=== PATIENT | female | born 1990 | race African-American/Black ===

== ENCOUNTER 2018-03-20 09:05 | Emergency (ER) | payer OTHER ==
[2018-03-20 09:39] LABS: URINE HCG POC HCG NEGATIVE (Negative)
[2018-03-20] MEDS ORDERED: NORMAL SALINE IV (09:45)
[2018-03-20 09:50] LABS: ADD MAN DIFF? NO
[2018-03-20 09:56] LABS: BASO % 1 % (0-3); EOS # 0.1 x10^3/uL (0.0-0.7); EOS % 1 % (0-3); HEMATOCRIT 34.5 % (36.0-47.0); HEMOGLOBIN 11.4 g/dL (12.0-15.5); LYMPH # 1.8 x10^3/uL (1.0-4.8); LYMPH % 31 % (24-48); MEAN CORPUSCULAR HEMOGLOBIN 26 pg (25-35); MEAN CORPUSCULAR HGB CONC 33 g/dL (31-37); MEAN CORPUSCULAR VOLUME 79 fL (79-100); MONO # 0.4 x10^3/uL (0.0-1.1); MONO % 8 % (0-9); NEUT # 3.4 x10^3uL (1.8-7.7); NEUT % 60 % (31-73); PLATELET COUNT 259 x10^3/uL (140-400); RED CELL DISTRIBUTION WIDTH 15.1 % (11.5-14.5); WHITE BLOOD COUNT 5.7 x10^3/uL (4.0-11.0)
[2018-03-20 09:57] LABS: BILIRUBIN,URINE NEGATIVE (NEG); CLARITY,URINE CLEAR; COLOR,URINE YELLOW; GLUCOSE,URINE NEGATIVE (NEG); NITRITE,URINE NEGATIVE (NEG); PH,URINE 6.5; PROTEIN,URINE NEGATIVE (NEG-TRACE); UROBILINOGEN,URINE 0.2 mg/dL (0.2 mg/dL)
[2018-03-20 10:06] LABS: SQUAMOUS EPITHELIAL CELL,UR FEW /LPF
[2018-03-20 10:07] LABS: BACTERIA,URINE FEW /HPF (0-FEW); RBC,URINE OCC /HPF (0-2)
[2018-03-20 10:14] LABS: ANION GAP 9 (6-14); BLOOD UREA NITROGEN 7 mg/dL (7-20); BUN/CREATININE RATIO 10 (6-20); CALCIUM 8.4 mg/dL (8.5-10.1); CARBON DIOXIDE 26 mmol/L (21-32); CHLORIDE 105 mmol/L (98-107); CREATININE 0.7 mg/dL (0.6-1.0); GFR 122.4; GLUCOSE 95 mg/dL (70-99); POTASSIUM 3.8 mmol/L (3.5-5.1); SODIUM 140 mmol/L (136-145)
[2018-03-20 10:29] LABS: ALBUMIN/GLOBULIN RATIO 0.7 (1.0-1.7); ALK PHOS 63 U/L (46-116); ALT (SGPT) 26 U/L (14-59); AST (SGOT) 16 U/L (15-37); LIPASE 58 U/L (73-393); TOTAL BILIRUBIN 0.4 mg/dL (0.2-1.0); TOTAL PROTEIN 7.5 g/dL (6.4-8.2)
[2018-03-20] MEDS: IV NORMAL SALINE 1000ML BAG 1,000 ML IV (10:29)
[2018-03-22 14:35] LABS: CHLAMYDIA PROBE Positive (Negative); GC PROBE Negative (Negative)
== END 2018-03-20 12:34 | disposition home or self-care (01) ==
LOC: ER 09:05
DX: N76.0 Acute vaginitis (principal); B96.89 Other specified bacterial agents as the cause of diseases classified elsewhere; R10.13 Epigastric pain; J45.909 Unspecified asthma, uncomplicated; F17.210 Nicotine dependence, cigarettes, uncomplicated
CPT/HCPCS: 36415; 76705; 80053; 81001; 81025; 83690; 85025; 87491; 87591; 96360; 99285-25; J7030; Q0111

== ENCOUNTER 2019-03-04 14:25 | Inpatient (IN) | payer SELFPAY ==
[~2019-03-04] VITALS: Ht 172.7 cm; Wt 125.8 kg
[~2019-03-04 14:25] MED LIST: DOCU-109 PO; LIDO113G2 TP; METR500T PO; OMEP20CA10 PO; TRAM50TA PO
[2019-03-04] MEDS ORDERED: IV NORMAL SALINE 1000ML BAG 1,000 ML IV SCH (15:41)
[2019-03-04] MEDS ORDERED: ONDANSETRON PF 4 MG/2 ML VIAL. IV ONE ×2 (15:45→18:00)
[2019-03-04 16:10] LABS: CREATININE 0.9 mg/dL (0.6-1.0); GFR 90.9; POTASSIUM 3.6 mmol/L (3.5-5.1)
[2019-03-04] MEDS: MORPHINE SULFATE 4 MG/ML VIAL. IV/SQ PRN ×4 (16:10→18:49)
[2019-03-04 16:11] LABS: BASO # 0.1 x10^3/uL (0.0-0.2); BASO % 0 % (0-3); EOS % 0 % (0-3); HEMATOCRIT 34.9 % (36.0-47.0); HEMOGLOBIN 11.3 g/dL (12.0-15.5); LYMPH # 0.7 x10^3/uL (1.0-4.8); LYMPH % 5 % (24-48); MEAN CORPUSCULAR HEMOGLOBIN 25 pg (25-35); MEAN CORPUSCULAR HGB CONC 32 g/dL (31-37); MEAN CORPUSCULAR VOLUME 79 fL (79-100); MONO # 0.5 x10^3/uL (0.0-1.1); MONO % 4 % (0-9); NEUT # 12.2 x10^3uL (1.8-7.7); NEUT % 91 % (31-73); PLATELET COUNT 291 x10^3/uL (140-400); RED BLOOD COUNT 4.45 x10^6/uL (3.50-5.40); RED CELL DISTRIBUTION WIDTH 14.5 % (11.5-14.5); WHITE BLOOD COUNT 13.5 x10^3/uL (4.0-11.0)
[2019-03-04] MEDS ORDERED: IOHEXOL 300 MG/ML 100ML VIAL. IV ONE (16:15)
[2019-03-04 16:16] LABS: ALBUMIN 3.5 g/dL (3.4-5.0); ALBUMIN/GLOBULIN RATIO 0.7 (1.0-1.7); TOTAL BILIRUBIN 0.6 mg/dL (0.2-1.0); TOTAL PROTEIN 8.6 g/dL (6.4-8.2)
[2019-03-04 16:18] LABS: BILIRUBIN,URINE NEGATIVE (NEG); CLARITY,URINE CLEAR; COLOR,URINE YELLOW; NITRITE,URINE NEGATIVE (NEG); PH,URINE 6.5; PROTEIN,URINE NEGATIVE (NEG-TRACE)
[2019-03-04] MEDS ORDERED: CONTRAST GIVEN. MC PRN (16:30)
[2019-03-04 16:47] LABS: BACTERIA,URINE FEW /HPF (0-FEW); SQUAMOUS EPITHELIAL CELL,UR OCC /LPF; WBC,URINE TNTC /HPF (0-4)
--- NOTE | 2019-03-04 17:26 | RAD ---
CT ABD PELV W/ IV CONTRST ONLY Indication: abdomen pain
iv Omni 300 75 mls Exposure: One or more of the following individualized dose reduction techniques were utilized for this examination: 1. Automated exposure control 2. Adjustment of the mA and/or kV according to patient size 3. Use of iterative reconstruction technique. Technique: Intravenous contrast was given. No oral contrast per request. Small subpleural noncalcified nodule in the right lung base measures 3 mm. Liver and spleen appear unremarkable. No evidence of adrenal mass. Kidneys unremarkable. No calcified gallstone. The aorta is nonaneurysmal. No significant lymph node enlargement is identified. No evidence of acute colitis. A structure which may represents a normal appendix is identified. There is no significant small bowel distention. Trace free pelvic fluid. No evidence of pelvic mass. No evidence of pneumoperitoneum. Vertebral body height and alignment are intact. No destructive bone lesion. IMPRESSION: 1. No acute findings in the abdomen or pelvis. 2. Small 3 mm noncalcified right pulmonary nodule. As per Fleischner Society guidelines, no follow-up necessary if low risk. If high risk, follow-up CT chest in 12 months could be considered. Electronically signed by: Ashu Granger MD (03/04/2019 5:23 PM) [id number]
--- NOTE | 2019-03-04 17:30 | PHYS DOC ---
Past Medical History Past Medical History: No Pertinent History, Asthma Additional Past Medical Histor: miscarriage Past Surgical History: Other Additional Past Surgical Histo: d&c Alcohol Use: None Drug Use: None Adult General Chief Complaint Chief Complaint: ABDOMINAL PAIN HPI HPI Patient is a 29 year old presents for evaluation of diffuse lower abdominal pain since 3:00 this morning. She reports suprapubic pressure. Denies dysuria or frequency. She reports nausea and vomiting. Denies any back pain. Denies . Review of Systems Review of Systems Constitutional: Denies fever or chills [] Eyes: Denies change in visual acuity, redness, or eye pain [] HENT: Denies nasal congestion or sore throat [] Respiratory: Denies cough or shortness of breath [] Cardiovascular: No additional information not addressed in HPI [] GI:REPorts Lower abdominal pain, nausea, vomiting [] : Denies dysuria or hematuria [] Musculoskeletal: Denies back pain or joint pain [] Integument: Denies rash or skin lesions [] Neurologic: Denies headache, focal weakness or sensory changes [] Endocrine: Denies polyuria or polydipsia [] All other systems were reviewed and found to be within normal limits, except as documented in this note. Current Medications Current Medications Current Medications Medications (Trade) Dose Ordered Sig/Kev Start Time Stop Time Status Last Admin Dose Admin Ceftriaxone Sodium (Rocephin) 1 gm 1X ONCE 03/04/19 17:45 03/04/19 17:46 DC 03/04/19 17:42 1 GM Info (CONTRAST GIVEN -- Rx MONITORING) 1 each PRN DAILY PRN 03/04/19 16:30 03/06/19 16:29 Iohexol (Omnipaque 300 Mg/ml) 75 ml 1X ONCE 03/04/19 16:15 03/04/19 16:19 DC 03/04/19 16:35 75 ML Morphine Sulfate (Morphine Sulfate) 4 mg PRN Q15MIN PRN 03/04/19 15:45 03/05/19 15:44 03/04/19 18:49 4 MG Ondansetron HCl (Zofran) 4 mg 1X ONCE 03/04/19 15:45 03/04/19 15:46 DC 03/04/19 16:10 4 MG Sodium Chloride 1,000 ml @ 1,000 mls/hr Q1H 03/04/19 15:41 03/04/19 16:40 DC 03/04/19 16:14 1,000 MLS/HR Allergies Allergies Allergies Coded Allergies Type Severity Reaction Last Updated Verified No Known Drug Allergies 09/25/14 No Physical Exam Physical Exam Constitutional: Well developed, well nourished, TEARFUL, APPEARS IN PAIN [] Neck: Normal range of motion, no tenderness, supple, no stridor. [] Cardiovascular:Heart rate regular rhythm, no murmur [] Lungs & Thorax: Bilateral breath sounds clear to auscultation [] Abdomen: Bowel sounds normal, TTP SUPRAPUBIC AND RLQ, no masses, no pulsatile masses. [] Skin: Warm, dry, no erythema, no rash. [] Back: No tenderness, no CVA tenderness. [] Extremities: No tenderness, no cyanosis, no clubbing, ROM intact, no edema. [] Neurologic: Alert and oriented X 3, normal motor function, normal sensory function, no focal deficits noted. [] Psychologic: Affect normal, judgement normal, mood normal. [] Current Patient Data Vital Signs Vital Signs Date Time Temp Pulse Resp B/P (MAP) Pulse Ox O2 Delivery O2 Flow Rate FiO2 03/04/19 17:15 128 22 144/81 (102) 99 Room Air 03/04/19 16:19 100.2 100.2 Lab Values Laboratory Tests Test 03/04/19 15:55 03/04/19 15:56 White Blood Count 13.5 x10^3/uL (4.0-11.0) H Red Blood Count 4.45 x10^6/uL (3.50-5.40) Hemoglobin 11.3 g/dL (12.0-15.5) L Hematocrit 34.9 % (36.0-47.0) L Mean Corpuscular Volume 79 fL (79-100) Mean Corpuscular Hemoglobin 25 pg (25-35) Mean Corpuscular Hemoglobin Concent 32 g/dL (31-37) Red Cell Distribution Width 14.5 % (11.5-14.5) Platelet Count 291 x10^3/uL (140-400) Neutrophils (%) (Auto) 91 % (31-73) H Lymphocytes (%) (Auto) 5 % (24-48) L Monocytes (%) (Auto) 4 % (0-9) Eosinophils (%) (Auto) 0 % (0-3) Basophils (%) (Auto) 0 % (0-3) Neutrophils # (Auto) 12.2 x10^3uL (1.8-7.7) H Lymphocytes # (Auto) 0.7 x10^3/uL (1.0-4.8) L Monocytes # (Auto) 0.5 x10^3/uL (0.0-1.1) Eosinophils # (Auto) 0.0 x10^3/uL (0.0-0.7) Basophils # (Auto) 0.1 x10^3/uL (0.0-0.2) Platelet Estimate Pending Urine Color Yellow Urine Clarity Clear Urine pH 6.5 Urine Specific [place] 1.020 Urine Protein Negative mg/dL (NEG-TRACE) Urine Glucose (UA) Negative mg/dL (NEG) Urine Ketones (Stick) Negative mg/dL (NEG) Urine Blood Large (NEG) Urine Nitrite Negative (NEG) Urine Bilirubin Negative (NEG) Urine Urobilinogen Dipstick 1.0 mg/dL (0.2 mg/dL) Urine Leukocyte Esterase Large (NEG) Urine RBC 1-2 /HPF (0-2) Urine WBC Tntc /HPF (0-4) Urine Squamous Epithelial Cells Occ /LPF Urine Bacteria Few /HPF (0-FEW) Urine Mucus Mod /LPF Sodium Level 136 mmol/L (136-145) Potassium Level 3.6 mmol/L (3.5-5.1) Chloride Level 99 mmol/L (98-107) Carbon Dioxide Level 26 mmol/L (21-32) Anion Gap 11 (6-14) Blood Urea Nitrogen 8 mg/dL (7-20) Creatinine 0.9 mg/dL (0.6-1.0) Estimated GFR (Cockcroft-Gault) 90.9 BUN/Creatinine Ratio 9 (6-20) Glucose Level 103 mg/dL (70-99) H Calcium Level 9.0 mg/dL (8.5-10.1) Total Bilirubin 0.6 mg/dL (0.2-1.0) Aspartate Amino Transferase (AST) 19 U/L (15-37) Alanine Aminotransferase (ALT) 22 U/L (14-59) Alkaline Phosphatase 80 U/L (46-116) Total Protein 8.6 g/dL (6.4-8.2) H Albumin 3.5 g/dL (3.4-5.0) Albumin/Globulin Ratio 0.7 (1.0-1.7) L Lipase 48 U/L (73-393) L POC Urine HCG, Qualitative Hcg negative (Negative) Laboratory Tests 03/04/19 15:55 Laboratory Tests 03/04/19 15:55 EKG EKG [] Radiology/Procedures Radiology/Procedures [PROCEDURE: CT ABD PELV W/ IV CONTRST ONLY CT ABD PELV W/ IV CONTRST ONLY Indication: abdomen pain
iv Omni 300 75 mls Exposure: One or more of the following individualized dose reduction techniques were utilized for this examination: 1. Automated exposure control 2. Adjustment of the mA and/or kV according to patient size 3. Use of iterative reconstruction technique. Technique: Intravenous contrast was given. No oral contrast per request. Small subpleural noncalcified nodule in the right lung base measures 3 mm. Liver and spleen appear unremarkable. No evidence of adrenal mass. Kidneys unremarkable. No calcified gallstone. The aorta is nonaneurysmal. No significant lymph node enlargement is identified. No evidence of acute colitis. A structure which may represents a normal appendix is identified. There is no significant small bowel distention. Trace free pelvic fluid. No evidence of pelvic mass. No evidence of pneumoperitoneum. Vertebral body height and alignment are intact. No destructive bone lesion. IMPRESSION: 1. No acute findings in the abdomen or pelvis. 2. Small 3 mm noncalcified right pulmonary nodule. As per Fleischner Society guidelines, no follow-up necessary if low risk. If high risk, follow-up CT chest in 12 months could be considered. Electronically signed by: Ashu Granger MD (03/04/2019 5:23 PM) [id number] ] Course & Med Decision Making Course & Med Decision Making Pertinent Labs and Imaging studies reviewed. (See chart for details) [Patient is still requiring pain medications, states that she is still having a lot of suprapubic pain, her white count is elevated at 13.5, UA + infection, she was given IV Rocephin for pyelonephritis, discussed admission and patient agrees. [id number] Mauricio who accepts admission] Daniel Disclaimer Daniel Disclaimer This electronic medical record was generated, in whole or in part, using a voice recognition dictation system. Departure Departure Impression: Primary Impression: Pyelonephritis Disposition: ADMITTED INPATIENT Admitting Physician: Erin Mauricio Referrals: NO PCP (PCP) KATHARINA ALEXANDER APRN Mar 04, 2019 17:30
[2019-03-04] MEDS ORDERED: cefTRIAXone IV Push 1 GM VIAL. IVP ONE ×2 (17:45→20:30)
[2019-03-04] MEDS ORDERED: KETOROLAC 60 MG/2 ML VIAL. ONE (17:57)
[2019-03-04] MEDS ORDERED: KETOROLAC 30 MG/ML VIAL. ONE (17:58)
[2019-03-04] MEDS ORDERED: IV NORMAL SALINE 1000ML BAG 1,000 ML IV ONE ×2 (18:00)
[2019-03-04] MEDS ORDERED: ACETAMINOPHEN 650 MG SUPP.RECT. PR ONE (18:00)
[2019-03-04] MEDS ORDERED: KETOROLAC 15 MG/ML VIAL. IV ONE (18:00)
[2019-03-04] MEDS ORDERED: ONDANSETRON ODT 4 MG TAB.RAPDIS. PO PRN (18:30)
[2019-03-04] MEDS ORDERED: diphenhydrAMINE HCL 25 MG CAPSULE PO PRN (18:30)
--- NOTE | 2019-03-04 18:35 | PDOC1 ---
History and Physical Date of Admission Date of Admission DATE: 03/04/19 TIME: 18:30 Identification/Chief Complaint Chief Complaint abd pain 10 out of 10 all over Source Source: Caregiver, Chart review, Patient History of Present Illness History of Present Illness 29 yo female, BMI 43, abdominal pain today all over - lower area, maybe dysuria. No gross hematuria or urgency. History of UTI in the past. Some nausea, emesis today, bucket at bedside. no fever. Found to have UTI. urine culture drawn. Started on empiric antibiotics. Meet sepsis criteria with tachycardia 130s, leukocytosis 13.5 with fever. Does not take any home meds Past surgical history D&C No known drug allergies FAm HX non contributory Hx UTI in CT abd neg - but incidental Rt lung calcification in a non smoker - ok to observe, rpt CT in 12mos Past Medical History Cardiovascular: No pertinent hx Pulmonary: No pertinent hx GI: No pertinent hx Heme/Onc: No pertinent hx Hepatobiliary: No pertinent hx Psych: No pertinent hx Rheumatologic: No pertinent hx Infectious disease: No pertinent hx Past Surgical History Past Surgical History: Other (D and C) Family History Family History: No Significant Social History Smoke: No ALCOHOL: none Drugs: None Current Problem List Problem List Problems Medical Problems: (1) Pyelonephritis Status: Acute Current Medications Current Medications Current Medications Morphine Sulfate (Morphine Sulfate) 4 mg PRN Q15MIN PRN IV/SQ PAIN GREATER THAN 3/10 Last administered on 03/04/19at 18:14; Start 03/04/19 at 15:45; Stop 03/05/19 at 15:44 Sodium Chloride 1,000 ml @ 1,000 mls/hr Q1H IV Last administered on 03/04/19at 16:14; Start 03/04/19 at 15:41; Stop 03/04/19 at 16:40; Status DC Ondansetron HCl (Zofran) 4 mg 1X ONCE IV Last administered on 03/04/19at 16:10; Start 03/04/19 at 15:45; Stop 03/04/19 at 15:46; Status DC Iohexol (Omnipaque 300 Mg/ml) 75 ml 1X ONCE IV Last administered on 03/04/19at 16:35; Start 03/04/19 at 16:15; Stop 03/04/19 at 16:19; Status DC Info (CONTRAST GIVEN -- Rx MONITORING) 1 each PRN DAILY PRN MC SEE COMMENTS; Start 03/04/19 at 16:30; Stop 03/06/19 at 16:29 Ceftriaxone Sodium (Rocephin) 1 gm 1X ONCE IVP Last administered on 03/04/19at 17:42; Start 03/04/19 at 17:45; Stop 03/04/19 at 17:46; Status DC Sodium Chloride 1,000 ml @ 1,000 mls/hr 1X ONCE IV Last administered on 03/04/19at 18:14; Start 03/04/19 at 18:00; Stop 03/04/19 at 18:59 Ondansetron HCl (Zofran) 4 mg 1X ONCE IV Last administered on 03/04/19at 18:09; Start 03/04/19 at 18:00; Stop 03/04/19 at 18:01; Status DC Ketorolac Tromethamine (Toradol 15mg Vial) 15 mg 1X ONCE IV Last administered on 03/04/19at 18:00; Start 03/04/19 at 18:00; Stop 03/04/19 at 18:01; Status DC Sodium Chloride 1,000 ml @ 1,000 mls/hr 1X ONCE IV Last administered on 03/04/19at 18:13; Start 03/04/19 at 18:00; Stop 03/04/19 at 18:59 Ketorolac Tromethamine (Toradol Im) 60 mg STK-MED ONCE .ROUTE ; Start 03/04/19 at 17:57; Stop 03/04/19 at 17:58; Status DC Ketorolac Tromethamine (Toradol 30mg Vial) 30 mg STK-MED ONCE .ROUTE ; Start 03/04/19 at 17:58; Stop 03/04/19 at 17:59; Status DC Acetaminophen (Tylenol Supp) [address] Last administered on 03/04/19at 18:00; Start 03/04/19 at 18:00; Stop 03/04/19 at 18:01; Status DC Active Scripts Active Omeprazole 20 Mg Capsule.dr 20 Mg PO DAILY 30 Days Flagyl (Metronidazole) 500 Mg Tablet 1 Tab PO BID Tramadol Hcl 50 Mg Tablet 50 Mg PO Q6H PRN Topicaine (Lidocaine) 113 Gm Gel..gram. 113 Gm TP TID PRN Colace (Docusate Sodium) 100 Mg Capsule 100 Mg PO BID Reported No Known Medications Prior To Admisstion (Info) Each 1 Each MC Allergies Allergies: Coded Allergies: No Known Drug Allergies (Unverified , 09/25/14) ROS Review of System As per history of present illness, the rest of ROS 14 point negative Physical Exam General: Alert, Oriented X3, Cooperative, No acute distress HEENT: Atraumatic, PERRLA, EOMI Lungs: Clear to auscultation, Normal air movement Heart: S1S2, RRR, no thrills, no rubs, no gallops, no murmurs Cardiovascular: S1, S2 Breasts: Normal, Rt breast nml w/o mass, Lt breast nml w/o mass, Nipples normal Abdomen: Soft, Other (lower abdominal discomfort on palpation or at least on touching-large symptomatic magnification element) Rectal Exam: not examined PELVIC: Nml ext genitalia Extremities: No clubbing, No cyanosis, No edema, Normal pulses, No tenderness/swelling Skin: No rashes, No breakdown, No significant lesion Neuro: Normal gait, Normal speech, Strength at 5/5 X4 ext, Normal tone, Sensation intact, Cranial nerves 3-12 NL, Reflexes 2+ Psych/Mental Status: Mental status NL, Mood NL Vitals Vitals Vital Signs Date Time Temp Pulse Resp B/P (MAP) Pulse Ox O2 Delivery O2 Flow Rate FiO2 03/04/19 16:19 100.2 119 16 164/83 (110) 98 Room Air 100.2 Labs Labs Laboratory Tests Test 03/04/19 15:55 03/04/19 15:56 White Blood Count 13.5 x10^3/uL (4.0-11.0) Red Blood Count 4.45 x10^6/uL (3.50-5.40) Hemoglobin 11.3 g/dL (12.0-15.5) Hematocrit 34.9 % (36.0-47.0) Mean Corpuscular Volume 79 fL (79-100) Mean Corpuscular Hemoglobin 25 pg (25-35) Mean Corpuscular Hemoglobin Concent 32 g/dL (31-37) Red Cell Distribution Width 14.5 % (11.5-14.5) Platelet Count 291 x10^3/uL (140-400) Neutrophils (%) (Auto) 91 % (31-73) Lymphocytes (%) (Auto) 5 % (24-48) Monocytes (%) (Auto) 4 % (0-9) Eosinophils (%) (Auto) 0 % (0-3) Basophils (%) (Auto) 0 % (0-3) Neutrophils # (Auto) 12.2 x10^3uL (1.8-7.7) Lymphocytes # (Auto) 0.7 x10^3/uL (1.0-4.8) Monocytes # (Auto) 0.5 x10^3/uL (0.0-1.1) Eosinophils # (Auto) 0.0 x10^3/uL (0.0-0.7) Basophils # (Auto) 0.1 x10^3/uL (0.0-0.2) Urine Color Yellow Urine Clarity Clear Urine pH 6.5 Urine Specific [place] 1.020 Urine Protein Negative mg/dL (NEG-TRACE) Urine Glucose (UA) Negative mg/dL (NEG) Urine Ketones (Stick) Negative mg/dL (NEG) Urine Blood Large (NEG) Urine Nitrite Negative (NEG) Urine Bilirubin Negative (NEG) Urine Urobilinogen Dipstick 1.0 mg/dL (0.2 mg/dL) Urine Leukocyte Esterase Large (NEG) Urine RBC 1-2 /HPF (0-2) Urine WBC Tntc /HPF (0-4) Urine Squamous Epithelial Cells Occ /LPF Urine Bacteria Few /HPF (0-FEW) Urine Mucus Mod /LPF Sodium Level 136 mmol/L (136-145) Potassium Level 3.6 mmol/L (3.5-5.1) Chloride Level 99 mmol/L (98-107) Carbon Dioxide Level 26 mmol/L (21-32) Anion Gap 11 (6-14) Blood Urea Nitrogen 8 mg/dL (7-20) Creatinine 0.9 mg/dL (0.6-1.0) Estimated GFR (Cockcroft-Gault) 90.9 BUN/Creatinine Ratio 9 (6-20) Glucose Level 103 mg/dL (70-99) Calcium Level 9.0 mg/dL (8.5-10.1) Total Bilirubin 0.6 mg/dL (0.2-1.0) Aspartate Amino Transf (AST/SGOT) 19 U/L (15-37) Alanine Aminotransferase (ALT/SGPT) 22 U/L (14-59) Alkaline Phosphatase 80 U/L (46-116) Total Protein 8.6 g/dL (6.4-8.2) Albumin 3.5 g/dL (3.4-5.0) Albumin/Globulin Ratio 0.7 (1.0-1.7) Lipase 48 U/L (73-393) Bedside Urine HCG, Qualitative Hcg negative (Negative) Laboratory Tests Test 03/04/19 15:55 03/04/19 15:56 White Blood Count 13.5 x10^3/uL (4.0-11.0) Red Blood Count 4.45 x10^6/uL (3.50-5.40) Hemoglobin 11.3 g/dL (12.0-15.5) Hematocrit 34.9 % (36.0-47.0) Mean Corpuscular Volume 79 fL (79-100) Mean Corpuscular Hemoglobin 25 pg (25-35) Mean Corpuscular Hemoglobin Concent 32 g/dL (31-37) Red Cell Distribution Width 14.5 % (11.5-14.5) Platelet Count 291 x10^3/uL (140-400) Neutrophils (%) (Auto) 91 % (31-73) Lymphocytes (%) (Auto) 5 % (24-48) Monocytes (%) (Auto) 4 % (0-9) Eosinophils (%) (Auto) 0 % (0-3) Basophils (%) (Auto) 0 % (0-3) Neutrophils # (Auto) 12.2 x10^3uL (1.8-7.7) Lymphocytes # (Auto) 0.7 x10^3/uL (1.0-4.8) Monocytes # (Auto) 0.5 x10^3/uL (0.0-1.1) Eosinophils # (Auto) 0.0 x10^3/uL (0.0-0.7) Basophils # (Auto) 0.1 x10^3/uL (0.0-0.2) Urine Color Yellow Urine Clarity Clear Urine pH 6.5 Urine Specific [place] 1.020 Urine Protein Negative mg/dL (NEG-TRACE) Urine Glucose (UA) Negative mg/dL (NEG) Urine Ketones (Stick) Negative mg/dL (NEG) Urine Blood Large (NEG) Urine Nitrite Negative (NEG) Urine Bilirubin Negative (NEG) Urine Urobilinogen Dipstick 1.0 mg/dL (0.2 mg/dL) Urine Leukocyte Esterase Large (NEG) Urine RBC 1-2 /HPF (0-2) Urine WBC Tntc /HPF (0-4) Urine Squamous Epithelial Cells Occ /LPF Urine Bacteria Few /HPF (0-FEW) Urine Mucus Mod /LPF Sodium Level 136 mmol/L (136-145) Potassium Level 3.6 mmol/L (3.5-5.1) Chloride Level 99 mmol/L (98-107) Carbon Dioxide Level 26 mmol/L (21-32) Anion Gap 11 (6-14) Blood Urea Nitrogen 8 mg/dL (7-20) Creatinine 0.9 mg/dL (0.6-1.0) Estimated GFR (Cockcroft-Gault) 90.9 BUN/Creatinine Ratio 9 (6-20) Glucose Level 103 mg/dL (70-99) Calcium Level 9.0 mg/dL (8.5-10.1) Total Bilirubin 0.6 mg/dL (0.2-1.0) Aspartate Amino Transf (AST/SGOT) 19 U/L (15-37) Alanine Aminotransferase (ALT/SGPT) 22 U/L (14-59) Alkaline Phosphatase 80 U/L (46-116) Total Protein 8.6 g/dL (6.4-8.2) Albumin 3.5 g/dL (3.4-5.0) Albumin/Globulin Ratio 0.7 (1.0-1.7) Lipase 48 U/L (73-393) Bedside Urine HCG, Qualitative Hcg negative (Negative) VTE Prophylaxis Ordered VTE Prophylaxis Devices: Yes VTE Pharmacological Prophylaxi: Yes Assessment/Plan Assessment/Plan UTI/pyelonephritis Lower abdominal pain Obesity BMI 43 Sepsis with no organ dysfcn Plan: IVF, liquid diet then ADA T Rocephin 2 g because of weight Urine culture Pain control 2 midnights admit TYlenol for fever NO home meds to reconcile ASHELY VASQUEZ MD Mar 04, 2019 18:35
[2019-03-04] MEDS: cefTRIAXone IV Push 2 GM VIAL. IVP SCH (19:00)
[2019-03-04] MEDS: MORPHINE SULFATE 2 MG/ML VIAL. IV PRN ×2 (19:01→21:17)
[2019-03-04] MEDS ORDERED: HYDROmorphone 2 MG/ML VIAL IV ONE (19:15)
[2019-03-04 19:38] VITALS: BP 147/104
[2019-03-04 19:41] LABS: % BANDS 3 % (0-9); % LYMPHS 1 % (24-48); % MONOS 1 % (0-10); % SEGS 95 % (35-66)
[2019-03-04 19:42] LABS: PLT ESTIMATE ADEQUATE (ADEQUATE)
[2019-03-04] MEDS: HYDROcodone/APAP 5/325MG 1 TAB TABLET PO PRN (21:33)
[2019-03-04 23:00] VITALS: BP 133/88
[2019-03-05] MEDS: ACETAMINOPHEN/CODEINE 300/30MG TABLET. PO PRN ×2 (00:23→20:40)
[2019-03-05 03:00] VITALS: BP 119/77
[2019-03-05 07:00] VITALS: BP 124/77
[2019-03-05] MEDS: HYDROcodone/APAP 5/325MG 1 TAB TABLET PO PRN ×3 (07:46→17:03)
[2019-03-05] MEDS: MORPHINE SULFATE 2 MG/ML VIAL. IV PRN ×3 (07:46→17:03)
[2019-03-05 11:00] VITALS: BP 126/82
--- NOTE | 2019-03-05 11:21 | PDOC ---
PROGRESS NOTES Chief Complaint Chief Complaint Abdominal pain, dysuria History of Present Illness History of Present Illness Patient resting comfortably in bed. She states she has not had much of an appetite this morning. She complains of pain and notes that the pain medication has made her sleepy. Vitals Vitals Vital Signs Date Time Temp Pulse Resp B/P (MAP) Pulse Ox O2 Delivery O2 Flow Rate FiO2 03/05/19 08:34 20 97 Room Air 03/05/19 07:00 97.9 109 124/77 (93) 97.9 Physical Exam General: Alert, Oriented X3, Cooperative, No acute distress Heart: Normal S1, Normal S2, No murmurs, Other (tachycardic) Lungs: Clear, Other (good inspiratory effort, symmetric chest expansion) Abdomen: Soft, Other (lower abdominal tenderness) Extremities: No clubbing, No cyanosis, No edema, Normal pulses, No tenderness/swelling Skin: No rashes, No breakdown, No significant lesion Labs LABS Laboratory Tests Test 03/04/19 15:55 03/04/19 15:56 03/04/19 18:05 03/04/19 22:50 White Blood Count 13.5 x10^3/uL (4.0-11.0) Red Blood Count 4.45 x10^6/uL (3.50-5.40) Hemoglobin 11.3 g/dL (12.0-15.5) Hematocrit 34.9 % (36.0-47.0) Mean Corpuscular Volume 79 fL (79-100) Mean Corpuscular Hemoglobin 25 pg (25-35) Mean Corpuscular Hemoglobin Concent 32 g/dL (31-37) Red Cell Distribution Width 14.5 % (11.5-14.5) Platelet Count 291 x10^3/uL (140-400) Neutrophils (%) (Auto) 91 % (31-73) Lymphocytes (%) (Auto) 5 % (24-48) Monocytes (%) (Auto) 4 % (0-9) Eosinophils (%) (Auto) 0 % (0-3) Basophils (%) (Auto) 0 % (0-3) Neutrophils # (Auto) 12.2 x10^3uL (1.8-7.7) Lymphocytes # (Auto) 0.7 x10^3/uL (1.0-4.8) Monocytes # (Auto) 0.5 x10^3/uL (0.0-1.1) Eosinophils # (Auto) 0.0 x10^3/uL (0.0-0.7) Basophils # (Auto) 0.1 x10^3/uL (0.0-0.2) Segmented Neutrophils % 95 % (35-66) Band Neutrophils % 3 % (0-9) Lymphocytes % 1 % (24-48) Monocytes % 1 % (0-10) Platelet Estimate Adequate (ADEQUATE) Urine Color Yellow Urine Clarity Clear Urine pH 6.5 Urine Specific [place] 1.020 Urine Protein Negative mg/dL (NEG-TRACE) Urine Glucose (UA) Negative mg/dL (NEG) Urine Ketones (Stick) Negative mg/dL (NEG) Urine Blood Large (NEG) Urine Nitrite Negative (NEG) Urine Bilirubin Negative (NEG) Urine Urobilinogen Dipstick 1.0 mg/dL (0.2 mg/dL) Urine Leukocyte Esterase Large (NEG) Urine RBC 1-2 /HPF (0-2) Urine WBC Tntc /HPF (0-4) Urine Squamous Epithelial Cells Occ /LPF Urine Bacteria Few /HPF (0-FEW) Urine Mucus Mod /LPF Sodium Level 136 mmol/L (136-145) Potassium Level 3.6 mmol/L (3.5-5.1) Chloride Level 99 mmol/L (98-107) Carbon Dioxide Level 26 mmol/L (21-32) Anion Gap 11 (6-14) Blood Urea Nitrogen 8 mg/dL (7-20) Creatinine 0.9 mg/dL (0.6-1.0) Estimated GFR (Cockcroft-Gault) 90.9 BUN/Creatinine Ratio 9 (6-20) Glucose Level 103 mg/dL (70-99) Calcium Level 9.0 mg/dL (8.5-10.1) Total Bilirubin 0.6 mg/dL (0.2-1.0) Aspartate Amino Transf (AST/SGOT) 19 U/L (15-37) Alanine Aminotransferase (ALT/SGPT) 22 U/L (14-59) Alkaline Phosphatase 80 U/L (46-116) Total Protein 8.6 g/dL (6.4-8.2) Albumin 3.5 g/dL (3.4-5.0) Albumin/Globulin Ratio 0.7 (1.0-1.7) Lipase 48 U/L (73-393) Bedside Urine HCG, Qualitative Hcg negative (Negative) Lactic Acid Level 2.3 mmol/L (0.4-2.0) 1.3 mmol/L (0.4-2.0) Review of Systems Review of Systems Complains of pain, tiredness, decreased appetite Assessment and Plan Assessmemt and Plan Problems Medical Problems: (1) Pyelonephritis Status: Acute Assessment: UTI/Pyelonephritis Sepsis without organ dysfunction Tachycardia Leukocytosis Fevers Lactic acidosis Plan: IV Fluids - 75 cc/hr Liquid diet, advance as tolerated Rocephin 2 g q24 hrs Recheck labs in am Urine culture pending CT Abdomen negative for acute process, incidental finding of calcified pulmonary nodule in non-smoker, will need repeat CT in 12 months Pain management Monitor temperature cure Tylenol for fevers No home medications to resume Comment Review of Relevant I have reviewed the following items beth (where applicable) has been applied. Labs Laboratory Tests Test 03/04/19 15:55 03/04/19 15:56 03/04/19 18:05 03/04/19 22:50 White Blood Count 13.5 x10^3/uL (4.0-11.0) Red Blood Count 4.45 x10^6/uL (3.50-5.40) Hemoglobin 11.3 g/dL (12.0-15.5) Hematocrit 34.9 % (36.0-47.0) Mean Corpuscular Volume 79 fL (79-100) Mean Corpuscular Hemoglobin 25 pg (25-35) Mean Corpuscular Hemoglobin Concent 32 g/dL (31-37) Red Cell Distribution Width 14.5 % (11.5-14.5) Platelet Count 291 x10^3/uL (140-400) Neutrophils (%) (Auto) 91 % (31-73) Lymphocytes (%) (Auto) 5 % (24-48) Monocytes (%) (Auto) 4 % (0-9) Eosinophils (%) (Auto) 0 % (0-3) Basophils (%) (Auto) 0 % (0-3) Neutrophils # (Auto) 12.2 x10^3uL (1.8-7.7) Lymphocytes # (Auto) 0.7 x10^3/uL (1.0-4.8) Monocytes # (Auto) 0.5 x10^3/uL (0.0-1.1) Eosinophils # (Auto) 0.0 x10^3/uL (0.0-0.7) Basophils # (Auto) 0.1 x10^3/uL (0.0-0.2) Segmented Neutrophils % 95 % (35-66) Band Neutrophils % 3 % (0-9) Lymphocytes % 1 % (24-48) Monocytes % 1 % (0-10) Platelet Estimate Adequate (ADEQUATE) Urine Color Yellow Urine Clarity Clear Urine pH 6.5 Urine Specific [place] 1.020 Urine Protein Negative mg/dL (NEG-TRACE) Urine Glucose (UA) Negative mg/dL (NEG) Urine Ketones (Stick) Negative mg/dL (NEG) Urine Blood Large (NEG) Urine Nitrite Negative (NEG) Urine Bilirubin Negative (NEG) Urine Urobilinogen Dipstick 1.0 mg/dL (0.2 mg/dL) Urine Leukocyte Esterase Large (NEG) Urine RBC 1-2 /HPF (0-2) Urine WBC Tntc /HPF (0-4) Urine Squamous Epithelial Cells Occ /LPF Urine Bacteria Few /HPF (0-FEW) Urine Mucus Mod /LPF Sodium Level 136 mmol/L (136-145) Potassium Level 3.6 mmol/L (3.5-5.1) Chloride Level 99 mmol/L (98-107) Carbon Dioxide Level 26 mmol/L (21-32) Anion Gap 11 (6-14) Blood Urea Nitrogen 8 mg/dL (7-20) Creatinine 0.9 mg/dL (0.6-1.0) Estimated GFR (Cockcroft-Gault) 90.9 BUN/Creatinine Ratio 9 (6-20) Glucose Level 103 mg/dL (70-99) Calcium Level 9.0 mg/dL (8.5-10.1) Total Bilirubin 0.6 mg/dL (0.2-1.0) Aspartate Amino Transf (AST/SGOT) 19 U/L (15-37) Alanine Aminotransferase (ALT/SGPT) 22 U/L (14-59) Alkaline Phosphatase 80 U/L (46-116) Total Protein 8.6 g/dL (6.4-8.2) Albumin 3.5 g/dL (3.4-5.0) Albumin/Globulin Ratio 0.7 (1.0-1.7) Lipase 48 U/L (73-393) Bedside Urine HCG, Qualitative Hcg negative (Negative) Lactic Acid Level 2.3 mmol/L (0.4-2.0) 1.3 mmol/L (0.4-2.0) Laboratory Tests Test 03/04/19 15:55 03/04/19 15:56 03/04/19 18:05 03/04/19 22:50 White Blood Count 13.5 x10^3/uL (4.0-11.0) Red Blood Count 4.45 x10^6/uL (3.50-5.40) Hemoglobin 11.3 g/dL (12.0-15.5) Hematocrit 34.9 % (36.0-47.0) Mean Corpuscular Volume 79 fL (79-100) Mean Corpuscular Hemoglobin 25 pg (25-35) Mean Corpuscular Hemoglobin Concent 32 g/dL (31-37) Red Cell Distribution Width 14.5 % (11.5-14.5) Platelet Count 291 x10^3/uL (140-400) Neutrophils (%) (Auto) 91 % (31-73) Lymphocytes (%) (Auto) 5 % (24-48) Monocytes (%) (Auto) 4 % (0-9) Eosinophils (%) (Auto) 0 % (0-3) Basophils (%) (Auto) 0 % (0-3) Neutrophils # (Auto) 12.2 x10^3uL (1.8-7.7) Lymphocytes # (Auto) 0.7 x10^3/uL (1.0-4.8) Monocytes # (Auto) 0.5 x10^3/uL (0.0-1.1) Eosinophils # (Auto) 0.0 x10^3/uL (0.0-0.7) Basophils # (Auto) 0.1 x10^3/uL (0.0-0.2) Segmented Neutrophils % 95 % (35-66) Band Neutrophils % 3 % (0-9) Lymphocytes % 1 % (24-48) Monocytes % 1 % (0-10) Platelet Estimate Adequate (ADEQUATE) Urine Color Yellow Urine Clarity Clear Urine pH 6.5 Urine Specific [place] 1.020 Urine Protein Negative mg/dL (NEG-TRACE) Urine Glucose (UA) Negative mg/dL (NEG) Urine Ketones (Stick) Negative mg/dL (NEG) Urine Blood Large (NEG) Urine Nitrite Negative (NEG) Urine Bilirubin Negative (NEG) Urine Urobilinogen Dipstick 1.0 mg/dL (0.2 mg/dL) Urine Leukocyte Esterase Large (NEG) Urine RBC 1-2 /HPF (0-2) Urine WBC Tntc /HPF (0-4) Urine Squamous Epithelial Cells Occ /LPF Urine Bacteria Few /HPF (0-FEW) Urine Mucus Mod /LPF Sodium Level 136 mmol/L (136-145) Potassium Level 3.6 mmol/L (3.5-5.1) Chloride Level 99 mmol/L (98-107) Carbon Dioxide Level 26 mmol/L (21-32) Anion Gap 11 (6-14) Blood Urea Nitrogen 8 mg/dL (7-20) Creatinine 0.9 mg/dL (0.6-1.0) Estimated GFR (Cockcroft-Gault) 90.9 BUN/Creatinine Ratio 9 (6-20) Glucose Level 103 mg/dL (70-99) Calcium Level 9.0 mg/dL (8.5-10.1) Total Bilirubin 0.6 mg/dL (0.2-1.0) Aspartate Amino Transf (AST/SGOT) 19 U/L (15-37) Alanine Aminotransferase (ALT/SGPT) 22 U/L (14-59) Alkaline Phosphatase 80 U/L (46-116) Total Protein 8.6 g/dL (6.4-8.2) Albumin 3.5 g/dL (3.4-5.0) Albumin/Globulin Ratio 0.7 (1.0-1.7) Lipase 48 U/L (73-393) Bedside Urine HCG, Qualitative Hcg negative (Negative) Lactic Acid Level 2.3 mmol/L (0.4-2.0) 1.3 mmol/L (0.4-2.0) Medications Current Medications Morphine Sulfate (Morphine Sulfate) 4 mg PRN Q15MIN PRN IV/SQ PAIN GREATER THAN 3/10 Last administered on 03/04/19at 18:49; Start 03/04/19 at 15:45; Stop 03/05/19 at 15:44 Sodium Chloride 1,000 ml @ 1,000 mls/hr Q1H IV Last administered on 03/04/19at 16:14; Start 03/04/19 at 15:41; Stop 03/04/19 at 16:40; Status DC Ondansetron HCl (Zofran) 4 mg 1X ONCE IV Last administered on 03/04/19at 16:10; Start 03/04/19 at 15:45; Stop 03/04/19 at 15:46; Status DC Iohexol (Omnipaque 300 Mg/ml) 75 ml 1X ONCE IV Last administered on 03/04/19at 16:35; Start 03/04/19 at 16:15; Stop 03/04/19 at 16:19; Status DC Info (CONTRAST GIVEN -- Rx MONITORING) 1 each PRN DAILY PRN MC SEE COMMENTS; Start 03/04/19 at 16:30; Stop 03/06/19 at 16:29 Ceftriaxone Sodium (Rocephin) 1 gm 1X ONCE IVP Last administered on 03/04/19at 17:42; Start 03/04/19 at 17:45; Stop 03/04/19 at 17:46; Status DC Sodium Chloride 1,000 ml @ 1,000 mls/hr 1X ONCE IV Last administered on 03/04/19 18:14; Start 03/04/19 at 18:00; Stop 03/04/19 at 18:59; Status DC Ondansetron HCl (Zofran) 4 mg 1X ONCE IV Last administered on 03/04/19at 18:09; Start 03/04/19 at 18:00; Stop 03/04/19 at 18:01; Status DC Ketorolac Tromethamine (Toradol 15mg Vial) 15 mg 1X ONCE IV Last administered on 03/04/19at 18:00; Start 03/04/19 at 18:00; Stop 03/04/19 at 18:01; Status DC Sodium Chloride 1,000 ml @ 1,000 mls/hr 1X ONCE IV Last administered on 03/04/19at 18:13; Start 03/04/19 at 18:00; Stop 03/04/19 at 18:59; Status DC Ketorolac Tromethamine (Toradol Im) 60 mg STK-MED ONCE .ROUTE ; Start 03/04/19 at 17:57; Stop 03/04/19 at 17:58; Status DC Ketorolac Tromethamine (Toradol 30mg Vial) 30 mg STK-MED ONCE .ROUTE ; Start 03/04/19 at 17:58; Stop 03/04/19 at 17:59; Status DC Acetaminophen (Tylenol Supp) 650 mg 1X ONCE FL Last administered on 03/04/19at 18:00; Start 03/04/19 at 18:00; Stop 03/04/19 at 18:01; Status DC Ceftriaxone Sodium (Rocephin) 2 gm Q24H IVP ; Start 03/04/19 at 19:00 Ondansetron HCl (Zofran) 4 mg PRN Q6HRS PRN IV NAUSEA/VOMITING; Start 03/04/19 at 18:30 Ondansetron HCl (Zofran Odt) 4 mg PRN Q6HRS PRN PO NAUSEA/VOMITING; Start 03/04/19 at 18:30 Acetaminophen (Tylenol) 650 mg PRN Q6HRS PRN PO pain; Start 03/04/19 at 18:30 Acetaminophen/ Codeine Phosphate (Tylenol #3) 1 tab PRN Q6HRS PRN PO MODERATE PAIN Last administered on 03/05/19at 00:23; Start 03/04/19 at 18:30 Acetaminophen/ Hydrocodone Bitart (Lortab 5/325) 1 tab PRN Q4HRS PRN PO SEVERE PAIN Last administered on 03/05/19at 07:46; Start 03/04/19 at 18:30 Ibuprofen (Motrin) 400 mg PRN Q6HRS PRN PO INFLAMMATION; Start 03/04/19 at 18:30 Morphine Sulfate (Morphine Sulfate) 2 mg PRN Q2HR PRN IV PAIN Last administered on 03/05/19at 07:46; Start 03/04/19 at 18:30 Diphenhydramine HCl (Benadryl) 25 mg PRN QHS PRN PO INSOMNIA; Start 03/04/19 at 18:30 Hydromorphone HCl (Dilaudid) 1 mg 1X ONCE IV Last administered on 03/04/19at 19:11; Start 03/04/19 at 19:15; Stop 03/04/19 at 19:16; Status DC Ceftriaxone Sodium (Rocephin) 1 gm 1X ONCE IVP Last administered on 03/04/19at 21:39; Start 03/04/19 at 20:30; Stop 03/04/19 at 20:31; Status DC Active Scripts Active Reported No Known Medications Prior To Admisstion (Info) Each 1 Each Vitals/I & O Vital Sign - Last 24 Hours 03/04/19 03/04/19 03/04/19 03/04/19 15:36 16:10 16:16 16:19 Temp 100.2 100.2 Pulse 67 118 119 Resp 16 16 B/P (MAP) 106/60 (75) 116/70 (85) 164/83 (110) Pulse Ox 98 O2 Delivery Room Air Room Air 03/04/19 03/04/19 03/04/19 03/04/19 17:15 17:30 17:45 18:00 Temp 102.3 102.3 Pulse 128 127 124 128 Resp B/P (MAP) 144/81 (102) 141/77 (98) 139/94 (109) 144/92 (109) Pulse Ox 99 100 100 100 O2 Delivery Room Air Room Air Room Air Room Air 03/04/19 03/04/19 03/04/19 03/04/19 18:15 18:30 18:45 19:31 Temp 102.0 102.0 Pulse 130 124 132 Resp 20 B/P (MAP) 129/68 (88) 132/78 (96) 156/97 (116) Pulse Ox 100 100 99 94 O2 Delivery Room Air Room Air Room Air Room Air 03/04/19 03/04/19 03/04/19 03/04/19 19:38 20:00 21:17 21:33 Temp 102.2 102.2 Pulse 131 Resp 20 20 B/P (MAP) 147/104 (118) Pulse Ox 100 100 100 O2 Delivery Room Air Room Air Room Air Room Air 03/04/19 03/05/19 03/05/19 03/05/19 23:00 00:23 01:23 03:00 Temp 101.2 99.5 101.2 99.5 Pulse 132 110 Resp 20 18 18 20 B/P (MAP) 133/88 (103) 119/77 (91) Pulse Ox 94 94 94 96 O2 Delivery Room Air Room Air Room Air Room Air 03/05/19 03/05/19 03/05/19 03/05/19 07:00 07:46 07:46 08:00 Temp 97.9 97.9 Pulse 109 Resp 18 20 20 B/P (MAP) 124/77 (93) Pulse Ox 97 97 97 O2 Delivery Room Air Room Air Room Air Room Air 03/05/19 03/05/19 03/05/19 08:16 08:16 08:34 Resp 20 20 20 Pulse Ox 97 97 97 O2 Delivery Room Air Room Air Room Air Intake and Output 03/04/19 03/04/19 03/05/19 15:00 23:00 07:00 Intake Total 1200 ml 400 ml Output Total 400 ml Balance 1200 ml 0 ml KHOA SOLIZ III DO Mar 05, 2019 11:21
[2019-03-05] MEDS: IV NORMAL SALINE 1000ML BAG 1,000 ML IV SCH (11:49)
[2019-03-05 15:00] VITALS: BP 128/78
[2019-03-05] MEDS: cefTRIAXone IV Push 2 GM VIAL. IVP SCH (18:08)
[2019-03-05 18:51] VITALS: BP 130/72
[2019-03-05] MEDS: LACTOBACILLUS RHAMNOSUS GG 1 CAPSULE. PO SCH (20:39)
[2019-03-05] MEDS: IBUPROFEN 400 MG TABLET. PO PRN (22:47)
[2019-03-05 23:00] VITALS: BP 136/92
[2019-03-06] MEDS: IV NORMAL SALINE 1000ML BAG 1,000 ML IV SCH ×2 (00:38→15:43)
[2019-03-06] MEDS: HYDROcodone/APAP 5/325MG 1 TAB TABLET PO PRN ×4 (01:33→20:23)
[2019-03-06 02:56] VITALS: BP 129/83
[2019-03-06 07:00] VITALS: BP 128/85
[2019-03-06 07:39] LABS: BASO % 0 % (0-3); CALCIUM 8.5 mg/dL (8.5-10.1); CREATININE 0.8 mg/dL (0.6-1.0); EOS # 0.1 x10^3/uL (0.0-0.7); EOS % 1 % (0-3); GFR 104.1; HEMATOCRIT 30.6 % (36.0-47.0); LYMPH # 1.3 x10^3/uL (1.0-4.8); LYMPH % 9 % (24-48); MEAN CORPUSCULAR HEMOGLOBIN 26 pg (25-35); MEAN CORPUSCULAR HGB CONC 33 g/dL (31-37); MEAN CORPUSCULAR VOLUME 79 fL (79-100); MONO # 0.8 x10^3/uL (0.0-1.1); MONO % 6 % (0-9); NEUT # 11.8 x10^3uL (1.8-7.7); NEUT % 85 % (31-73); PLATELET COUNT 255 x10^3/uL (140-400); POTASSIUM 3.1 mmol/L (3.5-5.1); RED CELL DISTRIBUTION WIDTH 14.5 % (11.5-14.5); WHITE BLOOD COUNT 13.9 x10^3/uL (4.0-11.0)
[2019-03-06] MEDS: LACTOBACILLUS RHAMNOSUS GG 1 CAPSULE. PO SCH ×2 (08:17→20:28)
[2019-03-06] MEDS: IBUPROFEN 400 MG TABLET. PO PRN (08:20)
[2019-03-06] MEDS ORDERED: POTASSIUM CHLORIDE 20 MEQ TABLET.ER. PO ONE (09:15)
[2019-03-06 10:43] VITALS: BP 138/88
--- NOTE | 2019-03-06 12:04 | PDOC ---
PROGRESS NOTES Chief Complaint Chief Complaint Abdominal pain, dysuria History of Present Illness History of Present Illness Patient resting in bed with ice pack on her head. She complains of continued pain. Vitals Vitals Vital Signs Date Time Temp Pulse Resp B/P (MAP) Pulse Ox O2 Delivery O2 Flow Rate FiO2 03/06/19 10:43 99.3 133 138/88 (105) 85 Room Air 99.3 03/06/19 07:00 18 Physical Exam General: Alert, Oriented X3, Cooperative, No acute distress Heart: Normal S1, Normal S2, No murmurs, Other (tachycardic) Lungs: Clear, Other (good inspiratory effort, symmetric chest expansion) Abdomen: Soft, Other (lower abdominal tenderness) Extremities: No clubbing, No cyanosis, No edema, Normal pulses, No tenderness/swelling Skin: No rashes, No breakdown, No significant lesion Labs LABS Laboratory Tests Test 03/06/19 07:00 White Blood Count 13.9 x10^3/uL (4.0-11.0) Red Blood Count 3.90 x10^6/uL (3.50-5.40) Hemoglobin 10.0 g/dL (12.0-15.5) Hematocrit 30.6 % (36.0-47.0) Mean Corpuscular Volume 79 fL (79-100) Mean Corpuscular Hemoglobin 26 pg (25-35) Mean Corpuscular Hemoglobin Concent 33 g/dL (31-37) Red Cell Distribution Width 14.5 % (11.5-14.5) Platelet Count 255 x10^3/uL (140-400) Neutrophils (%) (Auto) 85 % (31-73) Lymphocytes (%) (Auto) 9 % (24-48) Monocytes (%) (Auto) 6 % (0-9) Eosinophils (%) (Auto) 1 % (0-3) Basophils (%) (Auto) 0 % (0-3) Neutrophils # (Auto) 11.8 x10^3uL (1.8-7.7) Lymphocytes # (Auto) 1.3 x10^3/uL (1.0-4.8) Monocytes # (Auto) 0.8 x10^3/uL (0.0-1.1) Eosinophils # (Auto) 0.1 x10^3/uL (0.0-0.7) Basophils # (Auto) 0.0 x10^3/uL (0.0-0.2) Sodium Level 136 mmol/L (136-145) Potassium Level 3.1 mmol/L (3.5-5.1) Chloride Level 102 mmol/L (98-107) Carbon Dioxide Level 25 mmol/L (21-32) Anion Gap 9 (6-14) Blood Urea Nitrogen 7 mg/dL (7-20) Creatinine 0.8 mg/dL (0.6-1.0) Estimated GFR (Cockcroft-Gault) 104.1 Glucose Level 98 mg/dL (70-99) Calcium Level 8.5 mg/dL (8.5-10.1) Review of Systems Review of Systems flank pain, feels like she has a fever Assessment and Plan Assessmemt and Plan Problems Medical Problems: (1) Pyelonephritis Status: Acute Assessment: UTI/Pyelonephritis Sepsis without organ dysfunction Tachycardia Leukocytosis Fevers Lactic acidosis Hypokalemia Plan: Replete K IV Fluids - 75 cc/hr Advance as tolerated Antibiotics: Rocephin 2 g q24 hrs (started 03/04) Recheck labs in am Urine culture pending CT Abdomen negative for acute process, incidental finding of calcified pulmonary nodule in non-smoker, will need repeat CT in 12 months Pain management Monitor temperature cure - 24 hr Tmax 99.3 Tylenol for fevers No home medications to resume Dispo: Plan to discharge home tomorrow Comment Review of Relevant I have reviewed the following items beth (where applicable) has been applied. Labs Laboratory Tests Test 03/04/19 15:55 03/04/19 15:56 03/04/19 18:05 03/04/19 22:50 White Blood Count 13.5 x10^3/uL (4.0-11.0) Red Blood Count 4.45 x10^6/uL (3.50-5.40) Hemoglobin 11.3 g/dL (12.0-15.5) Hematocrit 34.9 % (36.0-47.0) Mean Corpuscular Volume 79 fL (79-100) Mean Corpuscular Hemoglobin 25 pg (25-35) Mean Corpuscular Hemoglobin Concent 32 g/dL (31-37) Red Cell Distribution Width 14.5 % (11.5-14.5) Platelet Count 291 x10^3/uL (140-400) Neutrophils (%) (Auto) 91 % (31-73) Lymphocytes (%) (Auto) 5 % (24-48) Monocytes (%) (Auto) 4 % (0-9) Eosinophils (%) (Auto) 0 % (0-3) Basophils (%) (Auto) 0 % (0-3) Neutrophils # (Auto) 12.2 x10^3uL (1.8-7.7) Lymphocytes # (Auto) 0.7 x10^3/uL (1.0-4.8) Monocytes # (Auto) 0.5 x10^3/uL (0.0-1.1) Eosinophils # (Auto) 0.0 x10^3/uL (0.0-0.7) Basophils # (Auto) 0.1 x10^3/uL (0.0-0.2) Segmented Neutrophils % 95 % (35-66) Band Neutrophils % 3 % (0-9) Lymphocytes % 1 % (24-48) Monocytes % 1 % (0-10) Platelet Estimate Adequate (ADEQUATE) Urine Color Yellow Urine Clarity Clear Urine pH 6.5 Urine Specific [place] 1.020 Urine Protein Negative mg/dL (NEG-TRACE) Urine Glucose (UA) Negative mg/dL (NEG) Urine Ketones (Stick) Negative mg/dL (NEG) Urine Blood Large (NEG) Urine Nitrite Negative (NEG) Urine Bilirubin Negative (NEG) Urine Urobilinogen Dipstick 1.0 mg/dL (0.2 mg/dL) Urine Leukocyte Esterase Large (NEG) Urine RBC 1-2 /HPF (0-2) Urine WBC Tntc /HPF (0-4) Urine Squamous Epithelial Cells Occ /LPF Urine Bacteria Few /HPF (0-FEW) Urine Mucus Mod /LPF Sodium Level 136 mmol/L (136-145) Potassium Level 3.6 mmol/L (3.5-5.1) Chloride Level 99 mmol/L (98-107) Carbon Dioxide Level 26 mmol/L (21-32) Anion Gap 11 (6-14) Blood Urea Nitrogen 8 mg/dL (7-20) Creatinine 0.9 mg/dL (0.6-1.0) Estimated GFR (Cockcroft-Gault) 90.9 BUN/Creatinine Ratio 9 (6-20) Glucose Level 103 mg/dL (70-99) Calcium Level 9.0 mg/dL (8.5-10.1) Total Bilirubin 0.6 mg/dL (0.2-1.0) Aspartate Amino Transf (AST/SGOT) 19 U/L (15-37) Alanine Aminotransferase (ALT/SGPT) 22 U/L (14-59) Alkaline Phosphatase 80 U/L (46-116) Total Protein 8.6 g/dL (6.4-8.2) Albumin 3.5 g/dL (3.4-5.0) Albumin/Globulin Ratio 0.7 (1.0-1.7) Lipase 48 U/L (73-393) Bedside Urine HCG, Qualitative Hcg negative (Negative) Lactic Acid Level 2.3 mmol/L (0.4-2.0) 1.3 mmol/L (0.4-2.0) Test 03/06/19 07:00 White Blood Count 13.9 x10^3/uL (4.0-11.0) Red Blood Count 3.90 x10^6/uL (3.50-5.40) Hemoglobin 10.0 g/dL (12.0-15.5) Hematocrit 30.6 % (36.0-47.0) Mean Corpuscular Volume 79 fL (79-100) Mean Corpuscular Hemoglobin 26 pg (25-35) Mean Corpuscular Hemoglobin Concent 33 g/dL (31-37) Red Cell Distribution Width 14.5 % (11.5-14.5) Platelet Count 255 x10^3/uL (140-400) Neutrophils (%) (Auto) 85 % (31-73) Lymphocytes (%) (Auto) 9 % (24-48) Monocytes (%) (Auto) 6 % (0-9) Eosinophils (%) (Auto) 1 % (0-3) Basophils (%) (Auto) 0 % (0-3) Neutrophils # (Auto) 11.8 x10^3uL (1.8-7.7) Lymphocytes # (Auto) 1.3 x10^3/uL (1.0-4.8) Monocytes # (Auto) 0.8 x10^3/uL (0.0-1.1) Eosinophils # (Auto) 0.1 x10^3/uL (0.0-0.7) Basophils # (Auto) 0.0 x10^3/uL (0.0-0.2) Sodium Level 136 mmol/L (136-145) Potassium Level 3.1 mmol/L (3.5-5.1) Chloride Level 102 mmol/L (98-107) Carbon Dioxide Level 25 mmol/L (21-32) Anion Gap 9 (6-14) Blood Urea Nitrogen 7 mg/dL (7-20) Creatinine 0.8 mg/dL (0.6-1.0) Estimated GFR (Cockcroft-Gault) 104.1 Glucose Level 98 mg/dL (70-99) Calcium Level 8.5 mg/dL (8.5-10.1) Laboratory Tests Test 03/06/19 07:00 White Blood Count 13.9 x10^3/uL (4.0-11.0) Red Blood Count 3.90 x10^6/uL (3.50-5.40) Hemoglobin 10.0 g/dL (12.0-15.5) Hematocrit 30.6 % (36.0-47.0) Mean Corpuscular Volume 79 fL (79-100) Mean Corpuscular Hemoglobin 26 pg (25-35) Mean Corpuscular Hemoglobin Concent 33 g/dL (31-37) Red Cell Distribution Width 14.5 % (11.5-14.5) Platelet Count 255 x10^3/uL (140-400) Neutrophils (%) (Auto) 85 % (31-73) Lymphocytes (%) (Auto) 9 % (24-48) Monocytes (%) (Auto) 6 % (0-9) Eosinophils (%) (Auto) 1 % (0-3) Basophils (%) (Auto) 0 % (0-3) Neutrophils # (Auto) 11.8 x10^3uL (1.8-7.7) Lymphocytes # (Auto) 1.3 x10^3/uL (1.0-4.8) Monocytes # (Auto) 0.8 x10^3/uL (0.0-1.1) Eosinophils # (Auto) 0.1 x10^3/uL (0.0-0.7) Basophils # (Auto) 0.0 x10^3/uL (0.0-0.2) Sodium Level 136 mmol/L (136-145) Potassium Level 3.1 mmol/L (3.5-5.1) Chloride Level 102 mmol/L (98-107) Carbon Dioxide Level 25 mmol/L (21-32) Anion Gap 9 (6-14) Blood Urea Nitrogen 7 mg/dL (7-20) Creatinine 0.8 mg/dL (0.6-1.0) Estimated GFR (Cockcroft-Gault) 104.1 Glucose Level 98 mg/dL (70-99) Calcium Level 8.5 mg/dL (8.5-10.1) Medications Current Medications Morphine Sulfate (Morphine Sulfate) 4 mg PRN Q15MIN PRN IV/SQ PAIN GREATER THAN 3/10 Last administered on 03/04/19at 18:49; Start 03/04/19 at 15:45; Stop 03/05/19 at 15:44; Status DC Sodium Chloride 1,000 ml @ 1,000 mls/hr Q1H IV Last administered on 03/04/19at 16:14; Start 03/04/19 at 15:41; Stop 03/04/19 at 16:40; Status DC Ondansetron HCl (Zofran) 4 mg 1X ONCE IV Last administered on 03/04/19at 16:10; Start 03/04/19 at 15:45; Stop 03/04/19 at 15:46; Status DC Iohexol (Omnipaque 300 Mg/ml) 75 ml 1X ONCE IV Last administered on 03/04/19at 16:35; Start 03/04/19 at 16:15; Stop 03/04/19 at 16:19; Status DC Info (CONTRAST GIVEN -- Rx MONITORING) 1 each PRN DAILY PRN MC SEE COMMENTS; Start 03/04/19 at 16:30; Stop 03/06/19 at 16:29 Ceftriaxone Sodium (Rocephin) 1 gm 1X ONCE IVP Last administered on 03/04/19at 17:42; Start 03/04/19 at 17:45; Stop 03/04/19 at 17:46; Status DC Sodium Chloride 1,000 ml @ 1,000 mls/hr 1X ONCE IV Last administered on at 18:14; Start 03/04/19 at 18:00; Stop 03/04/19 at 18:59; Status DC Ondansetron HCl (Zofran) 4 mg 1X ONCE IV Last administered on 03/04/19at 18:09; Start 03/04/19 at 18:00; Stop 03/04/19 at 18:01; Status DC Ketorolac Tromethamine (Toradol 15mg Vial) 15 mg 1X ONCE IV Last administered on 03/04/19at 18:00; Start 03/04/19 at 18:00; Stop 03/04/19 at 18:01; Status DC Sodium Chloride 1,000 ml @ 1,000 mls/hr 1X ONCE IV Last administered on 03/04/19at 18:13; Start 03/04/19 at 18:00; Stop 03/04/19 at 18:59; Status DC Ketorolac Tromethamine (Toradol Im) 60 mg STK-MED ONCE .ROUTE ; Start 03/04/19 at 17:57; Stop 03/04/19 at 17:58; Status DC Ketorolac Tromethamine (Toradol 30mg Vial) 30 mg STK-MED ONCE .ROUTE ; Start 03/04/19 at 17:58; Stop 03/04/19 at 17:59; Status DC Acetaminophen (Tylenol Supp) 650 mg 1X ONCE ID Last administered on 03/04/19at 18:00; Start 03/04/19 at 18:00; Stop 03/04/19 at 18:01; Status DC Ceftriaxone Sodium (Rocephin) 2 gm Q24H IVP Last administered on 03/05/19at 18:08; Start 03/04/19 at 19:00 Ondansetron HCl (Zofran) 4 mg PRN Q6HRS PRN IV NAUSEA/VOMITING; Start 03/04/19 at 18:30 Ondansetron HCl (Zofran Odt) 4 mg PRN Q6HRS PRN PO NAUSEA/VOMITING; Start 03/04/19 at 18:30 Acetaminophen (Tylenol) 650 mg PRN Q6HRS PRN PO pain; Start 03/04/19 at 18:30 Acetaminophen/ Codeine Phosphate (Tylenol #3) 1 tab PRN Q6HRS PRN PO MODERATE PAIN Last administered on 03/05/19at 20:40; Start 03/04/19 at 18:30 Acetaminophen/ Hydrocodone Bitart (Lortab 5/325) 1 tab PRN Q4HRS PRN PO SEVERE PAIN Last administered on 03/06/19 08:21; Start 03/04/19 at 18:30 Ibuprofen (Motrin) 400 mg PRN Q6HRS PRN PO INFLAMMATION Last administered on 03/06/19 08:20; Start 03/04/19 at 18:30 Morphine Sulfate (Morphine Sulfate) 2 mg PRN Q2HR PRN IV PAIN Last administered on 03/05/19 17:03; Start 03/04/19 at 18:30 Diphenhydramine HCl (Benadryl) 25 mg PRN QHS PRN PO INSOMNIA; Start 03/04/19 at 18:30 Hydromorphone HCl (Dilaudid) 1 mg 1X ONCE IV Last administered on 03/04/19 19:11; Start 03/04/19 at 19:15; Stop 03/04/19 at 19:16; Status DC Ceftriaxone Sodium (Rocephin) 1 gm 1X ONCE IVP Last administered on 03/04/19at 21:39; Start 03/04/19 at 20:30; Stop 03/04/19 at 20:31; Status DC Sodium Chloride 1,000 ml @ 75 mls/hr [id number] IV Last administered on 03/06/19 00:38; Start 03/05/19 at 11:30 Lactobacillus Rhamnosus (Culturelle) 1 cap BID PO Last administered on 03/06/19 08:17; Start 03/05/19 at 21:00 Potassium Chloride (Klor-Con) 40 meq 1X ONCE PO ; Start 03/06/19 at 09:15; Stop 03/06/19 at 09:23; Status DC Active Scripts Active Reported No Known Medications Prior To Admisstion (Info) Each 1 Each Vitals/I & O Vital Sign - Last 24 Hours 03/05/19 03/05/19 03/05/19 03/05/19 15:00 17:03 17:03 17:22 Temp 97.8 97.8 Pulse 104 Resp 18 20 20 18 B/P (MAP) 128/78 (95) Pulse Ox 95 95 95 95 O2 Delivery Room Air Room Air Room Air Room Air 03/05/19 03/05/19 03/05/19 03/05/19 18:51 20:00 20:40 21:40 Temp 97.9 97.9 Pulse 102 Resp 18 20 20 B/P (MAP) 130/72 (91) Pulse Ox 95 95 95 O2 Delivery Room Air Room Air Room Air Room Air 03/05/19 03/06/19 03/06/19 03/06/19 23:00 01:33 02:33 02:56 Temp 100.2 98.8 100.2 98.8 Pulse 90 88 Resp 16 20 18 18 B/P (MAP) 136/92 (107) 129/83 (98) Pulse Ox 91 91 92 90 O2 Delivery Room Air Room Air Room Air Room Air 03/06/19 03/06/19 03/06/19 03/06/19 07:00 08:00 08:21 10:43 Temp 98.2 99.3 98.2 99.3 Pulse 92 133 Resp 18 B/P (MAP) 128/85 (99) 138/88 (105) Pulse Ox 92 92 85 O2 Delivery Room Air Room Air Room Air Room Air Intake and Output 03/05/19 03/05/19 03/06/19 15:00 23:00 07:00 Intake Total 360 ml 360 ml 120 ml Output Total 200 ml Balance 160 ml 360 ml 120 ml KHOA SOLIZ III DO Mar 06, 2019 12:04
[2019-03-06 15:00] VITALS: BP 123/81
[2019-03-06 19:00] VITALS: BP 120/78
[2019-03-06] MEDS: cefTRIAXone IV Push 2 GM VIAL. IVP SCH (20:24)
[2019-03-06] MEDS: ACETAMINOPHEN 325 MG TABLET. PO PRN (22:46)
[2019-03-06 23:00] VITALS: BP 149/95
[2019-03-06] MEDS: MORPHINE SULFATE 2 MG/ML VIAL. IV PRN (23:43)
[2019-03-07] VITALS (7 sets, daily range): BP systolic 126–151; BP diastolic 78–100
[2019-03-07] MEDS ORDERED: IV RINGERS,LACTATED 1000ML 1,000 ML IV ONE (02:00)
[2019-03-07] MEDS: HYDROcodone/APAP 5/325MG 1 TAB TABLET PO PRN ×3 (02:11→22:35)
[2019-03-07] MEDS: IBUPROFEN 400 MG TABLET. PO PRN ×2 (02:12→22:35)
[2019-03-07] MEDS: IV NORMAL SALINE 1000ML BAG 1,000 ML IV SCH ×4 (03:22→23:20)
[2019-03-07 04:27] LABS: BASO % 0 % (0-3); EOS # 0.1 x10^3/uL (0.0-0.7); EOS % 1 % (0-3); HEMATOCRIT 36.3 % (36.0-47.0); HEMOGLOBIN 11.1 g/dL (12.0-15.5); LYMPH # 2.3 x10^3/uL (1.0-4.8); LYMPH % 18 % (24-48); MEAN CORPUSCULAR HEMOGLOBIN 25 pg (25-35); MEAN CORPUSCULAR HGB CONC 31 g/dL (31-37); MEAN CORPUSCULAR VOLUME 82 fL (79-100); MONO # 1.1 x10^3/uL (0.0-1.1); MONO % 8 % (0-9); NEUT # 9.7 x10^3uL (1.8-7.7); NEUT % 73 % (31-73); PLATELET COUNT 228 x10^3/uL (140-400); RED BLOOD COUNT 4.44 x10^6/uL (3.50-5.40); WHITE BLOOD COUNT 13.3 x10^3/uL (4.0-11.0)
[2019-03-07 04:45] LABS: CALCIUM 8.4 mg/dL (8.5-10.1); CREATININE 0.7 mg/dL (0.6-1.0); GFR 121.5; POTASSIUM 3.7 mmol/L (3.5-5.1)
[2019-03-07] MEDS: LACTOBACILLUS RHAMNOSUS GG 1 CAPSULE. PO SCH ×2 (07:53→20:05)
[2019-03-07] MEDS: MORPHINE SULFATE 2 MG/ML VIAL. IV PRN ×4 (07:56→20:06)
--- NOTE | 2019-03-07 09:54 | PDOC ---
PROGRESS NOTES Chief Complaint Chief Complaint Abdominal pain, dysuria History of Present Illness History of Present Illness Patient resting comfortably in bed, complains of right sided abdominal and back pain. Fevers overnight. Vitals Vitals Vital Signs Date Time Temp Pulse Resp B/P (MAP) Pulse Ox O2 Delivery O2 Flow Rate FiO2 03/07/19 08:37 Nasal Cannula 03/07/19 07:00 97.9 133 20 128/78 (95) 92 2.0 97.9 Physical Exam General: Alert, Oriented X3, Cooperative, No acute distress Heart: Normal S1, Normal S2, No murmurs, Other (tachycardic) Lungs: Clear, Other (good inspiratory effort, symmetric chest expansion) Abdomen: Soft, Other (lower abdominal tenderness) Extremities: No clubbing, No cyanosis, No edema, Normal pulses, No tendern ess/swelling Skin: No rashes, No breakdown, No significant lesion Labs LABS Laboratory Tests Test 03/07/19 02:55 White Blood Count 13.3 x10^3/uL (4.0-11.0) Red Blood Count 4.44 x10^6/uL (3.50-5.40) Hemoglobin 11.1 g/dL (12.0-15.5) Hematocrit 36.3 % (36.0-47.0) Mean Corpuscular Volume 82 fL (79-100) Mean Corpuscular Hemoglobin 25 pg (25-35) Mean Corpuscular Hemoglobin Concent 31 g/dL (31-37) Red Cell Distribution Width 15.0 % (11.5-14.5) Platelet Count 228 x10^3/uL (140-400) Neutrophils (%) (Auto) 73 % (31-73) Lymphocytes (%) (Auto) 18 % (24-48) Monocytes (%) (Auto) 8 % (0-9) Eosinophils (%) (Auto) 1 % (0-3) Basophils (%) (Auto) 0 % (0-3) Neutrophils # (Auto) 9.7 x10^3uL (1.8-7.7) Lymphocytes # (Auto) 2.3 x10^3/uL (1.0-4.8) Monocytes # (Auto) 1.1 x10^3/uL (0.0-1.1) Eosinophils # (Auto) 0.1 x10^3/uL (0.0-0.7) Basophils # (Auto) 0.0 x10^3/uL (0.0-0.2) Sodium Level 132 mmol/L (136-145) Potassium Level 3.7 mmol/L (3.5-5.1) Chloride Level 103 mmol/L (98-107) Carbon Dioxide Level 18 mmol/L (21-32) Anion Gap 11 (6-14) Blood Urea Nitrogen 6 mg/dL (7-20) Creatinine 0.7 mg/dL (0.6-1.0) Estimated GFR (Cockcroft-Gault) 121.5 Glucose Level 97 mg/dL (70-99) Calcium Level 8.4 mg/dL (8.5-10.1) Review of Systems Review of Systems fever, abdominal and back pain Assessment and Plan Assessmemt and Plan Problems Medical Problems: (1) Pyelonephritis Status: Acute Assessment: UTI/Pyelonephritis Sepsis without organ dysfunction Tachycardia Leukocytosis Fevers Lactic acidosis Hypokalemia - resolved Plan: Consult ID - stable but continues to meet sepsis criteria (WBC 13.3, T101.4, HR 143, RR 24 this am) on day 3 of antibiotics Change IVF from 150 cc/hr to 75 cc/hr Advance as tolerated Antibiotics: Rocephin 2 g q24 hrs (03/04- ) Micro: UCx - group B strep Monitor temperature cure - 24 hr Tmax 101.4 Tylenol for fevers Recheck labs in am Replete potassium as needed CT Abdomen negative for acute process, incidental finding of calcified pulmonary nodule in non-smoker, will need repeat CT in 12 months Pain management PT/OT No home medications to resume Dispo: Await ID input Comment Review of Relevant I have reviewed the following items beth (where applicable) has been applied. Labs Laboratory Tests Test 03/06/19 07:00 03/07/19 02:55 White Blood Count 13.9 x10^3/uL (4.0-11.0) 13.3 x10^3/uL (4.0-11.0) Red Blood Count 3.90 x10^6/uL (3.50-5.40) 4.44 x10^6/uL (3.50-5.40) Hemoglobin 10.0 g/dL (12.0-15.5) 11.1 g/dL (12.0-15.5) Hematocrit 30.6 % (36.0-47.0) 36.3 % (36.0-47.0) Mean Corpuscular Volume 79 fL (79-100) 82 fL (79-100) Mean Corpuscular Hemoglobin 26 pg (25-35) 25 pg (25-35) Mean Corpuscular Hemoglobin Concent 33 g/dL (31-37) 31 g/dL (31-37) Red Cell Distribution Width 14.5 % (11.5-14.5) 15.0 % (11.5-14.5) Platelet Count 255 x10^3/uL (140-400) 228 x10^3/uL (140-400) Neutrophils (%) (Auto) 85 % (31-73) 73 % (31-73) Lymphocytes (%) (Auto) 9 % (24-48) 18 % (24-48) Monocytes (%) (Auto) 6 % (0-9) 8 % (0-9) Eosinophils (%) (Auto) 1 % (0-3) 1 % (0-3) Basophils (%) (Auto) 0 % (0-3) 0 % (0-3) Neutrophils # (Auto) 11.8 x10^3uL (1.8-7.7) 9.7 x10^3uL (1.8-7.7) Lymphocytes # (Auto) 1.3 x10^3/uL (1.0-4.8) 2.3 x10^3/uL (1.0-4.8) Monocytes # (Auto) 0.8 x10^3/uL (0.0-1.1) 1.1 x10^3/uL (0.0-1.1) Eosinophils # (Auto) 0.1 x10^3/uL (0.0-0.7) 0.1 x10^3/uL (0.0-0.7) Basophils # (Auto) 0.0 x10^3/uL (0.0-0.2) 0.0 x10^3/uL (0.0-0.2) Sodium Level 136 mmol/L (136-145) 132 mmol/L (136-145) Potassium Level 3.1 mmol/L (3.5-5.1) 3.7 mmol/L (3.5-5.1) Chloride Level 102 mmol/L (98-107) 103 mmol/L (98-107) Carbon Dioxide Level 25 mmol/L (21-32) 18 mmol/L (21-32) Anion Gap 9 (6-14) 11 (6-14) Blood Urea Nitrogen 7 mg/dL (7-20) 6 mg/dL (7-20) Creatinine 0.8 mg/dL (0.6-1.0) 0.7 mg/dL (0.6-1.0) Estimated GFR (Cockcroft-Gault) 104.1 121.5 Glucose Level 98 mg/dL (70-99) 97 mg/dL (70-99) Calcium Level 8.5 mg/dL (8.5-10.1) 8.4 mg/dL (8.5-10.1) Laboratory Tests Test 03/07/19 02:55 White Blood Count 13.3 x10^3/uL (4.0-11.0) Red Blood Count 4.44 x10^6/uL (3.50-5.40) Hemoglobin 11.1 g/dL (12.0-15.5) Hematocrit 36.3 % (36.0-47.0) Mean Corpuscular Volume 82 fL (79-100) Mean Corpuscular Hemoglobin 25 pg (25-35) Mean Corpuscular Hemoglobin Concent 31 g/dL (31-37) Red Cell Distribution Width 15.0 % (11.5-14.5) Platelet Count 228 x10^3/uL (140-400) Neutrophils (%) (Auto) 73 % (31-73) Lymphocytes (%) (Auto) 18 % (24-48) Monocytes (%) (Auto) 8 % (0-9) Eosinophils (%) (Auto) 1 % (0-3) Basophils (%) (Auto) 0 % (0-3) Neutrophils # (Auto) 9.7 x10^3uL (1.8-7.7) Lymphocytes # (Auto) 2.3 x10^3/uL (1.0-4.8) Monocytes # (Auto) 1.1 x10^3/uL (0.0-1.1) Eosinophils # (Auto) 0.1 x10^3/uL (0.0-0.7) Basophils # (Auto) 0.0 x10^3/uL (0.0-0.2) Sodium Level 132 mmol/L (136-145) Potassium Level 3.7 mmol/L (3.5-5.1) Chloride Level 103 mmol/L (98-107) Carbon Dioxide Level 18 mmol/L (21-32) Anion Gap 11 (6-14) Blood Urea Nitrogen 6 mg/dL (7-20) Creatinine 0.7 mg/dL (0.6-1.0) Estimated GFR (Cockcroft-Gault) 121.5 Glucose Level 97 mg/dL (70-99) Calcium Level 8.4 mg/dL (8.5-10.1) Microbiology 03/04/19 Urine Culture - Final, Complete 03/04/19 Urine Culture Result 1 (NICHELLE) - Final, Complete Medications Current Medications Morphine Sulfate (Morphine Sulfate) 4 mg PRN Q15MIN PRN IV/SQ PAIN GREATER THAN 3/10 Last administered on 03/04/19at 18:49; Start 03/04/19 at 15:45; Stop 03/05/19 at 15:44; Status DC Sodium Chloride 1,000 ml @ 1,000 mls/hr Q1H IV Last administered on 03/04/19at 16:14; Start 03/04/19 at 15:41; Stop 03/04/19 at 16:40; Status DC Ondansetron HCl (Zofran) 4 mg 1X ONCE IV Last administered on 03/04/19at 16:10; Start 03/04/19 at 15:45; Stop 03/04/19 at 15:46; Status DC Iohexol (Omnipaque 300 Mg/ml) 75 ml 1X ONCE IV Last administered on 03/04/19at 16:35; Start 03/04/19 at 16:15; Stop 03/04/19 at 16:19; Status DC Info (CONTRAST GIVEN -- Rx MONITORING) 1 each PRN DAILY PRN MC SEE COMMENTS; Start 03/04/19 at 16:30; Stop 03/06/19 at 16:29; Status DC Ceftriaxone Sodium (Rocephin) 1 gm 1X ONCE IVP Last administered on 03/04/19at 17:42; Start 03/04/19 at 17:45; Stop 03/04/19 at 17:46; Status DC Sodium Chloride 1,000 ml @ 1,000 mls/hr 1X ONCE IV Last administered on 03/04/19at 18:14; Start 03/04/19 at 18:00; Stop 03/04/19 at 18:59; Status DC Ondansetron HCl (Zofran) 4 mg 1X ONCE IV Last administered on 03/04/19at 18:09; Start 03/04/19 at 18:00; Stop 03/04/19 at 18:01; Status DC Ketorolac Tromethamine (Toradol 15mg Vial) 15 mg 1X ONCE IV Last administered on 03/04/19at 18:00; Start 03/04/19 at 18:00; Stop 03/04/19 at 18:01; Status DC Sodium Chloride 1,000 ml @ 1,000 mls/hr 1X ONCE IV Last administered on 03/04/19at 18:13; Start 03/04/19 at 18:00; Stop 03/04/19 at 18:59; Status DC Ketorolac Tromethamine (Toradol Im) 60 mg STK-MED ONCE .ROUTE ; Start 03/04/19 at 17:57; Stop 03/04/19 at 17:58; Status DC Ketorolac Tromethamine (Toradol 30mg Vial) 30 mg STK-MED ONCE .ROUTE ; Start 03/04/19 at 17:58; Stop 03/04/19 at 17:59; Status DC Acetaminophen (Tylenol Supp) 650 mg 1X ONCE [place] Last administered on 03/04/19at 18:00; Start 03/04/19 at 18:00; Stop 03/04/19 at 18:01; Status DC Ceftriaxone Sodium (Rocephin) 2 gm Q24H IVP Last administered on 03/06/19at 20:24; Start 03/04/19 at 19:00 Ondansetron HCl (Zofran) 4 mg PRN Q6HRS PRN IV NAUSEA/VOMITING; Start 03/04/19 at 18:30 Ondansetron HCl (Zofran Odt) 4 mg PRN Q6HRS PRN PO NAUSEA/VOMITING; Start 03/04/19 at 18:30 Acetaminophen (Tylenol) 650 mg PRN Q6HRS PRN PO pain Last administered on 03/06/19 22:46; Start 03/04/19 at 18:30 Acetaminophen/ Codeine Phosphate (Tylenol #3) 1 tab PRN Q6HRS PRN PO MODERATE PAIN Last administered on 03/05/19 20:40; Start 03/04/19 at 18:30 Acetaminophen/ Hydrocodone Bitart (Lortab 5/325) 1 tab PRN Q4HRS PRN PO SEVERE PAIN Last administered on 03/07/19 02:11; Start 03/04/19 at 18:30 Ibuprofen (Motrin) 400 mg PRN Q6HRS PRN PO INFLAMMATION Last administered on 03/07/19 02:12; Start 03/04/19 at 18:30 Morphine Sulfate (Morphine Sulfate) 2 mg PRN Q2HR PRN IV PAIN Last administered on 03/07/19 07:56; Start 03/04/19 at 18:30 Diphenhydramine HCl (Benadryl) 25 mg PRN QHS PRN PO INSOMNIA; Start 03/04/19 at 18:30 Hydromorphone HCl (Dilaudid) 1 mg 1X ONCE IV Last administered on 03/04/19 19 :11; Start 03/04/19 at 19:15; Stop 03/04/19 at 19:16; Status DC Ceftriaxone Sodium (Rocephin) 1 gm 1X ONCE IVP Last administered on 03/04/19 21:39; Start 03/04/19 at 20:30; Stop 03/04/19 at 20:31; Status DC Sodium Chloride 1,000 ml @ 150 mls/hr Q6H40M IV Last administered on 03/07/19 03:22; Start 03/05/19 at 11:30 Lactobacillus Rhamnosus (Culturelle) 1 cap BID PO Last administered on 03/07/19 07:53; Start 03/05/19 at 21:00 Potassium Chloride (Klor-Con) 40 meq 1X ONCE PO Last administered on 03/06/19 12:26; Start 03/06/19 at 09:15; Stop 03/06/19 at 09:23; Status DC Ringer's Solution 1,000 ml @ 0 mls/hr 1X ONCE IV Last administered on 03/07/19 02:15; Start 03/07/19 at 02:00; Stop 03/07/19 at 02:07; Status DC Active Scripts Active Reported No Known Medications Prior To Admisstion (Info) Each 1 Each Vitals/I & O Vital Sign - Last 24 Hours 03/06/19 03/06/19 03/06/19 03/06/19 10:43 15:00 15:51 16:51 Temp 99.3 98.8 99.3 98.8 Pulse 133 142 Resp 18 20 20 B/P (MAP) 138/88 (105) 123/81 (95) Pulse Ox 85 89 O2 Delivery Room Air Room Air Room Air 03/06/19 03/06/19 03/06/19 03/06/19 19:00 20:00 20:23 23:00 Temp 97.7 100.6 97.7 100.6 Pulse 90 150 Resp 18 25 B/P (MAP) 120/78 (92) 149/95 (113) Pulse Ox 98 98 90 O2 Delivery Room Air Room Air Room Air Nasal Cannula O2 Flow Rate 2.0 03/06/19 03/07/19 03/07/19 03/07/19 23:43 00:13 01:20 02:11 Temp 101.4 101.4 Pulse 147 Resp 20 B/P (MAP) 146/78 (100) Pulse Ox 98 98 93 93 O2 Delivery Room Air Nasal Cannula Room Air O2 Flow Rate 2.0 2.0 03/07/19 03/07/19 03/07/19 03/07/19 03:00 03:11 04:38 07:00 Temp 101.2 99.5 97.9 101.2 99.5 97.9 Pulse 143 133 Resp 24 20 B/P (MAP) 151/100 (117) 128/78 (95) Pulse Ox 93 93 92 O2 Delivery Room Air Room Air Nasal Cannula O2 Flow Rate 2.0 2.0 2.0 03/07/19 03/07/19 07:56 08:37 O2 Delivery Room Air Nasal Cannula Intake and Output 03/06/19 03/06/19 03/07/19 15:00 23:00 07:00 Intake Total 600 ml 200 ml 100 ml Output Total 400 ml 150 ml Balance 600 ml -200 ml -50 ml KHOA SOLIZ III DO Mar 07, 2019 09:54
--- NOTE | 2019-03-07 12:40 | PDOC ---
Infectious Disease Note Vital Sign Vital Signs Vital Signs Date Time Temp Pulse Resp B/P (MAP) Pulse Ox O2 Delivery O2 Flow Rate FiO2 03/07/19 11:08 Nasal Cannula 2.0 03/07/19 10:54 98.5 127 17 126/79 (95) 95 98.5 Labs Lab Laboratory Tests Test 03/07/19 02:55 White Blood Count 13.3 x10^3/uL (4.0-11.0) Red Blood Count 4.44 x10^6/uL (3.50-5.40) Hemoglobin 11.1 g/dL (12.0-15.5) Hematocrit 36.3 % (36.0-47.0) Mean Corpuscular Volume 82 fL (79-100) Mean Corpuscular Hemoglobin 25 pg (25-35) Mean Corpuscular Hemoglobin Concent 31 g/dL (31-37) Red Cell Distribution Width 15.0 % (11.5-14.5) Platelet Count 228 x10^3/uL (140-400) Neutrophils (%) (Auto) 73 % (31-73) Lymphocytes (%) (Auto) 18 % (24-48) Monocytes (%) (Auto) 8 % (0-9) Eosinophils (%) (Auto) 1 % (0-3) Basophils (%) (Auto) 0 % (0-3) Neutrophils # (Auto) 9.7 x10^3uL (1.8-7.7) Lymphocytes # (Auto) 2.3 x10^3/uL (1.0-4.8) Monocytes # (Auto) 1.1 x10^3/uL (0.0-1.1) Eosinophils # (Auto) 0.1 x10^3/uL (0.0-0.7) Basophils # (Auto) 0.0 x10^3/uL (0.0-0.2) Sodium Level 132 mmol/L (136-145) Potassium Level 3.7 mmol/L (3.5-5.1) Chloride Level 103 mmol/L (98-107) Carbon Dioxide Level 18 mmol/L (21-32) Anion Gap 11 (6-14) Blood Urea Nitrogen 6 mg/dL (7-20) Creatinine 0.7 mg/dL (0.6-1.0) Estimated GFR (Cockcroft-Gault) 121.5 Glucose Level 97 mg/dL (70-99) Calcium Level 8.4 mg/dL (8.5-10.1) Micro Microbiology 03/04/19 Urine Culture - Final, Complete 03/04/19 Urine Culture Result 1 (NICHELLE) - Final, Complete Objective Assessment Fever Abd pain Leukocytosis Group B strep UTI - POA 03/04 Obesity h/o Chlamydia Constipation - 4 days probable sleep apnea Plan Plan of Care d/c Rocephin Add Zosyn/Doxy R/o PID GC probe/Procalcitonin/LFTS/influenza screen/RPR miralax May need additional imaging May need HIV screen Labs in am Thank you # [phone] DURAN GODOY MD Mar 07, 2019 12:40
[2019-03-07] MEDS: POLYETHYLENE GLYCOL 3350 17 GM PACKET. PO SCH (12:41)
[2019-03-07] MEDS: DOXYCYCLINE HYCLATE 100 MG TABLET PO SCH ×2 (12:41→21:00)
[2019-03-07] MEDS: PIPERACILLIN/TAZOBACTAM 3.375 GM in IV NORMAL SALINE 50ML 50 ML IV SCH ×2 (13:27→17:27)
[2019-03-07 13:48] LABS: DIRECT BILIRUBIN 0.5 mg/dL (0.0-0.2); TOTAL BILIRUBIN 0.8 mg/dL (0.2-1.0); TOTAL PROTEIN 6.8 g/dL (6.4-8.2)
[2019-03-07 14:38] LABS: INFLUENZA A PATIENT NEGATIVE (NEGATIVE); INFLUENZA B PATIENT NEGATIVE (NEGATIVE)
[2019-03-07] MEDS: ONDANSETRON PF 4 MG/2 ML VIAL. IV PRN (15:17)
--- NOTE | 2019-03-07 15:47 | NUR ---
SW following pt for anticipated dc needs. Chart reviewed. Pt lives at home and ID currently following. No recommendation noted at this time.
[2019-03-07] MEDS: ACETAMINOPHEN/CODEINE 300/30MG TABLET. PO PRN (17:28)
[2019-03-07] MEDS ORDERED: PIPERACILLIN/TAZOBACTAM 3.375 GM in IV NORMAL SALINE 50ML 50 ML IV SCH (18:00)
--- NOTE | 2019-03-07 19:45 | NUR ---
Spoke with Dr Mauricio regarding temp, tachy, orders received.
[2019-03-07] MEDS: ACETAMINOPHEN 325 MG TABLET. PO PRN (20:05)
[2019-03-08] MEDS: PIPERACILLIN/TAZOBACTAM 3.375 GM in IV NORMAL SALINE 50ML 50 ML IV SCH ×4 (00:26→17:32)
[2019-03-08] MEDS: DOXYCYCLINE HYCLATE 100 MG TABLET PO SCH ×4 (00:26→21:00)
[2019-03-08] MEDS: ACETAMINOPHEN/CODEINE 300/30MG TABLET. PO PRN ×3 (00:30→22:17)
--- NOTE | 2019-03-08 01:10 | CONS ---
DATE OF CONSULTATION: 03/07/2019 ROOM: 512. REQUESTING PHYSICIAN: Dr. Mckeon. REASON FOR CONSULTATION: Pyelonephritis. HISTORY OF PRESENT ILLNESS: The patient is a pleasant 29-year-old female with history of morbid obesity and previous chlamydia infections. The patient presented to [facility] with complaints of some dysuria, some nausea, emesis, but no fever. She had a white blood cell count of 13.5 on arrival, 95 segs and 3 bands[address] She underwent a CT scan of the abdomen and pelvis, which showed no acute findings. She did have some trace free pelvic fluid and a small 3 mm noncalcified right pulmonary nodule. Urine culture was collected. It has turned positive for Group B strep. Despite being on ceftriaxone, she continues to have abdominal pain and fevers up to 101.4. Currently, she is lying in bed. She denies any gross headaches. She has some sinus congestion. She has had decreased appetite and has not had a bowel movement for 4 days. She denies any unusual vaginal discharge, has finished her cycle approximately 2 days ago. Denies any rashes. PAST MEDICAL HISTORY: Positive for morbid obesity, history of chlamydia, previous UTIs. PAST SURGICAL HISTORY: Positive for D and C 3 years ago. REVIEW OF SYSTEMS: Otherwise negative except for mentioned above. ALLERGIES: No known drug allergies. SOCIAL HISTORY: She works as a security attendant. Denies any tobacco, alcohol or any other substance abuses. No pets. FAMILY HISTORY: Noncontributory. CURRENT MEDICATIONS: Included Rocephin, hydrocodone, Motrin, lactobacillus. Meds are available and reviewed in the chart. PHYSICAL EXAMINATION: VITAL SIGNS: T-max was 101.4, currently 97.9, pulse 133, respirations 20, blood pressure 128/78, satting 92% on 2 liters. CONSTITUTIONAL: She is lying in bed. She is cooperative. She looks comfortable. She is morbidly obese. She is on oxygen. HEENT: Pupils equal and reactive. Oral cavity, pharynx is clear. NECK: Supple. Good range of motion. LUNGS: Decreased at bases. HEART: S1, S2. ABDOMEN: Morbidly obese. It is tender. She has some mild guarding. She is tender in her back area as well. EXTREMITIES: Without clubbing, cyanosis. She is a little tender in her thighs. SKIN: Warm to touch. No signs of any red erythema and there is no warmth. NEUROLOGIC: She is nonfocal and appropriate, moves all extremities. PSYCHIATRIC: Affect is pleasant. LABORATORY DATA: White count 13.3, hemoglobin 11.1, platelets 228 with 73 segs, lymphs are 18, creatinine 0.7, glucose 97. She had normal liver function study tests on arrival, total protein was 8.6. Urinalysis concerning for potential urinary tract infection. Radiology reviewed in history of present illness. IMPRESSION: 1. Fever. 2. Abdominal pain. 3. Leukocytosis. 4. Group B strep urinary tract infection. 5. Obesity. 6. History of chlamydia. 7. Constipation for 4 days. 8. Probable sleep apnea. RECOMMENDATIONS: For now, we will discontinue Rocephin. We will add Zosyn, doxycycline, rule out PID, obtain a GC probe, procalcitonin and LFTs, influenza screen. Add some MiraLax. May need additional imaging. Check RPR, may need HIV eval for HIV screen. Labs in the morning. Thank you for asking us to participate in this patient's care. If you have any questions, please do not hesitate to contact me. DURAN GODOY MD DR: DIONY/sonja JOB#: [id number] / [id number]
[2019-03-08] MEDS: IV NORMAL SALINE 1000ML BAG 1,000 ML IV SCH ×4 (01:15→21:42)
[2019-03-08 03:00] VITALS: BP 136/79
[2019-03-08] MEDS: HYDROcodone/APAP 5/325MG 1 TAB TABLET PO PRN ×3 (06:20→19:39)
[2019-03-08 07:00] VITALS: BP 137/91
[2019-03-08] MEDS: LACTOBACILLUS RHAMNOSUS GG 1 CAPSULE. PO SCH ×2 (08:44→19:39)
[2019-03-08] MEDS: POLYETHYLENE GLYCOL 3350 17 GM PACKET. PO SCH (09:00)
[2019-03-08 09:28] LABS: BASO % 0 % (0-3); EOS # 0.2 x10^3/uL (0.0-0.7); EOS % 2 % (0-3); HEMATOCRIT 27.2 % (36.0-47.0); HEMOGLOBIN 8.8 g/dL (12.0-15.5); LYMPH # 1.7 x10^3/uL (1.0-4.8); LYMPH % 18 % (24-48); MEAN CORPUSCULAR HEMOGLOBIN 26 pg (25-35); MEAN CORPUSCULAR HGB CONC 33 g/dL (31-37); MEAN CORPUSCULAR VOLUME 79 fL (79-100); MONO # 0.7 x10^3/uL (0.0-1.1); MONO % 8 % (0-9); NEUT # 6.9 x10^3uL (1.8-7.7); NEUT % 72 % (31-73); PLATELET COUNT 290 x10^3/uL (140-400); RED BLOOD COUNT 3.46 x10^6/uL (3.50-5.40); RED CELL DISTRIBUTION WIDTH 15.2 % (11.5-14.5); WHITE BLOOD COUNT 9.5 x10^3/uL (4.0-11.0)
[2019-03-08 09:47] LABS: CALCIUM 8.3 mg/dL (8.5-10.1); CREATININE 0.8 mg/dL (0.6-1.0); GFR 104.1; POTASSIUM 3.4 mmol/L (3.5-5.1)
--- NOTE | 2019-03-08 10:51 | PDOC ---
Infectious Disease Note Subjective Subjective Still constipated. Vomited last pm. F/C/S better but still abd pain. No dysuria/rash Hoping to go home soon Vital Sign Vital Signs Vital Signs Date Time Temp Pulse Resp B/P (MAP) Pulse Ox O2 Delivery O2 Flow Rate FiO2 03/08/19 08:00 Nasal Cannula 1.5 03/08/19 07:27 18 03/08/19 07:00 98.6 116 137/91 (106) 98 98.6 Physical Exam PHYSICAL EXAM CONSTITUTIONAL: She is lying in bed. She is cooperative. She looks comfortable. Looks some better today. She is morbidly obese. She is on oxygen. HEENT: Pupils equal and reactive. Oral cavity, pharynx is clear. NECK: Supple. Good range of motion. LUNGS: Decreased at bases. HEART: S1, S2. ABDOMEN: Morbidly obese. It is tender but less. She has some mild guarding. She is tender in her back area as well. EXTREMITIES: Without clubbing, cyanosis. She is a little tender in her thighs. SKIN: Warm to touch. No signs of any red erythema and there is no warmth. NEUROLOGIC: She is nonfocal and appropriate, moves all extremities. PSYCHIATRIC: Affect is pleasant Labs Lab Laboratory Tests Test 03/07/19 13:15 03/07/19 13:25 03/07/19 21:00 03/08/19 08:55 Total Bilirubin 0.8 mg/dL (0.2-1.0) Direct Bilirubin 0.5 mg/dL (0.0-0.2) Aspartate Amino Transf (AST/SGOT) 24 U/L (15-37) Alanine Aminotransferase (ALT/SGPT) 23 U/L (14-59) Alkaline Phosphatase 76 U/L (46-116) Total Protein 6.8 g/dL (6.4-8.2) Albumin 2.0 g/dL (3.4-5.0) Procalcitonin 1.12 ng/mL (0.00-0.10) Treponema pallidum Antibody Nonreactive (Nonreactive) Influenza Type A Antigen Negative (NEGATIVE) Influenza Type B Antigen Negative (NEGATIVE) Lactic Acid Level 2.3 mmol/L (0.4-2.0) White Blood Count 9.5 x10^3/uL (4.0-11.0) Red Blood Count 3.46 x10^6/uL (3.50-5.40) Hemoglobin 8.8 g/dL (12.0-15.5) Hematocrit 27.2 % (36.0-47.0) Mean Corpuscular Volume 79 fL (79-100) Mean Corpuscular Hemoglobin 26 pg (25-35) Mean Corpuscular Hemoglobin Concent 33 g/dL (31-37) Red Cell Distribution Width 15.2 % (11.5-14.5) Platelet Count 290 x10^3/uL (140-400) Neutrophils (%) (Auto) 72 % (31-73) Lymphocytes (%) (Auto) 18 % (24-48) Monocytes (%) (Auto) 8 % (0-9) Eosinophils (%) (Auto) 2 % (0-3) Basophils (%) (Auto) 0 % (0-3) Neutrophils # (Auto) 6.9 x10^3uL (1.8-7.7) Lymphocytes # (Auto) 1.7 x10^3/uL (1.0-4.8) Monocytes # (Auto) 0.7 x10^3/uL (0.0-1.1) Eosinophils # (Auto) 0.2 x10^3/uL (0.0-0.7) Basophils # (Auto) 0.0 x10^3/uL (0.0-0.2) Sodium Level 143 mmol/L (136-145) Potassium Level 3.4 mmol/L (3.5-5.1) Chloride Level 105 mmol/L (98-107) Carbon Dioxide Level 29 mmol/L (21-32) Anion Gap 9 (6-14) Blood Urea Nitrogen 4 mg/dL (7-20) Creatinine 0.8 mg/dL (0.6-1.0) Estimated GFR (Cockcroft-Gault) 104.1 Glucose Level 92 mg/dL (70-99) Calcium Level 8.3 mg/dL (8.5-10.1) Micro Microbiology 03/04/19 Urine Culture - Final, Complete 03/04/19 Urine Culture Result 1 (NICHELLE) - Final, Complete Objective Assessment Fever - better Influenza and syphilis - neg GC probe pending. elevated Procalcitonin Abd pain Leukocytosis - better Group B strep UTI - POA 03/04 Obesity h/o Chlamydia Constipation - 5 days now probable sleep apnea Plan Plan of Care Cont Zosyn/Doxy R/o PID F/u GC probe Constipation per primary miralax yesterday caused vomiting May need additional imaging if worsens May need HIV screen DURAN GODOY MD Mar 08, 2019 10:51
[2019-03-08 11:00] VITALS: BP 147/97
--- NOTE | 2019-03-08 12:18 | PDOC ---
PROGRESS NOTES Chief Complaint Chief Complaint Abdominal pain, dysuria History of Present Illness History of Present Illness Patient resting comfortably in bed, complains of constipation, miralax made her nauseous, vomited x1. Fevers over night Vitals Vitals Vital Signs Date Time Temp Pulse Resp B/P (MAP) Pulse Ox O2 Delivery O2 Flow Rate FiO2 03/08/19 11:46 20 Nasal Cannula 1.5 03/08/19 07:00 98.6 116 137/91 (106) 98 98.6 Physical Exam General: Alert, Oriented X3, Cooperative, No acute distress, Other (morbidly obese) Heart: Normal S1, Normal S2, No murmurs, Other (tachycardic) Lungs: Clear, Other (on 2L O2 by NC, no wheezing, no crackles) Abdomen: Soft, Other (lower abdominal tenderness) Extremities: No clubbing, No cyanosis, No edema, Normal pulses, No tenderness/swelling Skin: No rashes, No breakdown, No significant lesion Labs LABS Laboratory Tests Test 03/07/19 13:15 03/07/19 13:25 03/07/19 21:00 03/08/19 08:55 Total Bilirubin 0.8 mg/dL (0.2-1.0) Direct Bilirubin 0.5 mg/dL (0.0-0.2) Aspartate Amino Transf (AST/SGOT) 24 U/L (15-37) Alanine Aminotransferase (ALT/SGPT) 23 U/L (14-59) Alkaline Phosphatase 76 U/L (46-116) Total Protein 6.8 g/dL (6.4-8.2) Albumin 2.0 g/dL (3.4-5.0) Procalcitonin 1.12 ng/mL (0.00-0.10) Treponema pallidum Antibody Nonreactive (Nonreactive) Influenza Type A Antigen Negative (NEGATIVE) Influenza Type B Antigen Negative (NEGATIVE) Lactic Acid Level 2.3 mmol/L (0.4-2.0) White Blood Count 9.5 x10^3/uL (4.0-11.0) Red Blood Count 3.46 x10^6/uL (3.50-5.40) Hemoglobin 8.8 g/dL (12.0-15.5) Hematocrit 27.2 % (36.0-47.0) Mean Corpuscular Volume 79 fL (79-100) Mean Corpuscular Hemoglobin 26 pg (25-35) Mean Corpuscular Hemoglobin Concent 33 g/dL (31-37) Red Cell Distribution Width 15.2 % (11.5-14.5) Platelet Count 290 x10^3/uL (140-400) Neutrophils (%) (Auto) 72 % (31-73) Lymphocytes (%) (Auto) 18 % (24-48) Monocytes (%) (Auto) 8 % (0-9) Eosinophils (%) (Auto) 2 % (0-3) Basophils (%) (Auto) 0 % (0-3) Neutrophils # (Auto) 6.9 x10^3uL (1.8-7.7) Lymphocytes # (Auto) 1.7 x10^3/uL (1.0-4.8) Monocytes # (Auto) 0.7 x10^3/uL (0.0-1.1) Eosinophils # (Auto) 0.2 x10^3/uL (0.0-0.7) Basophils # (Auto) 0.0 x10^3/uL (0.0-0.2) Erythrocyte Sedimentation Rate 115 (0-25) Sodium Level 143 mmol/L (136-145) Potassium Level 3.4 mmol/L (3.5-5.1) Chloride Level 105 mmol/L (98-107) Carbon Dioxide Level 29 mmol/L (21-32) Anion Gap 9 (6-14) Blood Urea Nitrogen 4 mg/dL (7-20) Creatinine 0.8 mg/dL (0.6-1.0) Estimated GFR (Cockcroft-Gault) 104.1 Glucose Level 92 mg/dL (70-99) Calcium Level 8.3 mg/dL (8.5-10.1) Review of Systems Review of Systems fever, nausea/vomiting last night, constipation Assessment and Plan Assessmemt and Plan Problems Medical Problems: (1) Pyelonephritis Status: Acute Assessment: Pyelonephritis/UTI - Group B Strep Sepsis without organ dysfunction Tachycardia Leukocytosis Fevers Lactic acidosis Hypokalemia - resolved Constipation History of Chlamydia Plan: ID: r/o PID, GC probe pending, may need HIV testing - appreciate recs Antibiotics: Rocephin 2 g q24 hrs (03/04-03/07) Zosyn (03/07 - ) Doxy (03/07 - ) Micro: UCx - group B strep Monitor temperature cure - 24 hr Tmax 101.3 Tylenol for fevers Recheck labs in am Bowel regimen - patient unable to tolerate miralax due to nausea Continue IVF at 125 ml/hr Replete potassium CT Abdomen negative for acute process, incidental finding of calcified pulmonary nodule in non-smoker, will need repeat CT in 12 months Pain management PT/OT No home medications to resume Comment Review of Relevant I have reviewed the following items beth (where applicable) has been applied. Labs Laboratory Tests Test 03/07/19 02:55 03/07/19 13:15 03/07/19 13:25 03/07/19 21:00 White Blood Count 13.3 x10^3/uL (4.0-11.0) Red Blood Count 4.44 x10^6/uL (3.50-5.40) Hemoglobin 11.1 g/dL (12.0-15.5) Hematocrit 36.3 % (36.0-47.0) Mean Corpuscular Volume 82 fL (79-100) Mean Corpuscular Hemoglobin 25 pg (25-35) Mean Corpuscular Hemoglobin Concent 31 g/dL (31-37) Red Cell Distribution Width 15.0 % (11.5-14.5) Platelet Count 228 x10^3/uL (140-400) Neutrophils (%) (Auto) 73 % (31-73) Lymphocytes (%) (Auto) 18 % (24-48) Monocytes (%) (Auto) 8 % (0-9) Eosinophils (%) (Auto) 1 % (0-3) Basophils (%) (Auto) 0 % (0-3) Neutrophils # (Auto) 9.7 x10^3uL (1.8-7.7) Lymphocytes # (Auto) 2.3 x10^3/uL (1.0-4.8) Monocytes # (Auto) 1.1 x10^3/uL (0.0-1.1) Eosinophils # (Auto) 0.1 x10^3/uL (0.0-0.7) Basophils # (Auto) 0.0 x10^3/uL (0.0-0.2) Sodium Level 132 mmol/L (136-145) Potassium Level 3.7 mmol/L (3.5-5.1) Chloride Level 103 mmol/L (98-107) Carbon Dioxide Level 18 mmol/L (21-32) Anion Gap 11 (6-14) Blood Urea Nitrogen 6 mg/dL (7-20) Creatinine 0.7 mg/dL (0.6-1.0) Estimated GFR (Cockcroft-Gault) 121.5 Glucose Level 97 mg/dL (70-99) Calcium Level 8.4 mg/dL (8.5-10.1) Total Bilirubin 0.8 mg/dL (0.2-1.0) Direct Bilirubin 0.5 mg/dL (0.0-0.2) Aspartate Amino Transf (AST/SGOT) 24 U/L (15-37) Alanine Aminotransferase (ALT/SGPT) 23 U/L (14-59) Alkaline Phosphatase 76 U/L (46-116) Total Protein 6.8 g/dL (6.4-8.2) Albumin 2.0 g/dL (3.4-5.0) Procalcitonin 1.12 ng/mL (0.00-0.10) Treponema pallidum Antibody Nonreactive (Nonreactive) Influenza Type A Antigen Negative (NEGATIVE) Influenza Type B Antigen Negative (NEGATIVE) Lactic Acid Level 2.3 mmol/L (0.4-2.0) Test 03/08/19 08:55 White Blood Count 9.5 x10^3/uL (4.0-11.0) Red Blood Count 3.46 x10^6/uL (3.50-5.40) Hemoglobin 8.8 g/dL (12.0-15.5) Hematocrit 27.2 % (36.0-47.0) Mean Corpuscular Volume 79 fL (79-100) Mean Corpuscular Hemoglobin 26 pg (25-35) Mean Corpuscular Hemoglobin Concent 33 g/dL (31-37) Red Cell Distribution Width 15.2 % (11.5-14.5) Platelet Count 290 x10^3/uL (140-400) Neutrophils (%) (Auto) 72 % (31-73) Lymphocytes (%) (Auto) 18 % (24-48) Monocytes (%) (Auto) 8 % (0-9) Eosinophils (%) (Auto) 2 % (0-3) Basophils (%) (Auto) 0 % (0-3) Neutrophils # (Auto) 6.9 x10^3uL (1.8-7.7) Lymphocytes # (Auto) 1.7 x10^3/uL (1.0-4.8) Monocytes # (Auto) 0.7 x10^3/uL (0.0-1.1) Eosinophils # (Auto) 0.2 x10^3/uL (0.0-0.7) Basophils # (Auto) 0.0 x10^3/uL (0.0-0.2) Erythrocyte Sedimentation Rate 115 (0-25) Sodium Level 143 mmol/L (136-145) Potassium Level 3.4 mmol/L (3.5-5.1) Chloride Level 105 mmol/L (98-107) Carbon Dioxide Level 29 mmol/L (21-32) Anion Gap 9 (6-14) Blood Urea Nitrogen 4 mg/dL (7-20) Creatinine 0.8 mg/dL (0.6-1.0) Estimated GFR (Cockcroft-Gault) 104.1 Glucose Level 92 mg/dL (70-99) Calcium Level 8.3 mg/dL (8.5-10.1) Laboratory Tests Test 03/07/19 13:15 03/07/19 13:25 03/07/19 21:00 03/08/19 08:55 Total Bilirubin 0.8 mg/dL (0.2-1.0) Direct Bilirubin 0.5 mg/dL (0.0-0.2) Aspartate Amino Transf (AST/SGOT) 24 U/L (15-37) Alanine Aminotransferase (ALT/SGPT) 23 U/L (14-59) Alkaline Phosphatase 76 U/L (46-116) Total Protein 6.8 g/dL (6.4-8.2) Albumin 2.0 g/dL (3.4-5.0) Procalcitonin 1.12 ng/mL (0.00-0.10) Treponema pallidum Antibody Nonreactive (Nonreactive) Influenza Type A Antigen Negative (NEGATIVE) Influenza Type B Antigen Negative (NEGATIVE) Lactic Acid Level 2.3 mmol/L (0.4-2.0) White Blood Count 9.5 x10^3/uL (4.0-11.0) Red Blood Count 3.46 x10^6/uL (3.50-5.40) Hemoglobin 8.8 g/dL (12.0-15.5) Hematocrit 27.2 % (36.0-47.0) Mean Corpuscular Volume 79 fL (79-100) Mean Corpuscular Hemoglobin 26 pg (25-35) Mean Corpuscular Hemoglobin Concent 33 g/dL (31-37) Red Cell Distribution Width 15.2 % (11.5-14.5) Platelet Count 290 x10^3/uL (140-400) Neutrophils (%) (Auto) 72 % (31-73) Lymphocytes (%) (Auto) 18 % (24-48) Monocytes (%) (Auto) 8 % (0-9) Eosinophils (%) (Auto) 2 % (0-3) Basophils (%) (Auto) 0 % (0-3) Neutrophils # (Auto) 6.9 x10^3uL (1.8-7.7) Lymphocytes # (Auto) 1.7 x10^3/uL (1.0-4.8) Monocytes # (Auto) 0.7 x10^3/uL (0.0-1.1) Eosinophils # (Auto) 0.2 x10^3/uL (0.0-0.7) Basophils # (Auto) 0.0 x10^3/uL (0.0-0.2) Erythrocyte Sedimentation Rate 115 (0-25) Sodium Level 143 mmol/L (136-145) Potassium Level 3.4 mmol/L (3.5-5.1) Chloride Level 105 mmol/L (98-107) Carbon Dioxide Level 29 mmol/L (21-32) Anion Gap 9 (6-14) Blood Urea Nitrogen 4 mg/dL (7-20) Creatinine 0.8 mg/dL (0.6-1.0) Estimated GFR (Cockcroft-Gault) 104.1 Glucose Level 92 mg/dL (70-99) Calcium Level 8.3 mg/dL (8.5-10.1) Microbiology 03/04/19 Urine Culture - Final, Complete 03/04/19 Urine Culture Result 1 (NICHELLE) - Final, Complete Medications Current Medications Morphine Sulfate (Morphine Sulfate) 4 mg PRN Q15MIN PRN IV/SQ PAIN GREATER THAN 3/10 Last administered on 03/04/19 18:49; Start 03/04/19 at 15:45; Stop 03/05/19 at 15:44; Status DC Sodium Chloride 1,000 ml @ 1,000 mls/hr Q1H IV Last administered on 03/04/19 16:14; Start 03/04/19 at 15:41; Stop 03/04/19 at 16:40; Status DC Ondansetron HCl (Zofran) 4 mg 1X ONCE IV Last administered on 03/04/19at 16:10; Start 03/04/19 at 15:45; Stop 03/04/19 at 15:46; Status DC Iohexol (Omnipaque 300 Mg/ml) 75 ml 1X ONCE IV Last administered on 03/04/19 16:35; Start 03/04/19 at 16:15; Stop 03/04/19 at 16:19; Status DC Info (CONTRAST GIVEN -- Rx MONITORING) 1 each PRN DAILY PRN MC SEE COMMENTS; Start 03/04/19 at 16:30; Stop 03/06/19 at 16:29; Status DC Ceftriaxone Sodium (Rocephin) 1 gm 1X ONCE IVP Last administered on 03/04/19at 17:42; Start 03/04/19 at 17:45; Stop 03/04/19 at 17:46; Status DC Sodium Chloride 1,000 ml @ 1,000 mls/hr 1X ONCE IV Last administered on 03/04/19 18:14; Start 03/04/19 at 18:00; Stop 03/04/19 at 18:59; Status DC Ondansetron HCl (Zofran) 4 mg 1X ONCE IV Last administered on 03/04/19 18:09; Start 03/04/19 at 18:00; Stop 03/04/19 at 18:01; Status DC Ketorolac Tromethamine (Toradol 15mg Vial) 15 mg 1X ONCE IV Last administered on 03/04/19 18:00; Start 03/04/19 at 18:00; Stop 03/04/19 at 18:01; Status DC Sodium Chloride 1,000 ml @ 1,000 mls/hr 1X ONCE IV Last administered on 03/04/19at 18:13; Start 03/04/19 at 18:00; Stop 03/04/19 at 18:59; Status DC Ketorolac Tromethamine (Toradol Im) 60 mg STK-MED ONCE .ROUTE ; Start 03/04/19 at 17:57; Stop 03/04/19 at 17:58; Status DC Ketorolac Tromethamine (Toradol 30mg Vial) 30 mg STK-MED ONCE .ROUTE ; Start 03/04/19 at 17:58; Stop 03/04/19 at 17:59; Status DC Acetaminophen (Tylenol Supp) 650 mg 1X ONCE OK Last administered on 03/04/19at 18:00; Start 03/04/19 at 18:00; Stop 03/04/19 at 18:01; Status DC Ceftriaxone Sodium (Rocephin) 2 gm Q24H IVP Last administered on 03/06/19 20:24; Start 03/04/19 at 19:00; Stop 03/07/19 at 12:32; Status DC Ondansetron HCl (Zofran) 4 mg PRN Q6HRS PRN IV NAUSEA/VOMITING Last administered on 03/07/19 15:17; Start 03/04/19 at 18:30 Ondansetron HCl (Zofran Odt) 4 mg PRN Q6HRS PRN PO NAUSEA/VOMITING Last administered on 03/08/19 08:44; Start 03/04/19 at 18:30 Acetaminophen (Tylenol) 650 mg PRN Q6HRS PRN PO MILD PAIN Last administered on 03/07/19 20:05; Start 03/04/19 at 18:30 Acetaminophen/ Codeine Phosphate (Tylenol #3) 1 tab PRN Q6HRS PRN PO MODERATE PAIN Last administered on 03/08/19 00:30; Start 03/04/19 at 18:30 Acetaminophen/ Hydrocodone Bitart (Lortab 5/325) 1 tab PRN Q4HRS PRN PO SEVERE PAIN Last administered on 03/08/19 11:46; Start 03/04/19 at 18:30 Ibuprofen (Motrin) 400 mg PRN Q6HRS PRN PO INFLAMMATION Last administered on 03/07/19 22:35; Start 03/04/19 at 18:30 Morphine Sulfate (Morphine Sulfate) 2 mg PRN Q2HR PRN IV PAIN Last administered on 03/07/19 20:06; Start 03/04/19 at 18:30 Diphenhydramine HCl (Benadryl) 25 mg PRN QHS PRN PO INSOMNIA; Start 03/04/19 at 18:30 Hydromorphone HCl (Dilaudid) 1 mg 1X ONCE IV Last administered on 03/04/19 19:11; Start 03/04/19 at 19:15; Stop 03/04/19 at 19:16; Status DC Ceftriaxone Sodium (Rocephin) 1 gm 1X ONCE IVP Last administered on 03/04/19 21:39; Start 03/04/19 at 20:30; Stop 03/04/19 at 20:31; Status DC Sodium Chloride 1,000 ml @ 150 mls/hr Q6H40M IV Last administered on 03/07/19 03:22; Start 03/05/19 at 11:30; Stop 03/07/19 at 09:49; Status DC Lactobacillus Rhamnosus (Culturelle) 1 cap BID PO Last administered on 03/08/19 08:44; Start 03/05/19 at 21:00 Potassium Chloride (Klor-Con) 40 meq 1X ONCE PO Last administered on 03/06/19 12:26; Start 03/06/19 at 09:15; Stop 03/06/19 at 09:23; Status DC Ringer's Solution 1,000 ml @ 0 mls/hr 1X ONCE IV Last administered on 03/07/19 02:15; Start 03/07/19 at 02:00; Stop 03/07/19 at 02:07; Status DC Sodium Chloride 1,000 ml @ 75 mls/hr [id number] IV Last administered on 03/07/19 09:59; Start 03/07/19 at 10:00 Doxycycline Hyclate (Vibra-Tab) 100 mg BID PO Last administered on 03/08/19 08:44; Start 03/07/19 at 12:15 Piperacillin Sod/ Tazobactam Sod 3.375 gm/Sodium Chloride 50 ml @ 100 mls/hr Q6HRS IV ; Start 03/07/19 at 18:00; Status Cancel Polyethylene Glycol (miraLAX PACKET) 17 gm DAILY PO Last administered on 03/07/19at 12:41; Start 03/07/19 at 12:15 Piperacillin Sod/ Tazobactam Sod 3.375 gm/Sodium Chloride 50 ml @ 100 mls/hr Q6HRS IV Last administered on 03/08/19at 11:37; Start 03/07/19 at 13:00 Sodium Chloride 1,000 ml @ 125 mls/hr Q8H IV Last administered on 03/08/19at 11:40; Start 03/07/19 at 19:45 Active Scripts Active Reported No Known Medications Prior To Admisstion (Info) Each 1 Each Vitals/I & O Vital Sign - Last 24 Hours 03/07/19 03/07/19 03/07/19 03/07/19 12:33 15:09 15:17 15:59 Temp 100.6 100.6 Pulse 136 B/P (MAP) 150/95 (113) Pulse Ox 95 O2 Delivery Nasal Cannula Nasal Cannula Nasal Cannula Nasal Cannula O2 Flow Rate 2.0 03/07/19 03/07/19 03/07/19 03/07/19 17:28 19:00 20:00 20:06 Temp 101.3 101.3 Pulse 148 Resp 18 20 B/P (MAP) 141/88 (105) Pulse Ox 95 O2 Delivery Nasal Cannula Nasal Cannula Nasal Cannula Nasal Cannula O2 Flow Rate 2.0 2.0 03/07/19 03/07/19 03/08/19 03/08/19 22:35 23:00 00:30 03:00 Temp 99.9 99.0 99.9 99.0 Pulse 142 129 Resp 20 18 20 18 B/P (MAP) 151/87 (108) 136/79 (98) Pulse Ox 95 93 O2 Delivery Nasal Cannula Nasal Cannula Room Air Nasal Cannula O2 Flow Rate 2.0 2.0 03/08/19 03/08/19 03/08/19 03/08/19 06:20 07:00 07:27 08:00 Temp 98.6 98.6 Pulse 116 Resp 20 17 18 B/P (MAP) 137/91 (106) Pulse Ox 98 O2 Delivery Nasal Cannula Nasal Cannula Nasal Cannula O2 Flow Rate 2.0 2.0 1.5 03/08/19 11:46 Resp 20 O2 Delivery Nasal Cannula O2 Flow Rate 1.5 Intake and Output 03/07/19 03/07/19 03/08/19 15:00 23:00 07:00 Intake Total 1170 ml Balance 1170 ml KHOA SOLIZ III DO Mar 08, 2019 12:18
[2019-03-08] MEDS ORDERED: POTASSIUM CHLORIDE 20 MEQ TABLET.ER. PO ONE (12:30)
[2019-03-08] MEDS ORDERED: MAGNESIUM HYDROXIDE 2,400 MG/30 ML ORAL.SUSP. PO PRN (12:45)
[2019-03-08] MEDS ORDERED: MAGNESIUM HYDROXIDE 2,400 MG/30 ML ORAL.SUSP. PO ONE (13:30)
[2019-03-08 15:00] VITALS: BP 152/90
[2019-03-08 15:18] LABS: GC PROBE Positive (Negative)
[2019-03-08] MEDS: MORPHINE SULFATE 2 MG/ML VIAL. IV PRN (15:31)
[2019-03-08] MEDS: IBUPROFEN 400 MG TABLET. PO PRN (15:36)
[2019-03-08] MEDS ORDERED: ALBUTEROL SULFATE 2.5 MG/3 ML NEBU. NEB PRN (16:45)
[2019-03-08] MEDS: IPRATRPIUM/ALBUTEROL 0.5/2.5MG 3 ML NEBU. NEB SCH ×2 (16:53→21:03)
[2019-03-08 19:00] VITALS: BP 145/89
--- NOTE | 2019-03-08 20:00 | NUR ---
Patient, again, refuses to take the doxycycline ordered, as she does not want to get 'sick' like yesterday.
[2019-03-08 23:00] VITALS: BP 144/92
[2019-03-09] VITALS (7 sets, daily range): BP systolic 118–156; BP diastolic 76–102
[2019-03-09] MEDS: PIPERACILLIN/TAZOBACTAM 3.375 GM in IV NORMAL SALINE 50ML 50 ML IV SCH ×5 (00:06→23:11)
[2019-03-09] MEDS: IV NORMAL SALINE 1000ML BAG 1,000 ML IV SCH ×8 (02:00→19:45)
[2019-03-09] MEDS: IBUPROFEN 400 MG TABLET. PO PRN (03:59)
[2019-03-09] MEDS: ACETAMINOPHEN 325 MG TABLET. PO PRN (03:59)
[2019-03-09] MEDS: MORPHINE SULFATE 2 MG/ML VIAL. IV PRN (03:59)
[2019-03-09 04:39] LABS: BASO % 0 % (0-3); EOS # 0.1 x10^3/uL (0.0-0.7); EOS % 2 % (0-3); HEMATOCRIT 25.6 % (36.0-47.0); HEMOGLOBIN 8.3 g/dL (12.0-15.5); LYMPH # 1.5 x10^3/uL (1.0-4.8); LYMPH % 19 % (24-48); MEAN CORPUSCULAR HEMOGLOBIN 26 pg (25-35); MEAN CORPUSCULAR HGB CONC 32 g/dL (31-37); MEAN CORPUSCULAR VOLUME 79 fL (79-100); MONO # 0.7 x10^3/uL (0.0-1.1); MONO % 8 % (0-9); NEUT # 5.8 x10^3uL (1.8-7.7); NEUT % 71 % (31-73); PLATELET COUNT 282 x10^3/uL (140-400); RED BLOOD COUNT 3.24 x10^6/uL (3.50-5.40); RED CELL DISTRIBUTION WIDTH 15.2 % (11.5-14.5); WHITE BLOOD COUNT 8.2 x10^3/uL (4.0-11.0)
[2019-03-09 04:58] LABS: CALCIUM 8.5 mg/dL (8.5-10.1); CREATININE 0.8 mg/dL (0.6-1.0); GFR 104.1; POTASSIUM 3.6 mmol/L (3.5-5.1)
--- NOTE | 2019-03-09 05:50 | NUR ---
Patient coughs, a wet cough, This chief underwriter obtains IS, instructs patient on use, asks patient to demonstrate use, patient does 4 inhalations, coughs, "It hurts...I can't do this..." This chief underwriter explains she needs to do at least every other hour-on the even hours, about 8-10 times each time, to prevent pneumonia. To monitor.
[2019-03-09] MEDS: IPRATRPIUM/ALBUTEROL 0.5/2.5MG 3 ML NEBU. NEB SCH ×4 (07:56→18:32)
[2019-03-09] MEDS: POLYETHYLENE GLYCOL 3350 17 GM PACKET. PO SCH (08:02)
[2019-03-09] MEDS: DOXYCYCLINE HYCLATE 100 MG TABLET PO SCH ×2 (08:03→20:48)
[2019-03-09] MEDS: LACTOBACILLUS RHAMNOSUS GG 1 CAPSULE. PO SCH ×2 (08:03→20:47)
[2019-03-09] MEDS: DOCUSATE SODIUM 100 MG CAPSULE. PO PRN (08:03)
[2019-03-09] MEDS: HYDROcodone/APAP 5/325MG 1 TAB TABLET PO PRN ×3 (08:04→20:48)
--- NOTE | 2019-03-09 10:39 | PDOC ---
PROGRESS NOTES Chief Complaint Chief Complaint Abdominal pain, dysuria Influenza and syphilis - neg // GC probe pending. elevated Procalcitonin Abd pain Leukocytosis - better Group B strep UTI - POA 03/04 tachycardia with rates 130-140/ ? volume depleted? PLAN PELVIC SONO, CONCERN FOR PID, patent legal assistant consult DR TAYLOR stat ekg tele free t4 echo cardiology consult 1 liter ns iv x 1 HIV SCREEN 44 min exam time. chart review, > 50% of time spent with exam , chart review, pt care coordination History of Present Illness History of Present Illness Patient resting comfortably in bed, complains of constipation, miralax made her nauseous, vomited x1. Fevers over night 03/08 Vitals Vitals Vital Signs Date Time Temp Pulse Resp B/P (MAP) Pulse Ox O2 Delivery O2 Flow Rate FiO2 03/09/19 09:17 95 Room Air 2.0 03/09/19 07:00 98.6 110 128/76 (93) 98.6 03/09/19 04:29 20 Physical Exam General: Alert, Oriented X3, Cooperative, No acute distress, mild distress, moderate distress, Other (morbidly obese) Heart: Normal S1, Normal S2, No murmurs, Other (tachycardic RATE 135-140) Lungs: Clear, Other (on 2L O2 by NC, no wheezing, no crackles) Abdomen: Normal bowel sounds, Soft, Other (lower abdominal tenderness) Extremities: No clubbing, No cyanosis, No edema, Normal pulses, No tenderness/swelling Skin: No rashes, No breakdown, No significant lesion Labs LABS -------- PATIENT: KARLO ARTEAGA ACCT: [id number] LOC: [address] [place] [address] U: [id number] AGE/SX: 29/F ROOM: [facility] RE03/04/[address]: ASHELY VASQUEZ MD : 1990 BED: 1 DIS: STATUS: ADM IN TLOC: SPEC #: [id number] PAT: 03/07/19 STATUS: RES REQ #: [id number] RECD: 03/07/[address] [facility] [address]: ASHELY VASQUEZ MD SOURCE: BLOOD ENTR: 03/07/[address]: DURAN GODOY MD SPDC: NO PCP ORDERED: BCULT Procedure Result BLOOD CULTURE Preliminary NO GROWTH AFTER 1 DAY PROCEDURE: CT ABD PELV W/ IV CONTRST ONLY CT ABD PELV W/ IV CONTRST ONLY Indication: abdomen pain
iv Omni 300 75 mls Exposure: One or more of the following individualized dose reduction techniques were utilized for this examination: 1. Automated exposure control 2. Adjustment of the mA and/or kV according to patient size 3. Use of iterative reconstruction technique. Technique: Intravenous contrast was given. No oral contrast per request. Small subpleural noncalcified nodule in the right lung base measures 3 mm. Liver and spleen appear unremarkable. No evidence of adrenal mass. Kidneys unremarkable. No calcified gallstone. The aorta is nonaneurysmal. No significant lymph node enlargement is identified. No evidence of acute colitis. A structure which may represents a normal appendix is identified. There is no significant small bowel distention. Trace free pelvic fluid. No evidence of pelvic mass. No evidence of pneumoperitoneum. Vertebral body height and alignment are intact. No destructive bone lesion. IMPRESSION: 1. No acute findings in the abdomen or pelvis. 2. Small 3 mm noncalcified right pulmonary nodule. As per Fleischner Society guidelines, no follow-up necessary if low risk. If high risk, follow-up CT chest in 12 months could be considered. Electronically signed by: Ashu Granger MD (03/04/2019 5:23 PM) [facility] DICTATED and SIGNED BY: ASHU GRANGER MD DATE: 03/04/19 1723 Laboratory Tests Test 03/09/19 03:50 White Blood Count 8.2 x10^3/uL (4.0-11.0) Red Blood Count 3.24 x10^6/uL (3.50-5.40) Hemoglobin 8.3 g/dL (12.0-15.5) Hematocrit 25.6 % (36.0-47.0) Mean Corpuscular Volume 79 fL (79-100) Mean Corpuscular Hemoglobin 26 pg (25-35) Mean Corpuscular Hemoglobin Concent 32 g/dL (31-37) Red Cell Distribution Width 15.2 % (11.5-14.5) Platelet Count 282 x10^3/uL (140-400) Neutrophils (%) (Auto) 71 % (31-73) Lymphocytes (%) (Auto) 19 % (24-48) Monocytes (%) (Auto) 8 % (0-9) Eosinophils (%) (Auto) 2 % (0-3) Basophils (%) (Auto) 0 % (0-3) Neutrophils # (Auto) 5.8 x10^3uL (1.8-7.7) Lymphocytes # (Auto) 1.5 x10^3/uL (1.0-4.8) Monocytes # (Auto) 0.7 x10^3/uL (0.0-1.1) Eosinophils # (Auto) 0.1 x10^3/uL (0.0-0.7) Basophils # (Auto) 0.0 x10^3/uL (0.0-0.2) Sodium Level 141 mmol/L (136-145) Potassium Level 3.6 mmol/L (3.5-5.1) Chloride Level 105 mmol/L (98-107) Carbon Dioxide Level 27 mmol/L (21-32) Anion Gap 9 (6-14) Blood Urea Nitrogen 5 mg/dL (7-20) Creatinine 0.8 mg/dL (0.6-1.0) Estimated GFR (Cockcroft-Gault) 104.1 Glucose Level 101 mg/dL (70-99) Calcium Level 8.5 mg/dL (8.5-10.1) Assessment and Plan Assessmemt and Plan Problems Medical Problems: (1) Pyelonephritis Status: Acute Comment Review of Relevant I have reviewed the following items beth (where applicable) has been applied. Labs Laboratory Tests Test 03/07/19 13:15 03/07/19 13:25 03/07/19 13:50 03/07/19 21:00 Total Bilirubin 0.8 mg/dL (0.2-1.0) Direct Bilirubin 0.5 mg/dL (0.0-0.2) Aspartate Amino Transf (AST/SGOT) 24 U/L (15-37) Alanine Aminotransferase (ALT/SGPT) 23 U/L (14-59) Alkaline Phosphatase 76 U/L (46-116) Total Protein 6.8 g/dL (6.4-8.2) Albumin 2.0 g/dL (3.4-5.0) Procalcitonin 1.12 ng/mL (0.00-0.10) Treponema pallidum Antibody Nonreactive (Nonreactive) Influenza Type A Antigen Negative (NEGATIVE) Influenza Type B Antigen Negative (NEGATIVE) Chlamydia DNA Probe Negative (Negative) Neisseria gonorrhoeae DNA Probe Positive (Negative) Lactic Acid Level 2.3 mmol/L (0.4-2.0) Test 03/08/19 08:55 03/09/19 03:50 White Blood Count 9.5 x10^3/uL (4.0-11.0) 8.2 x10^3/uL (4.0-11.0) Red Blood Count 3.46 x10^6/uL (3.50-5.40) 3.24 x10^6/uL (3.50-5.40) Hemoglobin 8.8 g/dL (12.0-15.5) 8.3 g/dL (12.0-15.5) Hematocrit 27.2 % (36.0-47.0) 25.6 % (36.0-47.0) Mean Corpuscular Volume 79 fL (79-100) 79 fL (79-100) Mean Corpuscular Hemoglobin 26 pg (25-35) 26 pg (25-35) Mean Corpuscular Hemoglobin Concent 33 g/dL (31-37) 32 g/dL (31-37) Red Cell Distribution Width 15.2 % (11.5-14.5) 15.2 % (11.5-14.5) Platelet Count 290 x10^3/uL (140-400) 282 x10^3/uL (140-400) Neutrophils (%) (Auto) 72 % (31-73) 71 % (31-73) Lymphocytes (%) (Auto) 18 % (24-48) 19 % (24-48) Monocytes (%) (Auto) 8 % (0-9) 8 % (0-9) Eosinophils (%) (Auto) 2 % (0-3) 2 % (0-3) Basophils (%) (Auto) 0 % (0-3) 0 % (0-3) Neutrophils # (Auto) 6.9 x10^3uL (1.8-7.7) 5.8 x10^3uL (1.8-7.7) Lymphocytes # (Auto) 1.7 x10^3/uL (1.0-4.8) 1.5 x10^3/uL (1.0-4.8) Monocytes # (Auto) 0.7 x10^3/uL (0.0-1.1) 0.7 x10^3/uL (0.0-1.1) Eosinophils # (Auto) 0.2 x10^3/uL (0.0-0.7) 0.1 x10^3/uL (0.0-0.7) Basophils # (Auto) 0.0 x10^3/uL (0.0-0.2) 0.0 x10^3/uL (0.0-0.2) Erythrocyte Sedimentation Rate 115 (0-25) Sodium Level 143 mmol/L (136-145) 141 mmol/L (136-145) Potassium Level 3.4 mmol/L (3.5-5.1) 3.6 mmol/L (3.5-5.1) Chloride Level 105 mmol/L (98-107) 105 mmol/L (98-107) Carbon Dioxide Level 29 mmol/L (21-32) 27 mmol/L (21-32) Anion Gap 9 (6-14) 9 (6-14) Blood Urea Nitrogen 4 mg/dL (7-20) 5 mg/dL (7-20) Creatinine 0.8 mg/dL (0.6-1.0) 0.8 mg/dL (0.6-1.0) Estimated GFR (Cockcroft-Gault) 104.1 104.1 Glucose Level 92 mg/dL (70-99) 101 mg/dL (70-99) Calcium Level 8.3 mg/dL (8.5-10.1) 8.5 mg/dL (8.5-10.1) Laboratory Tests Test 03/09/19 03:50 White Blood Count 8.2 x10^3/uL (4.0-11.0) Red Blood Count 3.24 x10^6/uL (3.50-5.40) Hemoglobin 8.3 g/dL (12.0-15.5) Hematocrit 25.6 % (36.0-47.0) Mean Corpuscular Volume 79 fL (79-100) Mean Corpuscular Hemoglobin 26 pg (25-35) Mean Corpuscular Hemoglobin Concent 32 g/dL (31-37) Red Cell Distribution Width 15.2 % (11.5-14.5) Platelet Count 282 x10^3/uL (140-400) Neutrophils (%) (Auto) 71 % (31-73) Lymphocytes (%) (Auto) 19 % (24-48) Monocytes (%) (Auto) 8 % (0-9) Eosinophils (%) (Auto) 2 % (0-3) Basophils (%) (Auto) 0 % (0-3) Neutrophils # (Auto) 5.8 x10^3uL (1.8-7.7) Lymphocytes # (Auto) 1.5 x10^3/uL (1.0-4.8) Monocytes # (Auto) 0.7 x10^3/uL (0.0-1.1) Eosinophils # (Auto) 0.1 x10^3/uL (0.0-0.7) Basophils # (Auto) 0.0 x10^3/uL (0.0-0.2) Sodium Level 141 mmol/L (136-145) Potassium Level 3.6 mmol/L (3.5-5.1) Chloride Level 105 mmol/L (98-107) Carbon Dioxide Level 27 mmol/L (21-32) Anion Gap 9 (6-14) Blood Urea Nitrogen 5 mg/dL (7-20) Creatinine 0.8 mg/dL (0.6-1.0) Estimated GFR (Cockcroft-Gault) 104.1 Glucose Level 101 mg/dL (70-99) Calcium Level 8.5 mg/dL (8.5-10.1) Microbiology 03/07/19 Blood Culture - Preliminary, Resulted NO GROWTH AFTER 1 DAY 03/04/19 Urine Culture - Final, Complete 03/04/19 Urine Culture Result 1 (NICHELLE) - Final, Complete Medications Current Medications Morphine Sulfate (Morphine Sulfate) 4 mg PRN Q15MIN PRN IV/SQ PAIN GREATER THAN 3/10 Last administered on 03/04/19at 18:49; Start 03/04/19 at 15:45; Stop 03/05/19 at 15:44; Status DC Sodium Chloride 1,000 ml @ 1,000 mls/hr Q1H IV Last administered on 03/04/19at 16:14; Start 03/04/19 at 15:41; Stop 03/04/19 at 16:40; Status DC Ondansetron HCl (Zofran) 4 mg 1X ONCE IV Last administered on 03/04/19at 16:10; Start 03/04/19 at 15:45; Stop 03/04/19 at 15:46; Status DC Iohexol (Omnipaque 300 Mg/ml) 75 ml 1X ONCE IV Last administered on 03/04/19at 16:35; Start 03/04/19 at 16:15; Stop 03/04/19 at 16:19; Status DC Info (CONTRAST GIVEN -- Rx MONITORING) 1 each PRN DAILY PRN MC SEE COMMENTS; Start 03/04/19 at 16:30; Stop 03/06/19 at 16:29; Status DC Ceftriaxone Sodium (Rocephin) 1 gm 1X ONCE IVP Last administered on 03/04/19at 17:42; Start 03/04/19 at 17:45; Stop 03/04/19 at 17:46; Status DC Sodium Chloride 1,000 ml @ 1,000 mls/hr 1X ONCE IV Last administered on 03/04/19at 18:14; Start 03/04/19 at 18:00; Stop 03/04/19 at 18:59; Status DC Ondansetron HCl (Zofran) 4 mg 1X ONCE IV Last administered on 03/04/19at 18:09; Start 03/04/19 at 18:00; Stop 03/04/19 at 18:01; Status DC Ketorolac Tromethamine (Toradol 15mg Vial) 15 mg 1X ONCE IV Last administered on 03/04/19at 18:00; Start 03/04/19 at 18:00; Stop 03/04/19 at 18:01; Status DC Sodium Chloride 1,000 ml @ 1,000 mls/hr 1X ONCE IV Last administered on 03/04/19at 18:13; Start 03/04/19 at 18:00; Stop 03/04/19 at 18:59; Status DC Ketorolac Tromethamine (Toradol Im) 60 mg STK-MED ONCE .ROUTE ; Start 03/04/19 at 17:57; Stop 03/04/19 at 17:58; Status DC Ketorolac Tromethamine (Toradol 30mg Vial) 30 mg STK-MED ONCE .ROUTE ; Start 03/04/19 at 17:58; Stop 03/04/19 at 17:59; Status DC Acetaminophen (Tylenol Supp) 650 mg 1X ONCE IA Last administered on 03/04/19at 18:00; Start 03/04/19 at 18:00; Stop 03/04/19 at 18:01; Status DC Ceftriaxone Sodium (Rocephin) 2 gm Q24H IVP Last administered on 03/06/19 20:24; Start 03/04/19 at 19:00; Stop 03/07/19 at 12:32; Status DC Ondansetron HCl (Zofran) 4 mg PRN Q6HRS PRN IV NAUSEA/VOMITING Last administered on 03/07/19 15:17; Start 03/04/19 at 18:30 Ondansetron HCl (Zofran Odt) 4 mg PRN Q6HRS PRN PO NAUSEA/VOMITING Last administered on 03/08/19 08:44; Start 03/04/19 at 18:30 Acetaminophen (Tylenol) 650 mg PRN Q6HRS PRN PO MILD PAIN Last administered on 03/09/19 03:59; Start 03/04/19 at 18:30 Acetaminophen/ Codeine Phosphate (Tylenol #3) 1 tab PRN Q6HRS PRN PO MODERATE PAIN Last administered on 03/08/19 22:17; Start 03/04/19 at 18:30 Acetaminophen/ Hydrocodone Bitart (Lortab 5/325) 1 tab PRN Q4HRS PRN PO SEVERE PAIN Last administered on 03/09/19 08:04; Start 03/04/19 at 18:30 Ibuprofen (Motrin) 400 mg PRN Q6HRS PRN PO INFLAMMATION Last administered on 03/09/19 03:59; Start 03/04/19 at 18:30 Morphine Sulfate (Morphine Sulfate) 2 mg PRN Q2HR PRN IV PAIN Last administered on 03/09/19 03:59; Start 03/04/19 at 18:30 Diphenhydramine HCl (Benadryl) 25 mg PRN QHS PRN PO INSOMNIA; Start 03/04/19 at 18:30 Hydromorphone HCl (Dilaudid) 1 mg 1X ONCE IV Last administered on 03/04/19 19:11; Start 03/04/19 at 19:15; Stop 03/04/19 at 19:16; Status DC Ceftriaxone Sodium (Rocephin) 1 gm 1X ONCE IVP Last administered on 03/04/19 21:39; Start 03/04/19 at 20:30; Stop 03/04/19 at 20:31; Status DC Sodium Chloride 1,000 ml @ 150 mls/hr Q6H40M IV Last administered on 03/07/19at 03:22; Start 03/05/19 at 11:30; Stop 03/07/19 at 09:49; Status DC Lactobacillus Rhamnosus (Culturelle) 1 cap BID PO Last administered on 03/09/19 at 08:03; Start 03/05/19 at 21:00 Potassium Chloride (Klor-Con) 40 meq 1X ONCE PO Last administered on 03/06/19at 12:26; Start 03/06/19 at 09:15; Stop 03/06/19 at 09:23; Status DC Ringer's Solution 1,000 ml @ 0 mls/hr 1X ONCE IV Last administered on at 02:15; Start 03/07/19 at 02:00; Stop 03/07/19 at 02:07; Status DC Sodium Chloride 1,000 ml @ 75 mls/hr [id number] IV Last administered on 03/07/19at 09:59; Start 03/07/19 at 10:00 Doxycycline Hyclate (Vibra-Tab) 100 mg BID PO Last administered on 03/09/19at 08:03; Start 03/07/19 at 12:15 Piperacillin Sod/ Tazobactam Sod 3.375 gm/Sodium Chloride 50 ml @ 100 mls/hr Q6HRS IV ; Start 03/07/19 at 18:00; Status Cancel Polyethylene Glycol (miraLAX PACKET) 17 gm DAILY PO Last administered on 03/07/19at 12:41; Start 03/07/19 at 12:15 Piperacillin Sod/ Tazobactam Sod 3.375 gm/Sodium Chloride 50 ml @ 100 mls/hr Q6HRS IV Last administered on 03/09/19at 06:00; Start 03/07/19 at 13:00 Sodium Chloride 1,000 ml @ 125 mls/hr Q8H IV Last administered on 03/09/19at 06:00; Start 03/07/19 at 19:45 Potassium Chloride (Klor-Con) 40 meq 1X ONCE PO Last administered on 03/08/19at 12:51; Start 03/08/19 at 12:30; Stop 03/08/19 at 12:31; Status DC Docusate Sodium (Colace) 100 mg PRN DAILY PRN PO STOOL SOFTENER Last admini stered on 03/09/19at 08:03; Start 03/08/19 at 12:45 Magnesium Hydroxide (Milk Of Magnesia) 2,400 mg PRN DAILY PRN PO CONSTIPATION; Start 03/08/19 at 12:45 Magnesium Hydroxide (Milk Of Magnesia) 2,400 mg 1X ONCE PO Last administered on 03/08/19at 12:50; Start 03/08/19 at 13:30; Stop 03/08/19 at 13:31; Status DC Albuterol/ Ipratropium (Duoneb) 3 ml RTQID NEB Last administered on 03/09/19at 07:56; Start 03/08/19 at 17:00 Albuterol Sulfate (Ventolin Neb Soln) 2.5 mg PRN Q4HRS PRN NEB SHORTNESS OF BREATH; Start 03/08/19 at 16:45 Active Scripts Active Reported No Known Medications Prior To Admisstion (Info) Each 1 Each Vitals/I & O Vital Sign - Last 24 Hours 03/08/19 03/08/19 03/08/19 03/08/19 11:00 11:46 12:46 15:00 Temp 99.4 99.9 99.4 99.9 Pulse 119 120 Resp 17 20 18 18 B/P (MAP) 147/97 (114) 152/90 (110) Pulse Ox 97 98 O2 Delivery Nasal Cannula Nasal Cannula Nasal Cannula O2 Flow Rate 2.0 1.5 2.0 03/08/19 03/08/19 03/08/19 03/08/19 15:31 15:31 16:31 16:54 Resp 18 18 Pulse Ox 99 O2 Delivery Nasal Cannula Nasal Cannula Nasal Cannula O2 Flow Rate 1.5 1.5 1.5 2.0 03/08/19 03/08/19 03/08/19 03/08/19 19:00 19:39 19:42 21:05 Temp 99.6 99.6 Pulse 120 Resp 18 20 B/P (MAP) 145/89 (107) Pulse Ox 98 94 O2 Delivery Nasal Cannula Nasal Cannula Nasal Cannula Nasal Cannula O2 Flow Rate 2.0 2.0 2.0 03/08/19 03/08/19 03/08/19 03/09/19 22:17 23:00 23:17 03:00 Temp 100.1 101.1 100.1 101.1 Pulse 119 133 Resp 18 20 18 B/P (MAP) 144/92 (109) 151/94 (113) Pulse Ox 94 96 92 O2 Delivery Nasal Cannula Nasal Cannula Nasal Cannula Nasal Cannula O2 Flow Rate 2.0 2.0 2.0 03/09/19 03/09/19 03/09/19 03/09/19 03:59 04:29 07:00 07:56 Temp 98.6 98.6 Pulse 110 Resp 20 20 B/P (MAP) 128/76 (93) Pulse Ox 96 95 O2 Delivery Nasal Cannula Nasal Cannula Nasal Cannula Nasal Cannula O2 Flow Rate 2.0 2.0 03/09/19 03/09/19 03/09/19 08:00 08:04 09:17 Pulse Ox 95 95 O2 Delivery Room Air Nasal Cannula Room Air O2 Flow Rate 2.0 2.0 Intake and Output 03/08/19 03/08/19 03/09/19 14:59 22:59 06:59 Intake Total 1650 ml 1290 ml 1050 ml Output Total 300 ml 1 ml Balance 1350 ml 1289 ml 1050 ml MARIAJOSE FELIX MD Mar 09, 2019 10:39
[2019-03-09] MEDS ORDERED: NORMAL SALINE IV ONE (12:00)
--- NOTE | 2019-03-09 13:36 | EKG ---
[facility] [address] [place] [address] Test Date: 2019-03-09 Test Time: 13:22:00 Pat Name: KARLO ARTEAGA Department: Room: 208 1 Gender: F Smash Hand: FRANCO : 1990 Requested By: MARIAJOSE FELIX Order Number: [id number] Reading MD: Yung Steve Measurements Intervals [place] Rate: 123 P: -56 [place]: 102 QRS: 80 QRSD: 80 T: 19 QT: 356 QTc: 516 Interpretive Statements SINUS TACHYCARDIA OTHERWISE NORMAL ECG RI6.01 Compared to ECG 05/14/2012 22:02:58 Sinus rhythm no longer present Electronically Signed On 03-13-2019 13:09:54 CDT by Yung Steve
--- NOTE | 2019-03-09 13:57 | RAD ---
CHEST AP ONLY History: GENERALIZED WEAKNESS, CHANGE IN LUNG SOUNDS Comparison: 09/03/2016 Findings: Single view of the chest is submitted. There is suspected small right pleural effusion. There is mild perihilar opacity greater on the right. Cardiac silhouette is probably unchanged allowing for differences in technique. No pneumothorax identified. There is some fullness of the left hilar region and azygous region otherwise difficult to characterize by radiograph. Impression: 1. There is small right pleural effusion. There is mild perihilar opacity greater on the right which may be due to edema. There is fullness of the left perihilar region and azygous region otherwise difficult to characterize by radiograph, underlying lymphadenopathy not excluded. Electronically signed by: Nish Stewart MD (03/09/2019 1:54 PM) [facility]
--- NOTE | 2019-03-09 15:35 | PDOC ---
Infectious Disease Note Subjective Subjective did have sob, now at 2 nd floor, feeling better, some abd pain ROS ROS no n/v/d/sob Vital Sign Vital Signs Vital Signs Date Time Temp Pulse Resp B/P (MAP) Pulse Ox O2 Delivery O2 Flow Rate FiO2 03/09/19 14:44 99.2 116 24 118/91 (100) 99 Nasal Cannula 2.0 99.2 Physical Exam PHYSICAL EXAM CONSTITUTIONAL: She is lying in bed. She is cooperative. She looks comfortable. Looks some better today. She is morbidly obese. She is on oxygen. HEENT: Pupils equal and reactive. Oral cavity, pharynx is clear. NECK: Supple. Good range of motion. LUNGS: Decreased at bases. HEART: S1, S2. ABDOMEN: Morbidly obese. It is tender but less. She has some mild guarding. She is tender in her back area as well. EXTREMITIES: Without clubbing, cyanosis. She is a little tender in her thighs. SKIN: Warm to touch. No signs of any red erythema and there is no warmth. NEUROLOGIC: She is nonfocal and appropriate, moves all extremities. PSYCHIATRIC: Affect is pleasant Labs Lab Laboratory Tests Test 03/09/19 03:50 03/09/19 13:30 White Blood Count 8.2 x10^3/uL (4.0-11.0) Red Blood Count 3.24 x10^6/uL (3.50-5.40) Hemoglobin 8.3 g/dL (12.0-15.5) Hematocrit 25.6 % (36.0-47.0) Mean Corpuscular Volume 79 fL (79-100) Mean Corpuscular Hemoglobin 26 pg (25-35) Mean Corpuscular Hemoglobin Concent 32 g/dL (31-37) Red Cell Distribution Width 15.2 % (11.5-14.5) Platelet Count 282 x10^3/uL (140-400) Neutrophils (%) (Auto) 71 % (31-73) Lymphocytes (%) (Auto) 19 % (24-48) Monocytes (%) (Auto) 8 % (0-9) Eosinophils (%) (Auto) 2 % (0-3) Basophils (%) (Auto) 0 % (0-3) Neutrophils # (Auto) 5.8 x10^3uL (1.8-7.7) Lymphocytes # (Auto) 1.5 x10^3/uL (1.0-4.8) Monocytes # (Auto) 0.7 x10^3/uL (0.0-1.1) Eosinophils # (Auto) 0.1 x10^3/uL (0.0-0.7) Basophils # (Auto) 0.0 x10^3/uL (0.0-0.2) Sodium Level 141 mmol/L (136-145) Potassium Level 3.6 mmol/L (3.5-5.1) Chloride Level 105 mmol/L (98-107) Carbon Dioxide Level 27 mmol/L (21-32) Anion Gap 9 (6-14) Blood Urea Nitrogen 5 mg/dL (7-20) Creatinine 0.8 mg/dL (0.6-1.0) Estimated GFR (Cockcroft-Gault) 104.1 Glucose Level 101 mg/dL (70-99) Calcium Level 8.5 mg/dL (8.5-10.1) Lactic Acid Level 1.5 mmol/L (0.4-2.0) Free Thyroxine 1.25 ng/dL (0.76-1.46) Micro Microbiology 03/07/19 Blood Culture - Preliminary, Resulted NO GROWTH AFTER 1 DAY 03/04/19 Urine Culture - Final, Complete 03/04/19 Urine Culture Result 1 (NICHELLE) - Final, Complete Objective Assessment Fever - better Influenza and syphilis neg, GC positive Abd pain Leukocytosis - better Group B strep UTI - POA 03/04 Obesity h/o Chlamydia Constipation - 5 days now probable sleep apnea Plan Plan of Care Cont Zosyn/Doxy R/o PID F/u GC probe Constipation per primary miralax yesterday caused vomiting May need additional imaging if worsens May need HIV screen ALE LIM MD Mar 09, 2019 15:35
--- NOTE | 2019-03-09 20:36 | RAD ---
PELVIS W/TV History: Pelvic pain Comparison: None. Findings: Multiple transabdominal sonographic images of the pelvis are submitted. Uterus measured 9.3 x 4.5 x 5 cm. Endometrium measured about 1 cm in thickness. Ovaries are not well visualized. Transvaginal ultrasound: Multiple transvaginal sonographic images of the pelvis are submitted. Endometrium measured about 0.6 cm. Left ovary measured 3.8 x 1.9 x 2.1 cm with normal low resistance vascularity color flow. There are a few follicles present. Right ovary measured 2.4 x 2.2 x 4.7 cm with normal low resistance vascularity and color flow present. There is minimal free fluid. There is a complex, heterogeneous-appearing, partially cystic mass arising from the fundus of the uterus measuring about 5.3 cm x 3.7 cm x 3 cm. Impression: 1. There is complex, heterogeneous, partially cystic mass projecting from the uterine fundus. This could be due to sequela of degenerating fibroid although nonspecific. There is minimal free fluid in the pelvis. No discrete abnormality is demonstrated of either ovary. Electronically signed by: Nish Stewart MD (03/09/2019 8:33 PM) [facility]
[2019-03-10 03:00] VITALS: BP 119/81
[2019-03-10] MEDS: IV NORMAL SALINE 1000ML BAG 1,000 ML IV SCH ×3 (03:45→21:51)
[2019-03-10] MEDS: PIPERACILLIN/TAZOBACTAM 3.375 GM in IV NORMAL SALINE 50ML 50 ML IV SCH ×3 (05:17→17:35)
[2019-03-10 05:25] LABS: BASO % 1 % (0-3); EOS # 0.1 x10^3/uL (0.0-0.7); EOS % 1 % (0-3); HEMATOCRIT 23.2 % (36.0-47.0); HEMOGLOBIN 7.4 g/dL (12.0-15.5); LYMPH # 1.8 x10^3/uL (1.0-4.8); LYMPH % 24 % (24-48); MEAN CORPUSCULAR HEMOGLOBIN 25 pg (25-35); MEAN CORPUSCULAR HGB CONC 32 g/dL (31-37); MEAN CORPUSCULAR VOLUME 79 fL (79-100); MONO # 0.6 x10^3/uL (0.0-1.1); MONO % 8 % (0-9); NEUT # 4.9 x10^3uL (1.8-7.7); NEUT % 66 % (31-73); PLATELET COUNT 276 x10^3/uL (140-400); RED BLOOD COUNT 2.95 x10^6/uL (3.50-5.40); RED CELL DISTRIBUTION WIDTH 15.1 % (11.5-14.5); WHITE BLOOD COUNT 7.5 x10^3/uL (4.0-11.0)
[2019-03-10 05:48] LABS: ALBUMIN/GLOBULIN RATIO 0.4 (1.0-1.7); CALCIUM 8.4 mg/dL (8.5-10.1); CREATININE 0.7 mg/dL (0.6-1.0); GFR 121.5; POTASSIUM 3.6 mmol/L (3.5-5.1); TOTAL BILIRUBIN 0.5 mg/dL (0.2-1.0); TOTAL PROTEIN 6.8 g/dL (6.4-8.2)
[2019-03-10] MEDS: IPRATRPIUM/ALBUTEROL 0.5/2.5MG 3 ML NEBU. NEB SCH (07:26)
[2019-03-10 07:50] VITALS: BP 149/69
[2019-03-10] MEDS: ALBUTEROL SULFATE 2.5 MG/3 ML NEBU. NEB SCH ×4 (08:10→19:24)
[2019-03-10] MEDS: DOXYCYCLINE HYCLATE 100 MG TABLET PO SCH ×2 (08:38→21:21)
[2019-03-10] MEDS: LACTOBACILLUS RHAMNOSUS GG 1 CAPSULE. PO SCH ×2 (08:38→21:21)
[2019-03-10] MEDS: POLYETHYLENE GLYCOL 3350 17 GM PACKET. PO SCH (08:42)
[2019-03-10] MEDS: DOCUSATE SODIUM 100 MG CAPSULE. PO PRN (08:43)
[2019-03-10] MEDS: IBUPROFEN 400 MG TABLET. PO PRN ×2 (08:46→18:17)
[2019-03-10] MEDS: ACETAMINOPHEN 325 MG TABLET. PO PRN ×2 (08:46→18:17)
--- NOTE | 2019-03-10 10:19 | PDOC ---
Infectious Disease Note Subjective Subjective Feels hot Low-grade fevers Tmax 100.8 c/o lower abdominal pain Denies vaginal discharge/bleeding No further N/V ROS ROS per HPI Vital Sign Vital Signs Vital Signs Date Time Temp Pulse Resp B/P (MAP) Pulse Ox O2 Delivery O2 Flow Rate FiO2 03/10/19 08:10 96 Nasal Cannula 2.0 03/10/19 07:50 98.3 125 17 149/69 (95) 98.3 Physical Exam PHYSICAL EXAM GENERAL: Sleeping, arouses to name HEENT: Pupils equal and reactive. Oral cavity, pharynx is clear. NECK: Supple. Good range of motion. LUNGS: Decreased at bases. HEART: S1, S2. ABDOMEN: Morbidly obese. soft, nontender to light palpation EXTREMITIES: Without clubbing, cyanosis. SKIN: Warm to touch. NEUROLOGIC: Responds appropriately Labs Lab Laboratory Tests Test 03/09/19 13:30 03/10/19 04:44 Lactic Acid Level 1.5 mmol/L (0.4-2.0) Free Thyroxine 1.25 ng/dL (0.76-1.46) White Blood Count 7.5 x10^3/uL (4.0-11.0) Red Blood Count 2.95 x10^6/uL (3.50-5.40) Hemoglobin 7.4 g/dL (12.0-15.5) Hematocrit 23.2 % (36.0-47.0) Mean Corpuscular Volume 79 fL (79-100) Mean Corpuscular Hemoglobin 25 pg (25-35) Mean Corpuscular Hemoglobin Concent 32 g/dL (31-37) Red Cell Distribution Width 15.1 % (11.5-14.5) Platelet Count 276 x10^3/uL (140-400) Neutrophils (%) (Auto) 66 % (31-73) Lymphocytes (%) (Auto) 24 % (24-48) Monocytes (%) (Auto) 8 % (0-9) Eosinophils (%) (Auto) 1 % (0-3) Basophils (%) (Auto) 1 % (0-3) Neutrophils # (Auto) 4.9 x10^3uL (1.8-7.7) Lymphocytes # (Auto) 1.8 x10^3/uL (1.0-4.8) Monocytes # (Auto) 0.6 x10^3/uL (0.0-1.1) Eosinophils # (Auto) 0.1 x10^3/uL (0.0-0.7) Basophils # (Auto) 0.0 x10^3/uL (0.0-0.2) Sodium Level 139 mmol/L (136-145) Potassium Level 3.6 mmol/L (3.5-5.1) Chloride Level 103 mmol/L (98-107) Carbon Dioxide Level 25 mmol/L (21-32) Anion Gap 11 (6-14) Blood Urea Nitrogen 7 mg/dL (7-20) Creatinine 0.7 mg/dL (0.6-1.0) Estimated GFR (Cockcroft-Gault) 121.5 BUN/Creatinine Ratio 10 (6-20) Glucose Level 85 mg/dL (70-99) Calcium Level 8.4 mg/dL (8.5-10.1) Total Bilirubin 0.5 mg/dL (0.2-1.0) Aspartate Amino Transf (AST/SGOT) 28 U/L (15-37) Alanine Aminotransferase (ALT/SGPT) 23 U/L (14-59) Alkaline Phosphatase 77 U/L (46-116) Total Protein 6.8 g/dL (6.4-8.2) Albumin 2.0 g/dL (3.4-5.0) Albumin/Globulin Ratio 0.4 (1.0-1.7) Impression: 1. There is small right pleural effusion. There is mild perihilar opacity greater on the right which may be due to edema. There is fullness of the left perihilar region and azygous region otherwise difficult to characterize by radiograph, underlying lymphadenopathy not excluded. Micro 03/07/19 Blood Culture - Preliminary, Resulted NO GROWTH AFTER 2 DAYS URINE CULTURE RES 1 Final Comment Beta hemolytic Streptococcus, group B 25,000-50,000 colony forming units per mL Objective Assessment Fever - better Influenza and syphilis neg, GC positive Abd pain Leukocytosis - better Group B strep UTI - POA 03/04 Obesity h/o Chlamydia Constipation probable sleep apnea Plan Plan of Care Cont Zosyn and Doxy Constipation per primary HIV screen pending Attending Co-Sign The patient was seen and interviewed as well as examined at the bedside. The chart was reviewed. The case was discussed. Agree with the plan of care. YESSICA OLIVAS APRN Mar 10, 2019 10:19 ALE LIM MD Mar 10, 2019 13:29
[2019-03-10 10:38] VITALS: BP 136/90
--- NOTE | 2019-03-10 11:37 | PDOC ---
PROGRESS NOTES Chief Complaint Chief Complaint SEPSIS from UTI/pyelonephritis with organ dysfunction namely tachycardia/nonsustained V. tach, stable Obesity, BMI 46.4 Gonorrhea positive-syphilis negative HIV pending Fevers Constipation, now diarrhea Anemia, hemoglobin 7 Elevated sedimentation rate 115 History of Present Illness History of Present Illness I admitted her for UTI pyelonephritis Went to the upstairs but went into heart rate 170s now 130s 140s hence transfer to [facility] nothing special, maybe an echo Remains febrile tachycardic temperature 100 ID on board,, gonorrhea positive, syphilis negative and gave HIV consent to test Sexually Active with one partner only Sedimentation rate 115 constipated initially on admission but after IV abx now having liquid stools which she is okay so far Plan On doxycycline and Rocephin Follow urine cultures Monitor temps No leukocytosis Echocardiogram Can check TSH if not yet done Add LActobacillus, c diff check if diarrhea persists Discussed with her and updated all findings Vitals Vitals Vital Signs Date Time Temp Pulse Resp B/P (MAP) Pulse Ox O2 Delivery O2 Flow Rate FiO2 03/10/19 10:38 98.3 109 18 136/90 (105) 92 Room Air 98.3 03/10/19 08:10 2.0 Physical Exam Physical Exam GENERAL: Sleeping, arouses to name HEENT: Pupils equal and reactive. Oral cavity, pharynx is clear. NECK: Supple. Good range of motion. LUNGS: Decreased at bases. HEART: S1, S2. ABDOMEN: Morbidly obese. soft, nontender to light palpation EXTREMITIES: Without clubbing, cyanosis. SKIN: Warm to touch. NEUROLOGIC: Responds appropriately General: Alert, Oriented X3, Cooperative, No acute distress, mild distress, moderate distress, Other (morbidly obese) Heart: Normal S1, Normal S2, No murmurs, Other (tachycardic RATE 135-140) Lungs: Clear, Other (on 2L O2 by NC, no wheezing, no crackles) Abdomen: Normal bowel sounds, Soft, Other (lower abdominal tenderness) Extremities: No clubbing, No cyanosis, No edema, Normal pulses, No tenderness/swelling Skin: No rashes, No breakdown, No significant lesion Labs LABS Laboratory Tests Test 03/09/19 13:30 03/10/19 04:44 Lactic Acid Level 1.5 mmol/L (0.4-2.0) Free Thyroxine 1.25 ng/dL (0.76-1.46) White Blood Count 7.5 x10^3/uL (4.0-11.0) Red Blood Count 2.95 x10^6/uL (3.50-5.40) Hemoglobin 7.4 g/dL (12.0-15.5) Hematocrit 23.2 % (36.0-47.0) Mean Corpuscular Volume 79 fL (79-100) Mean Corpuscular Hemoglobin 25 pg (25-35) Mean Corpuscular Hemoglobin Concent 32 g/dL (31-37) Red Cell Distribution Width 15.1 % (11.5-14.5) Platelet Count 276 x10^3/uL (140-400) Neutrophils (%) (Auto) 66 % (31-73) Lymphocytes (%) (Auto) 24 % (24-48) Monocytes (%) (Auto) 8 % (0-9) Eosinophils (%) (Auto) 1 % (0-3) Basophils (%) (Auto) 1 % (0-3) Neutrophils # (Auto) 4.9 x10^3uL (1.8-7.7) Lymphocytes # (Auto) 1.8 x10^3/uL (1.0-4.8) Monocytes # (Auto) 0.6 x10^3/uL (0.0-1.1) Eosinophils # (Auto) 0.1 x10^3/uL (0.0-0.7) Basophils # (Auto) 0.0 x10^3/uL (0.0-0.2) Sodium Level 139 mmol/L (136-145) Potassium Level 3.6 mmol/L (3.5-5.1) Chloride Level 103 mmol/L (98-107) Carbon Dioxide Level 25 mmol/L (21-32) Anion Gap 11 (6-14) Blood Urea Nitrogen 7 mg/dL (7-20) Creatinine 0.7 mg/dL (0.6-1.0) Estimated GFR (Cockcroft-Gault) 121.5 BUN/Creatinine Ratio 10 (6-20) Glucose Level 85 mg/dL (70-99) Calcium Level 8.4 mg/dL (8.5-10.1) Total Bilirubin 0.5 mg/dL (0.2-1.0) Aspartate Amino Transf (AST/SGOT) 28 U/L (15-37) Alanine Aminotransferase (ALT/SGPT) 23 U/L (14-59) Alkaline Phosphatase 77 U/L (46-116) Total Protein 6.8 g/dL (6.4-8.2) Albumin 2.0 g/dL (3.4-5.0) Albumin/Globulin Ratio 0.4 (1.0-1.7) Review of Systems Review of Systems diarrhea now, the rest of ROS 14 point negative Assessment and Plan Assessmemt and Plan Problems Medical Problems: (1) Pyelonephritis Status: Acute Comment Review of Relevant I have reviewed the following items beth (where applicable) has been applied. Labs Laboratory Tests Test 03/09/19 03:50 03/09/19 13:30 03/10/19 04:44 White Blood Count 8.2 x10^3/uL (4.0-11.0) 7.5 x10^3/uL (4.0-11.0) Red Blood Count 3.24 x10^6/uL (3.50-5.40) 2.95 x10^6/uL (3.50-5.40) Hemoglobin 8.3 g/dL (12.0-15.5) 7.4 g/dL (12.0-15.5) Hematocrit 25.6 % (36.0-47.0) 23.2 % (36.0-47.0) Mean Corpuscular Volume 79 fL (79-100) 79 fL (79-100) Mean Corpuscular Hemoglobin 26 pg (25-35) 25 pg (25-35) Mean Corpuscular Hemoglobin Concent 32 g/dL (31-37) 32 g/dL (31-37) Red Cell Distribution Width 15.2 % (11.5-14.5) 15.1 % (11.5-14.5) Platelet Count 282 x10^3/uL (140-400) 276 x10^3/uL (140-400) Neutrophils (%) (Auto) 71 % (31-73) 66 % (31-73) Lymphocytes (%) (Auto) 19 % (24-48) 24 % (24-48) Monocytes (%) (Auto) 8 % (0-9) 8 % (0-9) Eosinophils (%) (Auto) 2 % (0-3) 1 % (0-3) Basophils (%) (Auto) 0 % (0-3) 1 % (0-3) Neutrophils # (Auto) 5.8 x10^3uL (1.8-7.7) 4.9 x10^3uL (1.8-7.7) Lymphocytes # (Auto) 1.5 x10^3/uL (1.0-4.8) 1.8 x10^3/uL (1.0-4.8) Monocytes # (Auto) 0.7 x10^3/uL (0.0-1.1) 0.6 x10^3/uL (0.0-1.1) Eosinophils # (Auto) 0.1 x10^3/uL (0.0-0.7) 0.1 x10^3/uL (0.0-0.7) Basophils # (Auto) 0.0 x10^3/uL (0.0-0.2) 0.0 x10^3/uL (0.0-0.2) Sodium Level 141 mmol/L (136-145) 139 mmol/L (136-145) Potassium Level 3.6 mmol/L (3.5-5.1) 3.6 mmol/L (3.5-5.1) Chloride Level 105 mmol/L (98-107) 103 mmol/L (98-107) Carbon Dioxide Level 27 mmol/L (21-32) 25 mmol/L (21-32) Anion Gap 9 (6-14) 11 (6-14) Blood Urea Nitrogen 5 mg/dL (7-20) 7 mg/dL (7-20) Creatinine 0.8 mg/dL (0.6-1.0) 0.7 mg/dL (0.6-1.0) Estimated GFR (Cockcroft-Gault) 104.1 121.5 Glucose Level 101 mg/dL (70-99) 85 mg/dL (70-99) Calcium Level 8.5 mg/dL (8.5-10.1) 8.4 mg/dL (8.5-10.1) Lactic Acid Level 1.5 mmol/L (0.4-2.0) Free Thyroxine 1.25 ng/dL (0.76-1.46) BUN/Creatinine Ratio 10 (6-20) Total Bilirubin 0.5 mg/dL (0.2-1.0) Aspartate Amino Transf (AST/SGOT) 28 U/L (15-37) Alanine Aminotransferase (ALT/SGPT) 23 U/L (14-59) Alkaline Phosphatase 77 U/L (46-116) Total Protein 6.8 g/dL (6.4-8.2) Albumin 2.0 g/dL (3.4-5.0) Albumin/Globulin Ratio 0.4 (1.0-1.7) Laboratory Tests Test 03/09/19 13:30 03/10/19 04:44 Lactic Acid Level 1.5 mmol/L (0.4-2.0) Free Thyroxine 1.25 ng/dL (0.76-1.46) White Blood Count 7.5 x10^3/uL (4.0-11.0) Red Blood Count 2.95 x10^6/uL (3.50-5.40) Hemoglobin 7.4 g/dL (12.0-15.5) Hematocrit 23.2 % (36.0-47.0) Mean Corpuscular Volume 79 fL (79-100) Mean Corpuscular Hemoglobin 25 pg (25-35) Mean Corpuscular Hemoglobin Concent 32 g/dL (31-37) Red Cell Distribution Width 15.1 % (11.5-14.5) Platelet Count 276 x10^3/uL (140-400) Neutrophils (%) (Auto) 66 % (31-73) Lymphocytes (%) (Auto) 24 % (24-48) Monocytes (%) (Auto) 8 % (0-9) Eosinophils (%) (Auto) 1 % (0-3) Basophils (%) (Auto) 1 % (0-3) Neutrophils # (Auto) 4.9 x10^3uL (1.8-7.7) Lymphocytes # (Auto) 1.8 x10^3/uL (1.0-4.8) Monocytes # (Auto) 0.6 x10^3/uL (0.0-1.1) Eosinophils # (Auto) 0.1 x10^3/uL (0.0-0.7) Basophils # (Auto) 0.0 x10^3/uL (0.0-0.2) Sodium Level 139 mmol/L (136-145) Potassium Level 3.6 mmol/L (3.5-5.1) Chloride Level 103 mmol/L (98-107) Carbon Dioxide Level 25 mmol/L (21-32) Anion Gap 11 (6-14) Blood Urea Nitrogen 7 mg/dL (7-20) Creatinine 0.7 mg/dL (0.6-1.0) Estimated GFR (Cockcroft-Gault) 121.5 BUN/Creatinine Ratio 10 (6-20) Glucose Level 85 mg/dL (70-99) Calcium Level 8.4 mg/dL (8.5-10.1) Total Bilirubin 0.5 mg/dL (0.2-1.0) Aspartate Amino Transf (AST/SGOT) 28 U/L (15-37) Alanine Aminotransferase (ALT/SGPT) 23 U/L (14-59) Alkaline Phosphatase 77 U/L (46-116) Total Protein 6.8 g/dL (6.4-8.2) Albumin 2.0 g/dL (3.4-5.0) Albumin/Globulin Ratio 0.4 (1.0-1.7) Microbiology 03/07/19 Blood Culture - Preliminary, Resulted NO GROWTH AFTER 2 DAYS 03/04/19 Urine Culture - Final, Complete 03/04/19 Urine Culture Result 1 (NICHELLE) - Final, Complete Medications Current Medications Morphine Sulfate (Morphine Sulfate) 4 mg PRN Q15MIN PRN IV/SQ PAIN GREATER THAN 3/10 Last administered on 03/04/19at 18:49; Start 03/04/19 at 15:45; Stop 03/05/19 at 15:44; Status DC Sodium Chloride 1,000 ml @ 1,000 mls/hr Q1H IV Last administered on 03/04/19at 16:14; Start 03/04/19 at 15:41; Stop 03/04/19 at 16:40; Status DC Ondansetron HCl (Zofran) 4 mg 1X ONCE IV Last administered on 03/04/19at 16:10; Start 03/04/19 at 15:45; Stop 03/04/19 at 15:46; Status DC Iohexol (Omnipaque 300 Mg/ml) 75 ml 1X ONCE IV Last administered on 03/04/19at 16:35; Start 03/04/19 at 16:15; Stop 03/04/19 at 16:19; Status DC Info (CONTRAST GIVEN -- Rx MONITORING) 1 each PRN DAILY PRN MC SEE COMMENTS; Start 03/04/19 at 16:30; Stop 03/06/19 at 16:29; Status DC Ceftriaxone Sodium (Rocephin) 1 gm 1X ONCE IVP Last administered on 03/04/19at 17:42; Start 03/04/19 at 17:45; Stop 03/04/19 at 17:46; Status DC Sodium Chloride 1,000 ml @ 1,000 mls/hr 1X ONCE IV Last administered on 03/04/19at 18:14; Start 03/04/19 at 18:00; Stop 03/04/19 at 18:59; Status DC Ondansetron HCl (Zofran) 4 mg 1X ONCE IV Last administered on 03/04/19at 18:09; Start 03/04/19 at 18:00; Stop 03/04/19 at 18:01; Status DC Ketorolac Tromethamine (Toradol 15mg Vial) 15 mg 1X ONCE IV Last administered on 03/04/19at 18:00; Start 03/04/19 at 18:00; Stop 03/04/19 at 18:01; Status DC Sodium Chloride 1,000 ml @ 1,000 mls/hr 1X ONCE IV Last administered on 03/04/19at 18:13; Start 03/04/19 at 18:00; Stop 03/04/19 at 18:59; Status DC Ketorolac Tromethamine (Toradol Im) 60 mg STK-MED ONCE .ROUTE ; Start 03/04/19 at 17:57; Stop 03/04/19 at 17:58; Status DC Ketorolac Tromethamine (Toradol 30mg Vial) 30 mg STK-MED ONCE .ROUTE ; Start 03/04/19 at 17:58; Stop 03/04/19 at 17:59; Status DC Acetaminophen (Tylenol Supp) 650 mg 1X ONCE AR Last administered on 03/04/19at 18:00; Start 03/04/19 at 18:00; Stop 03/04/19 at 18:01; Status DC Ceftriaxone Sodium (Rocephin) 2 gm Q24H IVP Last administered on 03/06/19 20:24; Start 03/04/19 at 19:00; Stop 03/07/19 at 12:32; Status DC Ondansetron HCl (Zofran) 4 mg PRN Q6HRS PRN IV NAUSEA/VOMITING Last administered on 03/07/19 15:17; Start 03/04/19 at 18:30 Ondansetron HCl (Zofran Odt) 4 mg PRN Q6HRS PRN PO NAUSEA/VOMITING Last administered on 03/08/19 08:44; Start 03/04/19 at 18:30 Acetaminophen (Tylenol) 650 mg PRN Q6HRS PRN PO MILD PAIN Last administered on 03/10/19 08:46; Start 03/04/19 at 18:30 Acetaminophen/ Codeine Phosphate (Tylenol #3) 1 tab PRN Q6HRS PRN PO MODERATE PAIN Last administered on 03/08/19 22:17; Start 03/04/19 at 18:30 Acetaminophen/ Hydrocodone Bitart (Lortab 5/325) 1 tab PRN Q4HRS PRN PO SEVERE PAIN Last administered on 03/09/19 20:48; Start 03/04/19 at 18:30 Ibuprofen (Motrin) 400 mg PRN Q6HRS PRN PO INFLAMMATION Last administered on 03/10/19 08:46; Start 03/04/19 at 18:30 Morphine Sulfate (Morphine Sulfate) 2 mg PRN Q2HR PRN IV PAIN Last administered on 03/09/19 03:59; Start 03/04/19 at 18:30 Diphenhydramine HCl (Benadryl) 25 mg PRN QHS PRN PO INSOMNIA; Start 03/04/19 at 18:30 Hydromorphone HCl (Dilaudid) 1 mg 1X ONCE IV Last administered on 03/04/19 19:11; Start 03/04/19 at 19:15; Stop 03/04/19 at 19:16; Status DC Ceftriaxone Sodium (Rocephin) 1 gm 1X ONCE IVP Last administered on 03/04/19 21:39; Start 03/04/19 at 20:30; Stop 03/04/19 at 20:31; Status DC Sodium Chloride 1,000 ml @ 150 mls/hr Q6H40M IV Last administered on 03/07/19 03:22; Start 03/05/19 at 11:30; Stop 03/07/19 at 09:49; Status DC Lactobacillus Rhamnosus (Culturelle) 1 cap BID PO Last administered on 03/10/19at 08:38; Start 03/05/19 at 21:00 Potassium Chloride (Klor-Con) 40 meq 1X ONCE PO Last administered on 03/06/19 12:26; Start 03/06/19 at 09:15; Stop 03/06/19 at 09:23; Status DC Ringer's Solution 1,000 ml @ 0 mls/hr 1X ONCE IV Last administered on 03/07/19at 02:15; Start 03/07/19 at 02:00; Stop 03/07/19 at 02:07; Status DC Sodium Chloride 1,000 ml @ 75 mls/hr [id number] IV Last administered on 03/07/19at 09:59; Start 03/07/19 at 10:00; Stop 03/09/19 at 12:12; Status DC Doxycycline Hyclate (Vibra-Tab) 100 mg BID PO Last administered on 03/10/19 08:38; Start 03/07/19 at 12:15 Piperacillin Sod/ Tazobactam Sod 3.375 gm/Sodium Chloride 50 ml @ 100 mls/hr Q6HRS IV ; Start 03/07/19 at 18:00; Status Cancel Polyethylene Glycol (miraLAX PACKET) 17 gm DAILY PO Last administered on 03/07/19at 12:41; Start 03/07/19 at 12:15 Piperacillin Sod/ Tazobactam Sod 3.375 gm/Sodium Chloride 50 ml @ 100 mls/hr Q6HRS IV Last administered on 03/10/19at 05:17; Start 03/07/19 at 13:00 Sodium Chloride 1,000 ml @ 100 mls/hr Q10H IV Last administered on 03/09/19at 06:00; Start 03/07/19 at 19:45 Potassium Chloride (Klor-Con) 40 meq 1X ONCE PO Last administered on 03/08/19at 12:51; Start 03/08/19 at 12:30; Stop 03/08/19 at 12:31; Status DC Docusate Sodium (Colace) 100 mg PRN DAILY PRN PO STOOL SOFTENER Last administered on 03/10/19 08:43; Start 03/08/19 at 12:45 Magnesium Hydroxide (Milk Of Magnesia) 2,400 mg PRN DAILY PRN PO CONSTIPATION Last administered on 03/10/19at 08:43; Start 03/08/19 at 12:45 Magnesium Hydroxide (Milk Of Magnesia) 2,400 mg 1X ONCE PO Last administered on 03/08/19at 12:50; Start 03/08/19 at 13:30; Stop 03/08/19 at 13:31; Status DC Albuterol/ Ipratropium (Duoneb) 3 ml RTQID NEB Last administered on 03/09/19at 18:32; Start 03/08/19 at 17:00; Stop 03/10/19 at 07:26; Status DC Albuterol Sulfate (Ventolin Neb Soln) 2.5 mg PRN Q4HRS PRN NEB SHORTNESS OF BREATH; Start 03/08/19 at 16:45 Sodium Chloride 4,150 ml @ 8,300 mls/hr 1X ONCE IV Last administered on 03/09/19at 12:08; Start 03/09/19 at 12:00; Stop 03/09/19 at 12:08; Status DC Sodium Chloride 1,000 ml @ 4,150 mls/hr Q15M IV Last administered on 03/09/19at 12:54; Start 03/09/19 at 12:30; Stop 03/09/19 at 13:15; Status DC Albuterol Sulfate (Ventolin Neb Soln) 2.5 mg RTQID NEB Last administered on 03/10/19at 08:10; Start 03/10/19 at 08:00 Active Scripts Active Reported No Known Medications Prior To Admisstion (Info) Each 1 Each Vitals/I & O Vital Sign - Last 24 Hours 03/09/19 03/09/19 03/09/19 03/09/19 12:40 13:08 14:20 14:44 Temp 97.6 99.2 97.6 99.2 Pulse 124 116 Resp 18 24 B/P (MAP) 147/92 (110) 118/91 (100) Pulse Ox 92 90 90 99 O2 Delivery Nasal Cannula Room Air Room Air Nasal Cannula O2 Flow Rate 2.0 2.0 2.0 2.0 03/09/19 03/09/19 03/09/19 03/09/19 15:46 18:32 19:00 20:00 Temp 100.8 100.8 Pulse 130 Resp 20 B/P (MAP) 156/102 (120) Pulse Ox 100 95 93 O2 Delivery Nasal Cannula Nasal Cannula Nasal Cannula Room Air O2 Flow Rate 3.0 2.0 2.0 2.0 03/09/19 03/09/19 03/10/19 03/10/19 20:48 23:00 03:00 07:50 Temp 98.9 100.0 98.3 98.9 100.0 98.3 Pulse 126 112 125 Resp 20 17 17 17 B/P (MAP) 136/96 (109) 119/81 (94) 149/69 (95) Pulse Ox 94 97 98 O2 Delivery Nasal Cannula Nasal Cannula Nasal Cannula Nasal Cannula O2 Flow Rate 2.0 2.0 2.0 2.0 03/10/19 03/10/19 03/10/19 08:00 08:10 10:38 Temp 98.3 98.3 Pulse 109 Resp 18 B/P (MAP) 136/90 (105) Pulse Ox 96 92 O2 Delivery Room Air Nasal Cannula Room Air O2 Flow Rate 2.0 2.0 Intake and Output 03/09/19 03/09/19 03/10/19 15:00 23:00 07:00 Intake Total 500 ml 300 ml 420 ml Balance 500 ml 300 ml 420 ml ASHELY VASQUEZ MD Mar 10, 2019 11:37
[2019-03-10 14:53] VITALS: BP 141/80
[2019-03-10 19:25] VITALS: BP 145/87
[2019-03-10] MEDS ORDERED: LACTOBACILLUS RHAMNOSUS GG 1 CAPSULE. PO SCH (21:00)
[2019-03-10 23:33] VITALS: BP 142/95
[2019-03-11] VITALS (7 sets, daily range): BP systolic 137–159; BP diastolic 80–104
[2019-03-11] MEDS: PIPERACILLIN/TAZOBACTAM 3.375 GM in IV NORMAL SALINE 50ML 50 ML IV SCH ×4 (01:56→17:36)
[2019-03-11 06:16] LABS: BASO % 0 % (0-3); EOS # 0.1 x10^3/uL (0.0-0.7); EOS % 2 % (0-3); HEMATOCRIT 22.9 % (36.0-47.0); HEMOGLOBIN 7.3 g/dL (12.0-15.5); LYMPH # 1.5 x10^3/uL (1.0-4.8); LYMPH % 27 % (24-48); MEAN CORPUSCULAR HEMOGLOBIN 25 pg (25-35); MEAN CORPUSCULAR HGB CONC 32 g/dL (31-37); MEAN CORPUSCULAR VOLUME 79 fL (79-100); MONO # 0.4 x10^3/uL (0.0-1.1); MONO % 8 % (0-9); NEUT # 3.4 x10^3uL (1.8-7.7); NEUT % 62 % (31-73); PLATELET COUNT 301 x10^3/uL (140-400); RED BLOOD COUNT 2.92 x10^6/uL (3.50-5.40); RED CELL DISTRIBUTION WIDTH 15.3 % (11.5-14.5); WHITE BLOOD COUNT 5.5 x10^3/uL (4.0-11.0)
[2019-03-11 06:23] LABS: CALCIUM 8.5 mg/dL (8.5-10.1); CREATININE 0.7 mg/dL (0.6-1.0); GFR 121.5; POTASSIUM 3.6 mmol/L (3.5-5.1)
[2019-03-11] MEDS: ALBUTEROL SULFATE 2.5 MG/3 ML NEBU. NEB SCH ×4 (07:16→19:41)
[2019-03-11] MEDS: IV NORMAL SALINE 1000ML BAG 1,000 ML IV SCH ×2 (07:51→17:51)
--- NOTE | 2019-03-11 08:14 | PDOC ---
PROGRESS NOTES Chief Complaint Chief Complaint SEPSIS from UTI/pyelonephritis with organ dysfunction namely tachycardia/nonsustained V. tach, stable Obesity, BMI 46.4 Gonorrhea positive-syphilis negative Uterine mass HIV pending Fevers Constipation, now diarrhea Anemia, hemoglobin 7 Elevated sedimentation rate 115 History of Present Illness History of Present Illness Initially admitted to ICU for pyelonephritis, Went to the upstairs but went into heart rate 170s now 130s 140s hence transfer to CVC. Remains febrile tachycardic temperature 100. ID on board,, gonorrhea positive, syphilis negative and gave HIV consent to test, which was negative. Sexually Active with one partner only Sedimentation rate 115 No BM 5 days. Has worse RLQ abdominal pain and vomited x2 today. CT abdomen/pelvis pending. Plan On doxycycline and Zosyn Follow urine cultures Monitor temps No leukocytosis Echocardiogram Needs iron studies, her Hb is now 7.3 Add LActobacillus, c diff check if diarrhea persists Discussed with her and updated all findings Fever - better Influenza and syphilis neg, GC positive Group B strep UTI - POA 03/04 Obesity h/o Chlamydia Constipation - 5 days now probable sleep apnea Vitals Vitals Vital Signs Date Time Temp Pulse Resp B/P (MAP) Pulse Ox O2 Delivery O2 Flow Rate FiO2 03/11/19 07:40 98.9 109 18 141/86 (104) 91 Room Air 98.9 03/11/19 03:31 2.0 Physical Exam Physical Exam GENERAL: Sleeping, arouses to name HEENT: Pupils equal and reactive. Oral cavity, pharynx is clear. NECK: Supple. Good range of motion. LUNGS: Decreased at bases. HEART: S1, S2. ABDOMEN: Morbidly obese. soft, nontender to light palpation EXTREMITIES: Without clubbing, cyanosis. SKIN: Warm to touch. NEUROLOGIC: Responds appropriately General: Alert, Oriented X3 Heart: Regular rate, No murmurs Lungs: Clear, Other (on 2L O2 by NC, no wheezing, no crackles) Abdomen: Soft Extremities: No clubbing, No cyanosis, No edema, Normal pulses, No tenderne ss/swelling Skin: No rashes, No breakdown, No significant lesion Labs LABS Laboratory Tests Test 03/11/19 05:00 White Blood Count 5.5 x10^3/uL (4.0-11.0) Red Blood Count 2.92 x10^6/uL (3.50-5.40) Hemoglobin 7.3 g/dL (12.0-15.5) Hematocrit 22.9 % (36.0-47.0) Mean Corpuscular Volume 79 fL (79-100) Mean Corpuscular Hemoglobin 25 pg (25-35) Mean Corpuscular Hemoglobin Concent 32 g/dL (31-37) Red Cell Distribution Width 15.3 % (11.5-14.5) Platelet Count 301 x10^3/uL (140-400) Neutrophils (%) (Auto) 62 % (31-73) Lymphocytes (%) (Auto) 27 % (24-48) Monocytes (%) (Auto) 8 % (0-9) Eosinophils (%) (Auto) 2 % (0-3) Basophils (%) (Auto) 0 % (0-3) Neutrophils # (Auto) 3.4 x10^3uL (1.8-7.7) Lymphocytes # (Auto) 1.5 x10^3/uL (1.0-4.8) Monocytes # (Auto) 0.4 x10^3/uL (0.0-1.1) Eosinophils # (Auto) 0.1 x10^3/uL (0.0-0.7) Basophils # (Auto) 0.0 x10^3/uL (0.0-0.2) Sodium Level 142 mmol/L (136-145) Potassium Level 3.6 mmol/L (3.5-5.1) Chloride Level 105 mmol/L (98-107) Carbon Dioxide Level 26 mmol/L (21-32) Anion Gap 11 (6-14) Blood Urea Nitrogen 9 mg/dL (7-20) Creatinine 0.7 mg/dL (0.6-1.0) Estimated GFR (Cockcroft-Gault) 121.5 Glucose Level 91 mg/dL (70-99) Calcium Level 8.5 mg/dL (8.5-10.1) Assessment and Plan Assessmemt and Plan Problems Medical Problems: (1) Pyelonephritis Status: Acute Comment Review of Relevant I have reviewed the following items beth (where applicable) has been applied. Labs Laboratory Tests Test 03/09/19 13:30 03/10/19 04:44 03/11/19 05:00 Lactic Acid Level 1.5 mmol/L (0.4-2.0) Free Thyroxine 1.25 ng/dL (0.76-1.46) White Blood Count 7.5 x10^3/uL (4.0-11.0) 5.5 x10^3/uL (4.0-11.0) Red Blood Count 2.95 x10^6/uL (3.50-5.40) 2.92 x10^6/uL (3.50-5.40) Hemoglobin 7.4 g/dL (12.0-15.5) 7.3 g/dL (12.0-15.5) Hematocrit 23.2 % (36.0-47.0) 22.9 % (36.0-47.0) Mean Corpuscular Volume 79 fL (79-100) 79 fL (79-100) Mean Corpuscular Hemoglobin 25 pg (25-35) 25 pg (25-35) Mean Corpuscular Hemoglobin Concent 32 g/dL (31-37) 32 g/dL (31-37) Red Cell Distribution Width 15.1 % (11.5-14.5) 15.3 % (11.5-14.5) Platelet Count 276 x10^3/uL (140-400) 301 x10^3/uL (140-400) Neutrophils (%) (Auto) 66 % (31-73) 62 % (31-73) Lymphocytes (%) (Auto) 24 % (24-48) 27 % (24-48) Monocytes (%) (Auto) 8 % (0-9) 8 % (0-9) Eosinophils (%) (Auto) 1 % (0-3) 2 % (0-3) Basophils (%) (Auto) 1 % (0-3) 0 % (0-3) Neutrophils # (Auto) 4.9 x10^3uL (1.8-7.7) 3.4 x10^3uL (1.8-7.7) Lymphocytes # (Auto) 1.8 x10^3/uL (1.0-4.8) 1.5 x10^3/uL (1.0-4.8) Monocytes # (Auto) 0.6 x10^3/uL (0.0-1.1) 0.4 x10^3/uL (0.0-1.1) Eosinophils # (Auto) 0.1 x10^3/uL (0.0-0.7) 0.1 x10^3/uL (0.0-0.7) Basophils # (Auto) 0.0 x10^3/uL (0.0-0.2) 0.0 x10^3/uL (0.0-0.2) Sodium Level 139 mmol/L (136-145) 142 mmol/L (136-145) Potassium Level 3.6 mmol/L (3.5-5.1) 3.6 mmol/L (3.5-5.1) Chloride Level 103 mmol/L (98-107) 105 mmol/L (98-107) Carbon Dioxide Level 25 mmol/L (21-32) 26 mmol/L (21-32) Anion Gap 11 (6-14) 11 (6-14) Blood Urea Nitrogen 7 mg/dL (7-20) 9 mg/dL (7-20) Creatinine 0.7 mg/dL (0.6-1.0) 0.7 mg/dL (0.6-1.0) Estimated GFR (Cockcroft-Gault) 121.5 121.5 BUN/Creatinine Ratio 10 (6-20) Glucose Level 85 mg/dL (70-99) 91 mg/dL (70-99) Calcium Level 8.4 mg/dL (8.5-10.1) 8.5 mg/dL (8.5-10.1) Total Bilirubin 0.5 mg/dL (0.2-1.0) Aspartate Amino Transf (AST/SGOT) 28 U/L (15-37) Alanine Aminotransferase (ALT/SGPT) 23 U/L (14-59) Alkaline Phosphatase 77 U/L (46-116) Total Protein 6.8 g/dL (6.4-8.2) Albumin 2.0 g/dL (3.4-5.0) Albumin/Globulin Ratio 0.4 (1.0-1.7) Laboratory Tests Test 03/11/19 05:00 White Blood Count 5.5 x10^3/uL (4.0-11.0) Red Blood Count 2.92 x10^6/uL (3.50-5.40) Hemoglobin 7.3 g/dL (12.0-15.5) Hematocrit 22.9 % (36.0-47.0) Mean Corpuscular Volume 79 fL (79-100) Mean Corpuscular Hemoglobin 25 pg (25-35) Mean Corpuscular Hemoglobin Concent 32 g/dL (31-37) Red Cell Distribution Width 15.3 % (11.5-14.5) Platelet Count 301 x10^3/uL (140-400) Neutrophils (%) (Auto) 62 % (31-73) Lymphocytes (%) (Auto) 27 % (24-48) Monocytes (%) (Auto) 8 % (0-9) Eosinophils (%) (Auto) 2 % (0-3) Basophils (%) (Auto) 0 % (0-3) Neutrophils # (Auto) 3.4 x10^3uL (1.8-7.7) Lymphocytes # (Auto) 1.5 x10^3/uL (1.0-4.8) Monocytes # (Auto) 0.4 x10^3/uL (0.0-1.1) Eosinophils # (Auto) 0.1 x10^3/uL (0.0-0.7) Basophils # (Auto) 0.0 x10^3/uL (0.0-0.2) Sodium Level 142 mmol/L (136-145) Potassium Level 3.6 mmol/L (3.5-5.1) Chloride Level 105 mmol/L (98-107) Carbon Dioxide Level 26 mmol/L (21-32) Anion Gap 11 (6-14) Blood Urea Nitrogen 9 mg/dL (7-20) Creatinine 0.7 mg/dL (0.6-1.0) Estimated GFR (Cockcroft-Gault) 121.5 Glucose Level 91 mg/dL (70-99) Calcium Level 8.5 mg/dL (8.5-10.1) Microbiology 03/07/19 Blood Culture - Preliminary, Resulted NO GROWTH AFTER 3 DAYS 03/04/19 Urine Culture - Final, Complete 03/04/19 Urine Culture Result 1 (NICHELLE) - Final, Complete Medications Current Medications Morphine Sulfate (Morphine Sulfate) 4 mg PRN Q15MIN PRN IV/SQ PAIN GREATER THAN 3/10 Last administered on 03/04/19at 18:49; Start 03/04/19 at 15:45; Stop 03/05/19 at 15:44; Status DC Sodium Chloride 1,000 ml @ 1,000 mls/hr Q1H IV Last administered on 03/04/19at 16:14; Start 03/04/19 at 15:41; Stop 03/04/19 at 16:40; Status DC Ondansetron HCl (Zofran) 4 mg 1X ONCE IV Last administered on 03/04/19at 16:10; Start 03/04/19 at 15:45; Stop 03/04/19 at 15:46; Status DC Iohexol (Omnipaque 300 Mg/ml) 75 ml 1X ONCE IV Last administered on 03/04/19at 16:35; Start 03/04/19 at 16:15; Stop 03/04/19 at 16:19; Status DC Info (CONTRAST GIVEN -- Rx MONITORING) 1 each PRN DAILY PRN MC SEE COMMENTS; Start 03/04/19 at 16:30; Stop 03/06/19 at 16:29; Status DC Ceftriaxone Sodium (Rocephin) 1 gm 1X ONCE IVP Last administered on 03/04/19at 17:42; Start 03/04/19 at 17:45; Stop 03/04/19 at 17:46; Status DC Sodium Chloride 1,000 ml @ 1,000 mls/hr 1X ONCE IV Last administered on 03/04/19at 18:14; Start 03/04/19 at 18:00; Stop 03/04/19 at 18:59; Status DC Ondansetron HCl (Zofran) 4 mg 1X ONCE IV Last administered on 03/04/19at 18:09; Start 03/04/19 at 18:00; Stop 03/04/19 at 18:01; Status DC Ketorolac Tromethamine (Toradol 15mg Vial) 15 mg 1X ONCE IV Last administered on 03/04/19at 18:00; Start 03/04/19 at 18:00; Stop 03/04/19 at 18:01; Status DC Sodium Chloride 1,000 ml @ 1,000 mls/hr 1X ONCE IV Last administered on 03/04/19at 18:13; Start 03/04/19 at 18:00; Stop 03/04/19 at 18:59; Status DC Ketorolac Tromethamine (Toradol Im) 60 mg STK-MED ONCE .ROUTE ; Start 03/04/19 at 17:57; Stop 03/04/19 at 17:58; Status DC Ketorolac Tromethamine (Toradol 30mg Vial) 30 mg STK-MED ONCE .ROUTE ; Start 03/04/19 at 17:58; Stop 03/04/19 at 17:59; Status DC Acetaminophen (Tylenol Supp) 650 mg 1X ONCE LA Last administered on 03/04/19at 18:00; Start 03/04/19 at 18:00; Stop 03/04/19 at 18:01; Status DC Ceftriaxone Sodium (Rocephin) 2 gm Q24H IVP Last administered on 03/06/19 20:24; Start 03/04/19 at 19:00; Stop 03/07/19 at 12:32; Status DC Ondansetron HCl (Zofran) 4 mg PRN Q6HRS PRN IV NAUSEA/VOMITING Last administered on 03/07/19 15:17; Start 03/04/19 at 18:30 Ondansetron HCl (Zofran Odt) 4 mg PRN Q6HRS PRN PO NAUSEA/VOMITING Last administered on 03/08/19 08:44; Start 03/04/19 at 18:30 Acetaminophen (Tylenol) 650 mg PRN Q6HRS PRN PO MILD PAIN Last administered on 03/10/19 18:17; Start 03/04/19 at 18:30 Acetaminophen/ Codeine Phosphate (Tylenol #3) 1 tab PRN Q6HRS PRN PO MODERATE PAIN Last administered on 03/08/19 22:17; Start 03/04/19 at 18:30 Acetaminophen/ Hydrocodone Bitart (Lortab 5/325) 1 tab PRN Q4HRS PRN PO SEVERE PAIN Last administered on 03/09/19 20:48; Start 03/04/19 at 18:30 Ibuprofen (Motrin) 400 mg PRN Q6HRS PRN PO INFLAMMATION Last administered on 03/10/19 18:17; Start 03/04/19 at 18:30 Morphine Sulfate (Morphine Sulfate) 2 mg PRN Q2HR PRN IV PAIN Last administered on 03/09/19 03:59; Start 03/04/19 at 18:30 Diphenhydramine HCl (Benadryl) 25 mg PRN QHS PRN PO INSOMNIA; Start 03/04/19 at 18:30 Hydromorphone HCl (Dilaudid) 1 mg 1X ONCE IV Last administered on 03/04/19at 19:11; Start 03/04/19 at 19:15; Stop 03/04/19 at 19:16; Status DC Ceftriaxone Sodium (Rocephin) 1 gm 1X ONCE IVP Last administered on 03/04/19at 21:39; Start 03/04/19 at 20:30; Stop 03/04/19 at 20:31; Status DC Sodium Chloride 1,000 ml @ 150 mls/hr Q6H40M IV Last administered on 03/07/19at 03:22; Start 03/05/19 at 11:30; Stop 03/07/19 at 09:49; Status DC Lactobacillus Rhamnosus (Culturelle) 1 cap BID PO Last administered on 03/10/19 21:21; Start 03/05/19 at 21:00 Potassium Chloride (Klor-Con) 40 meq 1X ONCE PO Last administered on 03/06/19at 12:26; Start 03/06/19 at 09:15; Stop 03/06/19 at 09:23; Status DC Ringer's Solution 1,000 ml @ 0 mls/hr 1X ONCE IV Last administered on 03/07/19 02:15; Start 03/07/19 at 02:00; Stop 03/07/19 at 02:07; Status DC Sodium Chloride 1,000 ml @ 75 mls/hr [id number] IV Last administered on 03/07/19at 09:59; Start 03/07/19 at 10:00; Stop 03/09/19 at 12:12; Status DC Doxycycline Hyclate (Vibra-Tab) 100 mg BID PO Last administered on 03/10/19 21:21; Start 03/07/19 at 12:15 Piperacillin Sod/ Tazobactam Sod 3.375 gm/Sodium Chloride 50 ml @ 100 mls/hr Q6HRS IV ; Start 03/07/19 at 18:00; Status Cancel Polyethylene Glycol (miraLAX PACKET) 17 gm DAILY PO Last administered on 03/07/19at 12:41; Start 03/07/19 at 12:15 Piperacillin Sod/ Tazobactam Sod 3.375 gm/Sodium Chloride 50 ml @ 100 mls/hr Q6HRS IV Last administered on 03/11/19at 05:57; Start 03/07/19 at 13:00 Sodium Chloride 1,000 ml @ 100 mls/hr Q10H IV Last administered on 03/10/19at 13:20; Start 03/07/19 at 19:45 Potassium Chloride (Klor-Con) 40 meq 1X ONCE PO Last administered on 03/08/19at 12:51; Start 03/08/19 at 12:30; Stop 03/08/19 at 12:31; Status DC Docusate Sodium (Colace) 100 mg PRN DAILY PRN PO STOOL SOFTENER Last administered on 03/10/19at 08:43; Start 03/08/19 at 12:45 Magnesium Hydroxide (Milk Of Magnesia) 2,400 mg PRN DAILY PRN PO CONSTIPATION Last administered on 03/10/19at 08:43; Start 03/08/19 at 12:45 Magnesium Hydroxide (Milk Of Magnesia) 2,400 mg 1X ONCE PO Last administered on 03/08/19at 12:50; Start 03/08/19 at 13:30; Stop 03/08/19 at 13:31; Status DC Albuterol/ Ipratropium (Duoneb) 3 ml RTQID NEB Last administered on 03/09/19at 18:32; Start 03/08/19 at 17:00; Stop 03/10/19 at 07:26; Status DC Albuterol Sulfate (Ventolin Neb Soln) 2.5 mg PRN Q4HRS PRN NEB SHORTNESS OF BREATH; Start 03/08/19 at 16:45 Sodium Chloride 4,150 ml @ 8,300 mls/hr 1X ONCE IV Last administered on 03/09/19at 12:08; Start 03/09/19 at 12:00; Stop 03/09/19 at 12:08; Status DC Sodium Chloride 1,000 ml @ 4,150 mls/hr Q15M IV Last administered on 03/09/19at 12:54; Start 03/09/19 at 12:30; Stop 03/09/19 at 13:15; Status DC Albuterol Sulfate (Ventolin Neb Soln) 2.5 mg RTQID NEB Last administered on 03/11/19at 07:16; Start 03/10/19 at 08:00 Lactobacillus Rhamnosus (Culturelle) 1 cap BID PO ; Start 03/10/19 at 21:00; Status UNV Active Scripts Active Reported No Known Medications Prior To Admisstion (Info) Each 1 Each Vitals/I & O Vital Sign - Last 24 Hours 03/10/19 03/10/19 03/10/19 03/10/19 10:38 12:04 14:53 15:17 Temp 98.3 98.4 98.3 98.4 Pulse 109 101 Resp 18 18 B/P (MAP) 136/90 (105) 141/80 (100) Pulse Ox 92 94 98 94 O2 Delivery Room Air Room Air Nasal Cannula Room Air O2 Flow Rate 2.0 03/10/19 03/10/19 03/10/19 03/10/19 19:24 19:25 19:57 23:33 Temp 99.0 99.0 99.0 99.0 Pulse 108 113 Resp 19 18 B/P (MAP) 145/87 (106) 142/95 (111) Pulse Ox 94 97 97 O2 Delivery Room Air Nasal Cannula Nasal Cannula Nasal Cannula O2 Flow Rate 2.0 2.0 2.0 03/11/19 03/11/19 03/11/19 03:31 07:16 07:40 Temp 98.1 98.9 98.1 98.9 Pulse 97 109 Resp 18 18 B/P (MAP) 137/80 (99) 141/86 (104) Pulse Ox 98 92 91 O2 Delivery Nasal Cannula Room Air Room Air O2 Flow Rate 2.0 Intake and Output 03/10/19 03/10/19 03/11/19 14:59 22:59 06:59 Intake Total 500 ml 200 ml Output Total 1 ml Balance -1 ml 500 ml 200 ml GORGE KUNZ MD Mar 11, 2019 08:14
[2019-03-11] MEDS: HYDROcodone/APAP 5/325MG 1 TAB TABLET PO PRN (08:45)
[2019-03-11] MEDS: LACTOBACILLUS RHAMNOSUS GG 1 CAPSULE. PO SCH ×2 (08:45→22:57)
[2019-03-11] MEDS: POLYETHYLENE GLYCOL 3350 17 GM PACKET. PO SCH (08:48)
[2019-03-11] MEDS: DOXYCYCLINE HYCLATE 100 MG TABLET PO SCH ×3 (08:48→22:57)
--- NOTE | 2019-03-11 09:03 | PDOC ---
Infectious Disease Note Subjective Subjective c/o severe rt lower qu pain ROS ROS no n/v/d/ tachy with any activity Vital Sign Vital Signs Vital Signs Date Time Temp Pulse Resp B/P (MAP) Pulse Ox O2 Delivery O2 Flow Rate FiO2 03/11/19 08:45 91 Nasal Cannula 2.0 03/11/19 07:40 98.9 109 18 141/86 (104) 98.9 Physical Exam PHYSICAL EXAM GENERAL: awake, not in distress HEENT: Pupils equal and reactive. Oral cavity, pharynx is clear. NECK: Supple. Good range of motion. LUNGS: Decreased at bases. HEART: S1, S2. ABDOMEN: Morbidly obese. soft, nontender to light palpation EXTREMITIES: Without clubbing, cyanosis. SKIN: Warm to touch. NEUROLOGIC: Responds appropriately , no focal deficit Labs Lab Laboratory Tests Test 03/11/19 05:00 White Blood Count 5.5 x10^3/uL (4.0-11.0) Red Blood Count 2.92 x10^6/uL (3.50-5.40) Hemoglobin 7.3 g/dL (12.0-15.5) Hematocrit 22.9 % (36.0-47.0) Mean Corpuscular Volume 79 fL (79-100) Mean Corpuscular Hemoglobin 25 pg (25-35) Mean Corpuscular Hemoglobin Concent 32 g/dL (31-37) Red Cell Distribution Width 15.3 % (11.5-14.5) Platelet Count 301 x10^3/uL (140-400) Neutrophils (%) (Auto) 62 % (31-73) Lymphocytes (%) (Auto) 27 % (24-48) Monocytes (%) (Auto) 8 % (0-9) Eosinophils (%) (Auto) 2 % (0-3) Basophils (%) (Auto) 0 % (0-3) Neutrophils # (Auto) 3.4 x10^3uL (1.8-7.7) Lymphocytes # (Auto) 1.5 x10^3/uL (1.0-4.8) Monocytes # (Auto) 0.4 x10^3/uL (0.0-1.1) Eosinophils # (Auto) 0.1 x10^3/uL (0.0-0.7) Basophils # (Auto) 0.0 x10^3/uL (0.0-0.2) Sodium Level 142 mmol/L (136-145) Potassium Level 3.6 mmol/L (3.5-5.1) Chloride Level 105 mmol/L (98-107) Carbon Dioxide Level 26 mmol/L (21-32) Anion Gap 11 (6-14) Blood Urea Nitrogen 9 mg/dL (7-20) Creatinine 0.7 mg/dL (0.6-1.0) Estimated GFR (Cockcroft-Gault) 121.5 Glucose Level 91 mg/dL (70-99) Calcium Level 8.5 mg/dL (8.5-10.1) Micro Microbiology 03/07/19 Blood Culture - Preliminary, Resulted NO GROWTH AFTER 1 DAY 03/04/19 Urine Culture - Final, Complete 03/04/19 Urine Culture Result 1 (NICHELLE) - Final, Complete Objective Assessment Fever - better Influenza and syphilis neg, GC positive Abd pain Leukocytosis - better Group B strep UTI - POA 03/04 Obesity h/o Chlamydia Constipation - 5 days now probable sleep apnea Plan Plan of Care cont antibiotics get ct abd and pelvis ALE LIM MD Mar 11, 2019 09:03
[2019-03-11] MEDS ORDERED: IOHEXOL 240 MG/ML 50ML VIAL. PO ONE (09:15)
[2019-03-11] MEDS ORDERED: IOHEXOL 300 MG/ML 100ML VIAL. IV ONE (09:15)
[2019-03-11] MEDS ORDERED: CONTRAST GIVEN. MC PRN (09:30)
--- NOTE | 2019-03-11 13:00 | RAD ---
CT of the chest, abdomen and pelvis with contrast, 03/11/2019: HISTORY: Abdominal pain, lung lesion Multidetector CT imaging was performed following an IV bolus injection of iodinated contrast material. The patient was unable to tolerate oral contrast material for GI tract opacification. The heart is enlarged. The thoracic aorta is of normal caliber. No mediastinal adenopathy is seen. A small amount of right-sided pleural fluid and a trace amount of left-sided pleural fluid have developed since 03/04/2019. There is moderate dependent atelectasis/infiltrate posteriorly in both lower lobes, worse on the right. There is a lesser degree of discoid atelectasis in the right upper lobe. There is minimal linear atelectasis or scarring in the lingula on the left. No hepatic abnormality is seen. The gallbladder is unremarkable. No pancreatic abnormality is detected. The spleen is of normal size. No renal abnormality is detected. The abdominal aorta is unremarkable. No abdominal or pelvic adenopathy is seen. There is a fluid collection in the cul-de-sac which appears slightly larger than on the 03/04/2019 study. It measures 2.6 x 4.3 cm on the axial images. This probably represents free fluid. There are no gas bubbles in this process to suggest infection, although pelvic abscess cannot be entirely excluded. The bowel loops are not dilated. The appendix is not visualized. No dilated appendix is seen. No free air is evident in the abdomen or pelvis. Mild streaky edema has developed in the subcutaneous soft tissues in the flank regions bilaterally. IMPRESSION: 1. Moderate dependent atelectasis/infiltrate has developed in both lower lobes. A component of pneumonia cannot be excluded. 2. New small right pleural effusion and trace left pleural effusion. 3. A small collection of fluid in the cul-de-sac has increased slightly in size. 4. Mild subcutaneous edema has developed in both flank regions. PQRS Compliance Statement: One or more of the following individualized dose reduction techniques were utilized for this examination: 1. Automated exposure control 2. Adjustment of the mA and/or kV according to patient size 3. Use of iterative reconstruction technique Electronically signed by: Rajan Cristina MD (03/11/2019 12:57 PM) [facility]
--- NOTE | 2019-03-11 13:11 | CARD ---
MR#: [id number] Date of Study: 03/11/2019 Ordering Physician: MOSHE BALDERRAMA, Referring Physician: ASHELY VASQUEZ Tech: Yolanda Parrish JENNA APPROVED REPORT EXAM: Two-dimensional and M-mode echocardiogram with Doppler and color Doppler. Other Information Quality : Technically LimitedHR: 100bpm Rhythm : TachycardiaTechnically limited study due to body habitus. INDICATION Arrhythmia 2D DIMENSIONS RVDd4.0 (2.9-3.5cm)Left Atrium(2D)3.7 (1.6-4.0cm) IVSd0.9 (0.7-1.1cm)Aortic Root(2D)2.7 (2.0-3.7cm) LVDd4.8 (3.9-5.9cm)LVOT Diameter1.9 (1.8-2.4cm) PWd0.9 (0.7-1.1cm)LVDs3.7 (2.5-4.0cm) FS (%) 24.9 %SV53.7 ml M-Mode DIMENSIONS Left Atrium(MM)3.70 (2.5-4.0cm)Aortic Root3.00 (2.2-3.7cm) Aortic Valve AoV Peak Darrel.140.2cm/sAoV VTI25.2cm AO Peak GR.7.9mmHgLVOT VTI 16.40cm AO Mean GR.5mmHgAVA (VTI)2.40cm2 Mitral Valve MV E Pzubhchw03.4cm/sMV DECEL [id number] MV A Jmtkdlrr03.8cm/sE/A Ratio2.5 MV A [id number] TDI Medial E' P. V12.23cm/sE/Medial E'7.7 Tricuspid Valve TR P. [id number]/sRAP [id number] TR Peak Gr.[id number] LEFT VENTRICLE The left ventricle is normal size. There is normal left ventricular wall thickness. The left ventricu lar systolic function is normal and the ejection fraction is within normal range. The Ejection Fracti on is 50-55%. There is normal LV segmental wall motion. Transmitral Doppler flow pattern is Grade I-a bnormal relaxation pattern. RIGHT VENTRICLE The right ventricle is normal size. There is normal right ventricular wall thickness. The right ventr icular systolic function is normal. ATRIA The left atrium size is normal. The right atrium size is normal. The interatrial septum is intact wit h no evidence for an atrial septal defect or patent foramen ovale as noted on 2-D or Doppler imaging. AORTIC VALVE The aortic valve is normal in structure and function. The aortic valve is trileaflet. Doppler and Col or Flow revealed no significant aortic regurgitation. There is no significant aortic valvular stenosi s. MITRAL VALVE The mitral valve is normal in structure and function. There is no evidence of mitral valve prolapse. There is no mitral valve stenosis. Doppler and Color-flow revealed trace mitral regurgitation. TRICUSPID VALVE The tricuspid valve is normal in structure and function. Color Flow revealed trace tricuspid regurgit ation. The PA pressure was estimated at 27 mmHg. There is no tricuspid valve prolapse or vegetation. There is no tricuspid valve stenosis. PULMONIC VALVE The pulmonic valve is not well visualized. GREAT VESSELS The aortic root is normal in size. The ascending aorta is normal in size. The IVC is normal in size a nd collapses >50% with inspiration. PERICARDIAL EFFUSION There is no evidence of significant pericardial effusion. Critical Notification Critical Value: No <Conclusion> The left ventricle is normal size. The left ventricular systolic function is normal and the ejection fraction is within normal range. The Ejection Fraction is 50-55%. There is no significant aortic valvular stenosis. Doppler and Color Flow revealed no significant aortic regurgitation. Doppler and Color-flow revealed trace mitral regurgitation. Doppler and Color Flow revealed trace tricuspid regurgitation. The PA pressure was estimated at 27 mmHg. Signed by : Yung Steve MD Electronically Approved : 03/11/2019 13:11:33
[2019-03-11 16:32] LABS: PROTHROMBIN TIME PATIENT 14.2 SEC (11.7-14.0)
[2019-03-11] MEDS: LUBIPROSTONE 8 MCG CAPSULE PO SCH (17:00)
[2019-03-11] MEDS: ONDANSETRON PF 4 MG/2 ML VIAL. IV PRN (17:38)
[2019-03-11] MEDS: ACETAMINOPHEN 325 MG TABLET. PO PRN (19:44)
[2019-03-12] VITALS (12 sets, daily range): BP systolic 138–189; BP diastolic 80–101
[2019-03-12] MEDS: PIPERACILLIN/TAZOBACTAM 3.375 GM in IV NORMAL SALINE 50ML 50 ML IV SCH ×4 (00:28→18:00)
[2019-03-12 04:22] LABS: BASO % 0 % (0-3); EOS # 0.1 x10^3/uL (0.0-0.7); EOS % 2 % (0-3); HEMATOCRIT 27.5 % (36.0-47.0); HEMOGLOBIN 8.9 g/dL (12.0-15.5); LYMPH # 1.5 x10^3/uL (1.0-4.8); LYMPH % 21 % (24-48); MEAN CORPUSCULAR HEMOGLOBIN 25 pg (25-35); MEAN CORPUSCULAR HGB CONC 32 g/dL (31-37); MEAN CORPUSCULAR VOLUME 78 fL (79-100); MONO # 0.6 x10^3/uL (0.0-1.1); MONO % 8 % (0-9); NEUT # 4.9 x10^3uL (1.8-7.7); NEUT % 69 % (31-73); PLATELET COUNT 388 x10^3/uL (140-400); RED BLOOD COUNT 3.51 x10^6/uL (3.50-5.40); RED CELL DISTRIBUTION WIDTH 15.5 % (11.5-14.5); WHITE BLOOD COUNT 7.1 x10^3/uL (4.0-11.0)
--- NOTE | 2019-03-12 04:38 | NUR ---
Pt ambulated to the bathroom at 1945 and her heart rate reached 145 bpm briefly, for about two minutes and recovered to the low 100's.
--- NOTE | 2019-03-12 04:39 | NUR ---
Pt was allowed to sit in the shower chair in order to bathe at 2100 and she became dizzy "only when I bent over to do my legs." Pt pulled the call light for assistance, VSS, see vitals in chart and heart rate was at 110 bpm when the vitals were taken while she was still on the shower chair. Pt provided with walker to aide in safe ambulation during her return to her bed.
[2019-03-12 05:08] LABS: CALCIUM 8.6 mg/dL (8.5-10.1); CREATININE 0.9 mg/dL (0.6-1.0); GFR 90.9; POTASSIUM 3.5 mmol/L (3.5-5.1)
[2019-03-12] MEDS: ALBUTEROL SULFATE 2.5 MG/3 ML NEBU. NEB SCH ×4 (07:30→19:30)
[2019-03-12] MEDS: LUBIPROSTONE 8 MCG CAPSULE PO SCH ×2 (08:00→17:00)
[2019-03-12] MEDS: POLYETHYLENE GLYCOL 3350 17 GM PACKET. PO SCH (09:00)
--- NOTE | 2019-03-12 09:15 | PDOC ---
Infectious Disease Note Subjective Subjective c/o rt lower qu pain ROS ROS no n/v/d/sob Vital Sign Vital Signs Vital Signs Date Time Temp Pulse Resp B/P (MAP) Pulse Ox O2 Delivery O2 Flow Rate FiO2 03/12/19 07:32 95 Room Air 03/12/19 07:00 99.1 92 18 141/93 (109) 99.1 03/11/19 19:52 2.0 Physical Exam PHYSICAL EXAM GENERAL: awake, not in distress HEENT: Pupils equal and reactive. Oral cavity, pharynx is clear. NECK: Supple. Good range of motion. LUNGS: Decreased at bases. HEART: S1, S2. ABDOMEN: Morbidly obese. soft, nontender to light palpation ,, rt lower qu tenderness EXTREMITIES: Without clubbing, cyanosis. SKIN: Warm to touch. NEUROLOGIC: Responds appropriately , no focal deficit Labs Lab Laboratory Tests Test 03/11/19 16:15 03/12/19 03:55 Prothrombin Time 14.2 SEC (11.7-14.0) Prothromb Time International Ratio 1.1 (0.8-1.1) Activated Partial Thromboplast Time 38 SEC (24-38) White Blood Count 7.1 x10^3/uL (4.0-11.0) Red Blood Count 3.51 x10^6/uL (3.50-5.40) Hemoglobin 8.9 g/dL (12.0-15.5) Hematocrit 27.5 % (36.0-47.0) Mean Corpuscular Volume 78 fL (79-100) Mean Corpuscular Hemoglobin 25 pg (25-35) Mean Corpuscular Hemoglobin Concent 32 g/dL (31-37) Red Cell Distribution Width 15.5 % (11.5-14.5) Platelet Count 388 x10^3/uL (140-400) Neutrophils (%) (Auto) 69 % (31-73) Lymphocytes (%) (Auto) 21 % (24-48) Monocytes (%) (Auto) 8 % (0-9) Eosinophils (%) (Auto) 2 % (0-3) Basophils (%) (Auto) 0 % (0-3) Neutrophils # (Auto) 4.9 x10^3uL (1.8-7.7) Lymphocytes # (Auto) 1.5 x10^3/uL (1.0-4.8) Monocytes # (Auto) 0.6 x10^3/uL (0.0-1.1) Eosinophils # (Auto) 0.1 x10^3/uL (0.0-0.7) Basophils # (Auto) 0.0 x10^3/uL (0.0-0.2) Sodium Level 140 mmol/L (136-145) Potassium Level 3.5 mmol/L (3.5-5.1) Chloride Level 104 mmol/L (98-107) Carbon Dioxide Level 27 mmol/L (21-32) Anion Gap 9 (6-14) Blood Urea Nitrogen 9 mg/dL (7-20) Creatinine 0.9 mg/dL (0.6-1.0) Estimated GFR (Cockcroft-Gault) 90.9 Glucose Level 104 mg/dL (70-99) Calcium Level 8.6 mg/dL (8.5-10.1) Micro Microbiology 03/07/19 Blood Culture - Preliminary, Resulted NO GROWTH AFTER 1 DAY 03/04/19 Urine Culture - Final, Complete 03/04/19 Urine Culture Result 1 (NICHELLE) - Final, Complete Objective Assessment Fever - better Influenza and syphilis neg, GC positive Abd pain,, with pelvic abscess, ? appendicitis Leukocytosis - better Group B strep UTI - POA 03/04 Obesity h/o Chlamydia Constipation - 5 days now probable sleep apnea Plan Plan of Care cont antibiotics CT drainage vs Surgery consult ALE LIM MD Mar 12, 2019 09:15
[2019-03-12] MEDS ORDERED: LIDOCAINE WITH 8.4% SOD BICARB 3 ML DISP.SYRIN. ONE ×2 (09:53→09:56)
[2019-03-12] MEDS ORDERED: MIDAZOLAM HCL/PF 2 MG/2 ML VIAL. ONE ×2 (10:17→10:53)
[2019-03-12] MEDS ORDERED: NALOXONE 0.4 MG/ML VIAL. ONE (10:18)
[2019-03-12] MEDS ORDERED: fentaNYL PF VIAL 100 MCG/2 ML VIAL ONE ×2 (10:18→10:54)
--- NOTE | 2019-03-12 12:41 | PDOC2 ---
SHORTY PERRY OBJECTIVE C DEVELOPER 03/12/19 1241: CONSULT Date of Consult Date of Consult DATE: 03/12/19 TIME: 12:24 Reason for Consult Reason for Consult: possible appendicitis Referring Physician Referring Physician: Dr Henderson Identification/Chief Complaint Chief Complaint abdominal pain Source Source: Chart review, Patient History of Present Illness Reason for Visit: Here with RLQ pain. + Group B strep in urine, + GC, hx of chlamydia infections and UTI She is just back from IR perc aspiration She has been having RLQ pain for 1 week, she reports it waxes and wanes. Currently during exam, she just ate lunch She did have fevers on admissions, currently improved Past Medical History Cardiovascular: No pertinent hx Pulmonary: No pertinent hx GI: No pertinent hx Heme/Onc: No pertinent hx Hepatobiliary: No pertinent hx Psych: No pertinent hx Rheumatologic: No pertinent hx Infectious disease: No pertinent hx Past Surgical History Past Surgical History: Other (D and C) Family History Family History: No Significant Social History No ALCOHOL: none Drugs: None Current Problem List Problem List Problems Medical Problems: (1) Pyelonephritis Status: Acute Current Medications Current Medications Current Medications Morphine Sulfate (Morphine Sulfate) 4 mg PRN Q15MIN PRN IV/SQ PAIN GREATER THAN 3/10 Last administered on 03/04/19at 18:49; Start 03/04/19 at 15:45; Stop 03/05/19 at 15:44; Status DC Sodium Chloride 1,000 ml @ 1,000 mls/hr Q1H IV Last administered on 03/04/19at 16:14; Start 03/04/19 at 15:41; Stop 03/04/19 at 16:40; Status DC Ondansetron HCl (Zofran) 4 mg 1X ONCE IV Last administered on 03/04/19at 16:10; Start 03/04/19 at 15:45; Stop 03/04/19 at 15:46; Status DC Iohexol (Omnipaque 300 Mg/ml) 75 ml 1X ONCE IV Last administered on 03/04/19at 16:35; Start 03/04/19 at 16:15; Stop 03/04/19 at 16:19; Status DC Info (CONTRAST GIVEN -- Rx MONITORING) 1 each PRN DAILY PRN MC SEE COMMENTS; Start 03/04/19 at 16:30; Stop 03/06/19 at 16:29; Status DC Ceftriaxone Sodium (Rocephin) 1 gm 1X ONCE IVP Last administered on 03/04/19 17:42; Start 03/04/19 at 17:45; Stop 03/04/19 at 17:46; Status DC Sodium Chloride 1,000 ml @ 1,000 mls/hr 1X ONCE IV Last administered on 03/04/19 18:14; Start 03/04/19 at 18:00; Stop 03/04/19 at 18:59; Status DC Ondansetron HCl (Zofran) 4 mg 1X ONCE IV Last administered on 03/04/19 18:09; Start 03/04/19 at 18:00; Stop 03/04/19 at 18:01; Status DC Ketorolac Tromethamine (Toradol 15mg Vial) 15 mg 1X ONCE IV Last administered on 03/04/19 18:00; Start 03/04/19 at 18:00; Stop 03/04/19 at 18:01; Status DC Sodium Chloride 1,000 ml @ 1,000 mls/hr 1X ONCE IV Last administered on 03/04/19at 18:13; Start 03/04/19 at 18:00; Stop 03/04/19 at 18:59; Status DC Ketorolac Tromethamine (Toradol Im) 60 mg STK-MED ONCE .ROUTE ; Start 03/04/19 at 17:57; Stop 03/04/19 at 17:58; Status DC Ketorolac Tromethamine (Toradol 30mg Vial) 30 mg STK-MED ONCE .ROUTE ; Start 03/04/19 at 17:58; Stop 03/04/19 at 17:59; Status DC Acetaminophen (Tylenol Supp) 650 mg 1X ONCE HI Last administered on 03/04/19 18:00; Start 03/04/19 at 18:00; Stop 03/04/19 at 18:01; Status DC Ceftriaxone Sodium (Rocephin) 2 gm Q24H IVP Last administered on 03/06/19 20:24; Start 03/04/19 at 19:00; Stop 03/07/19 at 12:32; Status DC Ondansetron HCl (Zofran) 4 mg PRN Q6HRS PRN IV NAUSEA/VOMITING Last administered on 03/11/19 17:38; Start 03/04/19 at 18:30 Ondansetron HCl (Zofran Odt) 4 mg PRN Q6HRS PRN PO NAUSEA/VOMITING Last administered on 03/08/19 08:44; Start 03/04/19 at 18:30 Acetaminophen (Tylenol) 650 mg PRN Q6HRS PRN PO MILD PAIN Last administered on 03/11/19 19:44; Start 03/04/19 at 18:30 Acetaminophen/ Codeine Phosphate (Tylenol #3) 1 tab PRN Q6HRS PRN PO MODERATE PAIN Last administered on 03/08/19 22:17; Start 03/04/19 at 18:30 Acetaminophen/ Hydrocodone Bitart (Lortab 5/325) 1 tab PRN Q4HRS PRN PO SEVERE PAIN Last administered on 03/11/19 08:45; Start 03/04/19 at 18:30 Ibuprofen (Motrin) 400 mg PRN Q6HRS PRN PO INFLAMMATION Last administered on 03/10/19 18:17; Start 03/04/19 at 18:30 Morphine Sulfate (Morphine Sulfate) 2 mg PRN Q2HR PRN IV PAIN Last administered on 03/09/19 03:59; Start 03/04/19 at 18:30 Diphenhydramine HCl (Benadryl) 25 mg PRN QHS PRN PO INSOMNIA; Start 03/04/19 at 18:30 Hydromorphone HCl (Dilaudid) 1 mg 1X ONCE IV Last administered on 03/04/19 19:11; Start 03/04/19 at 19:15; Stop 03/04/19 at 19:16; Status DC Ceftriaxone Sodium (Rocephin) 1 gm 1X ONCE IVP Last administered on 03/04/19 21:39; Start 03/04/19 at 20:30; Stop 03/04/19 at 20:31; Status DC Sodium Chloride 1,000 ml @ 150 mls/hr Q6H40M IV Last administered on 03/07/19 03:22; Start 03/05/19 at 11:30; Stop 03/07/19 at 09:49; Status DC Lactobacillus Rhamnosus (Culturelle) 1 cap BID PO Last administered on 03/11/19 22:57; Start 03/05/19 at 21:00 Potassium Chloride (Klor-Con) 40 meq 1X ONCE PO Last administered on 03/06/19 12:26; Start 03/06/19 at 09:15; Stop 03/06/19 at 09:23; Status DC Ringer's Solution 1,000 ml @ 0 mls/hr 1X ONCE IV Last administered on 03/07/19at 02:15; Start 03/07/19 at 02:00; Stop 03/07/19 at 02:07; Status DC Sodium Chloride 1,000 ml @ 75 mls/hr [id number] IV Last administered on 03/07/19at 09:59; Start 03/07/19 at 10:00; Stop 03/09/19 at 12:12; Status DC Doxycycline Hyclate (Vibra-Tab) 100 mg BID PO Last administered on 03/11/19at 22:57; Start 03/07/19 at 12:15 Piperacillin Sod/ Tazobactam Sod 3.375 gm/Sodium Chloride 50 ml @ 100 mls/hr Q6HRS IV ; Start 03/07/19 at 18:00; Status Cancel Polyethylene Glycol (miraLAX PACKET) 17 gm DAILY PO Last administered on 03/07/19at 12:41; Start 03/07/19 at 12:15 Piperacillin Sod/ Tazobactam Sod 3.375 gm/Sodium Chloride 50 ml @ 100 mls/hr Q6HRS IV Last administered on 03/12/19 06:01; Start 03/07/19 at 13:00 Sodium Chloride 1,000 ml @ 100 mls/hr Q10H IV Last administered on 03/10/19at 13:20; Start 03/07/19 at 19:45; Stop 03/11/19 at 18:12; Status DC Potassium Chloride (Klor-Con) 40 meq 1X ONCE PO Last administered on 03/08/19at 12:51; Start 03/08/19 at 12:30; Stop 03/08/19 at 12:31; Status DC Docusate Sodium (Colace) 100 mg PRN DAILY PRN PO STOOL SOFTENER Last administered on 03/10/19 08:43; Start 03/08/19 at 12:45 Magnesium Hydroxide (Milk Of Magnesia) 2,400 mg PRN DAILY PRN PO CONSTIPATION Last administered on 4/28/19at 08:43; Start 03/08/19 at 12:45 Magnesium Hydroxide (Milk Of Magnesia) 2,400 mg 1X ONCE PO Last administered on 03/08/19at 12:50; Start 03/08/19 at 13:30; Stop 03/08/19 at 13:31; Status DC Albuterol/ Ipratropium (Duoneb) 3 ml RTQID NEB Last administered on 03/09/19at 18:32; Start 03/08/19 at 17:00; Stop 03/10/19 at 07:26; Status DC Albuterol Sulfate (Ventolin Neb Soln) 2.5 mg PRN Q4HRS PRN NEB SHORTNESS OF BREATH; Start 03/08/19 at 16:45 Sodium Chloride 4,150 ml @ 8,300 mls/hr 1X ONCE IV Last administered on 03/09/19at 12:08; Start 03/09/19 at 12:00; Stop 03/09/19 at 12:08; Status DC Sodium Chloride 1,000 ml @ 4,150 mls/hr Q15M IV Last administered on 03/09/19at 12:54; Start 03/09/19 at 12:30; Stop 03/09/19 at 13:15; Status DC Albuterol Sulfate (Ventolin Neb Soln) 2.5 mg RTQID NEB Last administered on 03/12/19at 07:30; Start 03/10/19 at 08:00 Lactobacillus Rhamnosus (Culturelle) 1 cap BID PO ; Start 03/10/19 at 21:00; Status UNV Iohexol (Omnipaque 300 Mg/ml) 75 ml 1X ONCE IV Last administered on 03/11/19at 09:15; Start 03/11/19 at 09:15; Stop 03/11/19 at 09:19; Status DC Iohexol (Omnipaque 240 Mg/ml) 50 ml 1X ONCE PO Last administered on 03/11/19at 09:15; Start 03/11/19 at 09:15; Stop 03/11/19 at 09:19; Status DC Info (CONTRAST GIVEN -- Rx MONITORING) 1 each PRN DAILY PRN MC SEE COMMENTS; Start 03/11/19 at 09:30; Stop 03/13/19 at 09:29 Lubiprostone (Amitiza) 8 mcg BIDWMEALS PO ; Start 03/11/19 at 17:00 Lidocaine/Sodium Bicarbonate (Buffered Lidocaine 1%) 3 ml STK-MED ONCE .ROUTE ; Start 03/12/19 at 09:53; Stop 03/12/19 at 09:54; Status DC Lidocaine/Sodium Bicarbonate (Buffered Lidocaine 1%) 3 ml STK-MED ONCE .ROUTE ; Start 03/12/19 at 09:56; Stop 03/12/19 at 09:57; Status DC Midazolam HCl (Versed) 2 mg STK-MED ONCE .ROUTE ; Start 03/12/19 at 10:17; Stop 03/12/19 at 10:18; Status DC Fentanyl Citrate (Fentanyl 2ml Vial) 100 mcg STK-MED ONCE .ROUTE ; Start 03/12/19 at 10:18; Stop 03/12/19 at 10:19; Status DC Naloxone HCl (Narcan) 0.4 mg STK-MED ONCE .ROUTE ; Start 03/12/19 at 10:18; Stop 03/12/19 at 10:19; Status DC Midazolam HCl (Versed) 2 mg STK-MED ONCE .ROUTE ; Start 03/12/19 at 10:53; Stop 03/12/19 at 11:35; Status DC Fentanyl Citrate (Fentanyl 2ml Vial) 100 mcg STK-MED ONCE .ROUTE ; Start 03/12/19 at 10:54; Stop 03/12/19 at 11:35; Status DC Active Scripts Active Reported No Known Medications Prior To Admisstion (Info) Each 1 Each Allergies Allergies: Coded Allergies: No Known Drug Allergies (Unverified , 09/25/14) ROS General: YES: Chills, Other (fevers on admission ) PSYCHOLOGICAL ROS: No: Anxiety, Depression Eyes: No Blurry vision, No Double vision HEENT: No: Heacaches, Sore Throat Hematological and Lymphatic: No: Bleeding Problems, Blood Clots Respiratory: No: Cough, Shortness of breath Cardiovascular: No Chest Pain, No Palpitations Gastrointestinal: Yes Other (see hpi) Genitourinary: YES Dysuria; No Hematuria Musculoskeletal: No Joint Pain, No Muscle Pain Neurological: No Seizures Skin: No Pruritus, No Rash Physical Exam General: Alert, Oriented X3, Cooperative, No acute distress HEENT: PERRLA, Mucous membr. moist/pink Lungs: Clear to auscultation, Normal air movement Heart: Regular rate, Normal S1, Normal S2, No murmurs Abdomen: Soft, Other (obese abdomen, TTP moderate rlq, mild epigastric, no guarding ) Extremities: No clubbing, No cyanosis Skin: No rashes, No breakdown Neuro: Normal gait, Normal speech Psych/Mental Status: Mental status NL, Mood NL MUSCULOSKELETAL: No deformity, No swelling Vitals VITALS Vital Signs Date Time Temp Pulse Resp B/P (MAP) Pulse Ox O2 Delivery O2 Flow Rate FiO2 03/12/19 11:12 96 20 99 Nasal Cannula 2.0 03/12/19 07:00 99.1 141/93 (109) 99.1 Labs Labs Laboratory Tests Test 03/11/19 05:00 03/11/19 16:15 03/12/19 03:55 White Blood Count 5.5 x10^3/uL (4.0-11.0) 7.1 x10^3/uL (4.0-11.0) Red Blood Count 2.92 x10^6/uL (3.50-5.40) 3.51 x10^6/uL (3.50-5.40) Hemoglobin 7.3 g/dL (12.0-15.5) 8.9 g/dL (12.0-15.5) Hematocrit 22.9 % (36.0-47.0) 27.5 % (36.0-47.0) Mean Corpuscular Volume 79 fL (79-100) 78 fL (79-100) Mean Corpuscular Hemoglobin 25 pg (25-35) 25 pg (25-35) Mean Corpuscular Hemoglobin Concent 32 g/dL (31-37) 32 g/dL (31-37) Red Cell Distribution Width 15.3 % (11.5-14.5) 15.5 % (11.5-14.5) Platelet Count 301 x10^3/uL (140-400) 388 x10^3/uL (140-400) Neutrophils (%) (Auto) 62 % (31-73) 69 % (31-73) Lymphocytes (%) (Auto) 27 % (24-48) 21 % (24-48) Monocytes (%) (Auto) 8 % (0-9) 8 % (0-9) Eosinophils (%) (Auto) 2 % (0-3) 2 % (0-3) Basophils (%) (Auto) 0 % (0-3) 0 % (0-3) Neutrophils # (Auto) 3.4 x10^3uL (1.8-7.7) 4.9 x10^3uL (1.8-7.7) Lymphocytes # (Auto) 1.5 x10^3/uL (1.0-4.8) 1.5 x10^3/uL (1.0-4.8) Monocytes # (Auto) 0.4 x10^3/uL (0.0-1.1) 0.6 x10^3/uL (0.0-1.1) Eosinophils # (Auto) 0.1 x10^3/uL (0.0-0.7) 0.1 x10^3/uL (0.0-0.7) Basophils # (Auto) 0.0 x10^3/uL (0.0-0.2) 0.0 x10^3/uL (0.0-0.2) Sodium Level 142 mmol/L (136-145) 140 mmol/L (136-145) Potassium Level 3.6 mmol/L (3.5-5.1) 3.5 mmol/L (3.5-5.1) Chloride Level 105 mmol/L (98-107) 104 mmol/L (98-107) Carbon Dioxide Level 26 mmol/L (21-32) 27 mmol/L (21-32) Anion Gap 11 (6-14) 9 (6-14) Blood Urea Nitrogen 9 mg/dL (7-20) 9 mg/dL (7-20) Creatinine 0.7 mg/dL (0.6-1.0) 0.9 mg/dL (0.6-1.0) Estimated GFR (Cockcroft-Gault) 121.5 90.9 Glucose Level 91 mg/dL (70-99) 104 mg/dL (70-99) Calcium Level 8.5 mg/dL (8.5-10.1) 8.6 mg/dL (8.5-10.1) Iron Level 24 ug/dL (50-170) Total Iron Binding Capacity 219 ug/dL (250-450) Iron Saturation 11 % (15-34) Ferritin 143 ng/mL (8-252) Prothrombin Time 14.2 SEC (11.7-14.0) Prothromb Time International Ratio 1.1 (0.8-1.1) Activated Partial Thromboplast Time 38 SEC (24-38) Laboratory Tests Test 03/11/19 16:15 03/12/19 03:55 Prothrombin Time 14.2 SEC (11.7-14.0) Prothromb Time International Ratio 1.1 (0.8-1.1) Activated Partial Thromboplast Time 38 SEC (24-38) White Blood Count 7.1 x10^3/uL (4.0-11.0) Red Blood Count 3.51 x10^6/uL (3.50-5.40) Hemoglobin 8.9 g/dL (12.0-15.5) Hematocrit 27.5 % (36.0-47.0) Mean Corpuscular Volume 78 fL (79-100) Mean Corpuscular Hemoglobin 25 pg (25-35) Mean Corpuscular Hemoglobin Concent 32 g/dL (31-37) Red Cell Distribution Width 15.5 % (11.5-14.5) Platelet Count 388 x10^3/uL (140-400) Neutrophils (%) (Auto) 69 % (31-73) Lymphocytes (%) (Auto) 21 % (24-48) Monocytes (%) (Auto) 8 % (0-9) Eosinophils (%) (Auto) 2 % (0-3) Basophils (%) (Auto) 0 % (0-3) Neutrophils # (Auto) 4.9 x10^3uL (1.8-7.7) Lymphocytes # (Auto) 1.5 x10^3/uL (1.0-4.8) Monocytes # (Auto) 0.6 x10^3/uL (0.0-1.1) Eosinophils # (Auto) 0.1 x10^3/uL (0.0-0.7) Basophils # (Auto) 0.0 x10^3/uL (0.0-0.2) Sodium Level 140 mmol/L (136-145) Potassium Level 3.5 mmol/L (3.5-5.1) Chloride Level 104 mmol/L (98-107) Carbon Dioxide Level 27 mmol/L (21-32) Anion Gap 9 (6-14) Blood Urea Nitrogen 9 mg/dL (7-20) Creatinine 0.9 mg/dL (0.6-1.0) Estimated GFR (Cockcroft-Gault) 90.9 Glucose Level 104 mg/dL (70-99) Calcium Level 8.6 mg/dL (8.5-10.1) Assessment/Plan Assessment/Plan abdominal pain, sepsis on admission overall improvement, however pain to RLQ continues to occur She underwent perc aspiration today, IR report pending + UTI, strep B + GC GAS COMPRESSOR OPERATOR consult pending will review with Dr Mckenna, seems unlikely acute appendicitis based on imaging and assessment DANILO MCKENNA MD 03/12/19 1431: CONSULT Assessment/Plan Assessment/Plan Pt seen and examined by myself; 29 year old female admitted with 8 days of low abdominal pain, notably in RLQ and suprapubic region. Pain is fairly constant. Initial CT on arrival negative, FU CT yesterday showed pelvic fluid collection. Collection aspirated by IR today showing serous fluid, cultures pending. UTI + GC +. PMH/PSH/ROS/SH as above; exam: alert, oriented, no distress, lungs clear, heart RR and R, abdomen morbidly obese, tender with palpation in RLQ and suprapubic region, ext neg for edema. CTs reviewed with IR, no pericecal inflammatory changes noted, no dilated appendix; Given time frame and both CT findings, appendicitis seems unlikely. Await GAS COMPRESSOR OPERATOR evaluation. ?PID; if dx remains in question laparoscopy an option. SHORTY PERRY APRN Mar 12, 2019 12:41 DANILO MCKENNA MD Mar 12, 2019 14:31
[2019-03-12] MEDS: LACTOBACILLUS RHAMNOSUS GG 1 CAPSULE. PO SCH ×2 (12:48→21:03)
--- NOTE | 2019-03-12 13:49 | NUR ---
SW following. Pt is listed as self pay, no intermediate disability per [employer] ([employer]). Pelvic fluid collection, not ready for discharge. SW will continue to follow.
--- NOTE | 2019-03-12 14:28 | PDOC ---
PROGRESS NOTES Chief Complaint Chief Complaint SEPSIS from UTI/pyelonephritis with organ dysfunction namely tachycardia/nonsustained V. tach, stable Obesity, BMI 46.4 Gonorrhea positive-syphilis negative Uterine mass RLQ PAIN Pelvic fluid collection Constipation, now diarrhea Anemia, hemoglobin 7 Elevated sedimentation rate 115 History of Present Illness History of Present Illness Initially admitted to ICU for pyelonephritis, Went to the upstairs but went into heart rate 170s now 130s 140s hence transfer to CVC. Remains febrile tachycardic temperature 100. ID on board,, gonorrhea positive, syphilis negative and gave HIV consent to test, which was negative. Sexually Active with one partner only Sedimentation rate 115 No BM 5 days, had BM with mag citrate now. Has RLQ abdominal pain and did not vomit today. CT abdomen/pelvis showed pelvic fluid collection - to IR this morning for drainage. Plan On doxycycline and Zosyn Follow urine cultures Monitor temps No leukocytosis Echocardiogram Hb low - family h/o SCD - will screen for sickle trait with electrophoresis Added Lactobacillus Discussed with her and updated all findings Fever - better Influenza and syphilis neg, GC positive Group B strep UTI - POA 03/04 Obesity h/o Chlamydia Constipation - 5 days now probable sleep apnea Vitals Vitals Vital Signs Date Time Temp Pulse Resp B/P (MAP) Pulse Ox O2 Delivery O2 Flow Rate FiO2 03/12/19 11:30 94 Room Air 03/12/19 11:12 96 20 2.0 03/12/19 07:00 99.1 141/93 (109) 99.1 Physical Exam Physical Exam GENERAL: awake, not in distress HEENT: Pupils equal and reactive. Oral cavity, pharynx is clear. NECK: Supple. Good range of motion. LUNGS: Decreased at bases. HEART: S1, S2. ABDOMEN: Morbidly obese. soft, nontender to light palpation ,, rt lower qu tenderness EXTREMITIES: Without clubbing, cyanosis. SKIN: Warm to touch. NEUROLOGIC: Responds appropriately , no focal deficit General: Alert, Oriented X3, Cooperative, No acute distress Heart: Regular rate, Normal S1, Normal S2, No murmurs Lungs: Clear, Other (on 2L O2 by NC, no wheezing, no crackles) Abdomen: Soft, Other (obese abdomen, TTP moderate rlq, mild epigastric, no guarding ) Extremities: No clubbing, No cyanosis Skin: No rashes, No breakdown Labs LABS Laboratory Tests Test 03/11/19 16:15 03/12/19 03:55 Prothrombin Time 14.2 SEC (11.7-14.0) Prothromb Time International Ratio 1.1 (0.8-1.1) Activated Partial Thromboplast Time 38 SEC (24-38) White Blood Count 7.1 x10^3/uL (4.0-11.0) Red Blood Count 3.51 x10^6/uL (3.50-5.40) Hemoglobin 8.9 g/dL (12.0-15.5) Hematocrit 27.5 % (36.0-47.0) Mean Corpuscular Volume 78 fL (79-100) Mean Corpuscular Hemoglobin 25 pg (25-35) Mean Corpuscular Hemoglobin Concent 32 g/dL (31-37) Red Cell Distribution Width 15.5 % (11.5-14.5) Platelet Count 388 x10^3/uL (140-400) Neutrophils (%) (Auto) 69 % (31-73) Lymphocytes (%) (Auto) 21 % (24-48) Monocytes (%) (Auto) 8 % (0-9) Eosinophils (%) (Auto) 2 % (0-3) Basophils (%) (Auto) 0 % (0-3) Neutrophils # (Auto) 4.9 x10^3uL (1.8-7.7) Lymphocytes # (Auto) 1.5 x10^3/uL (1.0-4.8) Monocytes # (Auto) 0.6 x10^3/uL (0.0-1.1) Eosinophils # (Auto) 0.1 x10^3/uL (0.0-0.7) Basophils # (Auto) 0.0 x10^3/uL (0.0-0.2) Sodium Level 140 mmol/L (136-145) Potassium Level 3.5 mmol/L (3.5-5.1) Chloride Level 104 mmol/L (98-107) Carbon Dioxide Level 27 mmol/L (21-32) Anion Gap 9 (6-14) Blood Urea Nitrogen 9 mg/dL (7-20) Creatinine 0.9 mg/dL (0.6-1.0) Estimated GFR (Cockcroft-Gault) 90.9 Glucose Level 104 mg/dL (70-99) Calcium Level 8.6 mg/dL (8.5-10.1) Assessment and Plan Assessmemt and Plan Problems Medical Problems: (1) Pyelonephritis Status: Acute Comment Review of Relevant I have reviewed the following items beth (where applicable) has been applied. Labs Laboratory Tests Test 03/11/19 05:00 03/11/19 16:15 03/12/19 03:55 White Blood Count 5.5 x10^3/uL (4.0-11.0) 7.1 x10^3/uL (4.0-11.0) Red Blood Count 2.92 x10^6/uL (3.50-5.40) 3.51 x10^6/uL (3.50-5.40) Hemoglobin 7.3 g/dL (12.0-15.5) 8.9 g/dL (12.0-15.5) Hematocrit 22.9 % (36.0-47.0) 27.5 % (36.0-47.0) Mean Corpuscular Volume 79 fL (79-100) 78 fL (79-100) Mean Corpuscular Hemoglobin 25 pg (25-35) 25 pg (25-35) Mean Corpuscular Hemoglobin Concent 32 g/dL (31-37) 32 g/dL (31-37) Red Cell Distribution Width 15.3 % (11.5-14.5) 15.5 % (11.5-14.5) Platelet Count 301 x10^3/uL (140-400) 388 x10^3/uL (140-400) Neutrophils (%) (Auto) 62 % (31-73) 69 % (31-73) Lymphocytes (%) (Auto) 27 % (24-48) 21 % (24-48) Monocytes (%) (Auto) 8 % (0-9) 8 % (0-9) Eosinophils (%) (Auto) 2 % (0-3) 2 % (0-3) Basophils (%) (Auto) 0 % (0-3) 0 % (0-3) Neutrophils # (Auto) 3.4 x10^3uL (1.8-7.7) 4.9 x10^3uL (1.8-7.7) Lymphocytes # (Auto) 1.5 x10^3/uL (1.0-4.8) 1.5 x10^3/uL (1.0-4.8) Monocytes # (Auto) 0.4 x10^3/uL (0.0-1.1) 0.6 x10^3/uL (0.0-1.1) Eosinophils # (Auto) 0.1 x10^3/uL (0.0-0.7) 0.1 x10^3/uL (0.0-0.7) Basophils # (Auto) 0.0 x10^3/uL (0.0-0.2) 0.0 x10^3/uL (0.0-0.2) Sodium Level 142 mmol/L (136-145) 140 mmol/L (136-145) Potassium Level 3.6 mmol/L (3.5-5.1) 3.5 mmol/L (3.5-5.1) Chloride Level 105 mmol/L (98-107) 104 mmol/L (98-107) Carbon Dioxide Level 26 mmol/L (21-32) 27 mmol/L (21-32) Anion Gap 11 (6-14) 9 (6-14) Blood Urea Nitrogen 9 mg/dL (7-20) 9 mg/dL (7-20) Creatinine 0.7 mg/dL (0.6-1.0) 0.9 mg/dL (0.6-1.0) Estimated GFR (Cockcroft-Gault) 121.5 90.9 Glucose Level 91 mg/dL (70-99) 104 mg/dL (70-99) Calcium Level 8.5 mg/dL (8.5-10.1) 8.6 mg/dL (8.5-10.1) Iron Level 24 ug/dL (50-170) Total Iron Binding Capacity 219 ug/dL (250-450) Iron Saturation 11 % (15-34) Ferritin 143 ng/mL (8-252) Prothrombin Time 14.2 SEC (11.7-14.0) Prothromb Time International Ratio 1.1 (0.8-1.1) Activated Partial Thromboplast Time 38 SEC (24-38) Laboratory Tests Test 03/11/19 16:15 03/12/19 03:55 Prothrombin Time 14.2 SEC (11.7-14.0) Prothromb Time International Ratio 1.1 (0.8-1.1) Activated Partial Thromboplast Time 38 SEC (24-38) White Blood Count 7.1 x10^3/uL (4.0-11.0) Red Blood Count 3.51 x10^6/uL (3.50-5.40) Hemoglobin 8.9 g/dL (12.0-15.5) Hematocrit 27.5 % (36.0-47.0) Mean Corpuscular Volume 78 fL (79-100) Mean Corpuscular Hemoglobin 25 pg (25-35) Mean Corpuscular Hemoglobin Concent 32 g/dL (31-37) Red Cell Distribution Width 15.5 % (11.5-14.5) Platelet Count 388 x10^3/uL (140-400) Neutrophils (%) (Auto) 69 % (31-73) Lymphocytes (%) (Auto) 21 % (24-48) Monocytes (%) (Auto) 8 % (0-9) Eosinophils (%) (Auto) 2 % (0-3) Basophils (%) (Auto) 0 % (0-3) Neutrophils # (Auto) 4.9 x10^3uL (1.8-7.7) Lymphocytes # (Auto) 1.5 x10^3/uL (1.0-4.8) Monocytes # (Auto) 0.6 x10^3/uL (0.0-1.1) Eosinophils # (Auto) 0.1 x10^3/uL (0.0-0.7) Basophils # (Auto) 0.0 x10^3/uL (0.0-0.2) Sodium Level 140 mmol/L (136-145) Potassium Level 3.5 mmol/L (3.5-5.1) Chloride Level 104 mmol/L (98-107) Carbon Dioxide Level 27 mmol/L (21-32) Anion Gap 9 (6-14) Blood Urea Nitrogen 9 mg/dL (7-20) Creatinine 0.9 mg/dL (0.6-1.0) Estimated GFR (Cockcroft-Gault) 90.9 Glucose Level 104 mg/dL (70-99) Calcium Level 8.6 mg/dL (8.5-10.1) Microbiology 03/07/19 Blood Culture - Preliminary, Resulted NO GROWTH AFTER 4 DAYS 03/04/19 Urine Culture - Final, Complete 03/04/19 Urine Culture Result 1 (NICHELLE) - Final, Complete Medications Current Medications Morphine Sulfate (Morphine Sulfate) 4 mg PRN Q15MIN PRN IV/SQ PAIN GREATER THAN 3/10 Last administered on 03/04/19at 18:49; Start 03/04/19 at 15:45; Stop 03/05/19 at 15:44; Status DC Sodium Chloride 1,000 ml @ 1,000 mls/hr Q1H IV Last administered on 03/04/19at 16:14; Start 03/04/19 at 15:41; Stop 03/04/19 at 16:40; Status DC Ondansetron HCl (Zofran) 4 mg 1X ONCE IV Last administered on 03/04/19at 16:10; Start 03/04/19 at 15:45; Stop 03/04/19 at 15:46; Status DC Iohexol (Omnipaque 300 Mg/ml) 75 ml 1X ONCE IV Last administered on 03/04/19at 16:35; Start 03/04/19 at 16:15; Stop 03/04/19 at 16:19; Status DC Info (CONTRAST GIVEN -- Rx MONITORING) 1 each PRN DAILY PRN MC SEE COMMENTS; Start 03/04/19 at 16:30; Stop 03/06/19 at 16:29; Status DC Ceftriaxone Sodium (Rocephin) 1 gm 1X ONCE IVP Last administered on 03/04/19at 17:42; Start 03/04/19 at 17:45; Stop 03/04/19 at 17:46; Status DC Sodium Chloride 1,000 ml @ 1,000 mls/hr 1X ONCE IV Last administered on 03/04/19at 18:14; Start 03/04/19 at 18:00; Stop 03/04/19 at 18:59; Status DC Ondansetron HCl (Zofran) 4 mg 1X ONCE IV Last administered on 03/04/19at 18:09; Start 03/04/19 at 18:00; Stop 03/04/19 at 18:01; Status DC Ketorolac Tromethamine (Toradol 15mg Vial) 15 mg 1X ONCE IV Last administered on 03/04/19at 18:00; Start 03/04/19 at 18:00; Stop 03/04/19 at 18:01; Status DC Sodium Chloride 1,000 ml @ 1,000 mls/hr 1X ONCE IV Last administered on 03/04/19at 18:13; Start 03/04/19 at 18:00; Stop 03/04/19 at 18:59; Status DC Ketorolac Tromethamine (Toradol Im) 60 mg STK-MED ONCE .ROUTE ; Start 03/04/19 at 17:57; Stop 03/04/19 at 17:58; Status DC Ketorolac Tromethamine (Toradol 30mg Vial) 30 mg STK-MED ONCE .ROUTE ; Start 03/04/19 at 17:58; Stop 03/04/19 at 17:59; Status DC Acetaminophen (Tylenol Supp) 650 mg 1X ONCE DE Last administered on 03/04/19at 18:00; Start 03/04/19 at 18:00; Stop 03/04/19 at 18:01; Status DC Ceftriaxone Sodium (Rocephin) 2 gm Q24H IVP Last administered on 03/06/19at 20:24; Start 03/04/19 at 19:00; Stop 03/07/19 at 12:32; Status DC Ondansetron HCl (Zofran) 4 mg PRN Q6HRS PRN IV NAUSEA/VOMITING Last administered on 03/11/19 17:38; Start 03/04/19 at 18:30 Ondansetron HCl (Zofran Odt) 4 mg PRN Q6HRS PRN PO NAUSEA/VOMITING Last administered on 03/08/19 08:44; Start 03/04/19 at 18:30 Acetaminophen (Tylenol) 650 mg PRN Q6HRS PRN PO MILD PAIN Last administered on 03/11/19 19:44; Start 03/04/19 at 18:30 Acetaminophen/ Codeine Phosphate (Tylenol #3) 1 tab PRN Q6HRS PRN PO MODERATE PAIN Last administered on 03/08/19 22:17; Start 03/04/19 at 18:30 Acetaminophen/ Hydrocodone Bitart (Lortab 5/325) 1 tab PRN Q4HRS PRN PO SEVERE PAIN Last administered on 03/11/19 08:45; Start 03/04/19 at 18:30 Ibuprofen (Motrin) 400 mg PRN Q6HRS PRN PO INFLAMMATION Last administered on 03/10/19 18:17; Start 03/04/19 at 18:30 Morphine Sulfate (Morphine Sulfate) 2 mg PRN Q2HR PRN IV PAIN Last administered on 03/09/19 03:59; Start 03/04/19 at 18:30 Diphenhydramine HCl (Benadryl) 25 mg PRN QHS PRN PO INSOMNIA; Start 03/04/19 at 18:30 Hydromorphone HCl (Dilaudid) 1 mg 1X ONCE IV Last administered on 03/04/19 19:11; Start 03/04/19 at 19:15; Stop 03/04/19 at 19:16; Status DC Ceftriaxone Sodium (Rocephin) 1 gm 1X ONCE IVP Last administered on 03/04/19 21:39; Start 03/04/19 at 20:30; Stop 03/04/19 at 20:31; Status DC Sodium Chloride 1,000 ml @ 150 mls/hr Q6H40M IV Last administered on 03/07/19 03:22; Start 03/05/19 at 11:30; Stop 03/07/19 at 09:49; Status DC Lactobacillus Rhamnosus (Culturelle) 1 cap BID PO Last administered on 03/12/19 12:48; Start 03/05/19 at 21:00 Potassium Chloride (Klor-Con) 40 meq 1X ONCE PO Last administered on 03/06/19 12:26; Start 03/06/19 at 09:15; Stop 03/06/19 at 09:23; Status DC Ringer's Solution 1,000 ml @ 0 mls/hr 1X ONCE IV Last administered on 03/07/19 02:15; Start 03/07/19 at 02:00; Stop 03/07/19 at 02:07; Status DC Sodium Chloride 1,000 ml @ 75 mls/hr [id number] IV Last administered on 03/07/19 09:59; Start 03/07/19 at 10:00; Stop 03/09/19 at 12:12; Status DC Doxycycline Hyclate (Vibra-Tab) 100 mg BID PO Last administered on 03/11/19 22:57; Start 03/07/19 at 12:15 Piperacillin Sod/ Tazobactam Sod 3.375 gm/Sodium Chloride 50 ml @ 100 mls/hr Q6HRS IV ; Start 03/07/19 at 18:00; Status Cancel Polyethylene Glycol (miraLAX PACKET) 17 gm DAILY PO Last administered on 03/07/19at 12:41; Start 03/07/19 at 12:15 Piperacillin Sod/ Tazobactam Sod 3.375 gm/Sodium Chloride 50 ml @ 100 mls/hr Q6HRS IV Last administered on 03/12/19at 12:55; Start 03/07/19 at 13:00 Sodium Chloride 1,000 ml @ 100 mls/hr Q10H IV Last administered on 03/10/19at 13:20; Start 03/07/19 at 19:45; Stop 03/11/19 at 18:12; Status DC Potassium Chloride (Klor-Con) 40 meq 1X ONCE PO Last administered on 03/08/19at 12:51; Start 03/08/19 at 12:30; Stop 03/08/19 at 12:31; Status DC Docusate Sodium (Colace) 100 mg PRN DAILY PRN PO STOOL SOFTENER Last administered on 03/10/19at 08:43; Start 03/08/19 at 12:45 Magnesium Hydroxide (Milk Of Magnesia) 2,400 mg PRN DAILY PRN PO CONSTIPATION Last administered on 03/10/19at 08:43; Start 03/08/19 at 12:45 Magnesium Hydroxide (Milk Of Magnesia) 2,400 mg 1X ONCE PO Last administered on 03/08/19at 12:50; Start 03/08/19 at 13:30; Stop 03/08/19 at 13:31; Status DC Albuterol/ Ipratropium (Duoneb) 3 ml RTQID NEB Last administered on 03/09/19at 18:32; Start 03/08/19 at 17:00; Stop 03/10/19 at 07:26; Status DC Albuterol Sulfate (Ventolin Neb Soln) 2.5 mg PRN Q4HRS PRN NEB SHORTNESS OF BREATH; Start 03/08/19 at 16:45 Sodium Chloride 4,150 ml @ 8,300 mls/hr 1X ONCE IV Last administered on 03/09/19at 12:08; Start 03/09/19 at 12:00; Stop 03/09/19 at 12:08; Status DC Sodium Chloride 1,000 ml @ 4,150 mls/hr Q15M IV Last administered on 03/09/19at 12:54; Start 03/09/19 at 12:30; Stop 03/09/19 at 13:15; Status DC Albuterol Sulfate (Ventolin Neb Soln) 2.5 mg RTQID NEB Last administered on 03/12/19at 07:30; Start 03/10/19 at 08:00 Lactobacillus Rhamnosus (Culturelle) 1 cap BID PO ; Start 03/10/19 at 21:00; Status UNV Iohexol (Omnipaque 300 Mg/ml) 75 ml 1X ONCE IV Last administered on 03/11/19at 09:15; Start 03/11/19 at 09:15; Stop 03/11/19 at 09:19; Status DC Iohexol (Omnipaque 240 Mg/ml) 50 ml 1X ONCE PO Last administered on 03/11/19at 09:15; Start 03/11/19 at 09:15; Stop 03/11/19 at 09:19; Status DC Info (CONTRAST GIVEN -- Rx MONITORING) 1 each PRN DAILY PRN MC SEE COMMENTS; Start 03/11/19 at 09:30; Stop 03/13/19 at 09:29 Lubiprostone (Amitiza) 8 mcg BIDWMEALS PO ; Start 03/11/19 at 17:00 Lidocaine/Sodium Bicarbonate (Buffered Lidocaine 1%) 3 ml STK-MED ONCE .ROUTE ; Start 03/12/19 at 09:53; Stop 03/12/19 at 09:54; Status DC Lidocaine/Sodium Bicarbonate (Buffered Lidocaine 1%) 3 ml STK-MED ONCE .ROUTE ; Start 03/12/19 at 09:56; Stop 03/12/19 at 09:57; Status DC Midazolam HCl (Versed) 2 mg STK-MED ONCE .ROUTE ; Start 03/12/19 at 10:17; Stop 03/12/19 at 10:18; Status DC Fentanyl Citrate (Fentanyl 2ml Vial) 100 mcg STK-MED ONCE .ROUTE ; Start 03/12/19 at 10:18; Stop 03/12/19 at 10:19; Status DC Naloxone HCl (Narcan) 0.4 mg STK-MED ONCE .ROUTE ; Start 03/12/19 at 10:18; Stop 03/12/19 at 10:19; Status DC Midazolam HCl (Versed) 2 mg STK-MED ONCE .ROUTE ; Start 03/12/19 at 10:53; Stop 03/12/19 at 11:35; Status DC Fentanyl Citrate (Fentanyl 2ml Vial) 100 mcg STK-MED ONCE .ROUTE ; Start 03/12/19 at 10:54; Stop 03/12/19 at 11:35; Status DC Active Scripts Active Reported No Known Medications Prior To Admisstion (Info) Each 1 Each Vitals/I & O Vital Sign - Last 24 Hours 03/11/19 03/11/19 03/11/19 03/11/19 15:01 15:12 19:24 19:41 Temp 99.9 99.2 99.9 99.2 Pulse 94 101 Resp 18 16 B/P (MAP) 150/93 (112) 152/90 (110) Pulse Ox 91 95 92 92 O2 Delivery Room Air Room Air Room Air Room Air 03/11/19 03/11/19 03/11/19 03/12/19 19:52 21:17 22:24 03:20 Temp 99.1 98.8 99.1 98.8 Pulse 110 101 113 Resp 24 18 16 B/P (MAP) 154/94 (114) 159/104 (122) 146/94 (111) Pulse Ox 96 93 90 O2 Delivery Nasal Cannula Room Air Room Air Room Air O2 Flow Rate 2.0 03/12/19 03/12/19 03/12/19 03/12/19 07:00 07:32 08:00 10:42 Temp 99.1 99.1 Pulse 92 94 Resp 18 22 B/P (MAP) 141/93 (109) Pulse Ox 92 95 95 O2 Delivery Room Air Room Air Nasal Cannula Nasal Cannula O2 Flow Rate 2.0 03/12/19 03/12/19 03/12/19 03/12/19 10:47 10:53 10:58 11:03 Pulse 101 96 94 93 Resp 23 20 20 20 Pulse Ox 95 96 97 97 O2 Delivery Nasal Cannula Nasal Cannula Nasal Cannula Nasal Cannula O2 Flow Rate 2.0 2.0 2.0 2.0 03/12/19 03/12/19 03/12/19 03/12/19 11:08 11:12 11:12 11:30 Pulse 91 96 96 Resp 20 20 20 Pulse Ox 99 100 99 94 O2 Delivery Nasal Cannula Room Air Nasal Cannula Room Air O2 Flow Rate 2.0 2.0 Intake and Output 03/11/19 03/11/19 03/12/19 15:00 23:00 07:00 Intake Total 200 ml Balance 200 ml GORGE KUNZ MD Mar 12, 2019 14:28
[2019-03-12] MEDS: DOXYCYCLINE HYCLATE 100 MG TABLET PO SCH (21:03)
--- NOTE | 2019-03-12 21:07 | NUR ---
Pt reports pain with deep breathing and with coughing.
[2019-03-12] MEDS: ONDANSETRON PF 4 MG/2 ML VIAL. IV PRN (22:08)
[2019-03-13] MEDS: PIPERACILLIN/TAZOBACTAM 3.375 GM in IV NORMAL SALINE 50ML 50 ML IV SCH ×4 (00:32→18:00)
[2019-03-13 03:46] VITALS: BP 133/86
[2019-03-13 07:00] VITALS: BP 135/88
[2019-03-13] MEDS: ALBUTEROL SULFATE 2.5 MG/3 ML NEBU. NEB SCH ×3 (07:38→16:44)
--- NOTE | 2019-03-13 08:01 | NUR ---
Late note: Pt completed AD form on 03/08/19 and a copy placed on chart. Pt is provided original AD form and copies to take home.
[2019-03-13] MEDS: POLYETHYLENE GLYCOL 3350 17 GM PACKET. PO SCH (09:00)
[2019-03-13] MEDS: LUBIPROSTONE 8 MCG CAPSULE PO SCH ×2 (09:09→16:50)
[2019-03-13] MEDS: LACTOBACILLUS RHAMNOSUS GG 1 CAPSULE. PO SCH (09:09)
[2019-03-13] MEDS: DOXYCYCLINE HYCLATE 100 MG TABLET PO SCH (09:09)
--- NOTE | 2019-03-13 09:42 | PDOC ---
PROGRESS NOTES Subjective Subjective vomited last night, pain maybe a bit better, but still in RLQ Objective Objective Vital Signs Date Time Temp Pulse Resp B/P (MAP) Pulse Ox O2 Delivery O2 Flow Rate FiO2 03/13/19 07:38 100 Room Air 03/13/19 07:00 98.4 99 16 135/88 (104) 98.4 03/12/19 11:12 2.0 Intake and Output 03/13/19 06:59 Intake Total 1100 ml Output Total 200 ml Balance 900 ml Intake Oral 1100 ml Emesis 200 ml # Voids 5 Physical Exam Abdomen: Soft (tender suprapubic and RLQ) Heart: Other (tachy) Extremities: No clubbing, No cyanosis General: Alert, Oriented X3 HEENT: Atraumatic Lungs: Clear to auscultation Neuro: Normal speech Psych/Mental Status: Mental status NL Skin: No rashes, No breakdown Assessment Assessment Problems Medical Problems: (1) Pyelonephritis Status: Acute Plan Plan of Care RAYON TESTER eval in progress, no new surgical recs Comment Review of Relevant I have reviewed the following items beth (where applicable) has been applied. Labs Laboratory Tests Test 03/11/19 16:15 03/12/19 03:55 Prothrombin Time 14.2 SEC (11.7-14.0) Prothromb Time International Ratio 1.1 (0.8-1.1) Activated Partial Thromboplast Time 38 SEC (24-38) White Blood Count 7.1 x10^3/uL (4.0-11.0) Red Blood Count 3.51 x10^6/uL (3.50-5.40) Hemoglobin 8.9 g/dL (12.0-15.5) Hematocrit 27.5 % (36.0-47.0) Mean Corpuscular Volume 78 fL (79-100) Mean Corpuscular Hemoglobin 25 pg (25-35) Mean Corpuscular Hemoglobin Concent 32 g/dL (31-37) Red Cell Distribution Width 15.5 % (11.5-14.5) Platelet Count 388 x10^3/uL (140-400) Neutrophils (%) (Auto) 69 % (31-73) Lymphocytes (%) (Auto) 21 % (24-48) Monocytes (%) (Auto) 8 % (0-9) Eosinophils (%) (Auto) 2 % (0-3) Basophils (%) (Auto) 0 % (0-3) Neutrophils # (Auto) 4.9 x10^3uL (1.8-7.7) Lymphocytes # (Auto) 1.5 x10^3/uL (1.0-4.8) Monocytes # (Auto) 0.6 x10^3/uL (0.0-1.1) Eosinophils # (Auto) 0.1 x10^3/uL (0.0-0.7) Basophils # (Auto) 0.0 x10^3/uL (0.0-0.2) Sodium Level 140 mmol/L (136-145) Potassium Level 3.5 mmol/L (3.5-5.1) Chloride Level 104 mmol/L (98-107) Carbon Dioxide Level 27 mmol/L (21-32) Anion Gap 9 (6-14) Blood Urea Nitrogen 9 mg/dL (7-20) Creatinine 0.9 mg/dL (0.6-1.0) Estimated GFR (Cockcroft-Gault) 90.9 Glucose Level 104 mg/dL (70-99) Calcium Level 8.6 mg/dL (8.5-10.1) Microbiology 03/07/19 Blood Culture - Final, Complete NO GROWTH AFTER 5 DAYS 03/04/19 Urine Culture - Final, Complete 03/04/19 Urine Culture Result 1 (NICHELLE) - Final, Complete Medications Current Medications Morphine Sulfate (Morphine Sulfate) 4 mg PRN Q15MIN PRN IV/SQ PAIN GREATER THAN 3/10 Last administered on 03/04/19at 18:49; Start 03/04/19 at 15:45; Stop 03/05/19 at 15:44; Status DC Sodium Chloride 1,000 ml @ 1,000 mls/hr Q1H IV Last administered on 03/04/19at 16:14; Start 03/04/19 at 15:41; Stop 03/04/19 at 16:40; Status DC Ondansetron HCl (Zofran) 4 mg 1X ONCE IV Last administered on 03/04/19at 16:10; Start 03/04/19 at 15:45; Stop 03/04/19 at 15:46; Status DC Iohexol (Omnipaque 300 Mg/ml) 75 ml 1X ONCE IV Last administered on 03/04/19at 16:35; Start 03/04/19 at 16:15; Stop 03/04/19 at 16:19; Status DC Info (CONTRAST GIVEN -- Rx MONITORING) 1 each PRN DAILY PRN MC SEE COMMENTS; Start 03/04/19 at 16:30; Stop 03/06/19 at 16:29; Status DC Ceftriaxone Sodium (Rocephin) 1 gm 1X ONCE IVP Last administered on 03/04/19at 17:42; Start 03/04/19 at 17:45; Stop 03/04/19 at 17:46; Status DC Sodium Chloride 1,000 ml @ 1,000 mls/hr 1X ONCE IV Last administered on 03/04/19at 18:14; Start 03/04/19 at 18:00; Stop 03/04/19 at 18:59; Status DC Ondansetron HCl (Zofran) 4 mg 1X ONCE IV Last administered on 03/04/19at 18:09; Start 03/04/19 at 18:00; Stop 03/04/19 at 18:01; Status DC Ketorolac Tromethamine (Toradol 15mg Vial) 15 mg 1X ONCE IV Last administered on 03/04/19at 18:00; Start 03/04/19 at 18:00; Stop 03/04/19 at 18:01; Status DC Sodium Chloride 1,000 ml @ 1,000 mls/hr 1X ONCE IV Last administered on 03/04/19at 18:13; Start 03/04/19 at 18:00; Stop 03/04/19 at 18:59; Status DC Ketorolac Tromethamine (Toradol Im) 60 mg STK-MED ONCE .ROUTE ; Start 03/04/19 at 17:57; Stop 03/04/19 at 17:58; Status DC Ketorolac Tromethamine (Toradol 30mg Vial) 30 mg STK-MED ONCE .ROUTE ; Start 03/04/19 at 17:58; Stop 03/04/19 at 17:59; Status DC Acetaminophen (Tylenol Supp) 650 mg 1X ONCE VA Last administered on 03/04/19at 18:00; Start 03/04/19 at 18:00; Stop 03/04/19 at 18:01; Status DC Ceftriaxone Sodium (Rocephin) 2 gm Q24H IVP Last administered on 03/06/19 20:24; Start 03/04/19 at 19:00; Stop 03/07/19 at 12:32; Status DC Ondansetron HCl (Zofran) 4 mg PRN Q6HRS PRN IV NAUSEA/VOMITING Last administered on 03/12/19 22:08; Start 03/04/19 at 18:30 Ondansetron HCl (Zofran Odt) 4 mg PRN Q6HRS PRN PO NAUSEA/VOMITING Last administered on 03/08/19 08:44; Start 03/04/19 at 18:30 Acetaminophen (Tylenol) 650 mg PRN Q6HRS PRN PO MILD PAIN Last administered on 03/11/19 19:44; Start 03/04/19 at 18:30 Acetaminophen/ Codeine Phosphate (Tylenol #3) 1 tab PRN Q6HRS PRN PO MODERATE PAIN Last administered on 03/08/19 22:17; Start 03/04/19 at 18:30 Acetaminophen/ Hydrocodone Bitart (Lortab 5/325) 1 tab PRN Q4HRS PRN PO SEVERE PAIN Last administered on 03/11/19 08:45; Start 03/04/19 at 18:30 Ibuprofen (Motrin) 400 mg PRN Q6HRS PRN PO INFLAMMATION Last administered on 03/10/19 18:17; Start 03/04/19 at 18:30 Morphine Sulfate (Morphine Sulfate) 2 mg PRN Q2HR PRN IV PAIN Last administered on 03/09/19 03:59; Start 03/04/19 at 18:30 Diphenhydramine HCl (Benadryl) 25 mg PRN QHS PRN PO INSOMNIA Last administered on 03/12/19 21:06; Start 03/04/19 at 18:30 Hydromorphone HCl (Dilaudid) 1 mg 1X ONCE IV Last administered on 03/04/19 19:11; Start 03/04/19 at 19:15; Stop 03/04/19 at 19:16; Status DC Ceftriaxone Sodium (Rocephin) 1 gm 1X ONCE IVP Last administered on 03/04/19 21:39; Start 03/04/19 at 20:30; Stop 03/04/19 at 20:31; Status DC Sodium Chloride 1,000 ml @ 150 mls/hr Q6H40M IV Last administered on 03/07/19 03:22; Start 03/05/19 at 11:30; Stop 03/07/19 at 09:49; Status DC Lactobacillus Rhamnosus (Culturelle) 1 cap BID PO Last administered on 03/13/19 09:09; Start 03/05/19 at 21:00 Potassium Chloride (Klor-Con) 40 meq 1X ONCE PO Last administered on 03/06/19at 12:26; Start 03/06/19 at 09:15; Stop 03/06/19 at 09:23; Status DC Ringer's Solution 1,000 ml @ 0 mls/hr 1X ONCE IV Last administered on 03/07/19 02:15; Start 03/07/19 at 02:00; Stop 03/07/19 at 02:07; Status DC Sodium Chloride 1,000 ml @ 75 mls/hr [id number] IV Last administered on 03/07/19at 09:59; Start 03/07/19 at 10:00; Stop 03/09/19 at 12:12; Status DC Doxycycline Hyclate (Vibra-Tab) 100 mg BID PO Last administered on 03/13/19 09:09; Start 03/07/19 at 12:15 Piperacillin Sod/ Tazobactam Sod 3.375 gm/Sodium Chloride 50 ml @ 100 mls/hr Q6HRS IV ; Start 03/07/19 at 18:00; Status Cancel Polyethylene Glycol (miraLAX PACKET) 17 gm DAILY PO Last administered on 03/07/19at 12:41; Start 03/07/19 at 12:15 Piperacillin Sod/ Tazobactam Sod 3.375 gm/Sodium Chloride 50 ml @ 100 mls/hr Q6HRS IV Last administered on 03/13/19 06:02; Start 03/07/19 at 13:00 Sodium Chloride 1,000 ml @ 100 mls/hr Q10H IV Last administered on 03/10/19at 13:20; Start 03/07/19 at 19:45; Stop 03/11/19 at 18:12; Status DC Potassium Chloride (Klor-Con) 40 meq 1X ONCE PO Last administered on 03/08/19at 12:51; Start 03/08/19 at 12:30; Stop 03/08/19 at 12:31; Status DC Docusate Sodium (Colace) 100 mg PRN DAILY PRN PO STOOL SOFTENER Last administered on 03/10/19at 08:43; Start 03/08/19 at 12:45 Magnesium Hydroxide (Milk Of Magnesia) 2,400 mg PRN DAILY PRN PO CONSTIPATION Last administered on 03/10/19at 08:43; Start 03/08/19 at 12:45 Magnesium Hydroxide (Milk Of Magnesia) 2,400 mg 1X ONCE PO Last administered on 03/08/19at 12:50; Start 03/08/19 at 13:30; Stop 03/08/19 at 13:31; Status DC Albuterol/ Ipratropium (Duoneb) 3 ml RTQID NEB Last administered on 03/09/19at 18:32; Start 03/08/19 at 17:00; Stop 03/10/19 at 07:26; Status DC Albuterol Sulfate (Ventolin Neb Soln) 2.5 mg PRN Q4HRS PRN NEB SHORTNESS OF BREATH; Start 03/08/19 at 16:45 Sodium Chloride 4,150 ml @ 8,300 mls/hr 1X ONCE IV Last administered on 03/09/19at 12:08; Start 03/09/19 at 12:00; Stop 03/09/19 at 12:08; Status DC Sodium Chloride 1,000 ml @ 4,150 mls/hr Q15M IV Last administered on 03/09/19at 12:54; Start 03/09/19 at 12:30; Stop 03/09/19 at 13:15; Status DC Albuterol Sulfate (Ventolin Neb Soln) 2.5 mg RTQID NEB Last administered on 03/13/19at 07:38; Start 03/10/19 at 08:00 Lactobacillus Rhamnosus (Culturelle) 1 cap BID PO ; Start 03/10/19 at 21:00; Status UNV Iohexol (Omnipaque 300 Mg/ml) 75 ml 1X ONCE IV Last administered on 03/11/19at 09:15; Start 03/11/19 at 09:15; Stop 03/11/19 at 09:19; Status DC Iohexol (Omnipaque 240 Mg/ml) 50 ml 1X ONCE PO Last administered on 03/11/19at 09:15; Start 03/11/19 at 09:15; Stop 03/11/19 at 09:19; Status DC Info (CONTRAST GIVEN -- Rx MONITORING) 1 each PRN DAILY PRN MC SEE COMMENTS; Start 03/11/19 at 09:30; Stop 03/13/19 at 09:29; Status DC Lubiprostone (Amitiza) 8 mcg BIDWMEALS PO Last administered on 03/13/19at 09:09; Start 03/11/19 at 17:00 Lidocaine/Sodium Bicarbonate (Buffered Lidocaine 1%) 3 ml STK-MED ONCE .ROUTE ; Start 03/12/19 at 09:53; Stop 03/12/19 at 09:54; Status DC Lidocaine/Sodium Bicarbonate (Buffered Lidocaine 1%) 3 ml STK-MED ONCE .ROUTE ; Start 03/12/19 at 09:56; Stop 03/12/19 at 09:57; Status DC Midazolam HCl (Versed) 2 mg STK-MED ONCE .ROUTE ; Start 03/12/19 at 10:17; Stop 03/12/19 at 10:18; Status DC Fentanyl Citrate (Fentanyl 2ml Vial) 100 mcg STK-MED ONCE .ROUTE ; Start 03/12/19 at 10:18; Stop 03/12/19 at 10:19; Status DC Naloxone HCl (Narcan) 0.4 mg STK-MED ONCE .ROUTE ; Start 03/12/19 at 10:18; Stop 03/12/19 at 10:19; Status DC Midazolam HCl (Versed) 2 mg STK-MED ONCE .ROUTE ; Start 03/12/19 at 10:53; Stop 03/12/19 at 11:35; Status DC Fentanyl Citrate (Fentanyl 2ml Vial) 100 mcg STK-MED ONCE .ROUTE ; Start 03/12/19 at 10:54; Stop 03/12/19 at 11:35; Status DC Active Scripts Active Reported No Known Medications Prior To Admisstion (Info) Each 1 Each Vitals/I & O Vital Sign - Last 24 Hours 03/12/19 03/12/19 03/12/19 03/12/19 10:42 10:47 10:53 10:58 Pulse 94 101 96 94 Resp 22 23 20 20 Pulse Ox 95 95 96 97 O2 Delivery Nasal Cannula Nasal Cannula Nasal Cannula Nasal Cannula O2 Flow Rate 2.0 2.0 2.0 2.0 03/12/19 03/12/19 03/12/19 03/12/19 11:03 11:08 11:12 11:12 Pulse 93 91 96 96 Resp 20 20 20 20 Pulse Ox 97 99 100 99 O2 Delivery Nasal Cannula Nasal Cannula Room Air Nasal Cannula O2 Flow Rate 2.0 2.0 2.0 03/12/19 03/12/19 03/12/19 03/12/19 11:30 15:00 16:15 19:35 Resp 18 B/P (MAP) 149/92 (111) Pulse Ox 94 97 99 O2 Delivery Room Air Room Air Room Air Room Air 03/12/19 03/12/19 03/12/19 03/13/19 19:42 20:00 23:56 03:46 Temp 98.3 98.4 98.7 98.3 98.4 98.7 Pulse 95 104 108 Resp 16 16 18 B/P (MAP) 146/98 (114) 138/86 (103) 133/86 (102) Pulse Ox 98 92 90 O2 Delivery Room Air Room Air Room Air Room Air 03/13/19 03/13/19 07:00 07:38 Temp 98.4 98.4 Pulse 99 Resp B/P (MAP) 135/88 (104) Pulse Ox 94 100 O2 Delivery Room Air Room Air Intake and Output 03/12/19 03/12/19 03/13/19 14:59 22:59 06:59 Intake Total 1000 ml 100 ml Output Total 200 ml Balance 800 ml 100 ml DANILO MCCORD MD March 13, 2019 09:42
--- NOTE | 2019-03-13 09:55 | RAD ---
CT-guided aspiration, small pelvic fluid collection 03/12/2019 Indication: Small pelvic fluid collection situated between the rectum and uterus, uncertain sterility Discussion: The risks and benefits of the procedure were discussed patient. Informed consent was obtained. The patient was brought to the CT scanner and placed in the prone position. Timeout procedure was performed. The posterior inferior pelvis was prepped and draped using sterile barrier technique. 1% lidocaine was administered for local anesthesia. Under intermittent CT guidance 17-gauge needles advanced to the collection. 3 to 5 cc of serosanguineous fluid was aspirated. Sample sent for Gram stain and culture. Meraux removed. Manual pressure was held. Repeat imaging demonstrates no significant complication. The procedure was performed under conscious sedation including continuous cardiopulmonary monitoring via a dedicated sedation nurse. [id number] sedation time: 30 minutes Impression: CT-guided aspiration, small pelvic fluid collection PQRS Compliance Statement: One or more of the following individualized dose reduction techniques were utilized for this examination: 1. Automated exposure control 2. Adjustment of the mA and/or kV according to patient size 3. Use of iterative reconstruction technique
--- NOTE | 2019-03-13 09:57 | PDOC ---
Infectious Disease Note Subjective Subjective c/o rt lower qu pain ROS ROS some nausea,vomiting no fever no cp Vital Sign Vital Signs Vital Signs Date Time Temp Pulse Resp B/P (MAP) Pulse Ox O2 Delivery O2 Flow Rate FiO2 03/13/19 07:38 100 Room Air 03/13/19 07:00 98.4 99 16 135/88 (104) 98.4 03/12/19 11:12 2.0 Physical Exam PHYSICAL EXAM GENERAL: awake, not in distress HEENT: Pupils equal and reactive. Oral cavity, pharynx is clear. NECK: Supple. Good range of motion. LUNGS: Decreased at bases. HEART: S1, S2. ABDOMEN: Morbidly obese. soft, nontender to light palpation ,, rt lower qu tenderness EXTREMITIES: Without clubbing, cyanosis. SKIN: Warm to touch. NEUROLOGIC: Responds appropriately , no focal deficit Labs Micro GC + Urine with Group B strep BC neg Objective Assessment Fever - better Influenza and syphilis neg, GC positive Abd pain,, with pelvic abscess, ? appendicitis Leukocytosis - better Group B strep UTI - POA 03/04 Obesity h/o Chlamydia Constipation - 5 days now probable sleep apnea Plan Plan of Care cont antibiotics d/w Dr Mckenna, appreciate input, appendix is not involved ct drainage done, culture pending ALE LIM MD March 13, 2019 09:57
[2019-03-13 11:00] VITALS: BP 147/97
--- NOTE | 2019-03-13 11:27 | NUR ---
SS following up with discharge planning. Pt is from home and is currently on room air. Pt is self pay. [facility] is following for self pay status. No discharge needs noted at this time. SS will continue to follow for pending discharge needs.
[2019-03-13] MEDS: ACETAMINOPHEN/CODEINE 300/30MG TABLET. PO PRN (12:18)
--- NOTE | 2019-03-13 12:33 | PDOC ---
PROGRESS NOTES Chief Complaint Chief Complaint SEPSIS from UTI/pyelonephritis with organ dysfunction namely tachycardia/nonsustained V. tach, stable Obesity, BMI 46.4 Gonorrhea positive-syphilis negative Uterine mass RLQ PAIN Pelvic fluid collection Constipation, now diarrhea Anemia, hemoglobin 7.1-->8.9 Elevated sedimentation rate 115 History of Present Illness History of Present Illness Initially admitted to ICU for pyelonephritis, Went to the upstairs but went into heart rate 170s now 130s 140s hence transfer to C[facility]. Remains febrile tachycardic temperature 100. ID on board,, gonorrhea positive, syphilis negative and gave HIV consent to test, which was negative. Sexually Active with one partner only Sedimentation rate 115 03/12: No BM 5 days, had BM with mag citrate now. Has RLQ abdominal pain and did vomit x1. CT abdomen/pelvis showed pelvic fluid collection - to IR this morning for drainage 3-5cc. Seen by general surgery to r/o appendicitis Vomited x1 last night, RLQ pain better, more suprapubic and central pain today. Had BM. She is getting anxious about leaving and returning to work. Going for consulting networking engineer exam currently. GBS on urine. Discussed gonorrhea dx and her 1 partner has been notified Plan On doxycycline and Zosyn Monitor temps No leukocytosis Hb low - family h/o SCD - will screen for sickle trait with electrophoresis Added Lactobacillus Discussed with her and updated all findings Fever - better Influenza and syphilis neg GC positive and Group B strep UTI - POA 03/04 Obesity h/o Chlamydia Constipation probable sleep apnea Vitals Vitals Vital Signs Date Time Temp Pulse Resp B/P (MAP) Pulse Ox O2 Delivery O2 Flow Rate FiO2 03/13/19 12:18 18 Room Air 03/13/19 11:00 98.6 100 147/97 (114) 96 98.6 03/12/19 11:12 2.0 Physical Exam Physical Exam GENERAL: awake, not in distress HEENT: Pupils equal and reactive. Oral cavity, pharynx is clear. NECK: Supple. Good range of motion. LUNGS: Decreased at bases. HEART: S1, S2. ABDOMEN: Morbidly obese. soft, nontender to light palpation ,, rt lower qu tenderness EXTREMITIES: Without clubbing, cyanosis. SKIN: Warm to touch. NEUROLOGIC: Responds appropriately , no focal deficit General: Alert, Oriented X3 Heart: Other (tachy) Lungs: Clear, Other (on 2L O2 by NC, no wheezing, no crackles) Abdomen: Soft (tender suprapubic and RLQ) Extremities: No clubbing, No cyanosis Skin: No rashes, No breakdown Assessment and Plan Assessmemt and Plan Problems Medical Problems: (1) Pyelonephritis Status: Acute Comment Review of Relevant I have reviewed the following items beth (where applicable) has been applied. Labs Laboratory Tests Test 03/11/19 16:15 03/12/19 03:55 Prothrombin Time 14.2 SEC (11.7-14.0) Prothromb Time International Ratio 1.1 (0.8-1.1) Activated Partial Thromboplast Time 38 SEC (24-38) White Blood Count 7.1 x10^3/uL (4.0-11.0) Red Blood Count 3.51 x10^6/uL (3.50-5.40) Hemoglobin 8.9 g/dL (12.0-15.5) Hematocrit 27.5 % (36.0-47.0) Mean Corpuscular Volume 78 fL (79-100) Mean Corpuscular Hemoglobin 25 pg (25-35) Mean Corpuscular Hemoglobin Concent 32 g/dL (31-37) Red Cell Distribution Width 15.5 % (11.5-14.5) Platelet Count 388 x10^3/uL (140-400) Neutrophils (%) (Auto) 69 % (31-73) Lymphocytes (%) (Auto) 21 % (24-48) Monocytes (%) (Auto) 8 % (0-9) Eosinophils (%) (Auto) 2 % (0-3) Basophils (%) (Auto) 0 % (0-3) Neutrophils # (Auto) 4.9 x10^3uL (1.8-7.7) Lymphocytes # (Auto) 1.5 x10^3/uL (1.0-4.8) Monocytes # (Auto) 0.6 x10^3/uL (0.0-1.1) Eosinophils # (Auto) 0.1 x10^3/uL (0.0-0.7) Basophils # (Auto) 0.0 x10^3/uL (0.0-0.2) Sodium Level 140 mmol/L (136-145) Potassium Level 3.5 mmol/L (3.5-5.1) Chloride Level 104 mmol/L (98-107) Carbon Dioxide Level 27 mmol/L (21-32) Anion Gap 9 (6-14) Blood Urea Nitrogen 9 mg/dL (7-20) Creatinine 0.9 mg/dL (0.6-1.0) Estimated GFR (Cockcroft-Gault) 90.9 Glucose Level 104 mg/dL (70-99) Calcium Level 8.6 mg/dL (8.5-10.1) Microbiology 03/07/19 Blood Culture - Final, Complete NO GROWTH AFTER 5 DAYS 03/04/19 Urine Culture - Final, Complete 03/04/19 Urine Culture Result 1 (NICHELLE) - Final, Complete Medications Current Medications Morphine Sulfate (Morphine Sulfate) 4 mg PRN Q15MIN PRN IV/SQ PAIN GREATER THAN 3/10 Last administered on 03/04/19at 18:49; Start 03/04/19 at 15:45; Stop 03/05/19 at 15:44; Status DC Sodium Chloride 1,000 ml @ 1,000 mls/hr Q1H IV Last administered on 03/04/19at 16:14; Start 03/04/19 at 15:41; Stop 03/04/19 at 16:40; Status DC Ondansetron HCl (Zofran) 4 mg 1X ONCE IV Last administered on 03/04/19at 16:10; Start 03/04/19 at 15:45; Stop 03/04/19 at 15:46; Status DC Iohexol (Omnipaque 300 Mg/ml) 75 ml 1X ONCE IV Last administered on 03/04/19at 16:35; Start 03/04/19 at 16:15; Stop 03/04/19 at 16:19; Status DC Info (CONTRAST GIVEN -- Rx MONITORING) 1 each PRN DAILY PRN MC SEE COMMENTS; Start 03/04/19 at 16:30; Stop 03/06/19 at 16:29; Status DC Ceftriaxone Sodium (Rocephin) 1 gm 1X ONCE IVP Last administered on 03/04/19at 17:42; Start 03/04/19 at 17:45; Stop 03/04/19 at 17:46; Status DC Sodium Chloride 1,000 ml @ 1,000 mls/hr 1X ONCE IV Last administered on 03/04/19 18:14; Start 03/04/19 at 18:00; Stop 03/04/19 at 18:59; Status DC Ondansetron HCl (Zofran) 4 mg 1X ONCE IV Last administered on 03/04/19 18:09; Start 03/04/19 at 18:00; Stop 03/04/19 at 18:01; Status DC Ketorolac Tromethamine (Toradol 15mg Vial) 15 mg 1X ONCE IV Last administered on 03/04/19 18:00; Start 03/04/19 at 18:00; Stop 03/04/19 at 18:01; Status DC Sodium Chloride 1,000 ml @ 1,000 mls/hr 1X ONCE IV Last administered on 03/04/19 18:13; Start 03/04/19 at 18:00; Stop 03/04/19 at 18:59; Status DC Ketorolac Tromethamine (Toradol Im) 60 mg STK-MED ONCE .ROUTE ; Start 03/04/19 at 17:57; Stop 03/04/19 at 17:58; Status DC Ketorolac Tromethamine (Toradol 30mg Vial) 30 mg STK-MED ONCE .ROUTE ; Start 03/04/19 at 17:58; Stop 03/04/19 at 17:59; Status DC Acetaminophen (Tylenol Supp) 650 mg 1X ONCE FL Last administered on 03/04/19 18:00; Start 03/04/19 at 18:00; Stop 03/04/19 at 18:01; Status DC Ceftriaxone Sodium (Rocephin) 2 gm Q24H IVP Last administered on 03/06/19 20:24; Start 03/04/19 at 19:00; Stop 03/07/19 at 12:32; Status DC Ondansetron HCl (Zofran) 4 mg PRN Q6HRS PRN IV NAUSEA/VOMITING Last administered on 03/12/19 22:08; Start 03/04/19 at 18:30 Ondansetron HCl (Zofran Odt) 4 mg PRN Q6HRS PRN PO NAUSEA/VOMITING Last administered on 03/08/19 08:44; Start 03/04/19 at 18:30 Acetaminophen (Tylenol) 650 mg PRN Q6HRS PRN PO MILD PAIN Last administered on 03/11/19 19:44; Start 03/04/19 at 18:30 Acetaminophen/ Codeine Phosphate (Tylenol #3) 1 tab PRN Q6HRS PRN PO MODERATE PAIN Last administered on 03/13/19 12:18; Start 03/04/19 at 18:30 Acetaminophen/ Hydrocodone Bitart (Lortab 5/325) 1 tab PRN Q4HRS PRN PO SEVERE PAIN Last administered on 03/11/19 08:45; Start 03/04/19 at 18:30 Ibuprofen (Motrin) 400 mg PRN Q6HRS PRN PO INFLAMMATION Last administered on 03/10/19 18:17; Start 03/04/19 at 18:30 Morphine Sulfate (Morphine Sulfate) 2 mg PRN Q2HR PRN IV PAIN Last administered on 03/09/19 03:59; Start 03/04/19 at 18:30 Diphenhydramine HCl (Benadryl) 25 mg PRN QHS PRN PO INSOMNIA Last administered on 03/12/19 21:06; Start 03/04/19 at 18:30 Hydromorphone HCl (Dilaudid) 1 mg 1X ONCE IV Last administered on 03/04/19 19:11; Start 03/04/19 at 19:15; Stop 03/04/19 at 19:16; Status DC Ceftriaxone Sodium (Rocephin) 1 gm 1X ONCE IVP Last administered on 03/04/19 21:39; Start 03/04/19 at 20:30; Stop 03/04/19 at 20:31; Status DC Sodium Chloride 1,000 ml @ 150 mls/hr Q6H40M IV Last administered on 03/07/19 03:22; Start 03/05/19 at 11:30; Stop 03/07/19 at 09:49; Status DC Lactobacillus Rhamnosus (Culturelle) 1 cap BID PO Last administered on 03/13/19 09:09; Start 03/05/19 at 21:00 Potassium Chloride (Klor-Con) 40 meq 1X ONCE PO Last administered on 03/06/19 12:26; Start 03/06/19 at 09:15; Stop 03/06/19 at 09:23; Status DC Ringer's Solution 1,000 ml @ 0 mls/hr 1X ONCE IV Last administered on 03/07/19 02:15; Start 03/07/19 at 02:00; Stop 03/07/19 at 02:07; Status DC Sodium Chloride 1,000 ml @ 75 mls/hr [id number] IV Last administered on 03/07/19 09:59; Start 03/07/19 at 10:00; Stop 03/09/19 at 12:12; Status DC Doxycycline Hyclate (Vibra-Tab) 100 mg BID PO Last administered on 03/13/19 09:09; Start 03/07/19 at 12:15 Piperacillin Sod/ Tazobactam Sod 3.375 gm/Sodium Chloride 50 ml @ 100 mls/hr Q6HRS IV ; Start 03/07/19 at 18:00; Status Cancel Polyethylene Glycol (miraLAX PACKET) 17 gm DAILY PO Last administered on 03/07/19 12:41; Start 03/07/19 at 12:15 Piperacillin Sod/ Tazobactam Sod 3.375 gm/Sodium Chloride 50 ml @ 100 mls/hr Q6HRS IV Last administered on 03/13/19 12:12; Start 03/07/19 at 13:00 Sodium Chloride 1,000 ml @ 100 mls/hr Q10H IV Last administered on 03/10/19 13:20; Start 03/07/19 at 19:45; Stop 03/11/19 at 18:12; Status DC Potassium Chloride (Klor-Con) 40 meq 1X ONCE PO Last administered on 03/08/19 12:51; Start 03/08/19 at 12:30; Stop 03/08/19 at 12:31; Status DC Docusate Sodium (Colace) 100 mg PRN DAILY PRN PO STOOL SOFTENER Last administered on 03/10/19 08:43; Start 03/08/19 at 12:45 Magnesium Hydroxide (Milk Of Magnesia) 2,400 mg PRN DAILY PRN PO CONSTIPATION Last administered on 03/10/19 08:43; Start 03/08/19 at 12:45 Magnesium Hydroxide (Milk Of Magnesia) 2,400 mg 1X ONCE PO Last administered on 03/08/19 12:50; Start 03/08/19 at 13:30; Stop 03/08/19 at 13:31; Status DC Albuterol/ Ipratropium (Duoneb) 3 ml RTQID NEB Last administered on 03/09/19at 18:32; Start 03/08/19 at 17:00; Stop 03/10/19 at 07:26; Status DC Albuterol Sulfate (Ventolin Neb Soln) 2.5 mg PRN Q4HRS PRN NEB SHORTNESS OF BREATH; Start 03/08/19 at 16:45 Sodium Chloride 4,150 ml @ 8,300 mls/hr 1X ONCE IV Last administered on 03/09/19at 12:08; Start 03/09/19 at 12:00; Stop 03/09/19 at 12:08; Status DC Sodium Chloride 1,000 ml @ 4,150 mls/hr Q15M IV Last administered on 03/09/19at 12:54; Start 03/09/19 at 12:30; Stop 03/09/19 at 13:15; Status DC Albuterol Sulfate (Ventolin Neb Soln) 2.5 mg RTQID NEB Last administered on 03/13/19at 07:38; Start 03/10/19 at 08:00 Lactobacillus Rhamnosus (Culturelle) 1 cap BID PO ; Start 03/10/19 at 21:00; Status UNV Iohexol (Omnipaque 300 Mg/ml) 75 ml 1X ONCE IV Last administered on 03/11/19at 09:15; Start 03/11/19 at 09:15; Stop 03/11/19 at 09:19; Status DC Iohexol (Omnipaque 240 Mg/ml) 50 ml 1X ONCE PO Last administered on 03/11/19at 09:15; Start 03/11/19 at 09:15; Stop 03/11/19 at 09:19; Status DC Info (CONTRAST GIVEN -- Rx MONITORING) 1 each PRN DAILY PRN MC SEE COMMENTS; Start 03/11/19 at 09:30; Stop 03/13/19 at 09:29; Status DC Lubiprostone (Amitiza) 8 mcg BIDWMEALS PO Last administered on 03/13/19at 09:09; Start 03/11/19 at 17:00 Lidocaine/Sodium Bicarbonate (Buffered Lidocaine 1%) 3 ml STK-MED ONCE .ROUTE ; Start 03/12/19 at 09:53; Stop 03/12/19 at 09:54; Status DC Lidocaine/Sodium Bicarbonate (Buffered Lidocaine 1%) 3 ml STK-MED ONCE .ROUTE ; Start 03/12/19 at 09:56; Stop 03/12/19 at 09:57; Status DC Midazolam HCl (Versed) 2 mg STK-MED ONCE .ROUTE ; Start 03/12/19 at 10:17; Stop 03/12/19 at 10:18; Status DC Fentanyl Citrate (Fentanyl 2ml Vial) 100 mcg STK-MED ONCE .ROUTE ; Start 03/12/19 at 10:18; Stop 03/12/19 at 10:19; Status DC Naloxone HCl (Narcan) 0.4 mg STK-MED ONCE .ROUTE ; Start 03/12/19 at 10:18; Stop 03/12/19 at 10:19; Status DC Midazolam HCl (Versed) 2 mg STK-MED ONCE .ROUTE ; Start 03/12/19 at 10:53; Stop 03/12/19 at 11:35; Status DC Fentanyl Citrate (Fentanyl 2ml Vial) 100 mcg STK-MED ONCE .ROUTE ; Start 03/12/19 at 10:54; Stop 03/12/19 at 11:35; Status DC Active Scripts Active Reported No Known Medications Prior To Admisstion (Info) Each 1 Each Vitals/I & O Vital Sign - Last 24 Hours 03/12/19 03/12/19 03/12/19 03/12/19 15:00 16:15 19:35 19:42 Temp 98.3 98.3 Pulse 95 Resp 18 16 B/P (MAP) 149/92 (111) 146/98 (114) Pulse Ox 97 99 98 O2 Delivery Room Air Room Air Room Air Room Air 03/12/19 03/12/19 03/13/19 03/13/19 20:00 23:56 03:46 07:00 Temp 98.4 98.7 98.4 98.4 98.7 98.4 Pulse 104 108 99 Resp 16 18 16 B/P (MAP) 138/86 (103) 133/86 (102) 135/88 (104) Pulse Ox 92 90 94 O2 Delivery Room Air Room Air Room Air Room Air 03/13/19 03/13/19 03/13/19 03/13/19 07:38 08:00 11:00 12:18 Temp 98.6 98.6 Pulse 100 Resp 16 18 B/P (MAP) 147/97 (114) Pulse Ox 100 96 O2 Delivery Room Air Room Air Room Air Room Air Intake and Output 03/12/19 03/12/19 03/13/19 15:00 23:00 07:00 Intake Total 1000 ml 100 ml Output Total 200 ml Balance 800 ml 100 ml GORGE KUNZ MD March 13, 2019 12:33
--- NOTE | 2019-03-13 12:53 | CONS ---
DATE OF CONSULTATION: 03/12/2019 REASON FOR CONSULT: Pelvic pain. HISTORY OF PRESENT ILLNESS: This is a 29-year-old black female, 2, para 1-0-1-1, with a last menstrual period this past month that presented to the Emergency Room with abdominal pain, pelvic pain. The patient states this pain has been going on for the past 4-5 days. The patient denies any previous symptoms or trauma to the abdomen. The patient with subjective fever and some chills. REVIEW OF SYSTEMS: Per HPI. OB HISTORY: Pregnancies x 2, one miscarried before 7-year-old daughter. History of STDs, chlamydia, currently group B strep in the urine currently with gonorrhea. GYNECOLOGIC HISTORY: No evidence abnormal Paps given per patient. Probable history of Chlamydia in the past. SURGICAL HISTORY: D and C with miscarriage. Chart was reviewed. The patient was noted to have gonorrhea and UTI, supposed to be and appropriately treated. In reviewing CT scan and ultrasound of the pelvis, it appears that most likely a degenerating fibroid that they are seeing; however, it could be an infectious process, but if so, I would think that her aspiration showed either white cells or bacteria in fluid. On examination of the patient, I talked to the patient at bedside. She did not have any ____ peritoneal signs. More likely, her UTI and her gonorrhea, which is causing her discomfort. The patient will be taken up to the third floor to have a pelvic exam done, more likely this is just pelvic inflammatory disease, and an exam will be consistent with that with cervical motion tenderness. In those cases, I keep the patient on doxycycline for another 7-10 days after she is discharged. As mentioned above, I will do the pelvic exam tomorrow morning in my clinic. I appreciate you allowing me to participate in the care of this patient. If you have any questions about this patient or any other patient, feel free to contact me. RAMON TAYLOR MD DR: ANNE/sonja JOB#: [id number] / [id number]
[2019-03-13] MEDS ORDERED: LACT1CAP19 PO (13:17)
[2019-03-13] MEDS ORDERED: DOXY100C14 PO (13:17)
[2019-03-13] MEDS ORDERED: TRAM50TA PO (13:17)
--- NOTE | 2019-03-13 13:56 | PDOC ---
PROGRESS NOTES Subjective Subjective Pt. is A1 with pyelonephritis, PID and possible degenerating fibroid. Labs reviewed and sono reviewed. Objective Objective Vital Signs Date Time Temp Pulse Resp B/P (MAP) Pulse Ox O2 Delivery O2 Flow Rate FiO2 03/13/19 12:36 Room Air 03/13/19 12:18 18 03/13/19 11:00 98.6 100 147/97 (114) 96 98.6 03/12/19 11:12 2.0 Intake and Output 03/13/19 07:00 Intake Total 1100 ml Output Total 200 ml Balance 900 ml Intake Oral 1100 ml Emesis 200 ml # Voids 5 Physical Exam Abdomen: Normal bowel sounds, Soft, Other (Speculum Exam: cervix nml; no exudate/discharge. Uterus enlarged with palpable fibroid and moderate tenderness. No adnexal masses or tenderness.) General: Alert, Oriented X3, Cooperative HEENT: Atraumatic Psych/Mental Status: Mental status NL Assessment Assessment Problems Medical Problems: (1) Pyelonephritis Status: Acute A: PID Pyelonephritis Fibroid; degenerating P: Continue current abx regimen and pain management. She will f/u Dr. Sanders clinic in the next 1-2 weeks. Plan Plan of Care F/u Dr. Sanders in 1-2 weeks. Comment Review of Relevant I have reviewed the following items beth (where applicable) has been applied. Labs Laboratory Tests Test 03/11/19 16:15 03/12/19 03:55 Prothrombin Time 14.2 SEC (11.7-14.0) Prothromb Time International Ratio 1.1 (0.8-1.1) Activated Partial Thromboplast Time 38 SEC (24-38) White Blood Count 7.1 x10^3/uL (4.0-11.0) Red Blood Count 3.51 x10^6/uL (3.50-5.40) Hemoglobin 8.9 g/dL (12.0-15.5) Hematocrit 27.5 % (36.0-47.0) Mean Corpuscular Volume 78 fL (79-100) Mean Corpuscular Hemoglobin 25 pg (25-35) Mean Corpuscular Hemoglobin Concent 32 g/dL (31-37) Red Cell Distribution Width 15.5 % (11.5-14.5) Platelet Count 388 x10^3/uL (140-400) Neutrophils (%) (Auto) 69 % (31-73) Lymphocytes (%) (Auto) 21 % (24-48) Monocytes (%) (Auto) 8 % (0-9) Eosinophils (%) (Auto) 2 % (0-3) Basophils (%) (Auto) 0 % (0-3) Neutrophils # (Auto) 4.9 x10^3uL (1.8-7.7) Lymphocytes # (Auto) 1.5 x10^3/uL (1.0-4.8) Monocytes # (Auto) 0.6 x10^3/uL (0.0-1.1) Eosinophils # (Auto) 0.1 x10^3/uL (0.0-0.7) Basophils # (Auto) 0.0 x10^3/uL (0.0-0.2) Sodium Level 140 mmol/L (136-145) Potassium Level 3.5 mmol/L (3.5-5.1) Chloride Level 104 mmol/L (98-107) Carbon Dioxide Level 27 mmol/L (21-32) Anion Gap 9 (6-14) Blood Urea Nitrogen 9 mg/dL (7-20) Creatinine 0.9 mg/dL (0.6-1.0) Estimated GFR (Cockcroft-Gault) 90.9 Glucose Level 104 mg/dL (70-99) Calcium Level 8.6 mg/dL (8.5-10.1) Microbiology 03/07/19 Blood Culture - Final, Complete NO GROWTH AFTER 5 DAYS 03/04/19 Urine Culture - Final, Complete 03/04/19 Urine Culture Result 1 (NICHELLE) - Final, Complete Medications Current Medications Morphine Sulfate (Morphine Sulfate) 4 mg PRN Q15MIN PRN IV/SQ PAIN GREATER THAN 3/10 Last administered on 03/04/19at 18:49; Start 03/04/19 at 15:45; Stop 03/05/19 at 15:44; Status DC Sodium Chloride 1,000 ml @ 1,000 mls/hr Q1H IV Last administered on 03/04/19at 16:14; Start 03/04/19 at 15:41; Stop 03/04/19 at 16:40; Status DC Ondansetron HCl (Zofran) 4 mg 1X ONCE IV Last administered on 03/04/19at 16:10; Start 03/04/19 at 15:45; Stop 03/04/19 at 15:46; Status DC Iohexol (Omnipaque 300 Mg/ml) 75 ml 1X ONCE IV Last administered on 03/04/19at 16:35; Start 03/04/19 at 16:15; Stop 03/04/19 at 16:19; Status DC Info (CONTRAST GIVEN -- Rx MONITORING) 1 each PRN DAILY PRN MC SEE COMMENTS; Start 03/04/19 at 16:30; Stop 03/06/19 at 16:29; Status DC Ceftriaxone Sodium (Rocephin) 1 gm 1X ONCE IVP Last administered on 03/04/19at 17:42; Start 03/04/19 at 17:45; Stop 03/04/19 at 17:46; Status DC Sodium Chloride 1,000 ml @ 1,000 mls/hr 1X ONCE IV Last administered on 03/04/19at 18:14; Start 03/04/19 at 18:00; Stop 03/04/19 at 18:59; Status DC Ondansetron HCl (Zofran) 4 mg 1X ONCE IV Last administered on 03/04/19at 18:09; Start 03/04/19 at 18:00; Stop 03/04/19 at 18:01; Status DC Ketorolac Tromethamine (Toradol 15mg Vial) 15 mg 1X ONCE IV Last administered on 03/04/19at 18:00; Start 03/04/19 at 18:00; Stop 03/04/19 at 18:01; Status DC Sodium Chloride 1,000 ml @ 1,000 mls/hr 1X ONCE IV Last administered on 03/04/19at 18:13; Start 03/04/19 at 18:00; Stop 03/04/19 at 18:59; Status DC Ketorolac Tromethamine (Toradol Im) 60 mg STK-MED ONCE .ROUTE ; Start 03/04/19 at 17:57; Stop 03/04/19 at 17:58; Status DC Ketorolac Tromethamine (Toradol 30mg Vial) 30 mg STK-MED ONCE .ROUTE ; Start 03/04/19 at 17:58; Stop 03/04/19 at 17:59; Status DC Acetaminophen (Tylenol Supp) 650 mg 1X ONCE DC Last administered on 03/04/19 18:00; Start 03/04/19 at 18:00; Stop 03/04/19 at 18:01; Status DC Ceftriaxone Sodium (Rocephin) 2 gm Q24H IVP Last administered on 03/06/19 20:24; Start 03/04/19 at 19:00; Stop 03/07/19 at 12:32; Status DC Ondansetron HCl (Zofran) 4 mg PRN Q6HRS PRN IV NAUSEA/VOMITING Last administered on 03/12/19 22:08; Start 03/04/19 at 18:30 Ondansetron HCl (Zofran Odt) 4 mg PRN Q6HRS PRN PO NAUSEA/VOMITING Last administered on 03/08/19 08:44; Start 03/04/19 at 18:30 Acetaminophen (Tylenol) 650 mg PRN Q6HRS PRN PO MILD PAIN Last administered on 03/11/19 19:44; Start 03/04/19 at 18:30 Acetaminophen/ Codeine Phosphate (Tylenol #3) 1 tab PRN Q6HRS PRN PO MODERATE PAIN Last administered on 03/13/19 12:18; Start 03/04/19 at 18:30 Acetaminophen/ Hydrocodone Bitart (Lortab 5/325) 1 tab PRN Q4HRS PRN PO SEVERE PAIN Last administered on 03/11/19 08:45; Start 03/04/19 at 18:30 Ibuprofen (Motrin) 400 mg PRN Q6HRS PRN PO INFLAMMATION Last administered on 03/10/19 18:17; Start 03/04/19 at 18:30 Morphine Sulfate (Morphine Sulfate) 2 mg PRN Q2HR PRN IV PAIN Last administered on 03/09/19 03:59; Start 03/04/19 at 18:30 Diphenhydramine HCl (Benadryl) 25 mg PRN QHS PRN PO INSOMNIA Last administered on 03/12/19 21:06; Start 03/04/19 at 18:30 Hydromorphone HCl (Dilaudid) 1 mg 1X ONCE IV Last administered on 03/04/19 19:11; Start 03/04/19 at 19:15; Stop 03/04/19 at 19:16; Status DC Ceftriaxone Sodium (Rocephin) 1 gm 1X ONCE IVP Last administered on 03/04/19at 21:39; Start 03/04/19 at 20:30; Stop 03/04/19 at 20:31; Status DC Sodium Chloride 1,000 ml @ 150 mls/hr Q6H40M IV Last administered on 03/07/19 03:22; Start 03/05/19 at 11:30; Stop 03/07/19 at 09:49; Status DC Lactobacillus Rhamnosus (Culturelle) 1 cap BID PO Last administered on 03/13/19 09:09; Start 03/05/19 at 21:00 Potassium Chloride (Klor-Con) 40 meq 1X ONCE PO Last administered on 03/06/19at 12:26; Start 03/06/19 at 09:15; Stop 03/06/19 at 09:23; Status DC Ringer's Solution 1,000 ml @ 0 mls/hr 1X ONCE IV Last administered on 03/07/19at 02:15; Start 03/07/19 at 02:00; Stop 03/07/19 at 02:07; Status DC Sodium Chloride 1,000 ml @ 75 mls/hr [id number] IV Last administered on 03/07/19 09:59; Start 03/07/19 at 10:00; Stop 03/09/19 at 12:12; Status DC Doxycycline Hyclate (Vibra-Tab) 100 mg BID PO Last administered on 03/13/19 09:09; Start 03/07/19 at 12:15 Piperacillin Sod/ Tazobactam Sod 3.375 gm/Sodium Chloride 50 ml @ 100 mls/hr Q6HRS IV ; Start 03/07/19 at 18:00; Status Cancel Polyethylene Glycol (miraLAX PACKET) 17 gm DAILY PO Last administered on 03/07/19at 12:41; Start 03/07/19 at 12:15 Piperacillin Sod/ Tazobactam Sod 3.375 gm/Sodium Chloride 50 ml @ 100 mls/hr Q6HRS IV Last administered on 03/13/19at 12:12; Start 03/07/19 at 13:00 Sodium Chloride 1,000 ml @ 100 mls/hr Q10H IV Last administered on 03/10/19at 13:20; Start 03/07/19 at 19:45; Stop 03/11/19 at 18:12; Status DC Potassium Chloride (Klor-Con) 40 meq 1X ONCE PO Last administered on 03/08/19at 12:51; Start 03/08/19 at 12:30; Stop 03/08/19 at 12:31; Status DC Docusate Sodium (Colace) 100 mg PRN DAILY PRN PO STOOL SOFTENER Last administered on 03/10/19at 08:43; Start 03/08/19 at 12:45 Magnesium Hydroxide (Milk Of Magnesia) 2,400 mg PRN DAILY PRN PO CONSTIPATION Last administered on 03/10/19at 08:43; Start 03/08/19 at 12:45 Magnesium Hydroxide (Milk Of Magnesia) 2,400 mg 1X ONCE PO Last administered on 03/08/19at 12:50; Start 03/08/19 at 13:30; Stop 03/08/19 at 13:31; Status DC Albuterol/ Ipratropium (Duoneb) 3 ml RTQID NEB Last administered on 03/09/19at 18:32; Start 03/08/19 at 17:00; Stop 03/10/19 at 07:26; Status DC Albuterol Sulfate (Ventolin Neb Soln) 2.5 mg PRN Q4HRS PRN NEB SHORTNESS OF BREATH; Start 03/08/19 at 16:45 Sodium Chloride 4,150 ml @ 8,300 mls/hr 1X ONCE IV Last administered on 03/09/19at 12:08; Start 03/09/19 at 12:00; Stop 03/09/19 at 12:08; Status DC Sodium Chloride 1,000 ml @ 4,150 mls/hr Q15M IV Last administered on 03/09/19at 12:54; Start 03/09/19 at 12:30; Stop 03/09/19 at 13:15; Status DC Albuterol Sulfate (Ventolin Neb Soln) 2.5 mg RTQID NEB Last administered on 03/13/19at 12:36; Start 03/10/19 at 08:00 Lactobacillus Rhamnosus (Culturelle) 1 cap BID PO ; Start 03/10/19 at 21:00; Status UNV Iohexol (Omnipaque 300 Mg/ml) 75 ml 1X ONCE IV Last administered on 03/11/19at 09:15; Start 03/11/19 at 09:15; Stop 03/11/19 at 09:19; Status DC Iohexol (Omnipaque 240 Mg/ml) 50 ml 1X ONCE PO Last administered on 03/11/19at 09:15; Start 03/11/19 at 09:15; Stop 03/11/19 at 09:19; Status DC Info (CONTRAST GIVEN -- Rx MONITORING) 1 each PRN DAILY PRN MC SEE COMMENTS; Start 03/11/19 at 09:30; Stop 03/13/19 at 09:29; Status DC Lubiprostone (Amitiza) 8 mcg BIDWMEALS PO Last administered on 03/13/19at 09:09; Start 03/11/19 at 17:00 Lidocaine/Sodium Bicarbonate (Buffered Lidocaine 1%) 3 ml STK-MED ONCE .ROUTE ; Start 03/12/19 at 09:53; Stop 03/12/19 at 09:54; Status DC Lidocaine/Sodium Bicarbonate (Buffered Lidocaine 1%) 3 ml STK-MED ONCE .ROUTE ; Start 03/12/19 at 09:56; Stop 03/12/19 at 09:57; Status DC Midazolam HCl (Versed) 2 mg STK-MED ONCE .ROUTE ; Start 03/12/19 at 10:17; Stop 03/12/19 at 10:18; Status DC Fentanyl Citrate (Fentanyl 2ml Vial) 100 mcg STK-MED ONCE .ROUTE ; Start 03/12/19 at 10:18; Stop 03/12/19 at 10:19; Status DC Naloxone HCl (Narcan) 0.4 mg STK-MED ONCE .ROUTE ; Start 03/12/19 at 10:18; Stop 03/12/19 at 10:19; Status DC Midazolam HCl (Versed) 2 mg STK-MED ONCE .ROUTE ; Start 03/12/19 at 10:53; Stop 03/12/19 at 11:35; Status DC Fentanyl Citrate (Fentanyl 2ml Vial) 100 mcg STK-MED ONCE .ROUTE ; Start 03/12/19 at 10:54; Stop 03/12/19 at 11:35; Status DC Active Scripts Active Tramadol Hcl 50 Mg Tablet 50 Mg PO PRN Q6-8HRS PRN 6 Days Doxycycline Monohydrate 100 Mg Capsule 1 Cap PO BID 10 Days Culturelle (Lactobacillus Rhamnosus Gg) 1 Each Cap.sprink 1 Cap PO BID 10 Days Reported No Known Medications Prior To Admisstion (Info) Each 1 Each Vitals/I & O Vital Sign - Last 24 Hours 03/12/19 03/12/19 03/12/19 03/12/19 15:00 16:15 19:35 19:42 Temp 98.3 98.3 Pulse 95 Resp 18 16 B/P (MAP) 149/92 (111) 146/98 (114) Pulse Ox 97 99 98 O2 Delivery Room Air Room Air Room Air Room Air 03/12/19 03/12/19 03/13/19 03/13/19 20:00 23:56 03:46 07:00 Temp 98.4 98.7 98.4 98.4 98.7 98.4 Pulse 104 108 99 Resp 16 18 16 B/P (MAP) 138/86 (103) 133/86 (102) 135/88 (104) Pulse Ox 92 90 94 O2 Delivery Room Air Room Air Room Air Room Air 03/13/19 03/13/19 03/13/19 03/13/19 07:38 08:00 11:00 12:18 Temp 98.6 98.6 Pulse 100 Resp 16 18 B/P (MAP) 147/97 (114) Pulse Ox 100 96 O2 Delivery Room Air Room Air Room Air Room Air 03/13/19 12:36 O2 Delivery Room Air Intake and Output 03/12/19 03/12/19 03/13/19 15:00 23:00 07:00 Intake Total 1000 ml 100 ml Output Total 200 ml Balance 800 ml 100 ml HAO BATISTA Jr, MD March 13, 2019 13:56
[2019-03-13 15:00] VITALS: BP 140/74
--- NOTE | 2019-03-13 15:54 | PDOC3 ---
Discharge Summary Visit Information Date of Admission: Mar 04, 2019 Date of Discharge: March 13, 2019 Admitting Diagnosis: Gonoccoal PID Final Diagnosis Problems Medical Problems: (1) Pyelonephritis Status: Acute Brief Hospital Course Allergies Allergies Coded Allergies Type Severity Reaction Last Updated Verified No Known Drug Allergies 09/25/14 No Vital Signs Vital Signs Date Time Temp Pulse Resp B/P (MAP) Pulse Ox O2 Delivery O2 Flow Rate FiO2 03/13/19 15:00 98.3 116 18 140/74 (96) 94 Room Air 98.3 03/12/19 11:12 2.0 Lab Results Laboratory Tests Test 03/11/19 16:15 03/12/19 03:55 Prothrombin Time 14.2 SEC (11.7-14.0) Prothromb Time International Ratio 1.1 (0.8-1.1) Activated Partial Thromboplast Time 38 SEC (24-38) White Blood Count 7.1 x10^3/uL (4.0-11.0) Red Blood Count 3.51 x10^6/uL (3.50-5.40) Hemoglobin 8.9 g/dL (12.0-15.5) Hematocrit 27.5 % (36.0-47.0) Mean Corpuscular Volume 78 fL (79-100) Mean Corpuscular Hemoglobin 25 pg (25-35) Mean Corpuscular Hemoglobin Concent 32 g/dL (31-37) Red Cell Distribution Width 15.5 % (11.5-14.5) Platelet Count 388 x10^3/uL (140-400) Neutrophils (%) (Auto) 69 % (31-73) Lymphocytes (%) (Auto) 21 % (24-48) Monocytes (%) (Auto) 8 % (0-9) Eosinophils (%) (Auto) 2 % (0-3) Basophils (%) (Auto) 0 % (0-3) Neutrophils # (Auto) 4.9 x10^3uL (1.8-7.7) Lymphocytes # (Auto) 1.5 x10^3/uL (1.0-4.8) Monocytes # (Auto) 0.6 x10^3/uL (0.0-1.1) Eosinophils # (Auto) 0.1 x10^3/uL (0.0-0.7) Basophils # (Auto) 0.0 x10^3/uL (0.0-0.2) Sodium Level 140 mmol/L (136-145) Potassium Level 3.5 mmol/L (3.5-5.1) Chloride Level 104 mmol/L (98-107) Carbon Dioxide Level 27 mmol/L (21-32) Anion Gap 9 (6-14) Blood Urea Nitrogen 9 mg/dL (7-20) Creatinine 0.9 mg/dL (0.6-1.0) Estimated GFR (Cockcroft-Gault) 90.9 Glucose Level 104 mg/dL (70-99) Calcium Level 8.6 mg/dL (8.5-10.1) Brief Hospital Course Initially admitted to ICU for pyelonephritis, Went to the upstairs but went into heart rate 170s now 130s 140s hence transfer to CVC. Remains febrile tachycardic temperature 100. ID on board, gonorrhea positive, syphilis negative and gave HIV consent to test, which was negative. Sexually Active with one partner only Sedimentation rate 115 03/12: No BM 5 days, had BM with mag citrate now. Has RLQ abdominal pain and did vomit x1. CT abdomen/pelvis showed pelvic fluid collection - to IR this morning for drainage 3-5cc. Seen by general surgery to r/o appendicitis Vomited x1 last night, RLQ pain better, more suprapubic and central pain today. Had BM. She is getting anxious about leaving and returning to work. [employer] exam confirms PID 2/2 GC. GBS on urine. Discussed gonorrhea dx and her 1 partner has been notified Plan D/c on doxy 10 days Seen by ID - treated SEPSIS from UTI/pyelonephritis with organ dysfunction namely tachycardia/nonsustained V. tach, stable Obesity, BMI 46.4 Gonorrhea positive-syphilis negative Uterine mass RLQ PAIN Pelvic fluid collection - drained by IR - negative gram stain Constipation, now diarrhea Anemia, hemoglobin 7.1-->8.9 Elevated sedimentation rate 115 Hb low - family h/o SCD - will screen for sickle trait with electrophoresis GC positive and Group B strep UTI - POA 03/04 Obesity h/o Chlamydia probable sleep apnea Greater than 30 minutes spent on discharge Discharge Information Condition at Discharge: Improved Follow Up: Weeks (1) Disposition/Orders: D/C to Home Scheduled Doxycycline Monohydrate (Doxycycline Monohydrate) 100 Mg Capsule, 1 CAP PO BID for GC for 10 Days, #20 Prescribed by: GORGE KUNZ MD on 03/13/19 1317 Lactobacillus Rhamnosus Gg (Culturelle) 1 Each Cap.sprink, 1 CAP PO BID for Diarrhea for 10 Days, #20 Prescribed by: GORGE KUNZ MD on 03/13/19 1317 Scheduled PRN Tramadol Hcl (Tramadol Hcl) 50 Mg Tablet, 50 MG PO PRN Q6-8HRS PRN for PAIN for 6 Days, #24 Prescribed by: GORGE KUNZ MD on 03/13/19 1317 Miscellaneous Medications Info (No Known Medications Prior To Admisstion) Each, 1 EACH MC, (Reported) Entered as Reported by: LIZA PENALOZA on 09/25/14 0955 GORGE KUNZ MD March 13, 2019 15:54
--- NOTE | 2019-03-13 18:25 | NUR ---
PT DISCHARGING WITH FAMILY. GIVEN INSTRUCTIONS ON DISCHARGE AND MEDICATIONS.
[2019-03-19 09:17] LABS: HGB ELECROPHORESIS COMMENT Note: (.)
== END 2019-03-13 18:30 | disposition home or self-care (01) | DRG 854 ==
LOC: ER 14:25 → 5 NORTH 17:45 → 2 NORTH 03-09 13:02
PROVIDERS: ADMIT Internal Medicine; ATTEND Internal Medicine
PROC: 0W9J3ZX Drainage of Pelvic Cavity, Percutaneous Approach, Diagnostic (ICD-10-PCS; principal; 2019-03-12)
DX: A41.9 Sepsis, unspecified organism (principal); N12 Tubulo-interstitial nephritis, not specified as acute or chronic; Z68.41 Body mass index [BMI] 40.0-44.9, adult; I47.2 Ventricular tachycardia; E87.2 Acidosis; A54.24 Gonococcal female pelvic inflammatory disease; E66.01 Morbid (severe) obesity due to excess calories; B95.1 Streptococcus, group B, as the cause of diseases classified elsewhere; K59.00 Constipation, unspecified; D64.9 Anemia, unspecified; G47.30 Sleep apnea, unspecified; E87.6 Hypokalemia; Z87.440 Personal history of urinary (tract) infections
CPT/HCPCS: 10009; 36415; 71045; 71260; 74177; 76830; 76856; 80048; 80053; 80076; 81001; 81025; 82728; 83020; 83540; 83550; 83605; 83690; 84145; 84439; 85007; 85025; 85610; 85651; 85730; 86592; 86703; 87040; 87071; 87075; 87086; 87491; 87591; 87804; 93005; 93306; 94640; 94760; 99152; 99153; J0696; J1170; J1885; J2270; J2405; J2543; J7030; J7120; J7613; J7620; Q0162; Q0163; Q9966; Q9967

== ENCOUNTER 2019-05-17 21:33 | Emergency (ER) | payer SELFPAY ==
[~2019-05-17] VITALS: Ht 177.8 cm; Wt 125.6 kg
[~2019-05-17 21:33] MED LIST changes: +DOXY100C14 PO; +LACT1CAP19 PO
[2019-05-17 21:55] VITALS: BP 146/87
--- NOTE | 2019-05-17 22:40 | PHYS DOC ---
Past Medical History Past Medical History: No Pertinent History, Asthma Additional Past Medical Histor: miscarriage (MICHELLE OH APRN) Past Surgical History: Other Additional Past Surgical Histo: d&c (MICHELLE OH APRN) Alcohol Use: None Drug Use: None (MICHELLE HO APRN) Adult General Chief Complaint Chief Complaint: ABDOMINAL PAIN [facility] HPI Patient is a 29 year old female presents with the chief complaint of abdominal pains been ongoing for 3 days. Associated symptoms include diarrhea. Abdominal pain is located in the lower part of the abdomen. The patient rates her pain as 4 out of 10 in severity. Has not taken any medicine for this pain at home. Daughters have had similar symptoms. (MICHELLE OH APRN) Review of Systems Review of Systems Constitutional: Denies fever or chills [] Eyes: Denies change in visual acuity, redness, or eye pain [] HENT: Denies nasal congestion or sore throat [] Respiratory: Denies cough or shortness of breath [] Cardiovascular: No additional information not addressed in HPI [] GI: Reports abdominal pain and diarrhea, Denies nausea, vomiting : Denies dysuria or hematuria [] Musculoskeletal: Denies back pain or joint pain [] Integument: Denies rash or skin lesions [] Neurologic: Denies headache, focal weakness or sensory changes [] Endocrine: Denies polyuria or polydipsia [] Complete systems were reviewed and found to be within normal limits, except as documented in this note. (MICHELLE OH APRN) Allergies Allergies Allergies Coded Allergies Type Severity Reaction Last Updated Verified No Known Drug Allergies 09/25/14 No (MICHELLE WILBURN DO) Physical Exam Physical Exam Constitutional: Well developed, well nourished, no acute distress, non-toxic appearance. [] HENT: Normocephalic, atraumatic, bilateral external ears normal, oropharynx moist, no oral exudates, nose normal. [] Eyes: PERRLA, EOMI, conjunctiva normal, no discharge. [] Neck: Normal range of motion, no tenderness, supple, no stridor. [] Cardiovascular:Heart rate regular rhythm, no murmur [] Lungs & Thorax: Bilateral breath sounds clear to auscultation [] Abdomen: Bowel sounds normal, soft, lower diffuse tenderness, no masses, no pulsatile masses. [] Skin: Warm, dry, no erythema, no rash. [] Back: No tenderness, no CVA tenderness. [] Extremities: No tenderness, no cyanosis, no clubbing, ROM intact, no edema. [] Neurologic: Alert and oriented X 3, normal motor function, normal sensory function, no focal deficits noted. [] Psychologic: Affect normal, judgement normal, mood normal. [] (MICHELLE OH APRN) Current Patient Data Vital Signs Vital Signs Date Time Temp Pulse Resp B/P (MAP) Pulse Ox O2 Delivery O2 Flow Rate FiO2 05/17/19 21:55 98.9 94 20 146/87 (106) 98 Room Air 98.9 (MICHELLE WILBURN DO) EKG EKG [] (MICHELLE OH APRN) Radiology/Procedures Radiology/Procedures [] (MICHELLE OH APRN) Course & Med Decision Making Course & Med Decision Making Pertinent Labs and Imaging studies reviewed. (See chart for details) Patient has similar symptoms as daughters. Appears to have a viral gastroenteritis. Will d/c home. Discussed with patient the importance of drinking plenty of fluids. (MICHELLE OH APRN) Dragon Disclaimer Dragon Disclaimer This electronic medical record was generated, in whole or in part, using a voice recognition dictation system. (MICHELLE OH APRN) Departure Departure Impression: Primary Impression: Abdominal pain Disposition: HOME, SELF-CARE Condition: STABLE Referrals: NO PCP (PCP) Patient Instructions: Viral Gastroenteritis Additional Instructions: Thank you for visiting [facility]. We appreciate you trusting us with your care. If any additional problems come up don't hesitate to return to visit us. Please follow up with your primary care provider so they can plan additional care if needed and know about the problem that you had. If symptoms worsen come back to the Emergency Department. Any concerning symptoms that start such as chest pain, shortness of air, weakness or numbness on one side of the body, running high fevers or any other concerning symptoms return to the ER. Please drink plenty of fluids and stay hydrated. Attending Signature Attending Signature I have reviewed the PA/TRACK INSPECTOR's note and plan of care. I was available for consultation as needed during the patient's visit in the emergency department. I agree with the clinical impression, plan, and disposition. (MICHELLE WILBURN DO) Problem Qualifiers Primary Impression: Abdominal pain Abdominal location: generalized Qualified Codes: R10.84 - Generalized abdominal pain MICHELLE OH APRN May 17, 2019 22:40 MICHELLE WILBURN DO May 19, 2019 05:14
== END 2019-05-17 23:10 | disposition home or self-care (01) ==
LOC: ER 21:33
DX: R10.84 Generalized abdominal pain (principal); R19.7 Diarrhea, unspecified; J45.909 Unspecified asthma, uncomplicated
CPT/HCPCS: 99281

== ENCOUNTER 2019-10-06 22:21 | Emergency (ER) | payer SELFPAY ==
[~2019-10-06] VITALS: Ht 170.2 cm; Wt 128.4 kg
[~2019-10-06 22:21] MED LIST changes: +OMEP-229 PO; -OMEP20CA10 PO
--- NOTE | 2019-10-06 23:10 | PHYS DOC ---
Past Medical History Past Medical History: No Pertinent History, Asthma Additional Past Medical Histor: miscarriage (CHRISTOPHER IBRAHIM APRN) Past Surgical History: Other Additional Past Surgical Histo: d&c (CHRISTOPHER IBRAHIM APRN) Alcohol Use: None Drug Use: None (CHRISTOPHER IBRAHIM APRN) Adult General Chief Complaint Chief Complaint: ABDOMINAL PAIN HPI HPI Patient is a 29 year old [female who presents with [LLQ abdominal pain. Patient reports that approximately 11:00 today she started to experience some left lower abdominal pain. States she has had similar pain in the past, however her right side. Reports last time she had this discomfort she had fluid in her pelvis. Reports over the last 20 minutes tonight the pain has gotten more severe, states it is a sharp constant pain. States she feels nauseous when she has the pain come on. Denies any chance of , denies any vomiting, diarrhea. Does report she has history of ovarian cysts, has also had frequent urinary tract infections.] (CHRISTOPHER IBRAHIM APRN) Review of Systems Review of Systems Constitutional: Denies fever or chills [] Eyes: Denies change in visual acuity, redness, or eye pain [] HENT: Denies nasal congestion or sore throat [] Respiratory: Denies cough or shortness of breath [] Cardiovascular: No additional information not addressed in HPI [] GI: Reports abdominal pain, nausea, denies vomiting, bloody stools or diarrhea [] : Denies dysuria or hematuria [] Musculoskeletal: Denies back pain or joint pain [] Integument: Denies rash or skin lesions [] Neurologic: Denies headache, focal weakness or sensory changes [] Endocrine: Denies polyuria or polydipsia [] All other systems were reviewed and found to be within normal limits, except as documented in this note. (CHRISTOPHER IBRAHIM APRN) Current Medications Current Medications Current Medications Medications (Trade) Dose Ordered Sig/Kev Start Time Stop Time Status Last Admin Dose Admin Ketorolac Tromethamine (Toradol 15mg Vial) 15 mg 1X ONCE 10/06/19 23:30 10/06/19 23:31 DC 10/06/19 23:25 15 MG Ondansetron HCl (Zofran) 4 mg 1X ONCE 10/06/19 23:30 10/06/19 23:31 DC 10/06/19 23:25 4 MG Sodium Chloride 1,000 ml @ 1,000 mls/hr 1X ONCE 10/06/19 23:30 10/07/19 00:29 DC 10/06/19 23:25 1,000 MLS/HR (ACACIA WEBER MD) Allergies Allergies Allergies Coded Allergies Type Severity Reaction Last Updated Verified No Known Drug Allergies 09/25/14 No (ACACIA WEBER MD) Physical Exam Physical Exam Constitutional: Well developed, well nourished, no acute distress, obese, non- toxic appearance. [] HENT: Normocephalic, atraumatic, bilateral external ears normal, oropharynx moist, no oral exudates, nose normal. [] Eyes: PERRLA, EOMI, conjunctiva normal, no discharge. [] Neck: Normal range of motion, no tenderness, supple, no stridor. [] Cardiovascular:Heart rate regular rhythm, no murmur [] Lungs & Thorax: Bilateral breath sounds clear to auscultation [] Abdomen: Bowel sounds normal, soft, tenderness to left lower quadrant, left upper quadrant., no masses, no pulsatile masses. [] Skin: Warm, dry, no erythema, no rash. [] Back: No tenderness, no CVA tenderness. [] Extremities: No tenderness, no cyanosis, no clubbing, ROM intact, no edema. [] Neurologic: Alert and oriented X 3, normal motor function, normal sensory function, no focal deficits noted. [] Psychologic: Affect normal, judgement normal, mood normal. [] (CHRISTOPHER IBRAHIM APRN) Current Patient Data Vital Signs Vital Signs Date Time Temp Pulse Resp B/P (MAP) Pulse Ox O2 Delivery O2 Flow Rate FiO2 10/07/19 00:07 89 12 140/101 (114) 96 Room Air 10/06/19 22:45 99.4 99.4 (ACACIA WEBER MD) Lab Values Laboratory Tests Test 10/06/19 22:50 10/06/19 22:51 10/06/19 23:45 White Blood Count 7.3 x10^3/uL (4.0-11.0) Red Blood Count 4.49 x10^6/uL (3.50-5.40) Hemoglobin 11.1 g/dL (12.0-15.5) L Hematocrit 35.0 % (36.0-47.0) L Mean Corpuscular Volume 78 fL (79-100) L Mean Corpuscular Hemoglobin 25 pg (25-35) Mean Corpuscular Hemoglobin Concent 32 g/dL (31-37) Red Cell Distribution Width 14.9 % (11.5-14.5) H Platelet Count 271 x10^3/uL (140-400) Neutrophils (%) (Auto) 60 % (31-73) Lymphocytes (%) (Auto) 32 % (24-48) Monocytes (%) (Auto) 6 % (0-9) Eosinophils (%) (Auto) 1 % (0-3) Basophils (%) (Auto) 1 % (0-3) Neutrophils # (Auto) 4.4 x10^3/uL (1.8-7.7) Lymphocytes # (Auto) 2.3 x10^3/uL (1.0-4.8) Monocytes # (Auto) 0.5 x10^3/uL (0.0-1.1) Eosinophils # (Auto) 0.1 x10^3/uL (0.0-0.7) Basophils # (Auto) 0.1 x10^3/uL (0.0-0.2) Urine Collection Type U cath Urine Color Yellow Urine Clarity Cloudy Urine pH 5.5 Urine Specific [place] >=1.030 Urine Protein Negative mg/dL (NEG-TRACE) Urine Glucose (UA) Negative mg/dL (NEG) Urine Ketones (Stick) Negative mg/dL (NEG) Urine Blood Negative (NEG) Urine Nitrite Negative (NEG) Urine Bilirubin Negative (NEG) Urine Urobilinogen Dipstick 1.0 mg/dL (0.2 mg/dL) Urine Leukocyte Esterase Negative (NEG) Urine RBC Occ /HPF (0-2) Urine WBC Occ /HPF (0-4) Urine Squamous Epithelial Cells Few /LPF Urine Amorphous Sediment Present /HPF Urine Bacteria Few /HPF (0-FEW) Urine Mucus Marked /LPF Lactic Acid Level 1.3 mmol/L (0.4-2.0) POC Urine HCG, Qualitative Hcg negative (Negative) Sodium Level 139 mmol/L (136-145) Potassium Level 3.6 mmol/L (3.5-5.1) Chloride Level 104 mmol/L (98-107) Carbon Dioxide Level 26 mmol/L (21-32) Anion Gap 9 (6-14) Blood Urea Nitrogen 10 mg/dL (7-20) Creatinine 0.8 mg/dL (0.6-1.0) Estimated GFR (Cockcroft-Gault) 104.1 BUN/Creatinine Ratio 13 (6-20) Glucose Level 109 mg/dL (70-99) H Calcium Level 8.4 mg/dL (8.5-10.1) L Total Bilirubin 0.1 mg/dL (0.2-1.0) L Aspartate Amino Transferase (AST) 25 U/L (15-37) Alanine Aminotransferase (ALT) 23 U/L (14-59) Alkaline Phosphatase 68 U/L (46-116) Total Protein 7.5 g/dL (6.4-8.2) Albumin 3.0 g/dL (3.4-5.0) L Albumin/Globulin Ratio 0.7 (1.0-1.7) L Laboratory Tests 10/06/19 22:50 Laboratory Tests 10/06/19 23:45 (ACACIA WEBER MD) EKG EKG [] (CHRISTOPHER IBRAHIM APRN) Radiology/Procedures Radiology/Procedures FINDINGS: Abdominal aorta is not aneurysmal. No intrahepatic bile duct dilation. No peripancreatic fluid collection. Spleen unremarkable. No left-sided hydronephrosis. Urinary bladder is partially distended. No right-sided hydronephrosis. No periappendiceal inflammatory changes. No dilated loops of bowel to suggest obstruction. IMPRESSION: * No evidence of hydronephrosis. * No evidence of appendicitis or bowel obstruction. Electronically signed by: Niranjan Potts MD (10/07/2019 12:00 AM) [facility] [] (CHRISTOPHER IBRAHIM APRN) Course & Med Decision Making Course & Med Decision Making Pertinent Labs and Imaging studies reviewed. (See chart for details) [Patient reporting she is feeling better after toradol and rest. Reviewed lab and imaging results with patient, without acute findings. Discussed symptoms similar to prior ovarian cyst she has had, with potential for same discomfort again. Discussed hydration, rest, use of NSAIDs as needed, follow up with PCP. Patient in agreement with plan] (CHRISTOPHER IBRAHIM APRN) Course & Med Decision Making Staff Physician Addendum: I was working in the ER during the course of this patient's visit. I was available for consultation as needed, but I was not directly involved in the care of this patient. (ACACIA WEBER MD) Dragon Disclaimer Dragon Disclaimer This electronic medical record was generated, in whole or in part, using a voice recognition dictation system. (CHRISTOPHER IBRAHIM APRN) Departure Departure Impression: Primary Impression: Abdominal pain Disposition: HOME, SELF-CARE Condition: STABLE Referrals: NO PCP (PCP) Patient Instructions: Abdominal Pain Additional Instructions: As we discussed, take tylenol/ibuprofen for discomfort. Rest. Drink plenty of fluids. Follow up with your primary care provider as needed. If you have severe pain, bleeding, or other concerning findings, return to the Er for evaluation. Problem Qualifiers Primary Impression: Abdominal pain Abdominal location: left lower quadrant Qualified Codes: R10.32 - Left lower quadrant pain CHRISTOPHER IBRAHIM APRN Oct 06, 2019 23:10 ACACIA WEBER MD Oct 08, 2019 00:31
[2019-10-06 23:20] LABS: BASO # 0.1 x10^3/uL (0.0-0.2); BASO % 1 % (0-3); BILIRUBIN,URINE NEGATIVE (NEG); CLARITY,URINE CLOUDY; COLOR,URINE YELLOW; EOS # 0.1 x10^3/uL (0.0-0.7); EOS % 1 % (0-3); HEMOGLOBIN 11.1 g/dL (12.0-15.5); LYMPH # 2.3 x10^3/uL (1.0-4.8); LYMPH % 32 % (24-48); MEAN CORPUSCULAR HEMOGLOBIN 25 pg (25-35); MEAN CORPUSCULAR HGB CONC 32 g/dL (31-37); MEAN CORPUSCULAR VOLUME 78 fL (79-100); MONO # 0.5 x10^3/uL (0.0-1.1); MONO % 6 % (0-9); NEUT # 4.4 x10^3/uL (1.8-7.7); NEUT % 60 % (31-73); NITRITE,URINE NEGATIVE (NEG); PH,URINE 5.5; PLATELET COUNT 271 x10^3/uL (140-400); PROTEIN,URINE NEGATIVE (NEG-TRACE); RED BLOOD COUNT 4.49 x10^6/uL (3.50-5.40); RED CELL DISTRIBUTION WIDTH 14.9 % (11.5-14.5); WHITE BLOOD COUNT 7.3 x10^3/uL (4.0-11.0)
[2019-10-06 23:25] LABS: SQUAMOUS EPITHELIAL CELL,UR FEW /LPF
[2019-10-06 23:26] LABS: AMORPHOUS SEDIMENT,UR PRESENT /HPF; BACTERIA,URINE FEW /HPF (0-FEW); RBC,URINE OCC /HPF (0-2); WBC,URINE OCC /HPF (0-4)
[2019-10-06] MEDS ORDERED: KETOROLAC 15 MG/ML VIAL. IVP ONE (23:30)
[2019-10-06] MEDS ORDERED: ONDANSETRON PF 4 MG/2 ML VIAL. IV ONE (23:30)
[2019-10-06] MEDS ORDERED: IV NORMAL SALINE 1000ML BAG 1,000 ML IV ONE (23:30)
[2019-10-07 00:01] LABS: CALCIUM 8.4 mg/dL (8.5-10.1); CREATININE 0.8 mg/dL (0.6-1.0); GFR 104.1; POTASSIUM 3.6 mmol/L (3.5-5.1)
--- NOTE | 2019-10-07 00:03 | RAD ---
INDICATION: Abdomen pain COMPARISON: March 11, 2019 TECHNIQUE: Axial CT images obtained through the abdomen and pelvis without contrast. Limited assessment of solid organ structures and vasculature secondary to lack of intravenous contrast.. One or more of the following individualized dose reduction techniques were utilized for this examination: 1. Automated exposure control; 2. Adjustment of the mA and/or kV according to patient size; 3. Use of iterative reconstruction technique. FINDINGS: Abdominal aorta is not aneurysmal. No intrahepatic bile duct dilation. No peripancreatic fluid collection. Spleen unremarkable. No left-sided hydronephrosis. Urinary bladder is partially distended. No right-sided hydronephrosis. No periappendiceal inflammatory changes. No dilated loops of bowel to suggest obstruction. IMPRESSION: * No evidence of hydronephrosis. * No evidence of appendicitis or bowel obstruction. Electronically signed by: Niranjan Potts MD (10/07/2019 12:00 AM) [facility]
[2019-10-07 00:07] VITALS: BP 140/101
[2019-10-07 00:07] LABS: ALBUMIN/GLOBULIN RATIO 0.7 (1.0-1.7); TOTAL BILIRUBIN 0.1 mg/dL (0.2-1.0); TOTAL PROTEIN 7.5 g/dL (6.4-8.2)
== END 2019-10-07 00:26 | disposition home or self-care (01) ==
LOC: ER 22:21
DX: R10.12 Left upper quadrant pain (principal); R11.0 Nausea; J45.909 Unspecified asthma, uncomplicated
CPT/HCPCS: 36415; 74176; 80053; 81001; 81025; 83605; 85025; 96374; 96375; 99285; J1885; J2405; J7030

== ENCOUNTER 2020-12-18 16:19 | Emergency (ER) | payer SELFPAY ==
[~2020-12-18] VITALS: Ht 167.6 cm; Wt 132.0 kg
[~2020-12-18 16:19] MED LIST changes: -OMEP-229 PO; +OMEP20CA16 PO
[2020-12-18 16:38] VITALS: BP 162/97
[2020-12-18] MEDS ORDERED: HYDROcodone/APAP 5/325MG 1 TAB TABLET PO ONE (17:15)
--- NOTE | 2020-12-18 17:44 | RAD ---
INDICATION: Reason: painful lump on hand with swelling to the extremity / Spl. Instructions: / Hist ory: COMPARISON: None. FINDINGS: Focused ultrasound images are obtained through the dorsal aspect of the left hand. There is some edema within the soft tissues without a drainable fluid collection or mass. Subcutaneou s vein in the area it is patent. IMPRESSION: * No drainable fluid collection or mass is seen at the dorsal aspect of the left hand. Electronically signed by: Niranjan Potts MD (12/18/2020 5:42 PM) [id number]
--- NOTE | 2020-12-18 18:03 | RAD ---
PROCEDURE: XR HAND_LEFT 3 VIEWS STUDY DATE: 12/18/2020 CLINICAL INDICATION / HISTORY: Reason: pain, swelling, lump left hand / Spl. Instructions: / History : . TECHNIQUE: PA, lateral and oblique views of the left hand. COMPARISON: None FINDINGS: No fracture or dislocation is identified. The bone density is normal. The joint spaces are maintained, and there are no erosions to suggest an inflammatory arthropathy. The soft tissues are un remarkable. IMPRESSION: No acute osseous abnormality. Electronically signed by: Aubrey Ordaz MD (12/18/2020 6:00 PM) [id number]
--- NOTE | 2020-12-18 18:14 | PHYS DOC ---
Past Medical History Past Medical History: Asthma Additional Past Medical Histor: miscarriage Past Surgical History: Other Additional Past Surgical Histo: DNC Smoking Status: Never Smoker Alcohol Use: None Drug Use: None General Adult EDM: Chief Complaint: HAND PROBLEM HPI: HPI: Patient is a 30 year old female who presents with complaints of awoken today with left dorsal hand pain right between the second metacarpophalangeal and second. She states that she has sharp shooting pain whenever she moves that index finger. She also has a 1+ swelling in this area that feels like a nodule. She denies any injury or doing any activity of the ordinary. Patient denies skin color change, skin temperature change, or numbness and tingling. Review of Systems: Review of Systems: Constitutional: Denies fever or chills. [] Eyes: Denies change in visual acuity. [] HENT: Denies nasal congestion or sore throat. [] Respiratory: Denies cough or shortness of breath. [] Cardiovascular: Denies chest pain. + Right dorsal hand edema. [] GI: Denies abdominal pain, nausea, vomiting, bloody stools or diarrhea. [] : Denies dysuria. [] Musculoskeletal: Denies back pain or joint pain. + Right hand pain [] Integument: Denies rash. [] Neurologic: Denies headache, focal weakness or sensory changes. [] Endocrine: Denies polyuria or polydipsia. [] Lymphatic: Denies swollen glands. [] Psychiatric: Denies depression or anxiety. [] Heart Score: Risk Factors: Risk Factors: DM, Current or recent (<one month) smoker, HTN, HLP, family history of CAD, obesity. Risk Scores: Score 0 - 3: 2.5% MACE over next 6 weeks - Discharge Home Score 4 - 6: 20.3% MACE over next 6 weeks - Admit for Clinical Observation Score 7 - 10: 72.7% MACE over next 6 weeks - Early Invasive Strategies Current Medications: Current Medications Medications (Trade) Dose Ordered Sig/Kev Start Time Stop Time Status Last Admin Dose Admin Acetaminophen/ Hydrocodone Bitart (Lortab 5/325) 1 tab 1X ONCE 12/18/20 17:15 12/18/20 17:16 DC 12/18/20 17:16 1 TAB Allergies: Allergies: Allergies Coded Allergies Type Severity Reaction Last Updated Verified No Known Drug Allergies 09/25/14 No Physical Exam: PE: Constitutional: Well developed, well nourished, no acute distress, non-toxic appearance. [] HENT: Normocephalic, atraumatic, bilateral external ears normal, oropharynx moist, no oral exudates, nose normal. [] Eyes: PERRLA, EOMI, conjunctiva normal, no discharge. [] Neck: Normal range of motion, no tenderness, supple, no stridor. [] Cardiovascular:Heart rate regular rhythm, no murmur [] Lungs & Thorax: Bilateral breath sounds clear to auscultation [] Abdomen: Bowel sounds normal, soft, no tenderness, no masses, no pulsatile masses. [] Skin: Warm, dry, no erythema, no rash. [] Back: No tenderness, no CVA tenderness. [] Extremities: Right dorsal hand tenderness, no cyanosis, no clubbing, ROM intact, dorsal hand between the second and third knuckle 2+ edema. [] Neurologic: Alert and oriented X 3, normal motor function, normal sensory function, no focal deficits noted. [] Psychologic: Affect normal, judgement normal, mood normal. [] Current Patient Data: Vital Signs: Vital Signs Date Time Temp Pulse Resp B/P (MAP) Pulse Ox O2 Delivery O2 Flow Rate FiO2 12/18/20 16:38 97.9 95 12 162/97 (118) 99 Room Air 97.9 EKG: EKG: [] Radiology/Procedures: Radiology/Procedures: [] Impression: [facility] [address] [place], [place] [id number] IMAGING REPORT Signed PATIENT: KARLO ARTEAGA ACCOUNT: [id number] : 1990 LOCATION: ER AGE: 30 SEX: F EXAM STATUS: REG ER ORD. PHYSICIAN: KASHMIR THOMPSON APRN REASON: painful lump on hand with swelling to the extremity PROCEDURE: EXT NON VASC LEFT INDICATION: Reason: painful lump on hand with swelling to the extremity / Spl. Instructions: / History: COMPARISON: None. FINDINGS: Focused ultrasound images are obtained through the dorsal aspect of the left hand. There is some edema within the soft tissues without a drainable fluid collection or mass. Subcutaneous vein in the area it is patent. IMPRESSION: * No drainable fluid collection or mass is seen at the dorsal aspect of the left hand. Electronically signed by: Phyllis Chawla MD (12/18/2020 5:42 PM) [id number] DICTATED and SIGNED BY: PHYLLIS CHAWLA MD DATE: 12/18/20 [id number] [facility] [address] [place] [address] IMAGING REPORT Signed PATIENT: KARLO ARTEAGA ACCOUNT: [id number] : 1990 LOCATION: ER AGE: 30 SEX: F EXAM STATUS: REG ER ORD. PHYSICIAN: KASHMIR THOMPSON APRN REASON: pain, swelling, lump left hand PROCEDURE: HAND LEFT 3V PROCEDURE: XR HAND_LEFT 3 VIEWS STUDY DATE: 12/18/2020 CLINICAL INDICATION / HISTORY: Reason: pain, swelling, lump left hand / Spl. Instructions: / History: . TECHNIQUE: PA, lateral and oblique views of the left hand. COMPARISON: None FINDINGS: No fracture or dislocation is identified. The bone density is normal. The joint spaces are maintained, and there are no erosions to suggest an inflammatory arthropathy. The soft tissues are unremarkable. IMPRESSION: No acute osseous abnormality. Electronically signed by: Tami Ordaz MD (12/18/2020 6:00 PM) [id number] DICTATED and SIGNED BY: TAMI ORDAZ MD DATE: 12/18/20 [id number] 0 Course & Med Decision Making: Course & Med Decision Making Pertinent Labs and Imaging studies reviewed. (See chart for details) See HPI. No swelling to the rest of the extremity. Only to the spot of which was stated in the HPI. Radial pulses strong and present. Cap refill less than 2 seconds. Skin pink warm and dry. Patient can make a fist and bend all fingers although this is very painful to the index finger. X-ray and ultrasound show no acute findings. I have spoken to Dr Zuniga concerning findings and care plan. She states to give her antibiotic and have her follow up with a primary care. [] Dragon Disclaimer: Daniel Disclaimer: This electronic medical record was generated, in whole or in part, using a voice recognition dictation system. Departure Departure Impression: Primary Impression: Hand pain, left Disposition: 01 DC HOME SELF CARE/HOMELESS Condition: STABLE Referrals: NO PCP (PCP) Patient Instructions: Medical Screening Exam Additional Instructions: Follow-up with your primary care physician or orthopedic if swelling gets worse. If hand becomes very swollen and red and or you start running a fever return emergency room. Scripts Cephalexin (CEPHALEXIN) 500 Mg Capsule 1 CAP PO QID, #40 CAP Prov: KASHMIR THOMPSON APRN 12/18/20 KASHMIR THOMPSON APRN Dec 18, 2020 18:14
[2020-12-18] MEDS ORDERED: CEPH500C PO (18:26)
[2020-12-18] MEDS ORDERED: DEXAMETHASONE 4 MG TABLET PO SCH (18:30)
== END 2020-12-18 18:34 | disposition home or self-care (01) ==
LOC: ER 16:19
DX: M79.642 Pain in left hand (principal); R22.42 Localized swelling, mass and lump, left lower limb; J45.909 Unspecified asthma, uncomplicated
CPT/HCPCS: 73130; 76881; 99283; 99284-25

== ENCOUNTER 2021-03-05 08:34 | Emergency (ER) | payer OTHER ==
[~2021-03-05] VITALS: Ht 170.2 cm; Wt 135.0 kg
[~2021-03-05 08:34] MED LIST changes: +CEPH500C PO
--- NOTE | 2021-03-05 08:53 | ED.ADGEN ---
Past Medical History Past Medical History: Asthma Additional Past Medical Histor: miscarriage Past Surgical History: Other Additional Past Surgical Histo: DNC Smoking Status: Never Smoker Alcohol Use: None Drug Use: None General Adult EDM: Chief Complaint: ABDOMINAL PAIN HPI: HPI: Patient is a 31-year-old female who arrives ambulatory to the emergency department complaining of pelvic discomfort in addition to vaginal itching and discharge. Patient reports she noticed this today. Patient states she does have vaginal discharge from time to time however not normally this much. Patient has very little suspicion of a possible sexually transmitted disease but wants to be evaluated just as a precaution. She denies any history of bleeding. She further denies any history of trauma. Additionally she denies any rash or swelling. She is awake, alert and nontoxic-appearing. Review of Systems: Review of Systems: Constitutional: Denies fever or chills. [] Eyes: Denies change in visual acuity. [] HENT: Denies nasal congestion or sore throat. [] Respiratory: Denies cough or shortness of breath. [] Cardiovascular: Denies chest pain or edema. [] GI: Denies abdominal pain, nausea, vomiting, bloody stools or diarrhea. [] : Reports vaginal discharge, itching and pelvic discomfort. Denies dysuria. [] Musculoskeletal: Denies back pain or joint pain. [] Integument: Denies rash. [] Neurologic: Denies headache, focal weakness or sensory changes. [] Endocrine: Denies polyuria or polydipsia. [] Lymphatic: Denies swollen glands. [] Psychiatric: Denies depression or anxiety. [] Current Medications: Current Medications Medications (Trade) Dose Ordered Sig/Kev Start Time Stop Time Status Last Admin Dose Admin Acetaminophen/ Hydrocodone Bitart (Lortab 5/325) 1 tab 1X ONCE 03/05/21 10:15 03/05/21 10:16 DC 03/05/21 10:21 1 TAB Azithromycin (Zithromax) 1,000 mg 1X ONCE 03/05/21 11:00 03/05/21 11:01 Ceftriaxone Sodium (Rocephin Im) 500 mg 1X ONCE 03/05/21 11:00 03/05/21 11:01 Allergies: Allergies: Allergies Coded Allergies Type Severity Reaction Last Updated Verified No Known Drug Allergies 09/25/14 No Physical Exam: PE: Constitutional: Well developed, well nourished, no acute distress, non-toxic appearance. [] HENT: Normocephalic, atraumatic, bilateral external ears normal, oropharynx moist, no oral exudates, nose normal. [] Eyes: PERRLA, EOMI, conjunctiva normal, no discharge. [] Neck: Normal range of motion, no tenderness, supple, no stridor. [] Cardiovascular:Heart rate regular rhythm, no murmur [] Lungs & Thorax: Bilateral breath sounds clear to auscultation [] Abdomen: Bowel sounds normal, soft, no tenderness, no masses, no pulsatile masses. [] Genitourinary: Deferred. Skin: Warm, dry, no erythema, no rash. [] Back: No tenderness, no CVA tenderness. [] Extremities: No tenderness, no cyanosis, no clubbing, ROM intact, no edema. [] Neurologic: Alert and oriented X 3, normal motor function, normal sensory function, no focal deficits noted. [] Psychologic: Affect normal, judgement normal, mood normal. [] Current Patient Data: Labs: Laboratory Tests Test 03/05/21 08:45 03/05/21 08:51 Urine Color Sandra Urine Clarity Turbid Urine pH 5.5 (<5.0-8.0) Urine Specific [place] >=1.030 (1.000-1.030) Urine Protein 30 mg/dL (NEG-TRACE) Urine Glucose (UA) Negative mg/dL (NEG) Urine Ketones (Stick) Trace mg/dL (NEG) Urine Blood Moderate (NEG) Urine Nitrite Negative (NEG) Urine Bilirubin Small (NEG) Urine Urobilinogen Dipstick 1.0 mg/dL (0.2 mg/dL) Urine Leukocyte Esterase Small (NEG) Urine RBC 1-2 /HPF (0-2) Urine WBC 11-20 /HPF (0-4) Urine Amorphous Sediment Present /HPF Urine Bacteria Few /HPF (0-FEW) POC Urine HCG, Qualitative Hcg negative (Negative) Microbiology 03/05/21 Wet Prep - Final, Complete Microbiology 03/05/21 Wet Prep - Final, Complete Vital Signs: Vital Signs Date Time Temp Pulse Resp B/P (MAP) Pulse Ox O2 Delivery O2 Flow Rate FiO2 03/05/21 10:21 16 03/05/21 09:00 98.3 16 141/103 (116) 99 Room Air 98.3 EKG: EKG: [] Heart Score: C/O Chest Pain: No Risk Factors: Risk Factors: DM, Current or recent (<one month) smoker, HTN, HLP, family history of CAD, obesity. Risk Scores: Score 0 - 3: 2.5% MACE over next 6 weeks - Discharge Home Score 4 - 6: 20.3% MACE over next 6 weeks - Admit for Clinical Observation Score 7 - 10: 72.7% MACE over next 6 weeks - Early Invasive Strategies Radiology/Procedures: Radiology/Procedures: [] Course & Med Decision Making: Course & Med Decision Making Pertinent Labs and Imaging studies reviewed. (See chart for details) The patient remains awake, alert and in no acute distress. Patient did test positive for bacterial vaginosis as well as trichomoniasis. As result I have elected to treat the patient empirically for gonorrhea and chlamydia. I have also advised the patient to avoid sexual contact with any partner until she is asymptomatic and her partner is have been tested and subsequently treated. The patient understands and has agreed to do so. Daniel Disclaimer: Daniel Disclaimer: This electronic medical record was generated, in whole or in part, using a voice recognition dictation system. Departure Departure Impression: Primary Impression: Urinary tract infection Additional Impressions: Bacterial vaginosis Trichomonal vaginitis Disposition: HOME / SELF CARE / HOMELESS Condition: IMPROVED Referrals: NO PCP (PCP) Patient Instructions: Bacterial Vaginosis, Trichomoniasis, Urinary Tract Infection Scripts Tramadol Hcl (ULTRAM) 50 Mg Tablet 50 MG PO Q6HRS PRN for PAIN, #12 TAB 0 Refills Prov: JAVIER LIVINGSTON DO 03/05/21 Cephalexin (KEFLEX) 750 Mg Capsule 1 CAP PO BID for 7 Days, #14 CAP 0 Refills Prov: JAVIER LIVINGSTON DO 03/05/21 Metronidazole (METRONIDAZOLE) 500 Mg Tablet 1 TAB PO BID for 7 Days, #14 TAB 0 Refills Prov: JAVIER LIVINGSTON DO 03/05/21 Problem Qualifiers JAVIER LIVINGSTON DO Mar 05, 2021 08:53
[2021-03-05 10:18] LABS: BILIRUBIN,URINE SMALL (NEG); CLARITY,URINE TURBID; COLOR,URINE AMBER; NITRITE,URINE NEGATIVE (NEG); PH,URINE 5.5 (<5.0-8.0); PROTEIN,URINE 30 mg/dL (NEG-TRACE)
[2021-03-05] MEDS: HYDROcodone/APAP 5/325MG 1 TAB TABLET PO ONE (10:21)
[2021-03-05 10:24] LABS: AMORPHOUS SEDIMENT,UR PRESENT /HPF; BACTERIA,URINE FEW /HPF (0-FEW)
[2021-03-05] MEDS ORDERED: HYDR-2761 PO (10:25)
[2021-03-05] MEDS ORDERED: CEPH750C9 PO ×2 (10:25→10:53)
[2021-03-05] MEDS ORDERED: TRAM-48 PO (10:53)
[2021-03-05] MEDS ORDERED: METR-34 PO (10:53)
[2021-03-05] MEDS: AZITHROMYCIN 250 MG TABLET. PO ONE (11:12)
[2021-03-05] MEDS: cefTRIAXone IM 500 MG VIAL. IM ONE (11:13)
[2021-03-05 11:20] VITALS: BP 143/74
== END 2021-03-05 11:30 | disposition home or self-care (01) ==
LOC: ER 08:34
DX: N39.0 Urinary tract infection, site not specified (principal); N76.0 Acute vaginitis; A59.01 Trichomonal vulvovaginitis; J45.909 Unspecified asthma, uncomplicated; Z98.890 Other specified postprocedural states
CPT/HCPCS: 81001; 81025; 87086; 87491; 87591; 96372; 99283; J0696; Q0111

== ENCOUNTER 2021-06-15 16:25 | Emergency (ER) | payer OTHER ==
[~2021-06-15] VITALS: Ht 167.6 cm; Wt 143.0 kg
[~2021-06-15 16:25] MED LIST changes: +CEPH750C9 PO; +DOXY-181 PO; -DOXY100C14 PO; +HYDR-2761 PO; +METR-34 PO; +TRAM-48 PO
[2021-06-15 17:39] VITALS: BP 149/90
[2021-06-15] MEDS ORDERED: SULF1TAB24 PO (19:49)
[2021-06-15] MEDS ORDERED: CEPH500C PO (19:49)
--- NOTE | 2021-06-15 19:49 | PHYS DOC ---
Past Medical History Past Medical History: Asthma Additional Past Medical Histor: miscarriage Past Surgical History: Other Additional Past Surgical Histo: DNC Smoking Status: Never Smoker Alcohol Use: None Drug Use: None General Adult EDM: Chief Complaint: FEVER HPI: HPI: Patient is a 31 year old female who present to ER for evaluation of several day history of fever, body aches, chills, sore throat, nonproductive cough, nasal congestion. Patient also complains of multiple skin lesion on her breast area and her trunk area for a week. Patient denies any chest pain, no trouble breathing. Patient was not vaccinated for COVID-19. Review of Systems: Review of Systems: Constitutional: Positive fever and chills Eyes: Denies change in visual acuity. [] HENT: Positive for nasal congestion and sore throat Respiratory: Positive cough, no trouble breathing Cardiovascular: Denies chest pain or edema. [] GI: Denies abdominal pain, nausea, vomiting, bloody stools or diarrhea. [] : Denies dysuria. [] Musculoskeletal: Denies back pain or joint pain. [] Integument: Positive for skin lesion on her breasts and her trunk. Neurologic: Denies headache, focal weakness or sensory changes. [] Endocrine: Denies polyuria or polydipsia. [] Lymphatic: Denies swollen glands. [] Psychiatric: Denies depression or anxiety. [] Heart Score: C/O Chest Pain: N/A Risk Factors: Risk Factors: DM, Current or recent (<one month) smoker, HTN, HLP, family history of CAD, obesity. Risk Scores: Score 0 - 3: 2.5% MACE over next 6 weeks - Discharge Home Score 4 - 6: 20.3% MACE over next 6 weeks - Admit for Clinical Observation Score 7 - 10: 72.7% MACE over next 6 weeks - Early Invasive Strategies Allergies: Allergies: Allergies Coded Allergies Type Severity Reaction Last Updated Verified No Known Drug Allergies 09/25/14 No Physical Exam: PE: Constitutional: Well developed, well nourished, no acute distress, non-toxic amber earance. [] HENT: Normocephalic, atraumatic, bilateral external ears normal, oropharynx moist, no oral exudates, nose normal. [] Eyes: PERRLA, EOMI, conjunctiva normal, no discharge. [] Neck: Normal range of motion, no tenderness, supple, no stridor. [] Cardiovascular:Heart rate regular rhythm, no murmur [] Lungs & Thorax: Bilateral breath sounds clear to auscultation [] Abdomen: Bowel sounds normal, soft, no tenderness, no masses, no pulsatile masses. [] Skin: Warm, dry, multiple skin lesions on both side of her breasts and on the trunk area appeared to be infected bites herring. Back: No tenderness, no CVA tenderness. [] Extremities: No tenderness, no cyanosis, no clubbing, ROM intact, no edema. [] Neurologic: Alert and oriented X 3, normal motor function, normal sensory function, no focal deficits noted. [] Psychologic: Affect normal, judgement normal, mood normal. [] Current Patient Data: Labs: Laboratory Tests Test 06/15/21 18:41 SARS-CoV-2 Antigen (Rapid) Negative (NEGATIVE) Vital Signs: Vital Signs Date Time Temp Pulse Resp B/P (MAP) Pulse Ox O2 Delivery O2 Flow Rate FiO2 06/15/21 17:39 99.5 93 24 149/90 (116) 98 Room Air 99.5 EKG: EKG: [] Radiology/Procedures: Radiology/Procedures: [][facility] [address] [place], [place] [id number] IMAGING REPORT Signed PATIENT: KARLO ARTEAGA ACCOUNT: [id number] : 1990 LOCATION: ER AGE: 31 SEX: F EXAM STATUS: REG ER ORD. PHYSICIAN: TOMASA HAWK DO REASON: cough, fever for 3 days PROCEDURE: CHEST AP ONLY XR CHEST 1V History: Reason: cough, fever for 3 days / Spl. Instructions: / History: Comparison: March 27, 2020 Findings: No consolidation or pleural effusion. Normal heart size. No pneumothorax. Impression: 1. No acute cardiopulmonary process. Electronically signed by: Bryan White DO (06/15/2021 7:54 PM) [facility] DICTATED and SIGNED BY: BRYAN WHITE DO DATE: 06/15/21 [id number] 0 Course & Med Decision Making: Course & Med Decision Making Pertinent Labs and Imaging studies reviewed. (See chart for details) Patient is a 31-year-old female who present to ER due to fever chills cough, sore throat. Covid test came back negative, patient also has multiple skin lesion on her breast and her chest trunk area appear to be infected, patient was discharged home with Keflex and Bactrim. Daniel Disclaimer: Daniel Disclaimer: This electronic medical record was generated, in whole or in part, using a voice recognition dictation system. Departure Departure Impression: Primary Impression: Abscess of skin and subcutaneous tissue Additional Impression: URI (upper respiratory infection) Disposition: HOME / SELF CARE / HOMELESS Condition: STABLE Referrals: NO PCP (PCP) Follow up with your doctor in 2 days for reevaluation Patient Instructions: Abscess, Upper Respiratory Infection, Adult Additional Instructions: Thank you for visiting our Emergency Department. We appreciate you trusting us with your care. If any additional problems come up don't hesitate to return to visit us. Please follow up with your primary care provider so they can plan additional care if needed and know about the problem that you had. If symptoms worsen come back to the Emergency Department. Any concerning symptoms that start such as chest pain, shortness of air, weakness or numbness on one side of the body, running high fevers or any other concerning symptoms return to the ER. Scripts Cephalexin (CEPHALEXIN) 500 Mg Capsule 1 CAP PO QID, #40 CAP Prov: TOMASA HAWK DO 06/15/21 Sulfamethoxazole/Trimethoprim (BACTRIM DS TABLET) 1 Each Tablet 1 TAB PO BID for 10 Days, #20 TAB 0 Refills Prov: TOMASA HAWK DO 06/15/21 TOMASA HAWK DO Jun 15, 2021 19:49
--- NOTE | 2021-06-15 19:56 | RAD ---
XR CHEST 1V History: Reason: cough, fever for 3 days / Spl. Instructions: / History: Comparison: March 27, 2020 Findings: No consolidation or pleural effusion. Normal heart size. No pneumothorax. Impression: 1. No acute cardiopulmonary process. Electronically signed by: Bryan White DO (06/15/2021 7:54 PM) [facility] [place] [place]
--- NOTE | 2021-06-16 17:22 | NUR ---
IP: Informed pt of negative covid test. Pt verbalized understanding.
== END 2021-06-15 20:22 | disposition home or self-care (01) ==
LOC: ER 16:25
DX: J06.9 Acute upper respiratory infection, unspecified (principal); Z20.822 Contact with and (suspected) exposure to COVID-19; J86.9 Pyothorax without fistula; L02.219 Cutaneous abscess of trunk, unspecified; J45.909 Unspecified asthma, uncomplicated
CPT/HCPCS: 71045; 87070; 87426; 87880; 99284; U0003; U0005

== ENCOUNTER 2021-09-08 21:38 | Inpatient (IN) | payer OTHER ==
[~2021-09-08] VITALS: Ht 167.6 cm; Wt 130.0 kg
[~2021-09-08 21:38] MED LIST changes: +SULF1TAB24 PO
--- NOTE | 2021-09-08 23:23 | PHYS DOC ---
Past Medical History Past Medical History: Asthma Additional Past Medical Histor: miscarriage, gonorrhea/chlamydia, tubo-ovarian abscess Past Surgical History: Other Additional Past Surgical Histo: DNC Smoking Status: Never Smoker Alcohol Use: None Drug Use: None General Adult EDM: Chief Complaint: PELVIC PAIN HPI: HPI: Patient is a 31 year old female with history of GC/chlamydia infections, tubo- ovarian abscess who presents with right lower quadrant pain/pressure. Started at 6 PM tonight after work. Has progressively gotten worse. Associated with urgency and dysuria. Pain radiates towards the vagina. Denies vaginal discharge or bleeding. States that she was treated for GC//chlamydia approximately a year ago and was admitted for a week for an ovarian abscess that was treated conservatively. She endorses nausea/vomiting. States this feels different than previous UTIs. Has not been sexually active in the past 2 months. Review of Systems: Review of Systems: Constitutional: Denies fever or chills. [] Eyes: Denies change in visual acuity. [] HENT: Denies nasal congestion or sore throat. [] Respiratory: Denies cough or shortness of breath. [] Cardiovascular: Denies chest pain or edema. [] GI: Reports abdominal pain, pelvic pain, nausea/vomiting.. [] : Reports dysuria and urgency. Musculoskeletal: Denies back pain or joint pain. [] Integument: Denies rash. [] Neurologic: Denies headache, focal weakness or sensory changes. [] Endocrine: Denies polyuria or polydipsia. [] Lymphatic: Denies swollen glands. [] Psychiatric: Denies depression or anxiety. [] Heart Score: C/O Chest Pain: No Allergies: Allergies: Allergies Coded Allergies Type Severity Reaction Last Updated Verified No Known Drug Allergies 09/25/14 No Physical Exam: PE: Constitutional: Appears uncomfortable, wincing and holding her lower abdomen. HENT: Normocephalic, atraumatic, Eyes: conjunctiva normal, no discharge. [] Neck: Normal range of motion, no tenderness, supple, no stridor. [] Cardiovascular: regular rhythm, no murmur [] Lungs & Thorax: Bilateral breath sounds clear to auscultation [] Abdomen: Diffuse tenderness to palpation with guarding. Tenderness most significant in the right lower quadrant. Skin: Warm, dry, no erythema, no rash. [] Back: No tenderness, no CVA tenderness. [] Extremities: No tenderness, no cyanosis, no clubbing, ROM intact, no edema. [] Neurologic: Alert and oriented X 3, normal motor function, normal sensory function, no focal deficits noted. [] Psychologic: Affect normal, judgement normal, mood normal. [] EKG: EKG: [] Radiology/Procedures: Radiology/Procedures: [] Impression: [facility] [address] [place] [address] IMAGING REPORT Signed PATIENT: KARLO ARTEAGA ACCOUNT: [id number] : 1990 LOCATION: ER AGE: 31 SEX: F EXAM STATUS: REG ER ORD. PHYSICIAN: RAMON NAVARRO MD REASON: RLQ PAIN, HX TOA;OMNI 300, 75ML PROCEDURE: CT ABD PELV W/ IV CONTRST ONLY Examination: CT of the abdomen pelvis with IV contrast HISTORY: History of right lower quadrant abdominal pain COMPARISON: 03/27/2020 TECHNIQUE: Axial CT images of the abdomen pelvis were performed with IV contrast: Sagittal reformats are performed Exposure: One or more of the following individualized dose reduction techniques were utilized for this examination: 1. Automated exposure control 2. Adjustment of the mA and/or kV according to patient size 3. Use of iterative reconstruction technique FINDINGS: The bibasilar lungs are clear. No evidence of free air identified in the abdomen. The liver, spleen, adrenals grossly appears unremarkable. The gallbladder is mildly distended. The stomach is mildly distended. The visualized pancreas grossly appears unremarkable. The small bowel is nondilated. The appendix is normal. Feces and gas noted in the colon The bilateral kidneys enhance symmetrically Urinary bladder is mildly distended. There is a cystic structure identified in the right adnexa measuring 4.5 cm. No evidence of lytic bony destructive lesion. IMPRESSION: 1. 4.5 cm cystic structure identified in the right adnexa could be a cyst or cystic lesion. Follow-up ultrasound pelvis can be considered. Electronically signed by: Ihsan Dent MD (09/09/2021 1:18 AM) [id number] DICTATED and SIGNED BY: IHSAN DENT MD DATE: 09/09/21 [id number] [facility] [address] [place] [address] IMAGING REPORT Signed PATIENT: KARLO ARTEAGA ACCOUNT: [id number] : 1990 LOCATION: ER AGE: 31 SEX: F EXAM STATUS: REG ER ORD. PHYSICIAN: RAMON NAVARRO MD REASON: R ADNEXAL MASS, CONCERN FOR ABSCESS PROCEDURE: PELVIS W/TV EXAM: ULTRASOUND PELVIS INDICATION: Reason: R ADNEXAL MASS, CONCERN FOR ABSCESS COMPARISON: None available. FINDINGS: The uterus measures 9.2 x 5.6 x 5.7 cm. The endometrium is measures 1.5 cm in transverse dimension. The left ovary measures 3.6 x 3.1 x 2.4 cm. In the right adnexa, there is a 4.1 cm heterogeneous echogenicity identified without signific ant vascular flow within, could be hemorrhagic ovarian cyst. A separate right ovary could not be identified. IMPRESSION: In the right adnexa, there is a 4.1 cm heterogeneous echogenicity identified without significant vascular flow within, could be right ovarian hemorrhagic cyst. A separate right ovary could not be identified. Electronically signed by: Ihsan Dent MD (09/09/2021 2:20 AM) [id number] DICTATED and SIGNED BY: IHSAN DENT MD DATE: 09/09/21 [id number] 0 Course & Med Decision Making: Course & Med Decision Making ReadPertinent Labs and Imaging studies reviewed. (See chart for details) Patient a 31-year-old female with history of GC/chlamydia, tubo-ovarian abscess who presents with acute onset right lower quadrant/pelvic discomfort. DDx considered appendicitis, recurrent TOA/PID, UTI, kidney stone, ectopic, ovarian torsion. CT shows a right-sided 5 cm adnexal cystic appearing lesion, I am concerned this could represent an abscess. Pelvic exam with cervical motion tenderness as well as tenderness in the right adnexa with bimanual exam. Will treat with ceftriaxone, metronidazole, doxycycline. Pelvic ultrasound ordered for further evaluation of the cystic lesion as well as for ovarian torsion. 0129 Pelvic ultrasound shows a 4.1 cm heterogenous cystic structure. Radiology notes concern for potential hemorrhagic cyst, given her history I am also concerned for abscess. The ovary was not identified on that side, therefore ovarian torsion has not been excluded. Patient has required several doses of IV narcotics for pain control and continues to appear uncomfortable. We will discuss admission with gynecology attending, Dr. White. [id number] Dragon Disclaimer: Dragon Disclaimer: This electronic medical record was generated, in whole or in part, using a voice recognition dictation system. Departure Departure Impression: Primary Impression: Right pelvic adnexal fluid collection Additional Impression: Right adnexal tenderness Admitting Physician: WOODY Ferrera) Condition: STABLE Referrals: NO PCP (PCP) RAMON NAVARRO MD Sep 08, 2021 23:23
[2021-09-08] MEDS ORDERED: ONDANSETRON PF 4 MG/2 ML VIAL. IVP ONE (23:30)
[2021-09-08] MEDS ORDERED: MORPHINE SULFATE 4 MG/ML INJ. IVP ONE (23:30)
[2021-09-08 23:39] LABS: BILIRUBIN,URINE NEGATIVE (NEG); CLARITY,URINE CLOUDY; COLOR,URINE YELLOW; NITRITE,URINE NEGATIVE (NEG); PH,URINE 5.5 (<5.0-8.0); PROTEIN,URINE NEGATIVE (NEG-TRACE); UROBILINOGEN,URINE 0.2 mg/dL (0.2 mg/dL)
[2021-09-08 23:48] LABS: BACTERIA,URINE MANY /HPF (0-FEW); RBC,URINE OCC /HPF (0-2)
[2021-09-09 00:37] LABS: BASO % 1 % (0-3); EOS % 1 % (0-3); HEMOGLOBIN 10.3 g/dL (12.0-15.5); LYMPH # 1.7 x10^3/uL (1.0-4.8); LYMPH % 23 % (24-48); MEAN CORPUSCULAR HEMOGLOBIN 24 pg (25-35); MEAN CORPUSCULAR HGB CONC 32 g/dL (31-37); MEAN CORPUSCULAR VOLUME 75 fL (79-100); MONO # 0.5 x10^3/uL (0.0-1.1); MONO % 7 % (0-9); NEUT # 5.1 x10^3/uL (1.8-7.7); NEUT % 70 % (31-73); PLATELET COUNT 296 x10^3/uL (140-400); RED BLOOD COUNT 4.28 x10^6/uL (3.50-5.40); RED CELL DISTRIBUTION WIDTH 15.9 % (11.5-14.5); WHITE BLOOD COUNT 7.3 x10^3/uL (4.0-11.0)
[2021-09-09 00:50] LABS: CALCIUM 8.7 mg/dL (8.5-10.1); CREATININE 0.8 mg/dL (0.6-1.0); GFR 102.6; POTASSIUM 3.7 mmol/L (3.5-5.1)
[2021-09-09 00:55] LABS: ALBUMIN 3.3 g/dL (3.4-5.0); ALBUMIN/GLOBULIN RATIO 0.7 (1.0-1.7); TOTAL BILIRUBIN 0.2 mg/dL (0.2-1.0); TOTAL PROTEIN 8.2 g/dL (6.4-8.2)
[2021-09-09] MEDS ORDERED: CONTRAST GIVEN. MC PRN (01:00)
[2021-09-09] MEDS ORDERED: IOHEXOL 300 MG/ML 100ML VIAL. IV ONE (01:00)
[2021-09-09] MEDS ORDERED: FLUORESCEIN OPHTH TEST STRIP. OD ONE (01:15)
[2021-09-09] MEDS ORDERED: TETRACAINE 0.5% OPHTH SOLUTION 4ML BOTTLE. OD ONE (01:15)
--- NOTE | 2021-09-09 01:20 | RAD ---
Examination: CT of the abdomen pelvis with IV contrast HISTORY: History of right lower quadrant abdominal pain COMPARISON: 03/27/2020 TECHNIQUE: Axial CT images of the abdomen pelvis were performed with IV contrast: Sagittal reformats are performed Exposure: One or more of the following individualized dose reduction techniques were utilized for thi s examination: 1. Automated exposure control 2. Adjustment of the mA and/or kV according to patient size 3. Use of iterative reconstruction technique FINDINGS: The bibasilar lungs are clear. No evidence of free air identified in the abdomen. The liver, spleen, adrenals grossly appears unremarkable. The gallbladder is mildly distended. The st omach is mildly distended. The visualized pancreas grossly appears unremarkable. The small bowel is n ondilated. The appendix is normal. Feces and gas noted in the colon The bilateral kidneys enhance symmetrically Urinary bladder is mildly distended. There is a cystic structure identified in the right adnexa measu ring 4.5 cm. No evidence of lytic bony destructive lesion. IMPRESSION: 1. 4.5 cm cystic structure identified in the right adnexa could be a cyst or cystic lesion. Follow-u p ultrasound pelvis can be considered. Electronically signed by: Ihsan Dent MD (09/09/2021 1:18 AM) [id number]
[2021-09-09] MEDS ORDERED: DOXYCYCLINE HYCLATE 100 MG TABLET PO ONE (01:30)
[2021-09-09] MEDS ORDERED: cefTRIAXone IV Push 1 GM VIAL. IVP ONE (01:30)
[2021-09-09] MEDS ORDERED: MORPHINE SULFATE 4 MG/ML INJ. IVP ONE (01:30)
--- NOTE | 2021-09-09 02:22 | RAD ---
EXAM: ULTRASOUND PELVIS INDICATION: Reason: R ADNEXAL MASS, CONCERN FOR ABSCESS COMPARISON: None available. FINDINGS: The uterus measures 9.2 x 5.6 x 5.7 cm. The endometrium is measures 1.5 cm in transverse dimension. T he left ovary measures 3.6 x 3.1 x 2.4 cm. In the right adnexa, there is a 4.1 cm heterogeneous echog enicity identified without significant vascular flow within, could be hemorrhagic ovarian cyst. A sep arate right ovary could not be identified. IMPRESSION: In the right adnexa, there is a 4.1 cm heterogeneous echogenicity identified without significant vasc ular flow within, could be right ovarian hemorrhagic cyst. A separate right ovary could not be identi fied. Electronically signed by: Ihsna Dent MD (09/09/2021 2:20 AM) [id number]
[2021-09-09] MEDS: IV NORMAL SALINE 1000ML BAG 1,000 ML IV SCH ×3 (03:00→21:34)
[2021-09-09] MEDS: MORPHINE SULFATE 4 MG/ML INJ. IVP PRN ×5 (05:30→20:31)
[2021-09-09] MEDS ORDERED: ALBU2.5V8 INH (05:51)
[2021-09-09 07:00] VITALS: BP 127/79
--- NOTE | 2021-09-09 08:04 | PDOC1 ---
History and Physical Date of Admission Date of Admission DATE: 09/09/21 TIME: 08:03 Identification/Chief Complaint Chief Complaint Abdominal pain Source Source: Patient History of Present Illness History of Present Illness Ms Mead is a 31yo female with PMHx morbid obesity, Prior miscarriage and tubo- ovarian abscess for GC chlamydia and asthma who presents with sudden onset right lower quadrant pain and 1800 on 09/08/2021 with associated nausea and one episode of vomiting. Pain is 10 out of 10 unremitting not improved with position actually worsened with sitting up. Only improved with IV morphine she is not been recently sexually active. She does note she has heavy menses. She also notes nodules in bilateral axilla underneath her breath and in her groin she has had for year. She also notes dysuria and urinary frequency recently Labs WBC 7.3, Hb 10.3 and MCV 75, platelets 296, NA 140, K3.7, BUN 14, CR 0.8, glucose 104, albumin 3.3, LFTs within normal laboratory limits, urinalysis negative hCG positive blood small leuk esterase multiple squamous cells. CT abdomen and transvaginal ultrasound show adnexal mass likely hemorrhagic cyst She only received pain relief with IV morphine. Admitted for further care. Past Medical History Cardiovascular: No pertinent hx Pulmonary: Asthma GI: No pertinent hx Heme/Onc: No pertinent hx Hepatobiliary: No pertinent hx Psych: No pertinent hx Rheumatologic: No pertinent hx Infectious disease: No pertinent hx Past Surgical History Past Surgical History: Other Family History Family History reviewed Family History: No Significant Social History Smoke: No ALCOHOL: none Drugs: None Current Problem List Problem List Problems Medical Problems: (1) Right adnexal tenderness Status: Acute (2) Right pelvic adnexal fluid collection Status: Acute Current Medications Current Medications Current Medications Morphine Sulfate (Morphine Sulfate) 4 mg 1X ONCE IVP Last administered on 09/09/21at 00:16; Start 09/08/21 at 23:30; Stop 09/08/21 at 23:31; Status DC Ondansetron HCl (Zofran) 4 mg 1X ONCE IVP Last administered on 09/09/21at 00:16; Start 09/08/21 at 23:30; Stop 09/08/21 at 23:31; Status DC Iohexol (Omnipaque 300 Mg/ml) 75 ml 1X ONCE IV Last administered on 09/09/21at 01:03; Start 09/09/21 at 01:00; Stop 09/09/21 at 01:01; Status DC Info (CONTRAST GIVEN -- Rx MONITORING) 1 each PRN DAILY PRN MC SEE COMMENTS; Start 09/09/21 at 01:00; Stop 09/11/21 at 00:59 Fluorescein Sodium (Ful-Zulema) 1 strip 1X ONCE OD ; Start 09/09/21 at 01:15; Stop 09/09/21 at 01:14; Status DC Tetracaine HCl (Tetracaine) 1 drop 1X ONCE OD ; Start 09/09/21 at 01:15; Stop 09/09/21 at 01:14; Status DC Ceftriaxone Sodium (Rocephin) 1 gm 1X ONCE IVP Last administered on 09/09/21at 02:14; Start 09/09/21 at 01:30; Stop 09/09/21 at 01:32; Status DC Metronidazole 100 ml @ 100 mls/hr 1X ONCE IV Last administered on 09/09/21at 02:16; Start 09/09/21 at 01:30; Stop 09/09/21 at 02:29; Status DC Doxycycline Hyclate (Vibra-Tab) 100 mg 1X ONCE PO Last administered on 09/09/21at 02:12; Start 09/09/21 at 01:30; Stop 09/09/21 at 01:34; Status DC Morphine Sulfate (Morphine Sulfate) 4 mg 1X ONCE IVP Last administered on 09/09/21at 02:13; Start 09/09/21 at 01:30; Stop 09/09/21 at 01:34; Status DC Ondansetron HCl (Zofran) 4 mg PRN Q8HRS PRN IVP NAUSEA/VOMITING; Start 09/09/21 at 03:00; Stop 09/10/21 at 02:59 Morphine Sulfate (Morphine Sulfate) 4 mg PRN Q2HR PRN IVP PAIN Last administered on 09/09/21at 05:30; Start 09/09/21 at 03:00; Stop 09/10/21 at 02:59 Sodium Chloride 1,000 ml @ 100 mls/hr Q10H IV Last administered on 09/09/21at 03:00; Start 09/09/21 at 03:00; Stop 09/10/21 at 02:59 Influenza Virus Vaccine Quadrival (Flulaval Quad Syringe) 0.5 ml ONCE ONCE VAX IM ; Start 09/09/21 at 09:00; Stop 09/09/21 at 09:01 Active Scripts Active Reported Proair Hfa Inhaler (Albuterol Sulfate) 8.5 Gm Hfa.aer.ad 2 Puff INH PRN Q4HRS PRN Allergies Allergies: Coded Allergies: No Known Drug Allergies (Unverified , 09/25/14) ROS General: YES: Fatigue, Malaise, Appetite; No: Chills, Night Sweats, Other PSYCHOLOGICAL ROS: YES: Anxiety; No: Behavioral Disorder, Concentration difficultie, Decreased libido, Depression, Disorientation, Hallucinations, Hostility, Irritablity, Memory difficulties, Mood Swings, Obsessive thoughts, Physical abuse, Sexual abuse, Sleep disturbances, Suicidal ideation, Other Eyes: No Blurry vision, No Decreased vision, No Double vision, No Dry eyes, No Excessive tearing, No Eye Pain, No Itchy Eyes, No Loss of vision, No Photophobia, No Scotomata, No Uses contacts, No Uses glasses, No Other HEENT: No: Heacaches, Visual Changes, Hearing change, Nasal congestion, Nasal discharge, Oral lesions, Sinus pain, Sore Throat, Epistaxis, Sneezing, Snoring, Tinnitus, Vertigo, Vocal changes, Other ALLERGY AND IMMUNOLOGY: YES: Nasal Congestion, Seasonal Allergies; No: Hives, Insect Bite Sensitivity, Itchy/Watery Eyes, Post Nasal Drip, Other Hematological and Lymphatic: No: Bleeding Problems, Blood Clots, Blood Transfusions, Brusing, Night Sweats, Pallor, Swollen Lymph Nodes, Other ENDOCRINE: No: Breast Changes, Galactorrhea, Hair Pattern Changes, Hot Flashes, Malaise/lethargy, Mood Swings, Palpitations, Polydipsia/polyuria, Skin Changes, Temperature Intolerance, Unexpected Weight Changes, Other Breast: No New/Changing Breast Lumps, No Nipple changes, No Nipple discharge, No Other Respiratory: YES: Wheezing; No: Cough, Hemoptysis, Orthopnea, Pleuritic Pain, Shortness of breath, SOB wi th excertion, Sputum Changes, Stridor, Tachypnea, Other Cardiovascular: No Chest Pain, No Palpitations, No Orthopnea, No Paroxysmal Noc. Dyspnea, No Edema, No Lt Headedness, No Other Gastrointestinal: Yes Nausea, Yes Vomiting, Yes Abdominal Pain; No Diarrhea, No Constipation, No Melena, No Hematochezia, No Other Genitourinary: YES Dysuria, YES Frequency; No Incontinence, No Hematuria, No Retention, No Discharge, No Urgency, No Pain, No Flank Pain, No Other, No , No , No , No , No , No , No Musculoskeletal: No Gait Disturbance, No Joint Pain, No Joint Stiffness, No Joint Swelling, No Muscle Pain, No Muscular Weakness, No Pain In:, No Swelling In:, No Other Neurological: No Behavorial Changes, No Bowel/Bladder ControlChng, No Confusion, No Dizziness, No Gait Disturbance, No Headaches, No Impaired Coord/balance, No Memory Loss, No Numbness/Tingling, No Seizures, No Speech Problems, No Tremors, No Visual Changes, No Weakness, No Other Skin: Yes Lumps; No Dry Skin, No Eczema, No Hair Changes, No Mole Changes, No Mottling, No Nail Changes, No Pruritus, No Rash, No Skin Lesion Changes, No Other, No Acne Physical Exam General: Alert, Oriented X3, Cooperative, moderate distress HEENT: Atraumatic, PERRLA, EOMI, Mucous membr. moist/pink Lungs: Other (Scattered wheezes) Heart: S1S2, RRR, no thrills, no rubs, no gallops, no murmurs Abdomen: Normal bowel sounds, Soft, No hepatosplenomegaly, No masses, Other (RLQ tender) Extremities: No clubbing, No cyanosis, No edema, Normal pulses, No tenderness/swelling Skin: Other (axillary, groin, breast hidradentis, mild) Neuro: Normal gait, Normal speech, Strength at 5/5 X4 ext, Normal tone, Sensation intact, Cranial nerves 3-12 NL, Reflexes 2+ Psych/Mental Status: Mental status NL, Mood NL Vitals Vitals Vital Signs Date Time Temp Pulse Resp B/P (MAP) Pulse Ox O2 Delivery O2 Flow Rate FiO2 09/09/21 05:00 Room Air 09/09/21 03:53 66 95 09/08/21 23:16 98.3 16 127/86 (100) 98.3 Labs Labs Laboratory Tests Test 09/08/21 23:20 09/08/21 23:21 10/27/21 23:45 Urine Collection Type Unknown Urine Color Yellow Urine Clarity Cloudy Urine pH 5.5 (<5.0-8.0) Urine Specific [place] >=1.030 (1.000-1.030) Urine Protein Negative mg/dL (NEG-TRACE) Urine Glucose (UA) Negative mg/dL (NEG) Urine Ketones (Stick) Negative mg/dL (NEG) Urine Blood Small (NEG) Urine Nitrite Negative (NEG) Urine Bilirubin Negative (NEG) Urine Urobilinogen Dipstick 0.2 mg/dL (0.2 mg/dL) Urine Leukocyte Esterase Small (NEG) Urine RBC Occ /HPF (0-2) Urine WBC 5-10 /HPF (0-4) Urine Squamous Epithelial Cells Many /LPF Urine Bacteria Many /HPF (0-FEW) Urine Mucus Mod /LPF Bedside Urine HCG, Qualitative Hcg negative (Negative) White Blood Count 7.3 x10^3/uL (4.0-11.0) Red Blood Count 4.28 x10^6/uL (3.50-5.40) Hemoglobin 10.3 g/dL (12.0-15.5) Hematocrit 32.0 % (36.0-47.0) Mean Corpuscular Volume 75 fL (79-100) Mean Corpuscular Hemoglobin 24 pg (25-35) Mean Corpuscular Hemoglobin Concent 32 g/dL (31-37) Red Cell Distribution Width 15.9 % (11.5-14.5) Platelet Count 296 x10^3/uL (140-400) Neutrophils (%) (Auto) 70 % (31-73) Lymphocytes (%) (Auto) 23 % (24-48) Monocytes (%) (Auto) 7 % (0-9) Eosinophils (%) (Auto) 1 % (0-3) Basophils (%) (Auto) 1 % (0-3) Neutrophils # (Auto) 5.1 x10^3/uL (1.8-7.7) Lymphocytes # (Auto) 1.7 x10^3/uL (1.0-4.8) Monocytes # (Auto) 0.5 x10^3/uL (0.0-1.1) Eosinophils # (Auto) 0.0 x10^3/uL (0.0-0.7) Basophils # (Auto) 0.0 x10^3/uL (0.0-0.2) Sodium Level 140 mmol/L (136-145) Potassium Level 3.7 mmol/L (3.5-5.1) Chloride Level 103 mmol/L (98-107) Carbon Dioxide Level 27 mmol/L (21-32) Anion Gap 10 (6-14) Blood Urea Nitrogen 14 mg/dL (7-20) Creatinine 0.8 mg/dL (0.6-1.0) Estimated GFR (Cockcroft-Gault) 102.6 BUN/Creatinine Ratio 18 (6-20) Glucose Level 104 mg/dL (70-99) Calcium Level 8.7 mg/dL (8.5-10.1) Total Bilirubin 0.2 mg/dL (0.2-1.0) Aspartate Amino Transf (AST/SGOT) 16 U/L (15-37) Alanine Aminotransferase (ALT/SGPT) 28 U/L (14-59) Alkaline Phosphatase 70 U/L (46-116) Total Protein 8.2 g/dL (6.4-8.2) Albumin 3.3 g/dL (3.4-5.0) Albumin/Globulin Ratio 0.7 (1.0-1.7) Laboratory Tests Test 09/08/21 23:20 09/08/21 23:21 09/08/21 23:45 Urine Collection Type Unknown Urine Color Yellow Urine Clarity Cloudy Urine pH 5.5 (<5.0-8.0) Urine Specific [place] >=1.030 (1.000-1.030) Urine Protein Negative mg/dL (NEG-TRACE) Urine Glucose (UA) Negative mg/dL (NEG) Urine Ketones (Stick) Negative mg/dL (NEG) Urine Blood Small (NEG) Urine Nitrite Negative (NEG) Urine Bilirubin Negative (NEG) Urine Urobilinogen Dipstick 0.2 mg/dL (0.2 mg/dL) Urine Leukocyte Esterase Small (NEG) Urine RBC Occ /HPF (0-2) Urine WBC 5-10 /HPF (0-4) Urine Squamous Epithelial Cells Many /LPF Urine Bacteria Many /HPF (0-FEW) Urine Mucus Mod /LPF Bedside Urine HCG, Qualitative Hcg negative (Negative) White Blood Count 7.3 x10^3/uL (4.0-11.0) Red Blood Count 4.28 x10^6/uL (3.50-5.40) Hemoglobin 10.3 g/dL (12.0-15.5) Hematocrit 32.0 % (36.0-47.0) Mean Corpuscular Volume 75 fL (79-100) Mean Corpuscular Hemoglobin 24 pg (25-35) Mean Corpuscular Hemoglobin Concent 32 g/dL (31-37) Red Cell Distribution Width 15.9 % (11.5-14.5) Platelet Count 296 x10^3/uL (140-400) Neutrophils (%) (Auto) 70 % (31-73) Lymphocytes (%) (Auto) 23 % (24-48) Monocytes (%) (Auto) 7 % (0-9) Eosinophils (%) (Auto) 1 % (0-3) Basophils (%) (Auto) 1 % (0-3) Neutrophils # (Auto) 5.1 x10^3/uL (1.8-7.7) Lymphocytes # (Auto) 1.7 x10^3/uL (1.0-4.8) Monocytes # (Auto) 0.5 x10^3/uL (0.0-1.1) Eosinophils # (Auto) 0.0 x10^3/uL (0.0-0.7) Basophils # (Auto) 0.0 x10^3/uL (0.0-0.2) Sodium Level 140 mmol/L (136-145) Potassium Level 3.7 mmol/L (3.5-5.1) Chloride Level 103 mmol/L (98-107) Carbon Dioxide Level 27 mmol/L (21-32) Anion Gap 10 (6-14) Blood Urea Nitrogen 14 mg/dL (7-20) Creatinine 0.8 mg/dL (0.6-1.0) Estimated GFR (Cockcroft-Gault) 102.6 BUN/Creatinine Ratio 18 (6-20) Glucose Level 104 mg/dL (70-99) Calcium Level 8.7 mg/dL (8.5-10.1) Total Bilirubin 0.2 mg/dL (0.2-1.0) Aspartate Amino Transf (AST/SGOT) 16 U/L (15-37) Alanine Aminotransferase (ALT/SGPT) 28 U/L (14-59) Alkaline Phosphatase 70 U/L (46-116) Total Protein 8.2 g/dL (6.4-8.2) Albumin 3.3 g/dL (3.4-5.0) Albumin/Globulin Ratio 0.7 (1.0-1.7) Images Images CT of the abdomen pelvis with IV contrast: The bibasilar lungs are clear. No evidence of free air identified in the abdomen. The liver, spleen, adrenals grossly appears unremarkable. The gallbladder is mildly distended. The stomach is mildly distended. The visualized pancreas grossly appears unremarkable. The small bowel is nondilated. The appendix is normal. Feces and gas noted in the colon The bilateral kidneys enhance symmetrically Urinary bladder is mildly distended. There is a cystic structure identified in the right adnexa measuring 4.5 cm. No evidence of lytic bony destructive lesion. IMPRESSION: 1. 4.5 cm cystic structure identified in the right adnexa could be a cyst or cystic lesion. Follow-up ultrasound pelvis can be considered. Pelvic US: The uterus measures 9.2 x 5.6 x 5.7 cm. The endometrium is measures 1.5 cm in transverse dimension. The left ovary measures 3.6 x 3.1 x 2.4 cm. In the right adnexa, there is a 4.1 cm heterogeneous echogenicity identified without significant vascular flow within, could be hemorrhagic ovarian cyst. A separate right ovary could not be identified. IMPRESSION: In the right adnexa, there is a 4.1 cm heterogeneous echogenicity identified without significant vascular flow within, could be right ovarian hemorrhagic cyst. A separate right ovary could not be identified. VTE Prophylaxis Ordered VTE Prophylaxis Devices: Contraindicated VTE Pharmacological Prophylaxi: Yes Assessment/Plan Assessment/Plan A/P: RLQ pain - likely hemorrhagic cyst. Cont IV pain control. Awning Erector consulted H/o PID - empiric rocephin, doxy Morbid obesity - counseled on lifestyle modification Asthma - prn albuterol Axillary, breast, and groin folliculitis - mild hidradenitis, likely, counseled on razor and cleaning product, deodorant use Microcytic anemia - with heavy menses, will check iron FEN - ADAT PPX - scds FULL CODE Dispo - inpatient for above Justifications for Admission Other Justification GORGE KUNZ MD Sep 09, 2021 08:04
[2021-09-09] MEDS ORDERED: FLU VACC QUAD 21-22 (6MOS+) PF 0.5 ML SYRINGE. VAX IM ONE (09:00)
--- NOTE | 2021-09-09 09:57 | PDOC2 ---
CONSULT Date of Consult Date of Consult DATE: 09/09/21 TIME: 09:56 Reason for Consult Reason for Consult: RLQ / ovarian cyst History of Present Illness Reason for Visit: 31y who was presented to the ER with RLQ pain. The pt states that when she was getting off work she felt pressure and pain in her RLQ. The pain got progressively worse leading to her going to the ER. She reported associated with urgency and dysuria. She also states that the pain radiates towards the vagina. The pt states that she feels similar to when she was admitted last yr. She was worked up for a fever, which was felt to be PID. They r/o Covid. On u/s she had prominent left ovary with the complex focus. In the ER, a CT was performed revealing the followin.5 cm cystic structure identified in the right adnexa could be a cyst or cystic lesion. An u/s revealed the following: In the right adnexa, there is a 4.1 cm heterogeneous echogenicity identified without significant vascular flow within, could be right ovarian hemorrhagic cyst. A separate right ovary could not be identified. The pt states that she pain is gone now, but she wa just given IV morphine. Pr ior to this dose the pt states that her pain was 10/10. Past Medical History Cardiovascular: No pertinent hx Pulmonary: No pertinent hx GI: No pertinent hx Heme/Onc: No pertinent hx Hepatobiliary: No pertinent hx Psych: No pertinent hx Rheumatologic: No pertinent hx Infectious disease: No pertinent hx Past Surgical History Past Surgical History: Other Family History Family History: No Significant Social History ALCOHOL: none Drugs: None Current Problem List Problem List Problems Medical Problems: (1) Right adnexal tenderness Status: Acute (2) Right pelvic adnexal fluid collection Status: Acute Current Medications Current Medications Current Medications Morphine Sulfate (Morphine Sulfate) 4 mg 1X ONCE IVP Last administered on 09/09/21at 00:16; Start 09/08/21 at 23:30; Stop 09/08/21 at 23:31; Status DC Ondansetron HCl (Zofran) 4 mg 1X ONCE IVP Last administered on 09/09/21at 0 0:16; Start 09/08/21 at 23:30; Stop 09/08/21 at 23:31; Status DC Iohexol (Omnipaque 300 Mg/ml) 75 ml 1X ONCE IV Last administered on 09/09/21at 01:03; Start 09/09/21 at 01:00; Stop 09/09/21 at 01:01; Status DC Info (CONTRAST GIVEN -- Rx MONITORING) 1 each PRN DAILY PRN MC SEE COMMENTS; Start 09/09/21 at 01:00; Stop 09/11/21 at 00:59 Fluorescein Sodium (Ful-Zulema) 1 strip 1X ONCE OD ; Start 09/09/21 at 01:15; Stop 09/09/21 at 01:14; Status DC Tetracaine HCl (Tetracaine) 1 drop 1X ONCE OD ; Start 09/09/21 at 01:15; Stop 09/09/21 at 01:14; Status DC Ceftriaxone Sodium (Rocephin) 1 gm 1X ONCE IVP Last administered on 09/09/21at 02:14; Start 09/09/21 at 01:30; Stop 09/09/21 at 01:32; Status DC Metronidazole 100 ml @ 100 mls/hr 1X ONCE IV Last administered on 09/09/21at 02:16; Start 09/09/21 at 01:30; Stop 09/09/21 at 02:29; Status DC Doxycycline Hyclate (Vibra-Tab) 100 mg 1X ONCE PO Last administered on 09/09/21at 02:12; Start 09/09/21 at 01:30; Stop 09/09/21 at 01:34; Status DC Morphine Sulfate (Morphine Sulfate) 4 mg 1X ONCE IVP Last administered on 09/09/21at 02:13; Start 09/09/21 at 01:30; Stop 09/09/21 at 01:34; Status DC Ondansetron HCl (Zofran) 4 mg PRN Q8HRS PRN IVP NAUSEA/VOMITING; Start 09/09/21 at 03:00; Stop 09/10/21 at 02:59 Morphine Sulfate (Morphine Sulfate) 4 mg PRN Q2HR PRN IVP PAIN Last administered on 09/09/21at 08:03; Start 09/09/21 at 03:00; Stop 09/10/21 at 02:59 Sodium Chloride 1,000 ml @ 100 mls/hr Q10H IV Last administered on 09/09/21at 03:00; Start 09/09/21 at 03:00; Stop 09/10/21 at 02:59 Influenza Virus Vaccine Quadrival (Flulaval Quad Syringe) 0.5 ml ONCE ONCE VAX IM ; Start 09/09/21 at 09:00; Stop 09/09/21 at 09:01; Status DC Active Scripts Active Reported Proair Hfa Inhaler (Albuterol Sulfate) 8.5 Gm Hfa.aer.ad 2 Puff INH PRN Q4HRS PRN Allergies Allergies: Coded Allergies: No Known Drug Allergies (Unverified , 09/25/14) Physical Exam General: Alert, Oriented X3, Cooperative, No acute distress HEENT: PERRLA, Mucous membr. moist/pink Lungs: Clear to auscultation, Normal air movement Heart: Regular rate, Normal S1, Normal S2, No murmurs Abdomen: Normal bowel sounds, Soft, No hepatosplenomegaly, No masses, Other ( RLQ tenderness) Extremities: No clubbing, No cyanosis, No edema, Normal pulses, No tenderness/swelling Skin: No rashes, No breakdown Neuro: Normal gait, Normal speech, Normal tone, Sensation intact, Reflexes 2+ Psych/Mental Status: Mental status NL, Mood NL Vitals VITALS Vital Signs Date Time Temp Pulse Resp B/P (MAP) Pulse Ox O2 Delivery O2 Flow Rate FiO2 09/09/21 08:06 Room Air 09/09/21 08:03 95 09/09/21 07:00 98.0 77 18 127/79 (95) 98.0 Labs Labs Laboratory Tests Test 09/08/21 23:20 09/08/21 23:21 09/08/21 23:45 Urine Collection Type Unknown Urine Color Yellow Urine Clarity Cloudy Urine pH 5.5 (<5.0-8.0) Urine Specific [place] >=1.030 (1.000-1.030) Urine Protein Negative mg/dL (NEG-TRACE) Urine Glucose (UA) Negative mg/dL (NEG) Urine Ketones (Stick) Negative mg/dL (NEG) Urine Blood Small (NEG) Urine Nitrite Negative (NEG) Urine Bilirubin Negative (NEG) Urine Urobilinogen Dipstick 0.2 mg/dL (0.2 mg/dL) Urine Leukocyte Esterase Small (NEG) Urine RBC Occ /HPF (0-2) Urine WBC 5-10 /HPF (0-4) Urine Squamous Epithelial Cells Many /LPF Urine Bacteria Many /HPF (0-FEW) Urine Mucus Mod /LPF Bedside Urine HCG, Qualitative Hcg negative (Negative) White Blood Count 7.3 x10^3/uL (4.0-11.0) Red Blood Count 4.28 x10^6/uL (3.50-5.40) Hemoglobin 10.3 g/dL (12.0-15.5) Hematocrit 32.0 % (36.0-47.0) Mean Corpuscular Volume 75 fL (79-100) Mean Corpuscular Hemoglobin 24 pg (25-35) Mean Corpuscular Hemoglobin Concent 32 g/dL (31-37) Red Cell Distribution Width 15.9 % (11.5-14.5) Platelet Count 296 x10^3/uL (140-400) Neutrophils (%) (Auto) 70 % (31-73) Lymphocytes (%) (Auto) 23 % (24-48) Monocytes (%) (Auto) 7 % (0-9) Eosinophils (%) (Auto) 1 % (0-3) Basophils (%) (Auto) 1 % (0-3) Neutrophils # (Auto) 5.1 x10^3/uL (1.8-7.7) Lymphocytes # (Auto) 1.7 x10^3/uL (1.0-4.8) Monocytes # (Auto) 0.5 x10^3/uL (0.0-1.1) Eosinophils # (Auto) 0.0 x10^3/uL (0.0-0.7) Basophils # (Auto) 0.0 x10^3/uL (0.0-0.2) Sodium Level 140 mmol/L (136-145) Potassium Level 3.7 mmol/L (3.5-5.1) Chloride Level 103 mmol/L (98-107) Carbon Dioxide Level 27 mmol/L (21-32) Anion Gap 10 (6-14) Blood Urea Nitrogen 14 mg/dL (7-20) Creatinine 0.8 mg/dL (0.6-1.0) Estimated GFR (Cockcroft-Gault) 102.6 BUN/Creatinine Ratio 18 (6-20) Glucose Level 104 mg/dL (70-99) Calcium Level 8.7 mg/dL (8.5-10.1) Total Bilirubin 0.2 mg/dL (0.2-1.0) Aspartate Amino Transf (AST/SGOT) 16 U/L (15-37) Alanine Aminotransferase (ALT/SGPT) 28 U/L (14-59) Alkaline Phosphatase 70 U/L (46-116) Total Protein 8.2 g/dL (6.4-8.2) Albumin 3.3 g/dL (3.4-5.0) Albumin/Globulin Ratio 0.7 (1.0-1.7) Laboratory Tests Test 09/08/21 23:20 09/08/21 23:21 09/08/21 23:45 Urine Collection Type Unknown Urine Color Yellow Urine Clarity Cloudy Urine pH 5.5 (<5.0-8.0) Urine Specific [place] >=1.030 (1.000-1.030) Urine Protein Negative mg/dL (NEG-TRACE) Urine Glucose (UA) Negative mg/dL (NEG) Urine Ketones (Stick) Negative mg/dL (NEG) Urine Blood Small (NEG) Urine Nitrite Negative (NEG) Urine Bilirubin Negative (NEG) Urine Urobilinogen Dipstick 0.2 mg/dL (0.2 mg/dL) Urine Leukocyte Esterase Small (NEG) Urine RBC Occ /HPF (0-2) Urine WBC 5-10 /HPF (0-4) Urine Squamous Epithelial Cells Many /LPF Urine Bacteria Many /HPF (0-FEW) Urine Mucus Mod /LPF Bedside Urine HCG, Qualitative Hcg negative (Negative) White Blood Count 7.3 x10^3/uL (4.0-11.0) Red Blood Count 4.28 x10^6/uL (3.50-5.40) Hemoglobin 10.3 g/dL (12.0-15.5) Hematocrit 32.0 % (36.0-47.0) Mean Corpuscular Volume 75 fL (79-100) Mean Corpuscular Hemoglobin 24 pg (25-35) Mean Corpuscular Hemoglobin Concent 32 g/dL (31-37) Red Cell Distribution Width 15.9 % (11.5-14.5) Platelet Count 296 x10^3/uL (140-400) Neutrophils (%) (Auto) 70 % (31-73) Lymphocytes (%) (Auto) 23 % (24-48) Monocytes (%) (Auto) 7 % (0-9) Eosinophils (%) (Auto) 1 % (0-3) Basophils (%) (Auto) 1 % (0-3) Neutrophils # (Auto) 5.1 x10^3/uL (1.8-7.7) Lymphocytes # (Auto) 1.7 x10^3/uL (1.0-4.8) Monocytes # (Auto) 0.5 x10^3/uL (0.0-1.1) Eosinophils # (Auto) 0.0 x10^3/uL (0.0-0.7) Basophils # (Auto) 0.0 x10^3/uL (0.0-0.2) Sodium Level 140 mmol/L (136-145) Potassium Level 3.7 mmol/L (3.5-5.1) Chloride Level 103 mmol/L (98-107) Carbon Dioxide Level 27 mmol/L (21-32) Anion Gap 10 (6-14) Blood Urea Nitrogen 14 mg/dL (7-20) Creatinine 0.8 mg/dL (0.6-1.0) Estimated GFR (Cockcroft-Gault) 102.6 BUN/Creatinine Ratio 18 (6-20) Glucose Level 104 mg/dL (70-99) Calcium Level 8.7 mg/dL (8.5-10.1) Total Bilirubin 0.2 mg/dL (0.2-1.0) Aspartate Amino Transf (AST/SGOT) 16 U/L (15-37) Alanine Aminotransferase (ALT/SGPT) 28 U/L (14-59) Alkaline Phosphatase 70 U/L (46-116) Total Protein 8.2 g/dL (6.4-8.2) Albumin 3.3 g/dL (3.4-5.0) Albumin/Globulin Ratio 0.7 (1.0-1.7) Assessment/Plan Assessment/Plan Assessment: 31y admitted for RLQ pain Recommendations: 1.) RLQ pain ddx torsion, TOA, hemorrhagic cyst. Likely not torsion since pain relived completely with pain meds. Although cant complete r/o based on u/s findings. Possible TOA, although no WBC (with no left shift), pt has been AF and VSS have been stable. On previous admission in 2019, adnexal mass on the other side. At this time would tx empirically for PID/TOA. If adnexal mass is a hemorrhagic cyst, the pain should be self limiting. If she does not have clinical improvement over the next 24 hrs may need laparoscopy to r/o torsion. Ct/gc pending 2.) PID given Ceftriaxone 1gm, Flagyl 500 mg, and Doxy 100 mg in the ER. Will start Ceftriaxone (1 g IV every 24 hours) plus doxycycline (100 mg orally or IV every 12 hours) plus metronidazole (500 mg orally or IV every 12 hours). 3.) BV on Wet prep. On Flagyl MICHELLE FARAH MD Sep 09, 2021 09:57
[2021-09-09] MEDS ORDERED: DOXYCYCLINE HYCLATE 100 MG TABLET PO SCH (10:00)
[2021-09-09] MEDS ORDERED: metroNIDAZOLE 500 MG TABLET PO SCH (10:00)
[2021-09-09] MEDS ORDERED: DOXYCYCLINE HYCLATE 100 MG in IV DEXTROSE 5% 100ML 100 ML IV SCH (10:15)
[2021-09-09 11:00] VITALS: BP 154/83
[2021-09-09] MEDS: ONDANSETRON PF 4 MG/2 ML VIAL. IVP PRN ×2 (13:04→20:30)
[2021-09-09] MEDS ORDERED: KETOROLAC 30 MG/ML VIAL. IVP PRN (14:30)
[2021-09-09] MEDS ORDERED: ALBUTEROL SULFATE 2.5 MG/3 ML NEBU. NEB PRN (14:45)
[2021-09-09 15:00] VITALS: BP 158/103
[2021-09-09] MEDS: cefTRIAXone IV Push 1 GM VIAL. IVP SCH (15:28)
[2021-09-09 19:00] VITALS: BP 145/80
[2021-09-09] MEDS ORDERED: MORPHINE SULFATE 4 MG/ML INJ. IV PRN (20:30)
[2021-09-09] MEDS: DOXYCYCLINE HYCLATE 100 MG in IV DEXTROSE 5% 100ML 100 ML IV SCH (21:34)
[2021-09-09 23:00] VITALS: BP 102/66
[2021-09-10 03:00] VITALS: BP 115/72
[2021-09-10 07:00] VITALS: BP 133/70
[2021-09-10] MEDS: FERROUS SULFATE 325 MG TABLET. PO SCH (08:31)
[2021-09-10] MEDS: ONDANSETRON PF 4 MG/2 ML VIAL. IVP PRN ×2 (08:39→19:59)
--- NOTE | 2021-09-10 09:22 | PDOC ---
CONSTRUCTION SECRETARY PROGRESS NOTE Date of Service: DATE: 09/10/21 TIME: 09:22 Subjective: The pt has good pain relief with IV morphine. States that prior her pain was 8/10. Discussed ddx with the pt. Explained that based on her symptoms and imaging it is likely a hemorrhagic cyst. Explained that it is dissimilar to her admission a year ago. Last yr it was more likely an infection with her fever and tachycardia. The cyst that she had at that time may have been an incidental finding though. Since it would not be easy to confirm that it is a hemorrhagic cyst, we are txed her empirically for PID/TOA. Base on her pain, it is highly unlikely that it is a torsion. The pt and mother wonder why this keeps occurri ng. As above these are somewhat separate events. The similarity b/t them would be cyst and the best way to prevent new cyst formation would hormonal contraception. Objective: Vital Signs: Vital Signs Date Time Temp Pulse Resp B/P (MAP) Pulse Ox O2 Delivery O2 Flow Rate FiO2 09/09/21 07:00 98.0 77 18 127/79 (95) 93 98.0 09/09/21 08:03 Room Air Vital Signs Date Time Temp Pulse Resp B/P (MAP) Pulse Ox O2 Delivery O2 Flow Rate FiO2 09/10/21 08:32 96 Room Air 09/10/21 07:00 98.5 96 20 133/70 (91) 98.5 Labs: Laboratory Tests Test 09/09/21 14:00 Iron Level 40 ug/dL (50-170) L Total Iron Binding Capacity 367 ug/dL (250-450) Iron Saturation 11 % (15-34) L Physical Exam: GENERAL: No apparent distress. Alert and oriented. HEENT: Head normocephalic, atraumatic. NECK: Supple LUNGS: Clear to auscultation. HEART: RRR, S1, S2 present, pulses intact ABDOMEN: Soft, positive bowel sounds. RLQ tenderness. EXTREMITIES: No cyanosis or edema. NEUROLOGIC: Normal speech, normal tone PSYCHIATRIC: Normal affect, normal mood. SKIN: No ulceration. Assessment & Plan: A/P 31y admitted for RLQ pain 1.) RLQ pain improved, ddx torsion, TOA, hemorrhagic cyst. Symptoms most consistent with hemorrhagic cyst. Typically a hemorrhagic cyst would be self- limiting. Since can not be 100% sure, we will continue to tx like PID (although no WBC, AF, and VSS. Will switch pain meds to all PO. 2.) PID on Ceftriaxone, Flagyl, and Doxy 100 mg. 3.) BV on Wet prep. On Flagyl 4.) Anemia Hgb 5.) Dyspareunia expectant management 6.) Contraception none 7.) Disp anticipate d/c tomorrow MICHELLE FARAH MD Sep 10, 2021 09:22
[2021-09-10] MEDS ORDERED: IBUPROFEN 400 MG TABLET. PO PRN (10:15)
[2021-09-10] MEDS: DOXYCYCLINE HYCLATE 100 MG in IV DEXTROSE 5% 100ML 100 ML IV SCH ×2 (10:16→21:16)
[2021-09-10 11:00] VITALS: BP 146/69
--- NOTE | 2021-09-10 14:03 | PDOC ---
[facility] [facility] PROGRESS NOTE Date of Service DOS: DATE: 09/10/21 TIME: 13:54 Chief Complaint Chief Complaint A/P: RLQ pain - likely hemorrhagic cyst. Cont IV pain control. Doughnut Icer Machine consulted H/o PID - empiric rocephin, doxy Morbid obesity - counseled on lifestyle modification Asthma - prn albuterol Axillary, breast, and groin folliculitis - mild hidradenitis, likely, counseled on razor and cleaning product, deodorant use Microcytic anemia - with heavy menses, will check iron FEN - ADAT PPX - scds FULL CODE Dispo - inpatient for above History of Present Illness History of Present Illness Ms Mead is a 31yo female with PMHx morbid obesity, Prior miscarriage and tubo- ovarian abscess for GC chlamydia and asthma who presents with sudden onset right lower quadrant pain and 1800 on 09/08/2021 with associated nausea and one episode of vomiting. Pain is 10 out of 10 unremitting not improved with position actually worsened with sitting up. Only improved with IV morphine she is not been recently sexually active. She does note she has heavy menses. She also notes nodules in bilateral axilla underneath her breath and in her groin she has had for year. She also notes dysuria and urinary frequency recently Labs WBC 7.3, Hb 10.3 and MCV 75, platelets 296, NA 140, K3.7, BUN 14, CR 0.8, glucose 104, albumin 3.3, LFTs within normal laboratory limits, urinalysis negative hCG positive blood small leuk esterase multiple squamous cells. CT abdomen and transvaginal ultrasound show adnexal mass likely hemorrhagic cyst She only received pain relief with IV morphine. Admitted for further care. Labs returned iron deficient. Pain is little better controlled today though she still requiring IV morphine. Has not had a bowel movement is feeling little bloated and constipated. Her axillary groin hair follicles improved. She feels her IV may be a little indurated. Vitals/I&O Vitals/I&O: Vital Signs Date Time Temp Pulse Resp B/P (MAP) Pulse Ox O2 Delivery O2 Flow Rate FiO2 09/10/21 11:00 98.5 93 20 146/69 (94) 96 98.5 09/10/21 08:32 Room Air I & O 10/28/21 10/28/21 10/29/21 15:00 23:00 07:00 Intake Total 0 ml 1100 ml 340 ml Balance 0 ml 1100 ml 340 ml Physical Exam General: Alert, Oriented X3, Cooperative, moderate distress Heart: Regular rate, Normal S1, Normal S2, No murmurs Lungs: Clear, Other Abdomen: Normal bowel sounds, Soft, No hepatosplenomegaly, No masses, Other (RLQ tender) Extremities: No clubbing, No cyanosis, No edema, Normal pulses, No tenderness/swelling Skin: Other (axillary, groin, breast hidradentis, mild) Labs Labs: Laboratory Tests Test 09/09/21 14:00 Iron Level 40 ug/dL (50-170) Total Iron Binding Capacity 367 ug/dL (250-450) Iron Saturation 11 % (15-34) Assessment and Plan Assessmemt and Plan Problems Medical Problems: (1) Right adnexal tenderness Status: Acute (2) Right pelvic adnexal fluid collection Status: Acute Comment Review of Relevant I have reviewed the following items beth (where applicable) has been applied. Medications: Current Medications Medications (Trade) Dose Ordered Sig/Kev Route PRN Reason Start Time Stop Time Status Last Admin Dose Admin Ceftriaxone Sodium (Rocephin) 1 gm Q24H IVP 09/09/21 14:00 09/09/21 15:28 Doxycycline Hyclate 100 mg/ Dextrose 100 ml @ 50 mls/hr Q12H IV 09/09/21 22:00 09/10/21 10:16 Ondansetron HCl (Zofran) 4 mg PRN Q6HRS PRN IVP NAUSEA/VOMITING 09/09/21 20:30 09/10/21 08:39 Morphine Sulfate (Morphine Sulfate) 4 mg PRN Q2HR PRN IV PAIN 09/09/21 20:30 09/10/21 09:24 DC 09/10/21 08:32 Ferrous Sulfate (Feosol) 325 mg [id number] PO 09/10/21 08:00 09/10/21 08:31 Justifications for Admission Other Justification GORGE KUNZ MD Sep 10, 2021 14:03
[2021-09-10] MEDS ORDERED: POLYETHYLENE GLYCOL 3350 17 GM PACKET. PO PRN (14:30)
[2021-09-10] MEDS ORDERED: SENNOSIDES/DOCUSATE 8.6/50MG TABLET. PO PRN (14:30)
[2021-09-10 15:00] VITALS: BP 147/81
[2021-09-10] MEDS: oxyCODONE/APAP 5/325 1 TAB TABLET PO PRN (16:28)
[2021-09-10] MEDS: cefTRIAXone IV Push 1 GM VIAL. IVP SCH (17:07)
[2021-09-10 19:00] VITALS: BP 127/77
[2021-09-10] MEDS: MORPHINE SULFATE 2 MG/ML INJ. IVP PRN (19:49)
[2021-09-10] MEDS: LACTOBACILLUS RHAMNOSUS GG 1 CAPSULE. PO SCH (19:54)
[2021-09-10] MEDS: PSYLLIUM HUSK (SUGAR FREE) 1 PKT PACKET PO SCH (20:00)
[2021-09-10 22:08] LABS: GC PROBE Negative (Negative)
--- NOTE | 2021-09-10 22:55 | NUR ---
IV NOTE Pt reports her IV hurting, slight amount of edema noted to wrist area above IV site. Pt states this has happened earlier today after receiving the Doxycycline antibiotic through her IV. Pt did not want the medicine to be restarted, there was only 15 minutes left of infusion. Infusion stopped. IV removed and new IV placed. Will monitor.
[2021-09-10 23:00] VITALS: BP 118/62
[2021-09-11 03:00] VITALS: BP 114/72
[2021-09-11] MEDS: MORPHINE SULFATE 2 MG/ML INJ. IVP PRN ×2 (03:45→08:16)
[2021-09-11 07:30] VITALS: BP 130/78
--- NOTE | 2021-09-11 08:07 | PDOC ---
[facility] [facility] PROGRESS NOTE Date of Service DOS: DATE: 09/11/21 TIME: 08:06 Chief Complaint Chief Complaint A/P: RLQ pain - likely hemorrhagic cyst. Cont IV pain control. Healthcare Administration Internship consulted H/o PID - empiric rocephin, doxy Morbid obesity - counseled on lifestyle modification Asthma - prn albuterol Axillary, breast, and groin folliculitis - mild hidradenitis, likely, counseled on razor and cleaning product, deodorant use Microcytic anemia - with heavy menses, will check iron FEN - ADAT PPX - scds FULL CODE Dispo - inpatient for above History of Present Illness History of Present Illness Ms Mead is a 31yo female with PMHx morbid obesity, Prior miscarriage and tubo- ovarian abscess for GC chlamydia and asthma who presents with sudden onset right lower quadrant pain and 1800 on 09/08/2021 with associated nausea and one episode of vomiting. Pain is 10 out of 10 unremitting not improved with position actually worsened with sitting up. Only improved with IV morphine she is not been recently sexually active. She does note she has heavy menses. She also notes nodules in bilateral axilla underneath her breath and in her groin she has had for year. She also notes dysuria and urinary frequency recently Labs WBC 7.3, Hb 10.3 and MCV 75, platelets 296, NA 140, K3.7, BUN 14, CR 0.8, glucose 104, albumin 3.3, LFTs within normal laboratory limits, urinalysis negative hCG positive blood small leuk esterase multiple squamous cells. CT abdomen and transvaginal ultrasound show adnexal mass likely hemorrhagic cyst She only received pain relief with IV morphine. Admitted for further care. 09/10: Labs returned iron deficient. Pain is little better controlled today though she still requiring IV morphine. Has not had a bowel movement is feeling little bloated and constipated. Her axillary groin hair follicles improved. She feels her IV may be a little indurated. GC chlamydia DNA probe negative. IV replaced. Patient notes her pain is worse, awoke her from sleep this morning. Radiates from right flank down into her groin. Has not had a bowel movement yet. Doxycycline infusion burn she has had her IV changed twice. Plan: increasing frequency dosing of IV morphine change doxycycline to p.o. as it burned upon administration. If she has a BM and pain continues to worsen will obtain non-contrast CT to r/o nephrolithiasis as initial CT was contrast enhanced. Vitals/I&O Vitals/I&O: Vital Signs Date Time Temp Pulse Resp B/P (MAP) Pulse Ox O2 Delivery O2 Flow Rate FiO2 09/11/21 04:15 18 Room Air 09/11/21 03:00 98.8 82 114/72 (86) 97 98.8 I & O 09/10/21 09/10/21 09/11/21 15:00 23:00 07:00 Intake Total 175 ml 0 ml Balance 175 ml 0 ml Physical Exam General: Alert, Oriented X3, Cooperative, moderate distress Heart: Regular rate, Normal S1, Normal S2, No murmurs Lungs: Clear, Other Abdomen: Normal bowel sounds, Soft, No hepatosplenomegaly, No masses, Other (RLQ tender) Extremities: No clubbing, No cyanosis, No edema, Normal pulses, No tenderness/s welling Skin: Other (axillary, groin, breast hidradentis, mild) Assessment and Plan Assessmemt and Plan Problems Medical Problems: (1) Right adnexal tenderness Status: Acute (2) Right pelvic adnexal fluid collection Status: Acute Comment Review of Relevant I have reviewed the following items beth (where applicable) has been applied. Medications: Current Medications Medications (Trade) Dose Ordered Sig/Kev Route PRN Reason Start Time Stop Time Status Last Admin Dose Admin Oxycodone/ Acetaminophen (Percocet 5/325) 1 tab PRN Q6HRS PRN PO MODERATE TO SEVERE PAIN 09/10/21 10:15 09/10/21 16:28 Lactobacillus Rhamnosus (Culturelle) 1 cap BID PO 09/10/21 21:00 09/10/21 19:54 Morphine Sulfate (Morphine Sulfate) 2 mg PRN Q4HRS PRN IVP MODERATE TO SEVERE PAIN 09/10/21 14:30 09/11/21 03:45 Psyllium Hydrophilic Mucilloid (Metamucil Fiber Packet) 1 pkt QHS PO 09/10/21 21:00 09/10/21 20:00 Justifications for Admission Other Justification GORGE KUNZ MD Sep 11, 2021 08:07
[2021-09-11] MEDS: LACTOBACILLUS RHAMNOSUS GG 1 CAPSULE. PO SCH ×2 (08:14→22:49)
[2021-09-11] MEDS: FERROUS SULFATE 325 MG TABLET. PO SCH (08:14)
[2021-09-11 10:59] VITALS: BP 127/79
--- NOTE | 2021-09-11 11:18 | PDOC ---
CRIMP SETTER PROGRESS NOTE Date of Service: DATE: 09/11/21 TIME: 11:18 Subjective: The pt had good pain control until this am around 6. The pain woke her from her sleep and required IV pain meds. Objective: Vital Signs: Vital Signs Date Time Temp Pulse Resp B/P (MAP) Pulse Ox O2 Delivery O2 Flow Rate FiO2 09/10/21 07:00 98.5 96 20 133/70 (91) 96 98.5 09/10/21 08:00 Room Air Vital Signs Date Time Temp Pulse Resp B/P (MAP) Pulse Ox O2 Delivery O2 Flow Rate FiO2 09/11/21 10:59 98.5 75 18 127/79 (95) 95 Room Air 98.5 Physical Exam: GENERAL: No apparent distress. Alert and oriented. HEENT: Head normocephalic, atraumatic. NECK: Supple LUNGS: Clear to auscultation. HEART: RRR, S1, S2 present, pulses intact ABDOMEN: Soft, positive bowel sounds. EXTREMITIES: No cyanosis or edema. NEUROLOGIC: Normal speech, normal tone PSYCHIATRIC: Normal affect, normal mood. SKIN: No ulceration. Assessment & Plan: A/P 31y admitted for RLQ pain 1.) RLQ pain pain returned this am. Symptoms and imaging consistent with hemorrhagic cyst. Would switch abx to Doxycycline 100 mg twice daily x 14 days Metronidazole 500 mg orally twice daily x 14 days 2.) PID s/p on Ceftriaxone, switching to Flagyl and Doxy 3.) BV on Wet prep. On Flagyl 4.) Anemia Hgb 10.3 5.) Dyspareunia expectant management 6.) Contraception none 7.) Disp will work on pt MICHELLE Chapman MD Sep 11, 2021 11:18
[2021-09-11] MEDS ORDERED: MAGNESIUM CITRATE 296 ML SOLUTION. PO ONE (12:00)
[2021-09-11] MEDS: MORPHINE SULFATE 4 MG/ML INJ. IVP PRN ×2 (12:40→16:42)
[2021-09-11] MEDS: POLYETHYLENE GLYCOL 3350 17 GM PACKET. PO SCH (12:41)
[2021-09-11] MEDS: DOXYCYCLINE HYCLATE 100 MG TABLET PO SCH ×2 (12:41→22:50)
[2021-09-11] MEDS: SENNOSIDES/DOCUSATE 8.6/50MG TABLET. PO SCH ×2 (12:41→22:50)
[2021-09-11 15:00] VITALS: BP 123/94
[2021-09-11] MEDS: ONDANSETRON PF 4 MG/2 ML VIAL. IVP PRN (15:23)
[2021-09-11] MEDS: cefTRIAXone IV Push 1 GM VIAL. IVP SCH (15:24)
[2021-09-11] MEDS ORDERED: fentaNYL PF VIAL 100 MCG/2 ML VIAL IVP PRN (19:00)
[2021-09-11 19:52] VITALS: BP 147/101
[2021-09-11] MEDS: PSYLLIUM HUSK (SUGAR FREE) 1 PKT PACKET PO SCH (21:00)
[2021-09-11] MEDS: HYDROmorphone 2 MG TABLET PO PRN (22:50)
[2021-09-11 23:15] VITALS: BP 142/100
[2021-09-12 03:47] VITALS: BP 124/76
[2021-09-12 07:00] VITALS: BP 133/83
[2021-09-12] MEDS: SENNOSIDES/DOCUSATE 8.6/50MG TABLET. PO SCH ×2 (08:01→20:57)
[2021-09-12] MEDS: LACTOBACILLUS RHAMNOSUS GG 1 CAPSULE. PO SCH ×2 (08:01→20:57)
[2021-09-12] MEDS: POLYETHYLENE GLYCOL 3350 17 GM PACKET. PO SCH (08:02)
[2021-09-12] MEDS: DOXYCYCLINE HYCLATE 100 MG TABLET PO SCH ×2 (08:02→20:58)
[2021-09-12] MEDS: FERROUS SULFATE 325 MG TABLET. PO SCH (08:02)
[2021-09-12] MEDS: HYDROmorphone 2 MG TABLET PO PRN ×3 (08:07→20:58)
--- NOTE | 2021-09-12 09:16 | PDOC ---
TANK INSPECTOR PROGRESS NOTE Date of Service: DATE: 09/12/21 TIME: 09:15 Subjective: Pt states that the pain is no better. She had a BM, but that had no impact on her pain. Objective: Vital Signs: Vital Signs Date Time Temp Pulse Resp B/P (MAP) Pulse Ox O2 Delivery O2 Flow Rate FiO2 09/11/21 07:30 98.6 82 22 130/78 (95) 97 Room Air 98.6 Vital Signs Date Time Temp Pulse Resp B/P (MAP) Pulse Ox O2 Delivery O2 Flow Rate FiO2 09/12/21 08:07 Room Air 09/12/21 07:00 98.7 98 18 133/83 (100) 98 98.7 Physical Exam: GENERAL: No apparent distress. Alert and oriented. HEENT: Head normocephalic, atraumatic. NECK: Supple LUNGS: Clear to auscultation. HEART: RRR, S1, S2 present, pulses intact ABDOMEN: Soft, positive bowel sounds. EXTREMITIES: No cyanosis or edema. NEUROLOGIC: Normal speech, normal tone PSYCHIATRIC: Normal affect, normal mood. SKIN: No ulceration. S/slightly tender RLQ/no rebound or guarding. Assessment & Plan: A/P 31y admitted for RLQ pain 1.) RLQ pain pain still present. Symptoms and imaging consistent with hemorrhagic cyst. Now on Doxycycline and Metronidazole (to complete a 14 day course). Will repeat CBC this am 2.) PID s/p on Ceftriaxone, switching to Flagyl and Doxy 3.) BV on Wet prep. On Flagyl 4.) Anemia Hgb 10.3 5.) Dyspareunia expectant management 6.) Contraception none 7.) HTN 8.) Morbid obesity 9.) Asthma - prn albuterol 10.) Axillary, breast, and groin folliculitis - mild hidradenitis 11.) Disp cont care MICHELLE FARAH MD Sep 12, 2021 09:16
[2021-09-12 10:06] LABS: BASO % 1 % (0-3); EOS # 0.1 x10^3/uL (0.0-0.7); EOS % 1 % (0-3); HEMATOCRIT 35.9 % (36.0-47.0); HEMOGLOBIN 10.9 g/dL (12.0-15.5); LYMPH # 1.7 x10^3/uL (1.0-4.8); LYMPH % 27 % (24-48); MEAN CORPUSCULAR HEMOGLOBIN 23 pg (25-35); MEAN CORPUSCULAR HGB CONC 30 g/dL (31-37); MEAN CORPUSCULAR VOLUME 77 fL (79-100); MONO # 0.3 x10^3/uL (0.0-1.1); MONO % 5 % (0-9); NEUT # 4.4 x10^3/uL (1.8-7.7); NEUT % 67 % (31-73); PLATELET COUNT 291 x10^3/uL (140-400); RED BLOOD COUNT 4.64 x10^6/uL (3.50-5.40); RED CELL DISTRIBUTION WIDTH 15.5 % (11.5-14.5); WHITE BLOOD COUNT 6.6 x10^3/uL (4.0-11.0)
[2021-09-12 11:00] VITALS: BP 137/81
--- NOTE | 2021-09-12 13:34 | PDOC ---
[facility] [facility] PROGRESS NOTE Date of Service DOS: DATE: 09/12/21 TIME: 13:31 Chief Complaint Chief Complaint A/P: RLQ pain - likely hemorrhagic cyst. Cont IV pain control. Excavating Contractor consulted. on Doxycycline and Metronidazole (to complete a 14 day course) for bacterial vaginosis on wet prep. Will repeat CBC this am H/o PID - empiric rocephin, doxy, metronidazole. GC/Chlamydia negative Morbid obesity - counseled on lifestyle modification Asthma - prn albuterol Axillary, breast, and groin folliculitis - mild hidradenitis, likely, counseled on razor and cleaning product, deodorant use Microcytic anemia - with heavy menses, will check iron A/P 31y admitted for RLQ pain BV on Wet prep. On Flagyl Anemia Hgb 10.3 Dyspareunia she is requesting counseling for elective hysterectomy for pain management FEN - ADAT PPX - scds FULL CODE Dispo - inpatient for above History of Present Illness History of Present Illness Ms Mead is a 31yo female with PMHx morbid obesity, Prior miscarriage and tubo- ovarian abscess for GC chlamydia and asthma who presents with sudden onset right lower quadrant pain and 1800 on 09/08/2021 with associated nausea and one episod e of vomiting. Pain is 10 out of 10 unremitting not improved with position actually worsened with sitting up. Only improved with IV morphine she is not been recently sexually active. She does note she has heavy menses. She also notes nodules in bilateral axilla underneath her breath and in her groin she has had for year. She also notes dysuria and urinary frequency recently Labs WBC 7.3, Hb 10.3 and MCV 75, platelets 296, NA 140, K3.7, BUN 14, CR 0.8, glucose 104, albumin 3.3, LFTs within normal laboratory limits, urinalysis negative hCG positive blood small leuk esterase multiple squamous cells. CT abdomen and transvaginal ultrasound show adnexal mass likely hemorrhagic cyst She only received pain relief with IV morphine. Admitted for further care. 09/10: Labs returned iron deficient. Pain is little better controlled today though she still requiring IV morphine. Has not had a bowel movement is feeling little bloated and constipated. Her axillary groin hair follicles improved. She feels her IV may be a little indurated. 10/30: GC chlamydia DNA probe negative. IV replaced. Patient notes her pain is worse, awoke her from sleep this morning. Radiates from right flank down into her groin. Has not had a bowel movement yet. Doxycycline infusion burn she has had her IV changed twice. 09/12: Did have a bowel movement but did not relieve her pain and bloating. She discloses today to myself and DYE HOUSE WHEEL OPERATOR that she has been having dyspareunia for years and has previously discussed with 2 other DYE HOUSE WHEEL OPERATOR's her symptoms and heavy periods and notes she is discussed with her mother and her sister for the last 8 years about not being interested in having anymore children has a 10-year-old at home and would like to do what her mother has done have counseling for an elective hysterectomy Plan: Repeat Hb in AM Vitals/I&O Vitals/I&O: Vital Signs Date Time Temp Pulse Resp B/P (MAP) Pulse Ox O2 Delivery O2 Flow Rate FiO2 09/12/21 12:44 Room Air 09/12/21 07:00 98.7 98 18 133/83 (100) 98 98.7 I & O 09/11/21 09/11/21 09/12/21 15:00 23:00 07:00 Intake Total 620 ml 240 ml 260 ml Balance 620 ml 240 ml 260 ml Physical Exam General: Alert, Oriented X3, Cooperative, moderate distress Heart: Regular rate, Normal S1, Normal S2, No murmurs Lungs: Clear, Other Abdomen: Normal bowel sounds, Soft, No hepatosplenomegaly, No masses, Other (RLQ tender) Extremities: No clubbing, No cyanosis, No edema, Normal pulses, No tenderness/swelling Skin: Other (axillary, groin, breast hidradentis, mild) Labs Labs: Laboratory Tests Test 09/12/21 09:35 White Blood Count 6.6 x10^3/uL (4.0-11.0) Red Blood Count 4.64 x10^6/uL (3.50-5.40) Hemoglobin 10.9 g/dL (12.0-15.5) Hematocrit 35.9 % (36.0-47.0) Mean Corpuscular Volume 77 fL (79-100) Mean Corpuscular Hemoglobin 23 pg (25-35) Mean Corpuscular Hemoglobin Concent 30 g/dL (31-37) Red Cell Distribution Width 15.5 % (11.5-14.5) Platelet Count 291 x10^3/uL (140-400) Neutrophils (%) (Auto) 67 % (31-73) Lymphocytes (%) (Auto) 27 % (24-48) Monocytes (%) (Auto) 5 % (0-9) Eosinophils (%) (Auto) 1 % (0-3) Basophils (%) (Auto) 1 % (0-3) Neutrophils # (Auto) 4.4 x10^3/uL (1.8-7.7) Lymphocytes # (Auto) 1.7 x10^3/uL (1.0-4.8) Monocytes # (Auto) 0.3 x10^3/uL (0.0-1.1) Eosinophils # (Auto) 0.1 x10^3/uL (0.0-0.7) Basophils # (Auto) 0.0 x10^3/uL (0.0-0.2) Assessment and Plan Assessmemt and Plan Problems Medical Problems: (1) Right adnexal tenderness Status: Acute (2) Right pelvic adnexal fluid collection Status: Acute Comment Review of Relevant I have reviewed the following items beth (where applicable) has been applied. Medications: Current Medications Medications (Trade) Dose Ordered Sig/Kev Route PRN Reason Start Time Stop Time Status Last Admin Dose Admin Hydromorphone HCl (Dilaudid) 2 mg PRN Q4HRS PRN PO PAIN, 1st CHOICE 09/11/21 19:00 09/12/21 12:44 Justifications for Admission Other Justification GORGE KUNZ MD Sep 12, 2021 13:34
[2021-09-12 15:00] VITALS: BP 138/98
[2021-09-12 19:00] VITALS: BP 117/79
[2021-09-12] MEDS: metroNIDAZOLE 500 MG TABLET PO SCH (20:57)
[2021-09-12] MEDS: PSYLLIUM HUSK (SUGAR FREE) 1 PKT PACKET PO SCH (21:00)
[2021-09-12 23:00] VITALS: BP 125/69
[2021-09-13 03:28] VITALS: BP 115/72
[2021-09-13 06:35] LABS: HEMATOCRIT 33.2 % (36.0-47.0); HEMOGLOBIN 10.2 g/dL (12.0-15.5); RED BLOOD COUNT 4.37 x10^6/uL (3.50-5.40); RED CELL DISTRIBUTION WIDTH 15.7 % (11.5-14.5)
[2021-09-13 07:00] VITALS: BP 178/80
[2021-09-13] MEDS: POLYETHYLENE GLYCOL 3350 17 GM PACKET. PO SCH (09:00)
[2021-09-13] MEDS: SENNOSIDES/DOCUSATE 8.6/50MG TABLET. PO SCH ×2 (09:00→20:22)
[2021-09-13 11:00] VITALS: BP 121/77
[2021-09-13] MEDS: DOXYCYCLINE HYCLATE 100 MG TABLET PO SCH ×2 (11:00→20:22)
[2021-09-13] MEDS: LACTOBACILLUS RHAMNOSUS GG 1 CAPSULE. PO SCH ×2 (11:00→20:22)
[2021-09-13] MEDS: metroNIDAZOLE 500 MG TABLET PO SCH ×2 (11:00→20:22)
[2021-09-13] MEDS: FERROUS SULFATE 325 MG TABLET. PO SCH (11:00)
[2021-09-13] MEDS: traMADol 50 MG TABLET PO PRN ×2 (11:01→17:46)
--- NOTE | 2021-09-13 12:12 | PDOC ---
[facility] [facility] PROGRESS NOTE Date of Service DOS: DATE: 09/13/21 TIME: 11:59 Chief Complaint Chief Complaint RLQ pain Hx PID Morbid obesity Asthma Axillary, breast, and groin folliculitis Microcytic anemia Bacterial vaginosis Dyspareunia History of Present Illness History of Present Illness Ms Mead is a 31yo female with PMHx morbid obesity, Prior miscarriage and tubo- ovarian abscess for GC chlamydia and asthma who presents with sudden onset right lower quadrant pain and 1800 on 09/08/2021 with associated nausea and one epi sode of vomiting. Pain is 10 out of 10 unremitting not improved with position actually worsened with sitting up. Only improved with IV morphine she is not been recently sexually active. She does note she has heavy menses. She also notes nodules in bilateral axilla underneath her breath and in her groin she has had for year. She also notes dysuria and urinary frequency recently Labs WBC 7.3, Hb 10.3 and MCV 75, platelets 296, NA 140, K3.7, BUN 14, CR 0.8, glucose 104, albumin 3.3, LFTs within normal laboratory limits, urinalysis negative hCG positive blood small leuk esterase multiple squamous cells. CT abdomen and transvaginal ultrasound show adnexal mass likely hemorrhagic cyst She only received pain relief with IV morphine. Admitted for further care. 09/10: Labs returned iron deficient. Pain is little better controlled today though she still requiring IV morphine. Has not had a bowel movement is feeling little bloated and constipated. Her axillary groin hair follicles improved. She feels her IV may be a little indurated. 09/11: GC chlamydia DNA probe negative. IV replaced. Patient notes her pain is worse, awoke her from sleep this morning. Radiates from right flank down into her groin. Has not had a bowel movement yet. Doxycycline infusion burn she has had her IV changed twice. 09/12: Did have a bowel movement but did not relieve her pain and bloating. She discloses today to myself and WIND FARM DESIGNER that she has been having dyspareunia for years and has previously discussed with 2 other WIND FARM DESIGNER's her symptoms and heavy periods and notes she is discussed with her mother and her sister for the last 8 years about not being interested in having anymore children has a 10-year-old at home and would like to do what her mother has done have counseling for an flores ctive hysterectomy 09/13 Patient seen and examined at bedside Pt comfortable, NAD, afebrile Chart reviewed Discussed Sole Filler's plans with pt and mother on phone Pt states she wants hysterectomy and does not want any future children Discussed CT and wet prep results with pt Discussed case with RN and SW Vitals/I&O Vitals/I&O: Vital Signs Date Time Temp Pulse Resp B/P (MAP) Pulse Ox O2 Delivery O2 Flow Rate FiO2 09/13/21 07:00 97.9 82 18 178/80 (112) 96 97.9 09/13/21 03:28 Room Air I & O 09/12/21 09/12/21 09/13/21 15:00 23:00 07:00 Intake Total 740 ml 0 ml Balance 740 ml 0 ml Physical Exam General: Alert, Oriented X3, Cooperative, No acute distress Heart: Regular rate, Normal S1, Normal S2, No murmurs Lungs: Clear, Other Abdomen: Normal bowel sounds, Soft, No hepatosplenomegaly, No masses, Other (RLQ tender) Extremities: No clubbing, No cyanosis, No edema, Normal pulses, No tenderness/swelling Skin: Other (axillary, groin, breast hidradentis, mild) Labs Labs: Laboratory Tests Test 09/13/21 06:20 White Blood Count 6.0 x10^3/uL (4.0-11.0) Red Blood Count 4.37 x10^6/uL (3.50-5.40) Hemoglobin 10.2 g/dL (12.0-15.5) Hematocrit 33.2 % (36.0-47.0) Mean Corpuscular Volume 76 fL (79-100) Mean Corpuscular Hemoglobin 23 pg (25-35) Mean Corpuscular Hemoglobin Concent 31 g/dL (31-37) Red Cell Distribution Width 15.7 % (11.5-14.5) Platelet Count 288 x10^3/uL (140-400) Review of Systems Review of Systems: ROS negative Assessment and Plan Assessmemt and Plan Problems Medical Problems: (1) Right adnexal tenderness Status: Acute (2) Right pelvic adnexal fluid collection Status: Acute RLQ pain Hx PID Morbid obesity Asthma Axillary, breast, and groin folliculitis Microcytic anemia Bacterial vaginosis Dyspareunia Plan Sole Filler following patient, input appreciated Continue PO Abx (Flagyl and Doxy) Continue Iron supplementation Continue PRN pain control Continue PRN albuterol Trend labs Encourage PO intake (until plans for surgery confirmed) Lifestyle changes encouraged Restarted home meds as indicated DVT Prophylaxis (SCDs) Full Code Discharge Disposition: pending Sole Filler input Comment Review of Relevant I have reviewed the following items beth (where applicable) has been applied. Medications: Current Medications Medications (Trade) Dose Ordered Sig/Kev Route PRN Reason Start Time Stop Time Status Last Admin Dose Admin Metronidazole (Flagyl) 500 mg Q12HR PO 09/12/21 21:00 09/13/21 11:00 Justifications for Admission Other Justification KHOA SOLIZ III DO Sep 13, 2021 12:12
--- NOTE | 2021-09-13 13:32 | PDOC ---
WELDER SETTER ELECTRON BEAM MACHINE PROGRESS NOTE Date of Service: DATE: 09/13/21 TIME: 13:32 Subjective: The pt does not feel her pain is any better. She states that this often occurs and is told that it will not return. Explained that OCPs may be a way of preventing cyst formation. She wonders the value of hysterectomy. Explained that may not be the underlining cause of the pain especially if we did not remove her ovaries. Explained typically we would not remove her ovaries at such a young age. Objective: Vital Signs: Vital Signs Date Time Temp Pulse Resp B/P (MAP) Pulse Ox O2 Delivery O2 Flow Rate FiO2 09/12/21 07:00 98.7 98 18 133/83 (100) 98 Room Air 98.7 Vital Signs Date Time Temp Pulse Resp B/P (MAP) Pulse Ox O2 Delivery O2 Flow Rate FiO2 09/13/21 07:00 97.9 82 18 178/80 (112) 96 97.9 09/13/21 03:28 Room Air Labs: Laboratory Tests Test 09/13/21 06:20 White Blood Count 6.0 x10^3/uL (4.0-11.0) Red Blood Count 4.37 x10^6/uL (3.50-5.40) Hemoglobin 10.2 g/dL (12.0-15.5) L Hematocrit 33.2 % (36.0-47.0) L Mean Corpuscular Volume 76 fL (79-100) L Mean Corpuscular Hemoglobin 23 pg (25-35) L Mean Corpuscular Hemoglobin Concent 31 g/dL (31-37) Red Cell Distribution Width 15.7 % (11.5-14.5) H Platelet Count 288 x10^3/uL (140-400) Laboratory Tests 09/13/21 06:20 Laboratory Tests 09/13/21 06:20 Physical Exam: GENERAL: No apparent distress. Alert and oriented. HEENT: Head normocephalic, atraumatic. NECK: Supple LUNGS: Clear to auscultation. HEART: RRR, S1, S2 present, pulses intact ABDOMEN: Soft, positive bowel sounds. EXTREMITIES: No cyanosis or edema. NEUROLOGIC: Normal speech, normal tone PSYCHIATRIC: Normal affect, normal mood. SKIN: No ulceration. Assessment & Plan: A/P 31y admitted for RLQ pain 1.) RLQ pain pain still present. Symptoms and imaging consistent with hemorrhagic cyst. Now on Doxycycline and Metronidazole (to complete a 14 day course). Still without elevation in WBC 2.) PID s/p on Ceftriaxone, on PO Flagyl and Doxy 3.) BV on Wet prep. On Flagyl 4.) Anemia Hgb 10.3 5.) Dyspareunia expectant management 6.) Contraception none 7.) HTN 8.) Morbid obesity 9.) Asthma - prn albuterol 10.) Axillary, breast, and groin folliculitis - mild hidradenitis 11.) Disp cont care MICHELLE FARAH MD Sep 13, 2021 13:32
[2021-09-13 15:00] VITALS: BP 115/70
[2021-09-13 19:00] VITALS: BP 119/75
[2021-09-13] MEDS: oxyCODONE/APAP 5/325 1 TAB TABLET PO PRN (20:22)
[2021-09-13] MEDS: PSYLLIUM HUSK (SUGAR FREE) 1 PKT PACKET PO SCH (20:22)
[2021-09-13 23:20] VITALS: BP 125/77
[2021-09-14 03:00] VITALS: BP 115/72
[2021-09-14 07:00] VITALS: BP 136/86
[2021-09-14 07:26] LABS: CALCIUM 8.4 mg/dL (8.5-10.1); CREATININE 0.8 mg/dL (0.6-1.0); GFR 102.6
[2021-09-14 07:36] LABS: BASO % 1 % (0-3); EOS # 0.1 x10^3/uL (0.0-0.7); EOS % 1 % (0-3); HEMOGLOBIN 10.5 g/dL (12.0-15.5); LYMPH # 2.4 x10^3/uL (1.0-4.8); LYMPH % 35 % (24-48); MEAN CORPUSCULAR HEMOGLOBIN 24 pg (25-35); MEAN CORPUSCULAR HGB CONC 32 g/dL (31-37); MEAN CORPUSCULAR VOLUME 76 fL (79-100); MONO # 0.4 x10^3/uL (0.0-1.1); MONO % 6 % (0-9); NEUT # 3.9 x10^3/uL (1.8-7.7); NEUT % 57 % (31-73); PLATELET COUNT 306 x10^3/uL (140-400); RED BLOOD COUNT 4.34 x10^6/uL (3.50-5.40); RED CELL DISTRIBUTION WIDTH 16.4 % (11.5-14.5); WHITE BLOOD COUNT 6.9 x10^3/uL (4.0-11.0)
[2021-09-14] MEDS: SENNOSIDES/DOCUSATE 8.6/50MG TABLET. PO SCH (09:00)
[2021-09-14] MEDS: POLYETHYLENE GLYCOL 3350 17 GM PACKET. PO SCH (09:00)
--- NOTE | 2021-09-14 09:15 | PDOC ---
RIGHT OF WAY SUPERVISOR PROGRESS NOTE Date of Service: DATE: 09/14/21 TIME: 09:15 Subjective: Pt feeling a little better. Objective: Vital Signs: Vital Signs Date Time Temp Pulse Resp B/P (MAP) Pulse Ox O2 Delivery O2 Flow Rate FiO2 09/13/21 07:00 97.9 82 18 178/80 (112) 96 97.9 09/13/21 08:00 Room Air Vital Signs Date Time Temp Pulse Resp B/P (MAP) Pulse Ox O2 Delivery O2 Flow Rate FiO2 09/14/21 07:00 98.5 82 18 136/86 (103) 96 98.5 09/13/21 23:20 Room Air Labs: Laboratory Tests Test 09/14/21 06:30 White Blood Count 6.9 x10^3/uL (4.0-11.0) Red Blood Count 4.34 x10^6/uL (3.50-5.40) Hemoglobin 10.5 g/dL (12.0-15.5) L Hematocrit 33.0 % (36.0-47.0) L Mean Corpuscular Volume 76 fL (79-100) L Mean Corpuscular Hemoglobin 24 pg (25-35) L Mean Corpuscular Hemoglobin Concent 32 g/dL (31-37) Red Cell Distribution Width 16.4 % (11.5-14.5) H Platelet Count 306 x10^3/uL (140-400) Neutrophils (%) (Auto) 57 % (31-73) Lymphocytes (%) (Auto) 35 % (24-48) Monocytes (%) (Auto) 6 % (0-9) Eosinophils (%) (Auto) 1 % (0-3) Basophils (%) (Auto) 1 % (0-3) Neutrophils # (Auto) 3.9 x10^3/uL (1.8-7.7) Lymphocytes # (Auto) 2.4 x10^3/uL (1.0-4.8) Monocytes # (Auto) 0.4 x10^3/uL (0.0-1.1) Eosinophils # (Auto) 0.1 x10^3/uL (0.0-0.7) Basophils # (Auto) 0.0 x10^3/uL (0.0-0.2) Sodium Level 138 mmol/L (136-145) Potassium Level 4.0 mmol/L (3.5-5.1) Chloride Level 104 mmol/L (98-107) Carbon Dioxide Level 26 mmol/L (21-32) Anion Gap 8 (6-14) Blood Urea Nitrogen 12 mg/dL (7-20) Creatinine 0.8 mg/dL (0.6-1.0) Estimated GFR (Cockcroft-Gault) 102.6 Glucose Level 91 mg/dL (70-99) Calcium Level 8.4 mg/dL (8.5-10.1) L Laboratory Tests 09/14/21 06:30 Laboratory Tests 09/14/21 06:30 Laboratory Tests 09/14/21 06:30 Physical Exam: GENERAL: No apparent distress. Alert and oriented. HEENT: Head normocephalic, atraumatic. NECK: Supple LUNGS: Clear to auscultation. HEART: RRR, S1, S2 present, pulses intact ABDOMEN: Soft, positive bowel sounds. EXTREMITIES: No cyanosis or edema. NEUROLOGIC: Normal speech, normal tone PSYCHIATRIC: Normal affect, normal mood. SKIN: No ulceration. Assessment & Plan: A/P 31y admitted for RLQ pain 1.) RLQ pain pain improved. Symptoms and imaging consistent with hemorrhagic cyst. Would continue Doxycycline and Metronidazole upon to complete a 14 day course (12 additional days as outpatient). 2.) PID s/p on Ceftriaxone, on PO Flagyl and Doxy 3.) BV on Wet prep. On Flagyl 4.) Anemia Hgb 10.3 5.) Dyspareunia expectant management 6.) Contraception none 7.) HTN 8.) Morbid obesity 9.) Asthma - prn albuterol 10.) Axillary, breast, and groin folliculitis - mild hidradenitis 11.) Disp D/c today, f/u in the office within a week MICHELLE FARAH MD Sep 14, 2021 09:15
[2021-09-14] MEDS: DOXYCYCLINE HYCLATE 100 MG TABLET PO SCH (10:22)
[2021-09-14] MEDS: FERROUS SULFATE 325 MG TABLET. PO SCH (10:22)
[2021-09-14] MEDS: metroNIDAZOLE 500 MG TABLET PO SCH (10:22)
[2021-09-14] MEDS: LACTOBACILLUS RHAMNOSUS GG 1 CAPSULE. PO SCH (10:22)
[2021-09-14] MEDS: traMADol 50 MG TABLET PO PRN (10:23)
[2021-09-14 11:00] VITALS: BP 128/73
--- NOTE | 2021-09-14 11:03 | NUR ---
SW following. Discussed with RN, discharge order for home with self care. RN advised no SW needs.
[2021-09-14] MEDS ORDERED: METR-34 PO (11:04)
[2021-09-14] MEDS ORDERED: DOXY100T PO (11:04)
[2021-09-14] MEDS ORDERED: TRAM50TA PO (11:04)
--- NOTE | 2021-09-14 11:17 | DS ---
DATE OF DISCHARGE: 09/14/2021 ADMISSION DIAGNOSES: Ovarian cyst and urinary tract infection. DISCHARGE DIAGNOSES: Resolving ovarian cyst, resolving urinary tract infection, overweight, asthma, history of pelvic inflammatory disease, anemia, history of bacterial vaginosis, history of dyspareunia, history of axillary breast and groin folliculitis. CONSULTS: PHARMACY DISTRICT MANAGER. PROCEDURES: None. HOSPITAL COURSE: The patient is a pleasant 31-year-old female who presented with some abdominal pain in the right lower quadrant. She had a UTI, but she also had an ovarian cyst. We admitted her, gave her IV antibiotics and fluids and pain meds. We consulted PHARMACY DISTRICT MANAGER. The patient was requesting a hysterectomy, but Dr. White would like to hold off on that and instead do hormonal manipulation. He is recommending control pills. Clinically, the patient is doing well. I saw her and examined her this morning, she is wanting to go home. We will discharge. DISPOSITION: Home. ACTIVITY: As tolerated. DIET: Low sodium. MEDICATIONS: Ultram 50 q. 6, doxycycline 100 p.o. b.i.d., metronidazole 500 p.o. q. 12 and p.r.n. albuterol. TOTAL TIME: [address]: Chen TID: [id number]
--- NOTE | 2021-09-14 11:49 | PDOC ---
[employer] PROGRESS NOTE Date of Service DOS: DATE: 09/14/21 TIME: 11:49 Chief Complaint Chief Complaint RLQ pain Hx PID Morbid obesity Asthma Axillary, breast, and groin folliculitis Microcytic anemia Bacterial vaginosis Dyspareunia History of Present Illness History of Present Illness Ms Mead is a 31yo female with PMHx morbid obesity, Prior miscarriage and tubo- ovarian abscess for GC chlamydia and asthma who presents with sudden onset right lower quadrant pain and 1800 on 09/08/2021 with associated nausea and one epi sode of vomiting. Pain is 10 out of 10 unremitting not improved with position actually worsened with sitting up. Only improved with IV morphine she is not been recently sexually active. She does note she has heavy menses. She also notes nodules in bilateral axilla underneath her breath and in her groin she has had for year. She also notes dysuria and urinary frequency recently Labs WBC 7.3, Hb 10.3 and MCV 75, platelets 296, NA 140, K3.7, BUN 14, CR 0.8, glucose 104, albumin 3.3, LFTs within normal laboratory limits, urinalysis negative hCG positive blood small leuk esterase multiple squamous cells. CT abdomen and transvaginal ultrasound show adnexal mass likely hemorrhagic cyst She only received pain relief with IV morphine. Admitted for further care. 09/10: Labs returned iron deficient. Pain is little better controlled today though she still requiring IV morphine. Has not had a bowel movement is feeling little bloated and constipated. Her axillary groin hair follicles improved. She feels her IV may be a little indurated. 09/11: GC chlamydia DNA probe negative. IV replaced. Patient notes her pain is worse, awoke her from sleep this morning. Radiates from right flank down into her groin. Has not had a bowel movement yet. Doxycycline infusion burn she has had her IV changed twice. 09/12: Did have a bowel movement but did not relieve her pain and bloating. She discloses today to myself and REMEDY DEVELOPER that she has been having dyspareunia for years and has previously discussed with 2 other REMEDY DEVELOPER's her symptoms and heavy periods and notes she is discussed with her mother and her sister for the last 8 years about not being interested in having anymore children has a 10-year-old at home and would like to do what her mother has done have counseling for an flores ctive hysterectomy 09/13 Patient seen and examined at bedside Pt comfortable, NAD, afebrile Chart reviewed Discussed Jitney Driver's plans with pt and mother on phone Pt states she wants hysterectomy and does not want any future children Discussed CT and wet prep results with pt Discussed case with RN and ALYSON 09/14 Pt seen and examined at bedside No acute overnight events Afebrile Pt up in bed, comfortable, NAD, in good spirits Chart reviewed Discussed outpatient care plan with pt and sister, both agreeable Pt now ok with managing with OCPs Discussed with RN and ALYSON Vitals/I&O Vitals/I&O: Vital Signs Date Time Temp Pulse Resp B/P (MAP) Pulse Ox O2 Delivery O2 Flow Rate FiO2 09/14/21 07:00 98.5 82 18 136/86 (103) 96 98.5 09/13/21 23:20 Room Air I & O 09/13/21 09/13/21 09/14/21 15:00 23:00 07:00 Intake Total 360 ml 600 ml Balance 360 ml 600 ml Physical Exam General: Alert, Oriented X3, Cooperative, No acute distress Heart: Regular rate, Normal S1, Normal S2, No murmurs Lungs: Clear, Other Abdomen: Normal bowel sounds, Soft, No hepatosplenomegaly, No masses, Other (RLQ tender) Extremities: No clubbing, No cyanosis, No edema, Normal pulses, No tendernes s/swelling Skin: Other (axillary, groin, breast hidradentis, mild) Labs Labs: Laboratory Tests Test 09/14/21 06:30 White Blood Count 6.9 x10^3/uL (4.0-11.0) Red Blood Count 4.34 x10^6/uL (3.50-5.40) Hemoglobin 10.5 g/dL (12.0-15.5) Hematocrit 33.0 % (36.0-47.0) Mean Corpuscular Volume 76 fL (79-100) Mean Corpuscular Hemoglobin 24 pg (25-35) Mean Corpuscular Hemoglobin Concent 32 g/dL (31-37) Red Cell Distribution Width 16.4 % (11.5-14.5) Platelet Count 306 x10^3/uL (140-400) Neutrophils (%) (Auto) 57 % (31-73) Lymphocytes (%) (Auto) 35 % (24-48) Monocytes (%) (Auto) 6 % (0-9) Eosinophils (%) (Auto) 1 % (0-3) Basophils (%) (Auto) 1 % (0-3) Neutrophils # (Auto) 3.9 x10^3/uL (1.8-7.7) Lymphocytes # (Auto) 2.4 x10^3/uL (1.0-4.8) Monocytes # (Auto) 0.4 x10^3/uL (0.0-1.1) Eosinophils # (Auto) 0.1 x10^3/uL (0.0-0.7) Basophils # (Auto) 0.0 x10^3/uL (0.0-0.2) Sodium Level 138 mmol/L (136-145) Potassium Level 4.0 mmol/L (3.5-5.1) Chloride Level 104 mmol/L (98-107) Carbon Dioxide Level 26 mmol/L (21-32) Anion Gap 8 (6-14) Blood Urea Nitrogen 12 mg/dL (7-20) Creatinine 0.8 mg/dL (0.6-1.0) Estimated GFR (Cockcroft-Gault) 102.6 Glucose Level 91 mg/dL (70-99) Calcium Level 8.4 mg/dL (8.5-10.1) Review of Systems Review of Systems: ROS negative Assessment and Plan Assessmemt and Plan Problems Medical Problems: (1) Right adnexal tenderness Status: Acute (2) Right pelvic adnexal fluid collection Status: Acute RLQ pain Hx PID Morbid obesity Asthma Axillary, breast, and groin folliculitis Microcytic anemia Bacterial vaginosis Dyspareunia Plan Probable discharge today, for now continue the following: Jitney Driver following patient, input appreciated Pt to see OBGYN outpatient follow-up within 1 week Continue PO Abx (Flagyl and Doxy) (Day 12/27, 12 to be completed as outpatient) Continue Iron supplementation Continue PRN pain control Continue PRN albuterol Trend labs Encourage PO intake Lifestyle changes encouraged Restarted home meds as indicated DVT Prophylaxis Full Code Discharge Disposition: Likely home today Comment Review of Relevant I have reviewed the following items beth (where applicable) has been applied. Justifications for Admission Other Justification KHOA SOLIZ III DO Sep 14, 2021 11:49
--- NOTE | 2021-09-14 12:55 | NUR ---
patient discharged home with friend. meds and follow up reviewed. patient encouraged to establish PCP follow up. pt stable upon dc. IV removed intact.
== END 2021-09-14 12:56 | disposition home or self-care (01) | DRG 760 ==
LOC: ER 21:38 → 5 NORTH 09-09 02:48
PROVIDERS: ADMIT Family Medicine; ATTEND Family Medicine
DX: N83.209 Unspecified ovarian cyst, unspecified side (principal); N39.0 Urinary tract infection, site not specified; Z68.42 Body mass index [BMI] 45.0-49.9, adult; L73.2 Hidradenitis suppurativa; D50.9 Iron deficiency anemia, unspecified; E66.01 Morbid (severe) obesity due to excess calories; J45.909 Unspecified asthma, uncomplicated; L02.224 Furuncle of groin; N76.0 Acute vaginitis; N94.10 Unspecified dyspareunia; Z20.822 Contact with and (suspected) exposure to COVID-19; N73.9 Female pelvic inflammatory disease, unspecified; I10 Essential (primary) hypertension; Z90.710 Acquired absence of both cervix and uterus
CPT/HCPCS: 36415; 74177; 76830; 76856; 80048; 80053; 81001; 81025; 83540; 83550; 85025; 85027; 86592; 87086; 87491; 87591; 90471; 90686; 96365; 96375; 96376; J0696; J2270; J2405; J3490; J7030; J7060; Q0111; Q9967; 99285-25; G0378

== ENCOUNTER 2022-01-06 19:46 | Emergency (ER) | payer OTHER ==
[~2022-01-06] VITALS: Ht 170.2 cm; Wt 136.4 kg
[~2022-01-06 19:46] MED LIST changes: +ALBU2.5V8 INH; +DOXY100T PO
--- NOTE | 2022-01-06 20:15 | PHYS DOC ---
Past Medical History Past Medical History: Asthma Additional Past Medical Histor: miscarriage, gonorrhea/chlamydia, tubo-ovarian abscess Past Surgical History: Other Additional Past Surgical Histo: DNC Smoking Status: Never Smoker Alcohol Use: None Drug Use: None General Adult EDM: Chief Complaint: ABDOMINAL PAIN HPI: HPI: Patient is a 31 year old female who presents with diffuse lower abdominal pain, left worse than right, as well as nausea and vomiting symptoms. Symptoms began this evening. She denies constipation or diarrhea. She denies hematemesis. She denies urinary symptoms. She denies vaginal discharge or bleeding. She reports that she thinks that it might be her ovarian cyst causing her pain. LMP within the last month. She denies any pelvic or abdominal trauma or injury. She denies radiation of pain, denies back or flank pain. She also reports having had a history of PID, which was treated with antibiotics. No new sexual partners. She reports that this does not feel like her previous PID. Review of Systems: Review of Systems: Constitutional: Denies fever or chills. [] HENT: Denies nasal congestion or sore throat. [] Respiratory: Denies cough or shortness of breath. [] Cardiovascular: Denies chest pain or edema. [] GI: Diffuse lower abdominal and pelvic pain. Nausea and vomiting. Denies constipation or diarrhea. : Denies dysuria, urgency, frequency. Denies gross hematuria. Denies vaginal discharge or bleeding. Musculoskeletal: Denies back pain or joint pain. [] Integument: Denies rash. [] Neurologic: Denies headache, focal weakness or sensory changes. [] Psychiatric: Anxiety as it pertains to current clinical condition, no chronic mood or anxiety disturbance Heart Score: C/O Chest Pain: No Risk Factors: Risk Factors: DM, Current or recent (<one month) smoker, HTN, HLP, family history of CAD, obesity. Risk Scores: Score 0 - 3: 2.5% MACE over next 6 weeks - Discharge Home Score 4 - 6: 20.3% MACE over next 6 weeks - Admit for Clinical Observation Score 7 - 10: 72.7% MACE over next 6 weeks - Early Invasive Strategies Allergies: Allergies: Allergies Coded Allergies Type Severity Reaction Last Updated Verified No Known Drug Allergies 01/06/22 No Physical Exam: PE: Constitutional: Well developed, well nourished, no acute distress, non-toxic appearance. [] HENT: Normocephalic, atraumatic, bilateral external ears normal, oropharynx moist, no oral exudates, nose normal. [] Eyes: PERRL, EOMI, conjunctiva normal, no discharge. Sclerae anicteric. Neck: Normal range of motion, no tenderness, supple, no stridor. [] Cardiovascular:Heart rate regular rhythm, +2 radial and +2 posterior tibial pulses bilaterally Lungs & Thorax: Bilateral breath sounds clear to auscultation [] Abdomen: Abdomen is obese, soft, nondistended, normal bowel sounds, no palpable pulsatile mass, no CVA tenderness. Diffuse lower abdominal tenderness to palpation, left lower quadrant slightly more tender than right. Mild and inconsistent voluntary guarding. No involuntary guarding, no rigidity. No flank or abdominal ecchymoses noted. Skin: Warm, dry, no erythema, no rash. No jaundice. Back: No tenderness, no CVA tenderness. [] Extremities: No tenderness, no cyanosis, no clubbing, ROM intact, no edema. No calf tenderness. Neurologic: Alert and oriented X 3, normal motor function, normal sensory function, no focal deficits noted. [] Psychologic: Affect normal, judgement normal, mood normal. She is pleasant cooperative Current Patient Data: Vital Signs: Vital Signs Date Time Temp Pulse Resp B/P (MAP) Pulse Ox O2 Delivery O2 Flow Rate FiO2 01/06/22 20:05 98.2 116 20 172/107 (128) 100 Room Air 98.2 EKG: EKG: [] Radiology/Procedures: Radiology/Procedures: IMAGING REPORT Signed PATIENT: KARLO ARTEAGA ACCOUNT: [id number] : 1990 LOCATION: ER AGE: 31 SEX: F EXAM STATUS: REG ER ORD. PHYSICIAN: GISSEL MCDANIEL DO REASON: lower abdominal pain, n/v/diarrhea, fever PROCEDURE: CT ABD PELV W/ IV CONTRST ONLY Exam: CT of abdomen and pelvis with contrast INDICATION: Lower abdominal pain, diarrhea TECHNIQUE: Sequential axial images through the abdomen and pelvis obtained following the administration of 75 mL of Isovue-370 IV contrast. Sagittal and coronal reformatted images were reconstructed from the axial data and reviewed. Exposure: One or more of the following in the visualized dose reduction techniques were utilized for this examination: 1. Automated exposure control 2. Adjustment of the MA and/or KV according to patient size 3. Use of iterative of reconstructive technique Comparisons: 09/08/2021 FINDINGS: Heart size is normal. No pericardial effusion. Visualized lung bases are clear. No pleural effusion. Liver, spleen, pancreas, gallbladder and adrenals are unremarkable. No perinephric inflammation or hydronephrosis. No renal or ureteral calculi are identified. Bladder is partially distended and not well evaluated. Uterus is not enlarged. Cystic lesion at the left adnexa which measures approximately 5 cm in greatest dimension. Large and small bowel are unremarkable. Appendix is nonidentified. No free intra-abdominal air fluid. No obstruction. Abdominal aorta has a normal course and caliber. Abdominal vasculature is patent. No enlarged intra-abdominal lymph nodes are identified. No suspicious osseous lesions or acute fractures. IMPRESSION: 1. No acute process identified in the abdomen or pelvis. 2. There is a cystic lesion at the left adnexa which measures 5 cm in long axis, incompletely characterized on CT. Electronically signed by: Anya Arevalo MD (01/06/2022 9:59 PM) [facility] DICTATED and SIGNED BY: ANYA AREVALO MD DATE: 01/06/22 [id number] IMAGING REPORT Signed PATIENT: KARLO ARTEAGA ACCOUNT: [id number] : 1990 LOCATION: ER AGE: 31 SEX: F EXAM STATUS: REG ER ORD. PHYSICIAN: GISSEL MCDANIEL DO REASON: pelvic pain, left sided ovarian cyst PROCEDURE: PELVIS W/TV EXAM: ULTRASOUND PELVIS INDICATION: Reason: pelvic pain, left sided ovarian cyst / Spl. Instructions: / History: . Last menstrual period was 12/28/2021. COMPARISON: None available. TECHNIQUE: Transvaginal sonography was performed. FINDINGS: Uterus measures 8.7 x 5.0 x 6.0 cm. Right ovary measures 2.6 x 1.3 x 1.7 cm. Left ovary measures 4.4 x 3.7 x 3.2 cm. There is a left ovarian cyst measuring up to 2.7 cm, likely hemorrhagic cyst Vascular flow identified the ovaries bilaterally. No free fluid identified in the pelvis. IMPRESSION: No evidence for ovarian torsion. Electronically signed by: Anya Arevalo MD (01/06/2022 11:23 PM) [facility] DICTATED and SIGNED BY: ANYA AREVALO MD DATE: 01/06/22 [id number] Course & Med Decision Making: Course & Med Decision Making Pertinent Labs and Imaging studies reviewed. (See chart for details) The patient is given IV fluids, IV Zofran, IV morphine, IV Toradol and p.o. Independence. She is resting comfortably. She has a nonsurgical abdominal exam. CT imaging shows a 5 cm left ovarian cyst. Ultrasound does not demonstrate any obvious cyst or free fluid. No evidence of torsion, adequate blood flow reported to both ovaries. I have discussed the findings, differential diagnosis and plan of care with the patient. She asked me about the possibility of having a hysterectomy to help with ovarian cyst. I explained that hysterectomy would be removal of the uterus only, as opposed to an oophorectomy. I reported to her that most physicians would be hesitant to remove ovaries in someone who is 31 years of age. I gave her information for outpatient gynecology follow-up for discussion of ovarian cysts. No current indication for admission or further invasive exams at this time based on current clinical presentation. Strict return precautions are given. She verbalizes understanding. She is discharged in stable and improved condition. Daniel Disclaimer: Daniel Disclaimer: This electronic medical record was generated, in whole or in part, using a voice recognition dictation system. Departure Departure Impression: Primary Impression: Lower abdominal pain Additional Impression: Left ovarian cyst Disposition: HOME / SELF CARE / HOMELESS Condition: STABLE Referrals: NO PCP (PCP) MICHELLE FARAH MD, DONALD G Jr. MD Patient Instructions: Abdominal Pain (Nonspecific), Ovarian Cyst Additional Instructions: Return to the ER for uncontrolled vomiting, dehydration, more severe pain, temperature 100.4 or higher or for any other concerns. Please follow-up with your primary care physician as well as outpatient gynecology services. If your financial economist deems it appropriate, sometimes oral contraceptive medications can help with ovarian cysts. Scripts Ondansetron Hcl (ONDANSETRON HCL) 4 Mg Tablet 1 TAB PO PRN Q8HRS PRN for VOMITING, #15 TAB 1 Refill Prov: GISSEL MCDANIEL DO 01/07/22 Hydrocodone Bit/Acetaminophen (HYDROCODONE-APAP 5-325 ) 1 Tab Tablet 1 TAB PO PRN Q6HRS PRN for PAIN, #15 TAB 0 Refills Prov: GISSEL MCDANIEL DO 01/07/22 GISSEL MCDANIEL DO Jan 06, 2022 20:15
[2022-01-06] MEDS ORDERED: IV NORMAL SALINE 1000ML BAG 1,000 ML IV ONE (20:30)
[2022-01-06 20:51] LABS: BASO % 1 % (0-3); EOS # 0.1 x10^3/uL (0.0-0.7); EOS % 2 % (0-3); HEMOGLOBIN 10.4 g/dL (12.0-15.5); LYMPH # 2.1 x10^3/uL (1.0-4.8); LYMPH % 30 % (24-48); MEAN CORPUSCULAR HEMOGLOBIN 23 pg (25-35); MEAN CORPUSCULAR HGB CONC 31 g/dL (31-37); MEAN CORPUSCULAR VOLUME 74 fL (79-100); MONO # 0.5 x10^3/uL (0.0-1.1); MONO % 8 % (0-9); NEUT # 4.3 x10^3/uL (1.8-7.7); NEUT % 60 % (31-73); PLATELET COUNT 322 x10^3/uL (140-400); RED BLOOD COUNT 4.45 x10^6/uL (3.50-5.40); RED CELL DISTRIBUTION WIDTH 15.6 % (11.5-14.5); WHITE BLOOD COUNT 7.1 x10^3/uL (4.0-11.0)
[2022-01-06 20:56] LABS: BILIRUBIN,URINE NEGATIVE (NEG); CLARITY,URINE CLEAR; NITRITE,URINE NEGATIVE (NEG); PROTEIN,URINE NEGATIVE (NEG-TRACE)
[2022-01-06 20:58] LABS: COLOR,URINE YELLOW
[2022-01-06] MEDS ORDERED: MORPHINE SULFATE 4 MG/ML INJ. IVP ONE (21:00)
[2022-01-06] MEDS ORDERED: ONDANSETRON PF 4 MG/2 ML VIAL. IVP ONE (21:00)
[2022-01-06 21:04] LABS: CALCIUM 8.5 mg/dL (8.5-10.1); CREATININE 0.8 mg/dL (0.6-1.0); GFR 102.6; POTASSIUM 3.6 mmol/L (3.5-5.1)
[2022-01-06 21:05] LABS: RBC,URINE 0 /HPF (0-2)
[2022-01-06 21:06] LABS: ALBUMIN 3.3 g/dL (3.4-5.0); ALBUMIN/GLOBULIN RATIO 0.7 (1.0-1.7); TOTAL BILIRUBIN 0.2 mg/dL (0.2-1.0); TOTAL PROTEIN 8.3 g/dL (6.4-8.2)
[2022-01-06 21:06] LABS: BACTERIA,URINE FEW /HPF (0-FEW)
[2022-01-06 21:10] LABS: PREG TEST PT QUAL NEGATIVE (NEG)
[2022-01-06] MEDS ORDERED: CONTRAST GIVEN. MC PRN (21:45)
[2022-01-06] MEDS ORDERED: IOHEXOL 300 MG/ML 100ML VIAL. IV ONE (22:00)
--- NOTE | 2022-01-06 22:01 | RAD ---
Exam: CT of abdomen and pelvis with contrast INDICATION: Lower abdominal pain, diarrhea TECHNIQUE: Sequential axial images through the abdomen and pelvis obtained following the administrati on of 75 mL of Isovue-370 IV contrast. Sagittal and coronal reformatted images were reconstructed fro m the axial data and reviewed. Exposure: One or more of the following in the visualized dose reduction techniques were utilized for this examination: 1. Automated exposure control 2. Adjustment of the MA and/or KV according to patient size 3. Use of iterative of reconstructive technique Comparisons: 09/08/2021 FINDINGS: Heart size is normal. No pericardial effusion. Visualized lung bases are clear. No pleural effusion. Liver, spleen, pancreas, gallbladder and adrenals are unremarkable. No perinephric inflammation or hydronephrosis. No renal or ureteral calculi are identified. Bladder is partially distended and not well evaluated. Uterus is not enlarged. Cystic lesion at the l eft adnexa which measures approximately 5 cm in greatest dimension. Large and small bowel are unremarkable. Appendix is nonidentified. No free intra-abdominal air fluid. No obstruction. Abdominal aorta has a normal course and caliber. Abdominal vasculature is patent. No enlarged intra-abdominal lymph nodes are identified. No suspicious osseous lesions or acute fractures. IMPRESSION: 1. No acute process identified in the abdomen or pelvis. 2. There is a cystic lesion at the left adnexa which measures 5 cm in long axis, incompletely charac terized on CT. Electronically signed by: Anya España MD (01/06/2022 9:59 PM) [facility]
[2022-01-06] MEDS ORDERED: KETOROLAC 15 MG/ML VIAL. IVP ONE (23:00)
--- NOTE | 2022-01-06 23:25 | RAD ---
EXAM: ULTRASOUND PELVIS INDICATION: Reason: pelvic pain, left sided ovarian cyst / Spl. Instructions: / History: . Last men strual period was 12/28/2021. COMPARISON: None available. TECHNIQUE: Transvaginal sonography was performed. FINDINGS: Uterus measures 8.7 x 5.0 x 6.0 cm. Right ovary measures 2.6 x 1.3 x 1.7 cm. Left ovary measures 4.4 x 3.7 x 3.2 cm. There is a left ovarian cyst measuring up to 2.7 cm, likely h emorrhagic cyst Vascular flow identified the ovaries bilaterally. No free fluid identified in the pelvis. IMPRESSION: No evidence for ovarian torsion. Electronically signed by: Anya España MD (01/06/2022 11:23 PM) [facility]
[2022-01-06 23:53] VITALS: BP 132/69
[2022-01-07] MEDS ORDERED: ONDA-84 PO (00:05)
[2022-01-07] MEDS ORDERED: HYDR-2761 PO (00:05)
[2022-01-07] MEDS ORDERED: HYDROcodone/APAP 5/325MG 1 TAB TABLET PO ONE (00:30)
== END 2022-01-07 00:15 | disposition home or self-care (01) ==
LOC: ER 19:46
DX: N83.202 Unspecified ovarian cyst, left side (principal); R11.2 Nausea with vomiting, unspecified; J45.909 Unspecified asthma, uncomplicated
CPT/HCPCS: 36415; 74177; 76830; 76856; 80053; 81001; 83605; 83690; 84703; 85025; 87040; 87086; 96361; 96374; 96375; 99285; J1885; J2270; J2405; J7030; Q9967